=== PATIENT | female | born 1970 | race Caucasian/White ===

== ENCOUNTER 2020-05-26 21:53 | Emergency (ER) | payer OTHER, SELFPAY ==
--- NOTE | ~2020-05-26 | XR_ITS ---
EXAMINATION: XR chest 1V EXAM DATE: 05/26/2020 22:34 INDICATION: Cough, fatigue. TECHNIQUE: Portable AP frontal chest x-ray was obtained. There is no prior study for comparison. FINDINGS: There is ill-defined right midlung zone airspace disease, could be acute lung injury from C OVID-19, or other infectious process. Left lung is clear. No pneumothorax or pleural effusion. Cardio mediastinal silhouette is normal. IMPRESSION: Ill-defined right midlung zone acute airspace disease. Recommend considering/excluding C OVID-19. Reviewed, dictated and finalized at location A. IMPRESSION: Ill-defined right midlung zone acute airspace disease. Recommend c onsidering/excluding COVID-19.
[2020-05-26 21:54] VITALS: BP 144/78; PULSE 94; RESP 18; TEMP 37.4; O2SAT 94
[2020-05-26 22:08] VITALS: O2SAT 95
[2020-05-26 22:58] LABS: Basophils Percent Auto 0.1 % (0.2-1.2); Hematocrit 37.6 % (37.0-47.0); Hemoglobin 12.6 g/dL (12.0-15.0); Immature Granulocyte Absolute 0.03 K/mm3 (0.00-0.031); Immature Granulocyte Percent A 0.4 % (0-0.5); Lymphocytes Absolute Auto 1.28 K/mm3 (0.9-3.2); Lymphocytes Percent Auto 16.7 % (18.3-44.2); Mean Corpuscular HGB Conc 33.5 g/dl (32-36); Mean Corpuscular Hemoglobin 28.8 pg (26-34); Mean Corpuscular Volume 85.8 fl (80-100); Mean Platelet Volume 10.2 fl (7.4-10.4); Monocytes Absolute Auto 0.4 K/mm3 (0.1-0.6); Monocytes Percent Auto 5.4 % (2.6-8.5); Neutrophils Absolute Auto 5.9 K/mm3 (1.3-6.7); Neutrophils Percent Auto 77.4 % (45.5-73.1); Platelet Count Result 237 k/mm3 (150-375); Red Blood Count 4.38 M/mm3 (4.2-5.4); Red Cell Distribution Width 13.3 % (11.5-14.5); White Blood Count 7.7 K/mm3 (4.5-10.0)
--- NOTE | 2020-05-26 23:04 | ED.GENADULT ---
HPI - General Adult General Chief complaint: Unspecified Stated complaint: poss high bp. covid results pending Time Seen by Provider: 05/26/20 22:17 Source: patient Mode of arrival: ambulatory Limitations: no limitations History of Present Illness HPI narrative: 50 years old white female, obese presents with not feeling well for the last 7 days, 2 days ago started running fever and chills and coughing. 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 Related Data Home Medications Medication Instructions Recorded Confirmed hydrochlorothiazide 05/26/20 lisinopril 05/26/20 simvastatin mg 05/26/20 topiramate 05/26/20 05/26/20 Allergies Allergy/AdvReac Type Severity Reaction Status Date / Time acetaminophen Allergy Mild Hives Verified 05/26/20 22:11 hydrocodone Allergy Mild Heartburn Verified 05/26/20 22:11 propoxyphene Allergy Unknown Rash Verified 05/26/20 22:11 TAPE [ALL] Allergy Mild Rash Uncoded 05/26/20 22:11 Review of Systems Review of Systems: Narrative: CONSTITUTIONAL: Generalized weakness and tiredness EYES: Denies visual changes, redness, or discharge. ENT: Denies rhinorrhea, congestion, sore throat, or otalgia. CARDIOVASCULAR: Chest pain and coughing RESPIRATORY: Denies cough or dyspnea. GASTROINTESTINAL: Denies abdominal pain, nausea, vomiting, or diarrhea. GENITOURINARY: Denies dysuria or hematuria. SKIN: Denies rash or itching. MUSCULOSKELETAL: Back pain and general body aches NEUROLOGIC: Denies headache, numbness, or weakness. PSYCHIATRIC: Denies anxiety or depression. PMFSH Past Medical History Medical History (Updated 05/26/20 @ 23:32 by Leonor Booker MD) Hyperlipidemia Hypertension Family History Family History (Updated 06/02/18 @ 14:12 by DOCTOR UNKNOWN) Mother Family history of liver disease Father Family history of heart disease in male family member before age 55 Other Diabetes mellitus Family history of arthritis Family history of malignant neoplasm Hypertension Social History Social History Smoking status: Never smoker Alcohol intake: never Exam Narrative: Exam Narrative: General appearance: Well-developed, well-nourished. Patient does not look in pain or distress Skin: Normal color Head: Normocephalic, nontraumatic Eyes: Clear conjunctiva ENT: Oropharynx normal, ears normal, nose normal Neck: Supple, nontender Chest and respiratory: Airway patent, no respiratory distress, no accessory muscle use Heart: Regular rate/rhythm Abdomen: Soft, nontender, no organomegaly, quiet bowel sounds Vascular: Normal peripheral pulses, normal capillary refill. Musculoskeletal: Normal range of motion, nontender back Neurologic: Alert and oriented ?3, [employer] is normal as tested, no gross motor deficit Course Course Emergency Course: Stable Vital Signs Vital signs: Vital Signs Temperature 37.4 C 05/26/20 21:54 Pulse Rate 94 05/26/20 21:54 Respiratory Rate 18 05/26/20 21:54 Blood Pressure 144/78 H 05/26/20 21:54 Pulse Oximetry 94 05/26/20 21:54 Temperature 37.4 C 05/26/20 21:54 Pulse Rate 94 05/26/20 21:54 Respiratory Rate 18 05/26/20 21:54 Blood Pressure 144/78 H 05/26/20 21:54 Pulse Oximetry 95 05/26/20 22:08 Medical Decision Making [facility] Narrative Medical decision making narrative: Patient with not feeling well for the last few days, chest pain, coughing, My differential diagnosis pneumonia, COVID-19 infection. Patient had COVID-19 test earlier today, unknown result. Chest x-ray showed right middle lobe infiltration which could be bacterial versus COVID-19.. Patient will be discharged on Z-Deshawn f
[2020-05-26 23:12] LABS: Add Urine Microscopic? YES; Appearance Urine Clear (Clear); Bilirubin Urine Negative (Negative); Blood Urine Negative (Negative); Color Urine Yellow (Yellow); Glucose Urine UA Negative (Negative); Ketones Urine Negative (Negative); Leukocyte Esterase Ur Negative LEU/UL (Negative); Mucus Urine Rare /lpf; Nitrate Urine Negative (Negative); Protein Urine 1+ mg/dL (Negative); RBC Urine 0-2 /hpf (0-2); Specific Grav Ur 1.018 (1.001-1.035); Squamous Epithelial Cell Urine Occasional /hpf (Few); Urobilinogen Urine Negative mg/dL (<2.0); WBC Urine 0-3 /hpf
[2020-05-26 23:14] LABS: Alanine Aminotransferase 25 U/L (4-35); Albumin Level 4.1 g/dL (3.5-5.1); Alkaline Phosphatase 73 U/L (38-126); Anion Gap 10 mmol/L (8-16); Aspartate Amino Transferase 37 U/L (14-36); Bilirubin,Total 0.5 mg/dL (0.2-1.3); Blood Urea Nitrogen 12 mg/dL (7-17); Calcium 8.6 mg/dL (8.4-10.2); Carbon Dioxide 27 mmol/L (22-30); Chloride 97 mmol/L (98-107); Estimated Glomerular Filt Rate > 60; Glucose 133 mg/dL (65-105); Potassium 3.1 mmol/L (3.4-5.0); Sodium 134 mmol/L (137-145)
[2020-05-27 00:24] VITALS: BP 139/82; PULSE 84; RESP 20; O2SAT 97
== END 2020-05-27 00:27 | disposition home or self-care (01) ==
PROVIDERS: Emergency Provider Emergency Medicine; PCP Emergency Medicine
DX: E87.1 Hypo-osmolality and hyponatremia (principal); E87.6 Hypokalemia; J18.9 Pneumonia, unspecified organism; E78.5 Hyperlipidemia, unspecified; I10 Essential (primary) hypertension
CPT/HCPCS: 36415; 71045; 80053; 81001; 81025; 85025; 99283

== ENCOUNTER 2020-07-12 09:55 | Outpatient (CLI) | payer OTHER, SELFPAY ==
--- NOTE | ~2020-07-12 | MR_ITS ---
EXAMINATION: MR knee RT wo con DATE: 07/12/2020 10:57 INDICATION: Right knee pain and giving out TECHNIQUE: Magnetic resonance imaging (MRI) of the right knee was performed without intravenous contr ast. Sequences included coronal PD-weighted FSE, coronal PD-weighted FS FSE, sagittal T2-weighted FS E, sagittal PD-weighted FS FSE and axial PD weighted fat saturated FSE. COMPARISON: None. FINDINGS: There is mild motion artifact on the nonfat saturated sagittal images which only minimally limits elle luation. Medial compartment: Medial meniscus is normal. Partial-thickness cartilage loss and deep fissuring with mild underlying s ubarticular edema along the anterior weightbearing medial femoral condyle. Lateral compartment: Lateral meniscus is normal. Articular cartilage is normal. Patellofemoral compartment: Deep chondral fissuring at the medial and lateral patellar facets and intervening patellar apical rid ge, the latter with small focus of underlying subarticular edema. Cortical irregularity underlying a region of deep chondral ulceration and fissuring at the inferior aspect of the medial trochlea. Ligaments and tendons: Anterior and posterior cruciate ligaments are normal. There is thickening and mild increased signal a t the proximal medial collateral ligament without surrounding edema consistent with mild scarring rel ated to chronic sprain. The fibular collateral ligament is normal. The patellar tendon is normal. Mil d tendinopathy at the distal quadriceps tendon. The visualized medial and lateral hamstring tendons a s well as the iliotibial band are normal. Fluid: Physiologic amount of fluid in the joint space. No loose osteochondral bodies identified. Osseous/other: Bone alignment is normal. There is additional focal marrow edema underlying the intercondylar eminenc e. No fracture or pathologic marrow replacing process. IMPRESSION: 1. 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 Reviewed, dictated and finalized at location B. IMPRESSION: 1. 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
== END 2020-07-12 09:56 | disposition home or self-care (01) ==
LOC: ANHIMG 09:57
PROVIDERS: PCP Emergency Medicine; Visit Provider Nurse Practitioner Family
DX: M25.561 Pain in right knee (principal); M17.11 Unilateral primary osteoarthritis, right knee; M94.261 Chondromalacia, right knee
CPT/HCPCS: 73721

== ENCOUNTER 2021-04-02 12:16 | Outpatient (CLI) | payer OTHER, SELFPAY ==
--- NOTE | ~2021-04-02 | MR_ITS ---
EXAMINATION: MR hand RT wo con DATE: 04/02/2021 13:43 INDICATION: Right hand pain and mass. TECHNIQUE: Magnetic resonance imaging (MRI) of the right hand centered of the digits in excluding the carpus and proximal to mid metacarpals was performed without intravenous contrast. Sequences include d sagittal, coronal, and axial T1-weighted FSE and T2-weighted FS FSE. A marker was placed over the m ass of concern. COMPARISON: Right hand radiographs dated 03/26/2021. FINDINGS: Bone alignment is normal with normal marrow signal throughout. No reactive edema, fracture or patholo gic marrow replacing process. Joint spaces are normal with no effusions or erosions. The flexor and e xtensor tendons and the collateral ligament complex at the metacarpophalangeal and interphalangeal glenna ints are normal. The visualized intrinsic musculature of the hand is normal. No abnormal masses or fl uid collections identified. IMPRESSION: 1. Normal MRI of the digits of the right hand. No abnormal masses or fluid collections identified. Reviewed, dictated and finalized at location A. IMPRESSION: 1. Normal MRI of the digits of the right hand. No abnormal masses or fluid opal ections identified.
== END 2021-04-02 12:17 | disposition home or self-care (01) ==
LOC: ANHIMG 12:25
PROVIDERS: PCP Emergency Medicine; Visit Provider Nurse Practitioner Family
DX: M79.641 Pain in right hand (principal)
CPT/HCPCS: 73218

== ENCOUNTER 2021-04-03 14:31 | Outpatient (CLI) | payer OTHER, SELFPAY ==
--- NOTE | ~2021-04-03 | XR_ITS ---
XR chest 2V DATE: 04/03/2021 14:47 INDICATION: Pneumonia follow-up TECHNIQUE: PA and lateral views COMPARISON: 05/26/2020 portable AP chest FINDINGS: Normal heart size. No hilar or mediastinal enlargement. The lungs are clear of infiltrate o r consolidation. No pleural effusion or pulmonary vascular congestion or pneumothorax. IMPRESSION: No active cardiopulmonary disease Reviewed, dictated and finalized at location A.
== END 2021-04-03 14:32 | disposition home or self-care (01) ==
LOC: ANHIMG 14:34
PROVIDERS: PCP Emergency Medicine; Visit Provider Emergency Medicine
DX: J18.9 Pneumonia, unspecified organism (principal)
CPT/HCPCS: 71046

== ENCOUNTER 2021-04-06 08:08 | Outpatient (CLI) | payer OTHER, SELFPAY ==
--- NOTE | ~2021-04-06 | MM_ITS ---
EXAMINATION: MM screening kay BI w bryce HISTORY: Screening TECHNIQUE: Craniocaudal and mediolateral oblique 3-D tomosynthesis images were obtained and synthetic 2-D images were generated. CAD analysis was submitted and interpreted. COMPARISON: Comparison to multiple prior studies sequentially, with oldest reviewed study dated 10/11. BREAST PARENCHYMAL COMPOSITION: The breasts are almost entirely fatty. FINDINGS: There is no evidence of suspicious mass, calcification, or architectural distortion to sugg est malignancy in either breast. There has been no suspicious interval change. IMPRESSION: 1. No mammographic evidence of malignancy. 2. Recommend routine screening mammography in one year. BI-RADS Category 1: Negative Reviewed, dictated and finalized at location A.
== END 2021-04-06 08:09 | disposition home or self-care (01) ==
LOC: ANHIMG 08:11
PROVIDERS: PCP Emergency Medicine; Visit Provider Obstetrics & Gynecology
DX: Z12.31 Encounter for screening mammogram for malignant neoplasm of breast (principal)
CPT/HCPCS: 77063; 77067

== ENCOUNTER 2021-05-29 00:31 | Day surgery (SDC) | payer OTHER, SELFPAY ==
[2021-05-22 14:11] VITALS: BMI 42.3
[2021-05-29 07:45] VITALS: BP 140/81; PULSE 80; RESP 18; TEMP 36.7; O2SAT 98; BMI 41.4
[2021-05-29] MEDS: LACTATED RINGERS 1,000 ML 150 ML IV CONT (07:48)
--- NOTE | 2021-05-29 08:25 | WPDANESEPPF ---
Anes - Initial Pre Proc Eval Procedure: Operation Date: 05/29/21 09:00 Proposed Procedures p Screening Colonoscopy - Raji Ramirez MD Date/Time: 05/29/21 08:25 Surgeon: Raji Ramirez MD Pre Op Diagnosis: neoplasm screening Z12.11 Patient Data Age: 51 Gender: F Height: 1.68 m Weight: 116.5 kg Last Vital Signs Temp 98.1 F 05/29/21 07:45 Pulse 80 05/29/21 07:45 Resp 18 05/29/21 07:45 BP 140/81 05/29/21 07:45 Pulse Ox 98 05/29/21 07:45 Allergies Allergy/AdvReac Type Severity Reaction Status Date / Time hydrocodone Allergy Intermediate Palpitation Verified 05/29/21 07:44 s propoxyphene Allergy Intermediate Rash Verified 05/29/21 07:44 TAPE [ALL] Allergy Mild Rash Uncoded 05/29/21 07:44 Home Medications Medication Instructions Recorded Confirmed Type hydrochlorothiazide 12.5 mg PO DAILY 05/26/20 05/29/21 History lisinopril 10 mg PO DAILY 05/26/20 05/29/21 History potassium chloride 20 meq PO BID 5 Days #10 each 05/26/20 05/29/21 Rx simvastatin 40 mg PO DAILY 05/26/20 05/29/21 History topiramate 50 mg PO DAILY 05/26/20 05/29/21 History Adults Multivitamin 1 cap PO DAILY 05/22/21 05/29/21 History Calcium 600 + D(3) 1 cap PO DAILY 05/22/21 05/29/21 History aspirin [Adult Aspirin EC Low 81 mg PO DAILY 05/22/21 05/29/21 History Strength] biotin 5,000 mcg PO DAILY 05/22/21 05/29/21 History bupropion HCl 150 mg PO BID 05/22/21 05/29/21 History cetirizine [Zyrtec] 10 mg PO HS 05/22/21 05/29/21 History cholecalciferol (vitamin D3) 50 mcg PO DAILY 05/22/21 05/29/21 History [Vitamin D3] citalopram 20 mg PO HS 05/22/21 05/29/21 History omeprazole 20 mg PO DAILY 05/22/21 05/29/21 History vitamin E 100 unit PO DAILY 05/22/21 05/29/21 History Patient hx anesthesia problems: none Family hx anesthesia problems: none [facility] Past Medical History Medical History (Updated 03/27/21 @ 16:03 by Lashay Cloud) Arthritis Depression Hyperlipidemia Hypertension Injury of toe on left foot Left knee DJD Mass of finger of right hand MCL sprain of right knee Medial meniscus tear Right hand pain Right knee DJD Right knee pain Sleep apnea Vision abnormalities Wears glasses Family History Family History Mother Family history of liver disease Father Family history of heart disease in male family member before age 55 Other Diabetes mellitus Family history of arthritis Family history of malignant neoplasm Hypertension Social History Social History Smoking status: Never smoker Alcohol intake: never Substance use: never Substance use type: does not use Living arrangements: with family Spiritual care concerns: No Anes - Eval Final PreProcedure Day of Procedure 05/29/21 08:25 Patient weight: morbidly obese Heart: regular rate and rhythm Lungs: clear to auscultation Airway: Mallampati scale class III Neurological: alert and oriented Last oral intake: >/= 8 hours ASA classification: III Emergent: no Anesthetic plan: proceed Anesthesia type and monitoring: general GIVS and standard monitoring Informed Consent: The patient's anesthetic plan and its attendant risks and benefits were discussed with the patient/family/POA. Questions were solicited and answers provided to the satisfaction of the patient/family/POA.
--- NOTE | 2021-05-29 08:32 | PM.HPGS ---
History of Present Illness History of Present Illness Consent: Risks, benefits, and alternatives have been discussed and questions answered. Patient agrees to proceed with procedure. Chief complaint: neoplasm screening Z12.11 Narrative: Jennifer Quarles is a 51 year old female here for first screening colonoscopy Review of Systems Constitutional: Constitutional: Denies headache(s) and Denies weakness Eyes: Eyes: Denies blurry vision ENT: Reports Normal hearing present, Denies headache(s) and Denies neck pain Cardiovascular: Cardiovascular: Denies chest pain and Denies dyspnea Respiratory: Respiratory: Denies dyspnea Gastrointestinal: Gastrointestinal: Reports no additional gastrointestinal complaints Genitourinary: Genitourinary: Denies dysuria Musculoskeletal: Musculoskeletal: Denies neck pain Integumentary/Breasts: Skin/Breast: Denies dry skin Neurologic: Reports Normal hearing present, Denies headache(s) and Denies weakness Psychiatric: Psychiatric: Denies anxiety Endocrine: Endocrine: Denies change in body appearance Hematologic/Lymphatic: Hematologic/Lymphatic: Denies easy bleeding Allergic/Immunologic: Allergic/Immunologic: Denies urticaria PMFSH Past Medical History Medical History (Updated 05/29/21 @ 08:32 by Raji Ramirez MD) Arthritis Colon cancer screening Depression Hyperlipidemia Hypertension Injury of toe on left foot Left knee DJD Mass of finger of right hand MCL sprain of right knee Medial meniscus tear Right hand pain Right knee DJD Right knee pain Sleep apnea Vision abnormalities Wears glasses Family History Family History Mother Family history of liver disease Father Family history of heart disease in male family member before age 55 Other Diabetes mellitus Family history of arthritis Family history of malignant neoplasm Hypertension Social History Social History Smoking status: Never smoker Alcohol intake: never Substance use: never Substance use type: does not use Living arrangements: with family Spiritual care concerns: No Meds Home Medications and Allergies Home Medications Medication Instructions Recorded Confirmed Type hydrochlorothiazide 12.5 mg PO DAILY 05/26/20 05/29/21 History lisinopril 10 mg PO DAILY 05/26/20 05/29/21 History potassium chloride 20 meq PO BID 5 Days #10 each 05/26/20 05/29/21 Rx simvastatin 40 mg PO DAILY 05/26/20 05/29/21 History topiramate 50 mg PO DAILY 05/26/20 05/29/21 History Adults Multivitamin 1 cap PO DAILY 05/22/21 05/29/21 History Calcium 600 + D(3) 1 cap PO DAILY 05/22/21 05/29/21 History aspirin [Adult Aspirin EC Low 81 mg PO DAILY 05/22/21 05/29/21 History Strength] biotin 5,000 mcg PO DAILY 05/22/21 05/29/21 History bupropion HCl 150 mg PO BID 05/22/21 05/29/21 History cetirizine [Zyrtec] 10 mg PO HS 05/22/21 05/29/21 History cholecalciferol (vitamin D3) 50 mcg PO DAILY 05/22/21 05/29/21 History [Vitamin D3] citalopram 20 mg PO HS 05/22/21 05/29/21 History omeprazole 20 mg PO DAILY 05/22/21 05/29/21 History vitamin E 100 unit PO DAILY 05/22/21 05/29/21 History Allergies Allergy/AdvReac Type Severity Reaction Status Date / Time hydrocodone Allergy Intermediate Palpitation Verified 05/29/21 07:44 s propoxyphene Allergy Intermediate Rash Verified 05/29/21 07:44 TAPE [ALL] Allergy Mild Rash Uncoded 05/29/21 07:44 Vital Signs Vital Signs - 24 hr 05/29/21 07:45 Temperature 98.1 F Pulse Rate 80 Respiratory Rate 18 Blood Pressure 140/81 Pulse Oximetry 98 Exam Const: General: comfortable and no acute distress HENMT: General nose exam: Normal nares present Eyes: General: appearance normal, both eyes and all related structures Neck: Neck: no JVD Resp: Auscultation: clear to auscultation bilaterally Cardio: Rate: regular rate Rhythm: regular rhythm GI:
[2021-05-29 08:53] VITALS: BP 118/53; PULSE 75; RESP 21; O2SAT 100
[2021-05-29 09:03] VITALS: BP 106/55; PULSE 68; RESP 24; O2SAT 100
[2021-05-29 09:13] VITALS: BP 101/54; PULSE 72; RESP 18; O2SAT 100
== END 2021-05-29 09:21 | disposition home or self-care (01) ==
PROVIDERS: PCP Emergency Medicine; Visit Provider Internal Medicine Gastroenterology
PROC: 0DJD8ZZ Inspection of Lower Intestinal Tract, Via Natural or Artificial Opening Endoscopic (ICD-10-PCS; CPT 45378; principal; 2021-05-29 09:00)
DX: Z12.11 Encounter for screening for malignant neoplasm of colon (principal); K64.8 Other hemorrhoids; M19.90 Unspecified osteoarthritis, unspecified site; F32.9 Major depressive disorder, single episode, unspecified; I10 Essential (primary) hypertension; G47.30 Sleep apnea, unspecified; Z79.82 Long term (current) use of aspirin; E78.5 Hyperlipidemia, unspecified; E66.01 Morbid (severe) obesity due to excess calories; Z68.41 Body mass index [BMI] 40.0-44.9, adult
CPT/HCPCS: 45378; J2704; J7120

== ENCOUNTER 2022-07-25 09:07 | Outpatient (CLI) | payer OTHER, SELFPAY ==
--- NOTE | ~2022-07-25 | CT_ITS ---
EXAMINATION: CT abdomen wo/w con INDICATION: Right kidney mass TECHNIQUE: Computed tomographic images of the abdomen were obtained prior to then following the admin istration of 100 cc of Omnipaque 350 intravenous contrast. The dose-length product (DLP) was 1826.16 mGy-cm. Automated exposure control and iterative reconstruction technique were employed. COMPARISON: 07/21/2016 FINDINGS: Minimal dependent atelectasis is present in the lung bases. The heart size is normal. The l iver, spleen, pancreas, gallbladder, and adrenal glands are normal. There is a 7.4 x 4.6 cm cyst of t he right kidney. Hypoattenuating lesions of the kidneys, measuring 3 mm on the right and 4 mm on the left, are too small to characterize but likely represent cysts. There are no pathologically enlarged abdominal lymph nodes. There is no free intraperitoneal gas or evidence of bowel obstruction. There i s a tiny umbilical hernia containing fat. IMPRESSION: 1. Right kidney cyst. Reviewed, dictated and finalized at location B. RITY LEAD IMPRESSION: 1. Right kidney cyst.
[2022-07-25 09:24] LABS: Estimated Glomerular Filt Rate 58
== END 2022-07-25 09:08 | disposition home or self-care (01) ==
PROVIDERS: PCP Emergency Medicine; Visit Provider Emergency Medicine
DX: N28.1 Cyst of kidney, acquired (principal)
CPT/HCPCS: 74170; Q9967

== ENCOUNTER 2022-08-20 15:30 | Outpatient (RCR) | payer OTHER, SELFPAY ==
--- NOTE | 2022-07-23 15:59 | PTOPEVAL1 ---
Assessment and note entered by Judy Frazier, PT Evaluation Information Assessment Status Evaluation Diagnosis L peroneal tendonitis; pain in L lower leg; achilles tendonitis Onset December 2021 Subjective Information have history of 2 L ankle fractures- non surgical; in December had L bunionectomy; wore walking boot 2 months; still had pain-- had injection L ankle- helped with pain, but still hurt; have had issues with L ankle for a long time; fell last week, stepped on uneven ground, twisted ankle and hurt it again; wear a compression knee high sock and velcro ankle brace with lace up; have not been doing any exercises for ankle; Reported Pain Level Pain Score Self Report Additional Pain Score Comments pain range L ankle 3-10/10; sharp, stabbing, burning pain; increase pain with walking over 2 hours; decrease pain sit and rest, elevate leg in recliner; is not taking any pain med for ankle; is on lyrica; have not used ice- instruct PRN use; have issues falling asleep due to ankle pain, once asleep is OK; generally sleep on sides- instruct on use of pillow between knees/ankles Assessment PT Clinical Summary Jennifer has the diagnosis of L peroneal tendonitis, lower leg pain and achilles tendonitis. Her history includes bunionectomy in December and 2 non surgical ankle fractures. She reports pain with walking/standing over 2 hours and problems falling asleep due to ankle pain. With the evaluation: L ankle ROM is WNL, except slight tightness with DF, and pain with all motions, inversion most pain increase; decreased weight bearing tolerance with standing and single leg standing on L LE; she walks with a limp on L and is using a compression knee high sock and lace up ankle support brace. There is tenderness over area distal to lateral malleoli and distal achilles tendon. Skilled PT services are indicated for modalities to decrease pain, therapeutic exercises to increase ankle DF ROM and strength of L ankle, with education for home exercises. Plan of Care Interventions Electrical Stimulation,Gait Training,Manual Therapy,Patient/Caregiver Education,Therapeutic Activities,Therapeutic Exercise,Ultrasound,Other Other Interventions
--- NOTE | 2022-08-20 15:54 | PTOPDC ---
Assessment and note entered by Judy Frazier, PT Evaluation Information Assessment Status Discharge Diagnosis L peroneal tendonitis; pain in L lower leg; achilles tendonitis Onset December 2021 Subjective Information Jennifer reports: ankle pain is the same; have been doing the exercises, but not overdoing them to cause more pain; Discussed with pt aquatic exercises for overall fitness exercises, she does not have access to a pool, but may think about joining a fitness center. Reported Pain Level Pain Score Self Report Additional Pain Score Comments pain range of 3-10/10; aching, sometimes burning and stabbing; increase pain with walking/standing 10-15 min, have to sit and rest, then get back up again; issues with sleeping due to overall pain, can usually get ankle comfortable; decrease pain with sitting, resting, ice, wearing ankle lace up- support brace; R ankle also hurting--wearing ankle brace on it too; also back and hip pain; Assessment PT Clinical Summary Jennifer has received 6 PT sessions for her L ankle. Compared to the initial evaluation: pain rating is the same; reported standing/walking tolerance is the same; sleeping is slightly better; increase strength of L ankle in sitting and standing exercises; slight increase in ankle DF ROM; still has pain with ankle PF, inversion and eversion motions. The goals were partially achieved; Discharge PT services and she is to continue with her exercises at home. Plan of Care PT Services Indicated No
== END 2022-08-21 08:40 | disposition home or self-care (01) ==
LOC: ANHPT 15:30
PROVIDERS: PCP Emergency Medicine; Visit Provider Podiatrist Foot & Ankle Surgery
DX: M76.72 Peroneal tendinitis, left leg (principal); M76.62 Achilles tendinitis, left leg
CPT/HCPCS: 97035; 97110; 97112; 97140; 97161

== ENCOUNTER 2022-10-15 12:30 | Emergency (ER) | payer OTHER, SELFPAY ==
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
[2022-10-15 12:34] VITALS: BP 153/82; PULSE 73; RESP 16; TEMP 36.8; O2SAT 99
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
[2022-10-15] MEDS: LIDOCAINE 5% PATCH 1 PATCH TRANSDERM (14:18)
[2022-10-15] MEDS: ACETAMINOPHEN 325 MG TABLET 650 MG PO (14:21)
[2022-10-15] MEDS: IBUPROFEN 600 MG TABLET PO (14:21)
== END 2022-10-15 16:00 | disposition home or self-care (01) ==
PROVIDERS: Emergency Provider Physician Assistant; PCP Emergency Medicine
DX: S19.9XXA Unspecified injury of neck, initial encounter (principal); S39.92XA Unspecified injury of lower back, initial encounter; E78.5 Hyperlipidemia, unspecified; I10 Essential (primary) hypertension; M17.0 Bilateral primary osteoarthritis of knee; M35.07 Sjogren syndrome with central nervous system involvement; G47.30 Sleep apnea, unspecified; F41.9 Anxiety disorder, unspecified; F32.A Depression, unspecified; Z79.82 Long term (current) use of aspirin; Z90.710 Acquired absence of both cervix and uterus; Z90.721 Acquired absence of ovaries, unilateral; M47.812 Spondylosis without myelopathy or radiculopathy, cervical region; V49.40XA Driver injured in collision with unspecified motor vehicles in traffic accident, initial encounter
CPT/HCPCS: 72125; 72131; 99284; A9270

== ENCOUNTER 2022-10-22 14:25 | Emergency (ER) | payer OTHER, SELFPAY ==
--- NOTE | ~2022-10-22 | XR_ITS ---
EXAMINATION: XR elbow RT min 3V DATE: 10/22/2022 15:28 INDICATION: Right elbow injury and pain. TECHNIQUE: 4 views of right elbow were obtained. COMPARISON: None. FINDINGS: Bone alignment is normal. No fracture. Joint spaces are well maintained. There are enthesop hytes at the medial and lateral humeral epicondyles. There is no elbow joint effusion. IMPRESSION: 1. No fracture. Reviewed, dictated and finalized at location A. H DRESSER IMPRESSION: 1. No fracture.
--- NOTE | ~2022-10-22 | XR_ITS ---
EXAMINATION: XR forearm RT 2V DATE: 10/22/2022 15:29 INDICATION: Right forearm injury and pain. TECHNIQUE: 2 views of right forearm were obtained. COMPARISON: None. FINDINGS: Bone alignment is normal. No fracture. Joint spaces are well maintained. There is no elbow joint effusion. IMPRESSION: 1. No fracture. Reviewed, dictated and finalized at location A. ION PADDER IMPRESSION: 1. No fracture.
--- NOTE | ~2022-10-22 | XR_ITS ---
EXAMINATION: XR ankle RT min 3V DATE: 10/22/2022 15:28 INDICATION: Right ankle pain. TECHNIQUE: 4 views of right ankle were obtained. COMPARISON: None. FINDINGS: Bone alignment is normal. No fracture. There is mild osteoarthritis of the midfoot and ankl e joint including an osteochondral lesion of medial talar dome. There is an enthesophyte at posterior aspect of calcaneal tuberosity. IMPRESSION: 1. Polyarticular osteoarthritis. Reviewed, dictated and finalized at location A. [employer]
[2022-10-22 14:26] VITALS: BP 143/57; PULSE 86; RESP 20; TEMP 37; O2SAT 100
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
--- NOTE | 2022-10-22 15:18 | PC.NURSE ---
Radiology at bedside to obtain xrays.
--- NOTE | 2022-10-22 16:13 | PC.NURSE ---
Patient declines FATUMA wrap.
== END 2022-10-22 16:52 | disposition home or self-care (01) ==
PROVIDERS: Emergency Provider Physician Assistant; PCP Emergency Medicine
DX: S99.911A Unspecified injury of right ankle, initial encounter (principal); S50.11XA Contusion of right forearm, initial encounter; E78.5 Hyperlipidemia, unspecified; I10 Essential (primary) hypertension; M35.07 Sjogren syndrome with central nervous system involvement; G47.30 Sleep apnea, unspecified; M17.0 Bilateral primary osteoarthritis of knee; M19.071 Primary osteoarthritis, right ankle and foot; F32.A Depression, unspecified; F41.9 Anxiety disorder, unspecified; Z79.82 Long term (current) use of aspirin; Z90.710 Acquired absence of both cervix and uterus; Z90.721 Acquired absence of ovaries, unilateral; V49.40XA Driver injured in collision with unspecified motor vehicles in traffic accident, initial encounter
CPT/HCPCS: 73080; 73090; 73610; 99284

== ENCOUNTER 2023-02-19 00:16 | Day surgery (SDC) | payer OTHER, SELFPAY ==
[2023-02-12 14:42] VITALS: BMI 42.0
--- NOTE | 2023-02-19 08:47 | WPDANESEPPF ---
Anes - Initial Pre Proc Eval Procedure: Operation Date: 02/19/23 10:15 Proposed Procedures p Esophagogastroduodenoscopy - aRji Ramirez MD Date/Time: 02/19/23 08:47 Surgeon: Raji Ramirez MD Pre Op Diagnosis: GERD, nausea, bloating Patient Data Age: 52 Gender: F Height: 1.68 m Weight: 118 kg Allergies Allergy/AdvReac Type Severity Reaction Status Date / Time hydrocodone Allergy Intermediate Palpitation Verified 02/19/23 08:56 s propoxyphene Allergy Intermediate Rash Verified 02/19/23 08:56 adhesive tape Allergy Mild Rash Verified 02/19/23 08:56 Home Medications Medication Instructions Recorded Confirmed Type hydrochlorothiazide 12.5 mg capsule 12.5 mg PO DAILY 05/26/20 02/12/23 History lisinopril 10 mg tablet 10 mg PO DAILY 05/26/20 02/12/23 History topiramate 50 mg tablet 50 mg PO DAILY 05/26/20 02/12/23 History Adults Multivitamin 1 cap PO DAILY 05/22/21 02/12/23 History Calcium 600 + D(3) 1 cap PO DAILY 05/22/21 02/12/23 History aspirin 81 mg tablet,delayed 81 mg PO DAILY 05/22/21 02/12/23 History release biotin 5,000 mcg disintegrating 5,000 mcg PO DAILY 05/22/21 02/12/23 History tablet bupropion HCl 150 mg tablet,12 hr 150 mg PO BID 05/22/21 02/12/23 History sustained-release cetirizine 10 mg tablet (Zyrtec) 10 mg PO HS 05/22/21 02/12/23 History cholecalciferol (vitamin D3) 50 50 mcg PO DAILY 05/22/21 02/12/23 History mcg (2,000 unit) capsule (Vitamin D3) omeprazole 20 mg capsule,delayed 20 mg PO DAILY 05/22/21 02/12/23 History release vitamin E 100 unit capsule 100 unit PO DAILY 05/22/21 02/12/23 History rosuvastatin 20 mg tablet 20 mg PO DAILY 12/05/21 02/12/23 History azelastine 137 mcg (0.1 %) nasal 1 spray intranasal Q12H PRN 02/12/23 02/12/23 History spray aerosol Allergy Symptoms duloxetine 60 mg capsule,delayed 60 mg PO DAILY 02/12/23 02/12/23 History release (Cymbalta) fluticasone propionate 50 1 - 2 spray intranasal BID PRN 02/12/23 02/12/23 History mcg/actuation nasal Allergy Symptoms spray,suspension (Flonase Allergy Relief) meloxicam 15 mg tablet 15 mg PO DAILY 02/12/23 02/12/23 History Patient hx anesthesia problems: none Family hx anesthesia problems: none Results Review: All pre-operative results and documents have been reviewed as part of the pre-operative evaluation. [facility] Past Medical History Medical History (Updated 02/19/23 @ 08:49 by Conor Dash MD) Anxiety Arthritis Bunion of left foot Colon cancer screening Depression Hyperlipidemia Hypertension Injury of toe on left foot Left knee DJD Lupus Mass of finger of right hand MCL sprain of right knee Medial meniscus tear Morbid obesity with BMI of 40.0-44.9, adult JAMMIE (obstructive sleep apnea) PND (post-nasal drip) Right hand pain Right knee DJD Right knee pain Screening mammogram, encounter for Sjogren syndrome with central nervous system involvement Sleep apnea Uterine cancer Vision abnormalities Wears glasses Surgical History Surgical History History of hysterectomy History of left oophorectomy History of sinus surgery History of tubal ligation Family History Family History Mother Family history of liver disease Cirrhosis of liver Father Family history of heart disease in male family member before age 55 Scleredema Sibling Diabetes mellitus sister brother Hypertension sister brother Grandparent Breast cancer maternal grandmother Other Family history of arthritis Family history of malignant neoplasm Social History Social History Smoking status: Former smoker Alcohol intake: never Substance use: never Substance use type: does not use Living arrangements: with family Additional living arrangements commen
[2023-02-19 08:58] VITALS: BP 131/78; PULSE 88; RESP 19; TEMP 36.5; O2SAT 97
[2023-02-19] MEDS: LACTATED RINGERS 1,000 ML 150 ML IV CONT (09:12)
--- NOTE | 2023-02-19 09:45 | PM.HPGS ---
History of Present Illness History of Present Illness Consent: Risks, benefits, and alternatives have been discussed and questions answered. Patient agrees to proceed with procedure. Chief complaint: GERD, nausea, bloating Narrative: Jennifer Quarles is a 52 year old female with gerd, pepcid was not helping and finally omeprazole working much better, never had egd Review of Systems Constitutional: Constitutional: Denies headache(s) and Denies weakness Eyes: Eyes: Denies blurry vision ENT: Reports Normal hearing present, Denies headache(s) and Denies neck pain Cardiovascular: Cardiovascular: Denies chest pain and Denies dyspnea Respiratory: Respiratory: Denies dyspnea Gastrointestinal: Gastrointestinal: Reports no additional gastrointestinal complaints Genitourinary: Genitourinary: Denies dysuria Musculoskeletal: Musculoskeletal: Denies neck pain Integumentary/Breasts: Skin/Breast: Denies dry skin Neurologic: Reports Normal hearing present, Denies headache(s) and Denies weakness Psychiatric: Psychiatric: Denies anxiety Endocrine: Endocrine: Denies change in body appearance Hematologic/Lymphatic: Hematologic/Lymphatic: Denies easy bleeding Allergic/Immunologic: Allergic/Immunologic: Denies urticaria PMFSH Past Medical History Medical History (Updated 02/19/23 @ 09:45 by Raji Ramirez MD) Anxiety Arthritis Bunion of left foot Colon cancer screening Depression GERD (gastroesophageal reflux disease) Hyperlipidemia Hypertension Injury of toe on left foot Left knee DJD Lupus Mass of finger of right hand MCL sprain of right knee Medial meniscus tear Morbid obesity with BMI of 40.0-44.9, adult JAMMIE (obstructive sleep apnea) PND (post-nasal drip) Right hand pain Right knee DJD Right knee pain Screening mammogram, encounter for Sjogren syndrome with central nervous system involvement Sleep apnea Uterine cancer Vision abnormalities Wears glasses Surgical History Surgical History History of hysterectomy History of left oophorectomy History of sinus surgery History of tubal ligation Family History Family History Mother Family history of liver disease Cirrhosis of liver Father Family history of heart disease in male family member before age 55 Scleredema Sibling Diabetes mellitus sister brother Hypertension sister brother Grandparent Breast cancer maternal grandmother Other Family history of arthritis Family history of malignant neoplasm Social History Social History Smoking status: Former smoker Alcohol intake: never Substance use: never Substance use type: does not use Living arrangements: with family Additional living arrangements comments: 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ion (if Verbalized by the Patient): Straight or Heterosexual Spiritual care concerns: No Meds Home Medications and Allergies Home Medications Medication Instructions Recorded Confirmed Type hydrochlorothiazide 12.5 mg capsule 12.5 mg PO DAILY 05/26/20 02/12/23 History lisinopril 10 mg tablet 10 mg PO DAILY 05/26/20 02/12/23 History topiramate 50 mg tablet 50 mg PO DAILY 05/26/20 02/12/23 History Adults Multivitamin 1 cap PO DAILY 05/22/21 02/12/23 History Calcium 600 + D(3) 1 cap PO DAILY 05/22/21 02/12/23 History aspirin 81 mg tablet,delayed 81 mg PO DAILY 05/22/21 02/12/23 History release biotin 5,000 mcg disintegrating 5,000 mcg PO DAILY 05/22/21 02/12/23 History tablet bupropion HCl 150 mg tablet,12 hr 150 mg PO BID 05/22/21 02/12/23 History sustained-release cetirizine 10 mg tablet (Zyrtec) 10 mg PO HS 05/22/21 02/12/23 Histo
[2023-02-19 09:58] VITALS: BP 86/43; PULSE 75; RESP 22; O2SAT 98
[2023-02-19 10:08] VITALS: BP 92/47; PULSE 74; RESP 22; O2SAT 100
[2023-02-19 10:18] VITALS: BP 110/58; PULSE 76; RESP 20; O2SAT 100
== END 2023-02-19 10:30 | disposition home or self-care (01) ==
PROVIDERS: PCP Emergency Medicine; Visit Provider Internal Medicine Gastroenterology
PROC: 0DJ08ZZ Inspection of Upper Intestinal Tract, Via Natural or Artificial Opening Endoscopic (ICD-10-PCS; CPT 43235; principal; 2023-02-19 10:15)
DX: K21.9 Gastro-esophageal reflux disease without esophagitis (principal); K44.9 Diaphragmatic hernia without obstruction or gangrene; I10 Essential (primary) hypertension; E78.5 Hyperlipidemia, unspecified; M35.07 Sjogren syndrome with central nervous system involvement; G47.33 Obstructive sleep apnea (adult) (pediatric); F32.A Depression, unspecified; F41.9 Anxiety disorder, unspecified; M32.9 Systemic lupus erythematosus, unspecified; Z85.42 Personal history of malignant neoplasm of other parts of uterus; E66.01 Morbid (severe) obesity due to excess calories; Z68.41 Body mass index [BMI] 40.0-44.9, adult; Z87.891 Personal history of nicotine dependence; Z79.82 Long term (current) use of aspirin
CPT/HCPCS: 43239; 88305; J2704; J7120

== ENCOUNTER 2023-06-25 14:54 | Outpatient (CLI) | payer OTHER, SELFPAY ==
--- NOTE | ~2023-06-25 | MM_ITS ---
EXAMINATION: MM screening kay BI w bryce HISTORY: Screening mammogram TECHNIQUE: Craniocaudal and mediolateral oblique 3-D tomosynthesis images were obtained and synthetic 2-D images were generated. CAD analysis was submitted and interpreted. COMPARISON: 04/06/2021, 04/26/2019 bilateral screening mammogram examinations BREAST PARENCHYMAL COMPOSITION: The breasts are almost entirely fatty. FINDINGS: There is no evidence of suspicious mass, calcification, or architectural distortion to sugg est malignancy in either breast. There has been no suspicious interval change. IMPRESSION: 1. No mammographic evidence of malignancy. 2. Recommend routine screening mammography in one year. BI-RADS Category 1: Negative Reviewed, dictated and finalized at location A.
== END 2023-06-25 14:55 | disposition home or self-care (01) ==
LOC: ANHIMG 14:56
PROVIDERS: PCP Emergency Medicine; Visit Provider Obstetrics & Gynecology
DX: Z12.31 Encounter for screening mammogram for malignant neoplasm of breast (principal)
CPT/HCPCS: 77063; 77067

== ENCOUNTER 2024-04-05 06:48 | Emergency (ER) | payer OTHER, SELFPAY ==
--- NOTE | ~2024-04-05 | CT_ITS ---
EXAMINATION: CT brain wo con DATE: 04/05/2024 07:48 INDICATION: Fall with head injury and head pain TECHNIQUE: Computed tomography (CT) of the head was performed without intravenous contrast. Sagittal and coronal reconstructions were performed. The mA was adjusted according to patient size. Iterative reconstruction technique was employed. The dose-length product was 605.33 mGy-cm. COMPARISON: Brain MR dated 07/21/2016 FINDINGS: No fracture. No acute intracranial hemorrhage, acute infarction or abnormal extra axial fluid collect ion. Ventricles are normal and symmetric with normal variant cavum septum pellucidum. No mass/mass ef fect. The orbits, paranasal sinuses and mastoid air cells are normal. IMPRESSION: 1. No fracture or acute intracranial process. Reviewed, dictated and finalized at location A.
--- NOTE | ~2024-04-05 | XR_ITS ---
EXAMINATION: XR hand LT min 3V DATE: 04/05/2024 07:50 INDICATION: Left hand pain at the thumb radiating to the wrist TECHNIQUE: Posteroanterior, oblique and lateral views of the left hand were obtained. COMPARISON: None. FINDINGS: Alignment is normal. No fracture. Mild polyarticular osteoarthritis at the distal radioulnar, first m etacarpophalangeal and multiple interphalangeal joints with distal predominance. Soft tissues are unr emarkable. IMPRESSION: 1. 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 No acute osseous abnormality. Reviewed, dictated and finalized at location A. IMPRESSION: 1. 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 No acute osseo us abnormality.
[2024-04-05 06:52] VITALS: BP 150/84; PULSE 85; RESP 12; TEMP 36.9; O2SAT 100
--- NOTE | 2024-04-05 07:29 | PC.NURSE ---
Assumed care of pt. Pt c/o left wrist pain ice pack intact. Tender upon palpitation CMS intact. Pt reports hit left temporal area of head, denies dizziness, visual changes or pain
--- NOTE | 2024-04-05 07:45 | ED.GENADULT ---
HPI - General Adult General Chief complaint: Extremity Injury, Upper Stated complaint: glf with left hand injury Time Seen by Provider: 04/05/24 07:01 History of Present Illness HPI narrative: Patient is a 53-year-old female who presents ER with pain to the left wrist/hand. Patient slipped in the bathroom yesterday falling into the bathtub striking her head and injuring her wrist. No pain in wrist yesterday but today it is very stiff in worse with flexion and extension. She is not on blood thinners. No LOC yesterday. No neck pain. Related Data Home Medications Medication Instructions Recorded Confirmed hydrochlorothiazide 12.5 mg capsule 12.5 mg PO DAILY 05/26/20 03/22/24 lisinopril 10 mg tablet 10 mg PO DAILY 05/26/20 03/22/24 topiramate 50 mg tablet 50 mg PO DAILY 05/26/20 03/22/24 Adults Multivitamin 1 cap PO DAILY 05/22/21 03/22/24 Calcium 600 + D(3) 1 cap PO DAILY 05/22/21 03/22/24 aspirin 81 mg tablet,delayed 81 mg PO DAILY 05/22/21 03/22/24 release biotin 5,000 mcg disintegrating 5,000 mcg PO DAILY 05/22/21 03/22/24 tablet bupropion HCl 150 mg tablet,12 hr 150 mg PO BID 05/22/21 03/22/24 sustained-release cetirizine 10 mg tablet (Zyrtec) 10 mg PO HS 05/22/21 03/22/24 cholecalciferol (vitamin D3) 50 50 mcg PO DAILY 05/22/21 03/22/24 mcg (2,000 unit) capsule (Vitamin D3) omeprazole 20 mg capsule,delayed 20 mg PO DAILY 05/22/21 03/22/24 release vitamin E 100 unit capsule 100 unit PO DAILY 05/22/21 03/22/24 rosuvastatin 20 mg tablet 20 mg PO DAILY 12/05/21 03/22/24 azelastine 137 mcg (0.1 %) nasal 1 spray intranasal Q12H PRN 02/12/23 03/22/24 spray Allergy Symptoms duloxetine 60 mg capsule,delayed 60 mg PO DAILY 02/12/23 03/22/24 release (Cymbalta) fluticasone propionate 50 1 - 2 spray intranasal BID PRN 02/12/23 03/22/24 mcg/actuation nasal Allergy Symptoms spray,suspension (Flonase Allergy Relief) Allergies Allergy/AdvReac Type Severity Reaction Status Date / Time sulfamethoxazole Allergy Severe Vomiting Verified 04/05/24 06:56 [From Bactrim] trimethoprim [From Bactrim] Allergy Severe Vomiting Verified 04/05/24 06:56 hydrocodone Allergy Intermediate Palpitation Verified 04/05/24 06:56 s propoxyphene Allergy Intermediate Rash Verified 04/05/24 06:56 adhesive tape Allergy Mild Rash Verified 04/05/24 06:56 Review of Systems Review of Systems: All systems reviewed & are unremarkable except as noted in HPI and below Constitutional: Constitutional: Reports no additional constitutional complaints Cardiovascular: Cardiovascular: Reports no additional cardiovascular complaints Respiratory: Respiratory: Reports no additional respiratory complaints Gastrointestinal: Gastrointestinal: Reports no additional gastrointestinal complaints Musculoskeletal: Musculoskeletal: Reports arthralgias, Denies joint swelling and Denies muscle cramps Neurologic: Reports system reviewed and no additional complaints, except as documented PMFSH Past Medical History Medical History Anxiety Arthritis Bunion of left foot Colon cancer screening Depression GERD (gastroesophageal reflux disease) Hyperlipidemia Hypertension Injury of toe on left foot Left knee DJD Lupus Mass of finger of right hand MCL sprain of right knee Medial meniscus tear Morbid obesity with BMI of 40.0-44.9, adult JAMMIE (obstructive sleep apnea) PND (post-nasal drip) Right hand pain Right knee DJD Right knee pain Screening mammogram, encounter for Sjogren syndrome with central nervous system involvement Sleep apnea Uterine cancer Vision abnormalities Wears glasses Surgical History Surgical History History of hysterectomy History of left oophorectomy History of sinus surgery History of tubal ligation Family History Family History Mother Family history of liver disea
== END 2024-04-05 08:30 | disposition home or self-care (01) ==
PROVIDERS: Emergency Provider Emergency Medicine; PCP Emergency Medicine
DX: S63.502A Unspecified sprain of left wrist, initial encounter (principal); S09.90XA Unspecified injury of head, initial encounter; I10 Essential (primary) hypertension; E78.5 Hyperlipidemia, unspecified; E66.01 Morbid (severe) obesity due to excess calories; Z68.41 Body mass index [BMI] 40.0-44.9, adult; G47.33 Obstructive sleep apnea (adult) (pediatric); K21.9 Gastro-esophageal reflux disease without esophagitis; M32.9 Systemic lupus erythematosus, unspecified; M17.0 Bilateral primary osteoarthritis of knee; M35.00 Sjogren syndrome, unspecified; M19.042 Primary osteoarthritis, left hand; F41.9 Anxiety disorder, unspecified; Z85.42 Personal history of malignant neoplasm of other parts of uterus; Z87.891 Personal history of nicotine dependence; Z79.82 Long term (current) use of aspirin; Z79.899 Other long term (current) drug therapy; Z90.710 Acquired absence of both cervix and uterus; Z90.721 Acquired absence of ovaries, unilateral; W01.198A Fall on same level from slipping, tripping and stumbling with subsequent striking against other object, initial encounter
CPT/HCPCS: 70450; 73130; 99284

== ENCOUNTER 2024-05-28 13:26 | Outpatient (CLI) | payer OTHER, SELFPAY ==
--- NOTE | 2024-05-28 14:55 | ECG_ITS ---
Test Date: 2024-05-28 15:10:49 Measurements Intervals Neely Rate: 92 P: 28 AL: 151 QRS: -15 QRSD: 89 T: 32 QT: 339 QTc: 419 Interpretive Statements SINUS RHYTHM LOW QRS VOLTAGE IN PRECORDIAL LEADS POOR R WAVE PROGRESSION, CONSIDER ANTERIOR INFARCT INFERIOR INFARCT, AGE INDETERMINATE ABNORMAL ECG No previous ECG available for comparison Electronically Signed On 05-28-2024 15:30:20 CDT by Mark Roberts D.O.
[2024-05-28 15:29] LABS: Anion Gap 8 mmol/L (4-12); Blood Urea Nitrogen 21 mg/dL (7-17); Carbon Dioxide 32 mmol/L (22-30); Chloride 98 mmol/L (98-107); Estimated Glomerular Filt Rate 52; Glucose 132 mg/dL (65-110); Potassium 3.5 mmol/L (3.4-5.0); Sodium 138 mmol/L (137-145)
== END 2024-05-28 13:27 | disposition home or self-care (01) ==
PROVIDERS: Anesthesiology; PCP Emergency Medicine; Visit Provider Surgery
DX: I10 Essential (primary) hypertension (principal); Z79.899 Other long term (current) drug therapy; Z01.818 Encounter for other preprocedural examination; R94.31 Abnormal electrocardiogram [ECG] [EKG]
CPT/HCPCS: 36415; 80048; 93005

== ENCOUNTER 2024-07-29 07:49 | Outpatient (CLI) | payer OTHER, SELFPAY ==
--- NOTE | 2024-07-29 08:04 | ECHO_ITS ---
Patient Info Name: Jennifer Quarles Age: 54 years : 1970 Gender: Female Ht: 66 in Wt: 276 lbs BSA: 2.48 m2 HR: 65 bpm BP: 145 / 98 mmHg Heart Rhythm: Sinus Rhythm Technical Quality: Good Exam Date: 07/29/2024 8:13 AM Exam Location: Echo Lab Patient Status: Outpatient Admit Date: 07/29/2024 Staff Ordering Physician: Mark Roberts DO Service Dismantler: Jesica Oliveira RDCS Attending Provider: Mark Roberts DO Referring Physician: Armando THOMPSON; Exam Type: CA echo doppler color flow Study Info Indications - other forms of dyspnea Complete two-dimensional, color flow and Doppler transthoracic echocardiogram is performed. Summary 1. Complete two-dimensional, color flow and Doppler transthoracic echocardiogram is performed. 2. Left ventricular chamber dimension is normal. 3. Left ventricular systolic function is normal, estimated at 60-65%. 4. The left ventricular diastolic function is grade I diastolic dysfunction. 5. E/e' 10 is mildly elevated. 6. There is trace tricuspid valve regurgitation. 7. No pulmonary hypertension, estimated pulmonary arterial systolic pressure is 17 mmHg. Left Ventricle E/e' 10 is mildly elevated. Left ventricular chamber dimension is normal. Left ventricular systolic function is normal, estimated at 60-65%. The left ventricular diastolic function is grade I diastolic dysfunction. Right Ventricle Right ventricular systolic function is normal and with normal TAPSE 3.8 cm.. Right ventricular chamber dimension is normal. Left Atria Left atrial chamber dimension is normal. Right Atria Right atrial chamber dimension is normal. Aortic Valve The aortic valve is trileaflet. There is no aortic valve stenosis. There is no aortic valve regurgitation. Pulmonic Valve There is no pulmonic regurgitation. Mitral Valve There is no mitral valve stenosis. There is no mitral valve regurgitation. Tricuspid Valve There is trace tricuspid valve regurgitation. No pulmonary hypertension, estimated pulmonary arterial systolic pressure is 17 mmHg. Pericardium/Pleural There is no pericardial effusion. Inferior Vena Cava Normal inferior vena cava with >50% collapse upon inspiration consistent with normal right atrial pressure, 5 mmHg. Aorta The aortic root size at the sinus of Valsalva is normal. Left Ventricular Outflow Tract Name Value Normal LVOT 2D LVOT Diameter 2.0 cm LVOT Doppler LVOT Peak Gradient 3 mmHg LVOT Mean Gradient 2 mmHg LVOT VTI 16 cm LVOT VTI/AV VTI Ratio 0.7 LVOT Stroke Volume 54 ml LVOT CO 4.8 l/min LVOT CI 1.9 l/min/m2 Mitral Valve Name Value Normal MV Doppler MV Decel Glenn 461 cm/s2 MV PHT 51 ms MV Area (PHT) 4.3 cm2 4.0-5.0 MV Diastolic Function MV E Peak Velocity 81 cm/s MV A Peak Velocity 101 cm/s MV E/A 0.8 MV Decel Time 177 ms MV Annular TDI MV E/e' (Septal) 10.0 <=8.0 MV E/e' (Lateral) 9.6 <=8.0 MV E/e' (Average) 9.8 Tricuspid Valve Name Value Normal TV Regurgitation Doppler TR Peak Velocity 173 cm/s TR Peak Gradient 8 mmHg Estimated PAP/RSVP RA Pressure 5 mmHg <=5 PA Systolic Pressure 17 mmHg <36 RV Systolic Pressure 17 mmHg <36 Aortic Valve Name Value Normal AV Doppler AV Peak Velocity 129 cm/s AV Peak Gradient 7 mmHg AV Mean Gradient 4 mmHg AV VTI 24 cm AV Area (Cont Eq VTI) 2.3 cm2 >=3.0 AV Area (Cont Eq Brian) 2.3 cm2 AV Regurgitation 2D LVOT Area 3.3 cm2 Ventricles Name Value Normal LV Dimensions 2D/MM IVS Diastolic Thickness (2D) 0.9 cm 0.6-1.0 LVID Diastole (2D) 5.6 cm 3.8-5.2 LVIW Diastolic Thickness (2D) 0.9 cm 0.6-0.9 LVID Systole (2D) 3.8 cm 2.2-3.5 LVOT Diameter 2.0 cm LV Mass (2D Cubed) 188.21 g 67.00-162.00 LV Mass Index (2D Cubed) 76 g/m2 43-95 Relative Wall Thickness (2D) 0.33 LV Fractional Shortening/Ejection Fraction 2D/MM LV Fractional Shortening (2D) 31 % 27-45 LV EF (2D Teichmichelez) 59 % 54-74 LV Diastolic Volume (4C MOD) 140 ml LV EF (4C MOD) 63 % LV Diastolic Volume (2C MOD) 102 ml LV EF (2C MOD) 59 % LV Diastolic Volume (BP MOD) 119 ml 46-106 LV Diastolic Volume Index (BP MOD) 48 ml/m2 29-61 LV Systolic Volume (BP MOD) 47 ml 14-42 LV Systolic Volume Index (BP MOD) 19 ml/m2 8-24 LV EF (BP MOD) 60 % 54-74 LV Diastolic Length (4C) 8.2 cm LV Systolic Length (4C) 6.3 cm LV Stroke Volume (4C MOD) 88 ml Atria Name Value Normal LA Dimensions LA Volume (4C A-L) 37 ml LA Volume (BP A-L) 37 ml RA Dimensions RA Area (4C) 12.7 cm2 <=18.0 Report Signatures
--- NOTE | 2024-07-29 08:22 | EST_ITS ---
Patient Info Name: Jennifer Quarles Age: 54 years : 1970 Gender: Female Ht: 66 in Wt: 276 lbs BSA: 2.48 m2 HR: 83 bpm BP: 119 / 65 mmHg Exam Date: 07/29/2024 9:27 AM Exam Location: Echo Lab Patient Status: Outpatient Admit Date: 07/29/2024 Staff Ordering Physician: Mark Roberts DO Attending Provider: Mark Roberts DO Exercise Technologist: PAULA Exercise Physician: Mark Roberts DO Exam Type: CA stress test treadmill Study Info A treadmill exercise stress test was performed. Summary 1. 1. Negative Ric exercise stress test for ischemic ST changes by ECG criteria. 2. 2. Reduced functional capacity, achieving 7 METs of workload. 3. 3. Appropriate HR response to exercise. 4. 4. Appropriate HR recovery at 1 minute post exercise. 5. 5. No imaging with stress testing. 6. 6. Patient informed of the above results. Protocol: Ric Stress ECG Details Stage: REST Duration (min): 1 min : 33 sec Speed (mph): 0.0 Grade (%): 0 HR (bpm): 86 SBP (mmHg): 119 DBP (mmHg): 65 METS: --- Stage: REST Duration (min): 6 min : 29 sec Speed (mph): 0.0 Grade (%): 0 HR (bpm): 84 SBP (mmHg): 119 DBP (mmHg): 65 METS: --- Stage: STAGE 1 Duration (min): 1 min : 0 sec Speed (mph): 1.7 Grade (%): 10 HR (bpm): 123 SBP (mmHg): 119 DBP (mmHg): 65 METS: --- Stage: STAGE 1 Duration (min): 2 min : 0 sec Speed (mph): 1.7 Grade (%): 10 HR (bpm): 130 SBP (mmHg): 119 DBP (mmHg): 65 METS: --- Stage: STAGE 1 Duration (min): 3 min : 0 sec Speed (mph): 1.7 Grade (%): 10 HR (bpm): 135 SBP (mmHg): 151 DBP (mmHg): 67 METS: --- Stage: STAGE 2 Duration (min): 1 min : 0 sec Speed (mph): 2.5 Grade (%): 12 HR (bpm): 141 SBP (mmHg): 151 DBP (mmHg): 67 METS: --- Stage: STAGE 2 Duration (min): 2 min : 0 sec Speed (mph): 2.5 Grade (%): 12 HR (bpm): 149 SBP (mmHg): 172 DBP (mmHg): 67 METS: --- Stage: STAGE 2 Duration (min): 3 min : 0 sec Speed (mph): 2.5 Grade (%): 12 HR (bpm): 154 SBP (mmHg): 172 DBP (mmHg): 67 METS: --- Stage: RECOVERY Duration (min): 0 min : 52 sec Speed (mph): 0.0 Grade (%): 0 HR (bpm): 141 SBP (mmHg): 183 DBP (mmHg): 42 METS: --- Rest HR: 84 bpm Peak HR: 155 bpm Rest Sys BP: 119 mmHg Peak Sys BP: 183 mmHg Max Pred HR: 166 bpm % Max Pred HR: 93 % Target HR: 141 bpm Max RPP: 28,365 bpm*mmHg Guan Score: 3 Termination Reason: Reached target heart rate or workload Cardiac Symptoms: Shortness of breath Max ST Seg Deviation: 0.60 mm Total Time: 6 min : 0 sec Rest King BP: 65 mmHg Peak King BP: 42 mmHg Angina Score: None Total METS: 7.1 Resting ECG Sinus rhythm. Stress ECG No ST changes. Arrhythmias None. Report Signatures
== END 2024-07-29 07:50 | disposition home or self-care (01) ==
PROVIDERS: PCP Emergency Medicine; Visit Provider Internal Medicine Cardiovascular Disease
DX: R94.39 Abnormal result of other cardiovascular function study (principal); I51.89 Other ill-defined heart diseases; R07.9 Chest pain, unspecified; R06.09 Other forms of dyspnea
CPT/HCPCS: 93017; 93306

== ENCOUNTER 2024-08-20 08:25 | Outpatient (CLI) | payer OTHER, SELFPAY ==
--- NOTE | ~2024-08-20 | DEXA_ITS ---
Bone Density Report Name: TOR HILLMAN Age: 54 Sex: Female Ethnicity: White Date of : 1970 Indication: postmenopausal; screening for osteoporosis; Referring Provider: RHONDA ANDREW Study: Bone densitometry was performed. Exam Date: August 20, 2024 Accession number: [id number] Bone Density: Region BMD T-score Z-score Classification AP Spine(L1-L4) 1.081 0.3 1.3 Normal Femoral Neck (Left) 0.839 -0.1 0.9 Normal Total Hip (Left) 1.139 1.6 2.3 Normal Femoral Neck (Right) 0.950 0.9 1.9 Normal Total Hip (Right) 1.138 1.6 2.3 Normal Total Hip Mean 1.139 1.6 2.3 Normal World Health Organization criteria for BMD impression classify patients as: Normal (T-score at or above -1.0), Osteopenia (T-score between -1.0 and -2.5), or Osteoporosis (T-score at or below -2.5). 10-year Fracture Risk: FRAX not reported because: All T-scores for Spine Total, Hip Total, Femoral Neck at or above -1.0 Impression: The patient has normal bone mass. Discussion: BONE DENSITY IS ABOVE THE MINIMUM DESIRABLE LEVEL AT ALL SKELETAL SITES TESTED. This patient?s bone mineral density is above the minimum desirable level (T-score -1.0 or better) at all sites measured. The patient should follow a healthful lifestyle (good nutrition with adequate calcium and vitamin D, and appropriate weight-bearing exercise). Follow-Up: Consider repeating this study in 5 years or sooner if there is some new clinical indication. Reported by: JENNY on 08/20/2024 9:10:00 AM. Reviewed, dictated and finalized at location Mike MONTILLA
== END 2024-08-20 08:26 | disposition home or self-care (01) ==
LOC: ANHIMG 08:26
PROVIDERS: PCP Emergency Medicine; Visit Provider Emergency Medicine
DX: Z78.0 Asymptomatic menopausal state (principal)
CPT/HCPCS: 77080

== ENCOUNTER 2024-09-15 09:56 | Emergency (ER) | payer OTHER, SELFPAY ==
[2024-09-15 10:04] VITALS: BP 141/72; PULSE 78; RESP 16; TEMP 36.6; O2SAT 99
--- NOTE | 2024-09-15 10:55 | PC.NURSE ---
patient presents to desk to state she is going to leave due to wait time. patient in no distress
--- OUTSIDE RECORDS SUMMARY | 2024-09-22 05:00 | XMS_ITS | Encounter Summary ---
Author Organization [facility] Address [address] [place] [address] Care Team Providers Care Auto Adjudication Specialist Name Role Phone Augusto Jiménez MD Primary Care Provider [phone] Encounter Details Date Type Department Care Team (Latest Contact Info) Description 04/22/2022 Travel Social History Tobacco Use Types Packs/Day Years Used Date Smoking Tobacco: Former Cigarettes Smokeless Tobacco: Never Comments:many years ago for 1 year Alcohol Use Standard Drinks/Week Comments Not Currently 0 (1 standard drink = 0.6 oz pure alcohol) used to occasional but no longer PHQ-2 Answer Date Recorded PHQ2 TOTAL SCORE 4 04/22/2022 Sex and Gender Information Value Date Recorded Sex Assigned at Female 05/30/2022 11:21 AM CDT Gender Identity Female 05/30/2022 11:21 AM CDT Sexual Orientation Straight 05/30/2022 11 :21 AM CDT COVID-19 Exposure Response Date Recorded In the last 10 days, have yo u been in contact with someone who was confirmed or suspected to have Coronavirus/COVID-19? No / Unsure 04/22/2022 12:15 PM CDT documented as of this encounter Plan of Treatment Not on file documented as of this encounter Visit Diagnoses Not on filedocumented in this encounter Care Teams Auto Adjudication Specialist Relationship Specialty Start Date End Date Augusto Jiménez MD [address] [facility] [address] [place] [address] PCP - General 06/17/17 documented as of this encounter
--- OUTSIDE RECORDS SUMMARY | 2024-09-22 05:00 | XMS_ITS | Data Portability ---
[facility] Address [address] [place] [address] Assessment No assessment recorded. Plan of Treatment Reminders Order Date Submit Date Provider Last Modified By Organization Details Last Modified Time Details Appointments None recorded. Lab estradiol, serum 2015 016 [facility], [address] [place] [address], [facility] [address], [place], [address], 6 04:31:23 FSH (follicle-s timulating hormone), serum 2015 016 [facility], [address] [place] [address], [facility] [address], [place], [address], 6 04:31:23 urinalysis, dipstick 2015 In-Office Order, Internal Use Only DO Not Attach Compendium DO Not Attach Compendium, Do Not Delete/merge, [id number] 6 04:31:04 Referral None recorded. Procedures None recorded. Surgeries None recorded. Imaging None recorded. Medication Orders fluconazole 150 mg tablet 2015 016 [facility], [address] [facility], [place], [address], 6 04:31:18 triamcinolo ne acetonide 0.1 % topical cream 2015 016 [facility], [address] [place], [address], 6 04:30:50 norethindro ne (contracept francisco) 0.35 mg tablet 2015 016 [facility], [address] [place], [address], 6 04:31:06 Patient TargetsNo targets recorded. Patient Instructions Encounter Date Encounter Id Patient Instructions Last Modified By Organization Details Last Modified Time 07/24/2016 [id number] influenza (flu) vaccine: care instructions [email or web address] Not available 07/24/2016 18:23:04 hot flashes during menopause: care instructions [email or web address] Not available 07/24/2016 17:26:42 learning about breast cancer screening [email or web address] Not available 07/24/2016 17:26:42 vaginal yeast infection: care instructions [email or web address] Not available 07/24/2016 17:26:42 Reason for Referral None Reported. Results Created Date Observation Date Name Description Value Unit Range Abnormal Flag Note LastModifiedBy Organization Detail LastModifiedTime 07/24/2016 urina lysis , dipst ick Leukocytes Negati ve Not Available In-Office Order Internal Use Only DO Not Attach Compendium DO Not Attach Compendium, Do Not Delete/merge, [id number] 07/24/2016 16:25:57 07/24/2016 urina lysis , dipst ick Nitrite negati ve Not Available In-Office Order Internal Use Only DO Not Attach Compendium DO Not Attach Compendium, Do Not Delete/merge, [id number] 07/24/2016 16:25:57 07/24/2016 urina lysis , dipst ick Urobilinogen .2 Not Available In-Of fice Order Internal Use Only DO Not Attach Compendium DO Not Attach Compendium, Do Not Delete/merge, [id number] 07/24/2016 16:25:57 07/24/2016 urina lysis , dipst ick Protein Negati ve Not Available In-Office Order Internal Use Only DO Not Attach Compendium DO Not Attach Compendium, Do Not Delete/merge, [id number] 07/24/2016 16:25:57 07/24/2016 urina lysis , dipst ick pH 7.0 Not Available In-Office Order Internal Use Only DO Not Attach Compendium DO Not Attach Compendium, Do Not Delete/merge, 07/24/2016 16:25:57 07/24/2016 urina lysis , dipst ick Blood Non-He molyze d: Trace Not Available In-Office Order Internal Use Only DO Not Attach Compendium DO Not Attach Compendium, Do Not Delete/merge, 07/24/2016 16:25:57 07/24/2016 urina lysis , dipst ick Specific [place] 1.020 Not Available In-Off ice Order Internal Use Only DO Not Attach Compendium DO Not Attach Compendium, Do Not Delete/merge, 07/24/2016 16:25:57 07/24/2016 urina lysis , dipst ick Ketone Negati ve Not Available In-Office Order Internal Use Only DO Not Attach Compendium DO Not Attach Compendium, Do Not Delete/merge, 07/24/2016 16:25:57 07/24/2016 urina lysis , dipst ick Bilirubin Negati ve Not Available In-Office Order Internal Use Only DO Not Attach Compendium DO Not Attach Compendium, Do Not Delete/merge, 07/24/2016 16:25:57 07/24/2016 urina lysis , dipst ick Glucose Negati ve Not Available In-Office Order Internal Use Only DO Not Attach Compendium DO Not Attach Compendium, Do Not Delete/merge, 07/24/2016 16:25:57 08/06/20 16 08/07/2016 FSH (foll icle- stimu latin g hormo ne), serum FSH 12.3 mIU/m L FOLLI CULAR PHASE 3.5 - 12.5 OVULA TION PHASE 4.7 - 21.5 LUTEA L PHASE 1.7 - 7.7 POSTM ENOPA USAL 25.8 - 134.8 Not Available [facility] ([facility]) [address] [facility], [place], [address], 08/07/2016 07:13:38 08/06/20 16 08/07/2016 estra diol, serum estradiol 11.9 pg/mL ADULT FEMAL E: FOLLI CULAR PHASE 12.5 - 166.0 OVULA TION PHASE 85.8 - 498.0 LUTEA L PHASE 43.8 - 211.0 POSTM ENOPA USAL <6.0 - 54.7 PREGN SHRUTI 1ST TRIME STER 215.0 - >4300 .0 GIRLS (1-10 YEARS ) 6.0 - 27.0 MALISSA ECLIA METHO DOLOG Y Not Available [facility] ([facility]) [address] [facility], [place], [address], 08/07/2016 07:13:39 07/23/20 16 10/11/2013 mammo gram, follo w up* No observ ation record ed. [email or web address] Not Available 2015 18:24:58 Result Notes None recorded. Problems Name Problem SNOMED Code Status Onset Date Resolution Date Notes Provider Name and Address Organization Details Recorded Time Vulvitis 63559926 Active Sam Ciara haider [facility] 06/17/2016 17:16:23 Problem Notes None recorded. Procedures Surgical History Date Name Laterality Status Provider Name and Address Organization Details Recorded Time 07/24/20 16 Date of Last Pap Smear completed Chantal Burns MA [facility] 07/24/2016 16:19:28 Hysterectomy completed Chantal Burns MA [facility] 07/24/2016 16:18:43 Tubal Ligation completed Chantal Burns MA [facility] 07/24/2016 16:18:50 Imaging Results Imaging Date Name Status LastModified by Organiz ation Details LastModified Time 10/11/2013 mammogram, follow up* completed [email or web address] Information not available 07/23/2016 18:24:58 Procedure Notes None recorded. Medical Equipment None Reported. Allergies No known drug allergies Medications Name Sig Start Date Stop Date Status Note LastModified by Organization Details LastModified Time fluoxetine 40 mg capsule active Not Available Not Available N ot Available terbinafine HCl 1 % topical cream active Not Available Not Availabl e Not Available bupropion HCl SR 150 mg tablet,12 hr sustained-rele ase active Not Available Not Available Not Available cefuroxime axetil 250 mg tablet active Not Available Not Available Not Available ibuprofen 800 mg tablet active Not Available Not Available No t Available fluconazole 150 mg tablet Take 1 tablet by oral route. 2015 active Not Available Not Available Not Avai lable meloxicam 15 mg tablet active Not Available Not Available No t Available topiramate 25 mg tablet active Not Available Not Available No t Available tramadol 50 mg tablet active Not Available Not Available Not Available triamcinolone acetonide 0.1 % topical cream APPLY A THIN LAYER TO THE AFFECTED AREA(S) BY TOPICAL ROUTE 2 TIMES PER DAY 2015 active Not Available Not Available Not Avai lable simvastatin 40 mg tablet active Not Available Not Available No t Available meloxicam 7.5 mg tablet active Not Available Not Available No t Available citalopram 20 mg tablet active Not Available Not Available No t Available cephalexin 500 mg capsule active Not Available Not Available N ot Available venlafaxine 37.5 mg tablet active Not Available Not Availab le Not Available lisinopril 10 mg tablet active Not Available Not Available No t Available hydrochlorothi azide 12.5 mg capsule active Not Available Not Available Not Available oxycodone-acet aminophen 7.5 mg-325 mg tablet active Not Available Not Available Not Available norethindrone (contraceptive ) 0.35 mg tablet TAKE ONE TABLET BY MOUTH ONCE DAILY active Not Available Not Available No t Available fluticasone propionate 50 mcg/actuation nasal spray,suspensi on active Not Available Not Available Not Available amoxicillin 875 mg-potassium clavulanate 125 mg tablet active Not Available Not Availabl e Not Available topiramate 50 mg tablet active Not Available Not Available No t Available Vitals Date Recorded Body height Body weight Body mass index (BMI) Systolic blood pressure Diastolic blood pressure Provider Name and Address Organization Details Last Updated DateTime 07/24/2016 167.64 cm 142036.3 2 g 39.9 kg/m2 134 mm[Hg] 74 mm[Hg] Chantal Burns [place] - [facility] 6 16:29:25 Social History Question Answer Notes LastModified by Organizat ion Details LastModified Time Tobacco Smoking Status Former Smoker Chantal Burns MA null, [place] - [facility] 07/24/2016 16:16:23 Do You Have An Advance Directive? No Information not available 07/24/2016 What Is Your Level Of Alcohol Consumption? None Information not available 07/24/2016 Is Blood Transfusion Acceptable In An Emergency? Yes Information not available 07/24/2016 What Is Your Level Of Caffeine Consumption? Occasional Information not available 07/24/2016 How Much Tobacco Do You Chew? None Information not available 07/24/2016 Are You Currently Employed? No Information not available 07/24/2016 What Type Of Diet Are You Following? REGULAR Information not available 07/24/2016 Which Illicit Or Recreational Drugs Have You Used? None Information not available 07/24/2016 Education 4 Year College Informatio n not available 07/24/2016 What Is Your Occupation? Unemployed Information not available 07/24/2016 Live Alone Or With Others? With Others Information not available 07/24/2016 How Many Children Do You Have? 4 Information not available 07/24/2016 Performs Monthly Self-breast Exam? Yes Information no t available 07/24/2016 Do You Use Protection During Sex? No Information not available 07/24/2016 What Is Your Relationship Status? Information not available 07/24/2016 Seat Belts Used Routinely Yes Information not available 07/24/2016 Are You Sexually Active? No Information not available 07/24/2016 How Much Tobacco Do You Smoke? No Information not available 07/24/2016 General Stress Level High Information not available 07/24/2016 Do You Use Sunscreen Routinely? Yes Information not available 07/24/2016 Sex: Unknown Functional Status Question Answer Note LastModified by Organizat ion Details LastModified Time What is your exercise level? Occasional Information not available 07/24/2016 Mental Status None recorded. Family History Relationship Description Onset Age of this Age Resolved Age Notes LastModified by Organization Details LastModified Time Brother Diabetes mellitus [email or web address] Not available 2015 16:15:30 Brother Diabetes mellitus [email or web address] Not available 2015 16:15:30 Sister Diabetes mellitus [email or web address] Not available 2015 16:15:30 Sister Diabetes mellitus [email or web address] Not available 2015 16:15:30 Father Heart disease [email or web address] Not available 2015 16:15:45 Father Hypertensive disorder [email or web address] Not available 2015 16:15:59 Medical History Condition Response Other N High Blood Pressure Y Breast Cancer N Thyroid Problems N Kidney or Bladder Problems N Lung Disease N Depression Y Blood Clots N GI Problems N Acne N Breast Problem N Eating Disorder N Anemia N Anesthesia Complications N Headaches/Migraines Y Ovarian Cancer N Diabetes N Anxiety Disorder Y Muscle, Joint, or Bone Problems N Blood Transfusions N Seizures/Epilepsy N Polyps N Infertility N Acid Reflux (GERD) N Cancer Y Abuse/Domestic Violence N Asthma N Endometriosis Y High Cholesterol N Hepatitis N Liver Disease N Heart Disease N Pre-Eclampsia N Osteoporosis N Gynecological History Statement/Question Response Abnormal Pap N On BCP's at Conception? N STIs/STDs N HPV Vaccine N Current Control Method Hysterectom y Age at Menarche 12 Age at First Child 19 Sexually Active? N Date of Last Pap Smear 07/24/2016 Sexual Problems? N LMP Obstetrics History GPAL:G 4 P 4 0 0 4 Type Value Multiple Births 0 Full Term 4 Induced 0 Spontaneous 0 Premature 0 Living 4 Ectopics 0 Total 4 Immunizations Vaccine Type Date Status Note Provider Nam e and Address Organization Details Recorded Time COVID-19, mRNA, LNP-S, PF, 100 mcg/0.5mL dose or 50 mcg/0.25mL dose 1 completed [facility] 03/16/2021 15:56:24 Influenza, split virus, quadrivalent, preservative 6 completed Not Available [facility] 10/02/2019 02:49:47 Past Encounters Encounter ID Performer Location Encounter Start Date Encounter Closed Date Diagnosis/Indication Diagnosis SNOMED-CT Code Diagnosis ICD10 Code Diagnosis Note [id number] Sam Steel ([employer]) [address] [place] [address] 07/24/2016 15:31:59 07/25/2016 19:08:22 Menopausal flushing 874942227 N95.1 History of hysterectomy 689353476 Z90.711 Candidiasis of vagina 72 721299 B37.3 Screening for malignant neoplasm of breast 572163716 Z12.31 Vulvitis 53491698 N76.2 Administra tion of influenza vaccine 71404656 Z23 Health Concerns Section Related Observation LastModified by Organization Detai ls LastModified Time None Recorded Concern Status LastModified by Organization Details LastModified Time None Recorded Advance Directives Directive N: Payers Encounter Date Sequence Insurance Name Policy Number Policy Contreras Covered Member ID Contreras Member ID Guarantor Name 07/24/2016 1 [facility] PRIOR TO 03/15/2021 (MEDICAID REPLACEMENT - HMO) Jennifer Quarles [id number] Jennifer Quarles Notes Date Note Type Note Provider Name and Address Organization Details Recorded Time 07/24/2016 text/html Annual Director Of Compliance Post-MenopausalRep orted bypatient.Menopaus al Symptoms:normal vaginal lubrication;hot flashes Vaginal Bleeding:history of menopause having occurred; no history of post menopausal bleeding Urinary Symptoms:no hematuria; no incontinence; no nocturia; no urinary frequency Vulva:no genital lesion; no vulvar atrophy Vagina:normal vaginal discharge; no vaginal atrophy Breast:no breast lump; no nipple discharge; no breast pain Sexual Complaints:no sexual complaints Psychological Symptoms:no depression; no anxiety 46yo s/p hysterectomy with 1 retained ovary presents for annual exam. Had mammo in December 2015 = normal. Notes hot flashes; desires treatment. Not on any other hormones. On SSRI. Wants flu shot. Sam Urbina [facility] 07/24/2016 18:21:04 OBGyn Episode Ob Episode Information Episode Created Date Number of Fetuses Patient Bloodtype Patient rh Status Prepregnancy Weight lbs Domestic Partner Domestic Partner Phone Father Name Tube Carrier Status 07/24/20 16 1 CLOSED Fetus Data First Name Last Name Admitted to NICU Weight (g) Sex Living Outcome Pediatric Complications Fetus ID Race Codes Race Delivery Type 2608.15 4 F Full Term [id number] Vaginal Ze Calculation Initial Ze Date Initial Exam Date Initial Exam Provider Initial Ultrasound Date Last Menstrual Period Date Ultra Sound Weeks Gestation 0 Eighteen To Twenty Week Ze Update Ultra Sound Date Fundal Height At Umbil Quickening Date Ultra Sound Latest Weeks Gestation Final Ze Confirmed By Final Ze Confirmed Date Final Ze Date Ultra Sound Latest Days Gestation 0 0 Menstrual History Last Menstrual Date Menses Monthly On Bcp Conception Prior Menses Frequency Hcg Plus Date Menarche Onset Age Delivery Information Delivery Date Delivery Type Labor Anesthesia Weeks Gestation Incision Type Labor Labor Length Hrs Delivered By Post Complications Tubal Sterilization Discharge Date Comments 9 [facility] 40 7 Discharge Information Feeding Method Contraceptive Method Maternal HG B and HCT Levels Ob Episode Information Episode Created Date Number of Fetuses Patient Bloodtype Patient rh Status Prepregnancy Weight lbs Domestic Partner Domestic Partner Phone Father Name Tube Carrier Status 07/24/20 16 1 CLOSED Fetus Data First Name Last Name Admitted to NICU Weight (g) Sex Living Outcome Pediatric Complications Fetus ID Race Codes Race Delivery Type 3089.86 8704 F Full Term [id number] Vaginal Ze Calculation Initial Ze Date Initial Exam Date Initial Exam Provider Initial Ultrasound Date Last Menstrual Period Date Ultra Sound Weeks Gestation 0 Eighteen To Twenty Week Ze Update Ultra Sound Date Fundal Height At Umbil Quickening Date Ultra Sound Latest Weeks Gestation Final Ze Confirmed By Final Ze Confirmed Date Final Ze Date Ultra Sound Latest Days Gestation 0 0 Menstrual History Last Menstrual Date Menses Monthly On Bcp Conception Prior Menses Frequency Hcg Plus Date Menarche Onset Age Delivery Information Delivery Date Delivery Type Labor Anesthesia Weeks Gestation Incision Type Labor Labor Length Hrs Delivered By Post Complications Tubal Sterilization Discharge Date Comments 1 [place] [address] 5 Discharge Information Feeding Method Contraceptive Method Maternal HG B and HCT Levels Ob Episode Information Episode Created Date Number of Fetuses Patient Bloodtype Patient rh Status Prepregnancy Weight lbs Domestic Partner Domestic Partner Phone Father Name Tube Carrier Status 07/24/20 16 1 CLOSED Fetus Data First Name Last Name Admitted to NICU Weight (g) Sex Living Outcome Pediatric Complications Fetus ID Race Codes Race Delivery Type 2919.77 1704 M Full Term [id number] Vaginal Ze Calculation Initial Ze Date Initial Exam Date Initial Exam Provider Initial Ultrasound Date Last Menstrual Period Date Ultra Sound Weeks Gestation 0 Eighteen To Twenty Week Ze Update Ultra Sound Date Fundal Height At Umbil Quickening Date Ultra Sound Latest Weeks Gestation Final Ze Confirmed By Final Ze Confirmed Date Final Ze Date Ultra Sound Latest Days Gestation 0 0 Menstrual History Last Menstrual Date Menses Monthly On Bcp Conception Prior Menses Frequency Hcg Plus Date Menarche Onset Age Delivery Information Delivery Date Delivery Type Labor Anesthesia Weeks Gestation Incision Type Labor Labor Length Hrs Delivered By Post Complications Tubal Sterilization Discharge Date Comments 5 [place] [address] 9 Discharge Information Feeding Method Contraceptive Method Maternal HG B and HCT Levels Ob Episode Information Episode Created Date Number of Fetuses Patient Bloodtype Patient rh Status Prepregnancy Weight lbs Domestic Partner Domestic Partner Phone Father Name Tube Carrier Status 07/24/20 16 1 CLOSED Fetus Data First Name Last Name Admitted to NICU Weight (g) Sex Living Outcome Pediatric Complications Fetus ID Race Codes Race Delivery Type 4195.72 6 M Full Term [id number] Vaginal Ze Calculation Initial Ze Date Initial Exam Date Initial Exam Provider Initial Ultrasound Date Last Menstrual Period Date Ultra Sound Weeks Gestation 0 Eighteen To Twenty Week Ze Update Ultra Sound Date Fundal Height At Umbil Quickening Date Ultra Sound Latest Weeks Gestation Final Ze Confirmed By Final Ze Confirmed Date Final Ze Date Ultra Sound Latest Days Gestation 0 0 Menstrual History Last Menstrual Date Menses Monthly On Bcp Conception Prior Menses Frequency Hcg Plus Date Menarche Onset Age Delivery Information Delivery Date Delivery Type Labor Anesthesia Weeks Gestation Incision Type Labor Labor Length Hrs Delivered By Post Complications Tubal Sterilization Discharge Date Comments 2 [facility] 40 3 Discharge Information Feeding Method Contraceptive Method Maternal HG B and HCT Levels
--- OUTSIDE RECORDS SUMMARY | 2024-09-22 05:00 | XMS_ITS | Clinical Summary ---
Author Organization [facility] Address [address] [place] [address] Care Team Providers Care Cook Short Order Name Role Phone Augusto Jiménez MD Primary Care Provider [phone] Source Comments [facility] Affiliates and Associated Physician Practices is amultiple site organization consisting of ambulatory clinics and hospital sitesin [place], [place], [place] and [place]. This disclosure is being madepursuant to the Care Everywhere program and may not contain all information available regarding this patient. Last updated 18.[facility] Allergies Active Allergy Reactions Criticality Noted Date Comments Adhesive Sensitivity Rash Medium 04/22/2022 blisters Hydrocodone-Acetaminophen Other 12/02/2018 vicodin Heart races Morphine Urticaria Medium 06/20/2022 Propoxyphene N-Apap Other 12/02/2018 Heart races Sulfamethoxazole Nausea and/or Vomiting 06/06/2022 Sulfamethoxazole W-Trimethoprim Itching,Nausea and/or Vomiting 11/13/2020 Sick to stomach and itching Trimethoprim Itching 06/06/2022 Medications * Be aware that medications may not be up to date on this document. Alwaysverify current medications with the patient. Medication Sig Dispensed Refills Start Date End Date Status hydroCHLOROthiazide (MICROZIDE) 12.5 MG capsule Take 12.5 mg by mouth once daily 05/18/2017 Active citalopram (CELEXA) 20 MG tablet Take 20 mg by mouth once daily 05/18/2017 Active buPROPion SR 12hr (Wellbutrin-SR) 150 MG tablet Take 1 tablet by mouth every 12 hours 03/29/2021 Active lisinopril (Prinivil; Zestril) 10 MG tablet Take 1 tablet by mouth every 24 hours 03/29/2021 Active rosuvastatin (Crestor) 20 MG tablet Take 20 mg by mouth once daily 01/30/2022 Active topiramate (Topamax) 50 MG tablet Take 1 tablet by mouth every 12 hours 03/29/2021 Active Pen[place]-3 Fatty Acids (Fish Oil) 1200 MG Take 1,200 mg by mouth once daily Active Multiple Vitamins-Minerals (MULTIVITAMIN ADULTS PO) Take 1 tablet by mouth once daily Active vitamin C (Ascorbic Acid) 1000 MG tablet Take 1,000 mg by mouth once daily Active calcium 600 MG tablet Take 1 tablet by mouth daily with food Active BIOTIN 5000 PO Take 5,000 mcg by mouth once daily Active omeprazole (PriLOSEC) 20 MG capsule Take 20 mg by mouth daily before breakfast Active cetirizine (ZyrTEC) 10 MG tablet Take 10 mg by mouth once daily Active aspirin EC (Ecotrin) 81 MG tablet Take 81 mg by mouth once daily Active Artificial Saliva (Biotene Dry Mouth)Indications:S jogren's syndrome, with unspecified organ involvement (HCC),Sicca complex (HCC) 1 Each by Mouth/Throat route every 1 hour as needed 100 Each 04/22/2022 Active Mouthwashes (Biotene Dry Mouth)Indications:S jogren's syndrome, with unspecified organ involvement (HCC),Sicca complex (HCC) 1 Each by Mouth/Throat route every 1 hour as needed 500 mL 04/22/2022 Active Artificial Saliva (Biotene Dry Mouth) LOZGIndications:Sjo gren's syndrome, with unspecified organ involvement (HCC),Sicca complex (HCC) 1 Each by Mouth/Throat route every 1 hour as needed 100 lozenge 04/22/2022 Active polyvinyl alcohol-povidone PF (Refresh) 1.4-0.6 % ophthalmic solutionIndications :Sjogren's syndrome, with unspecified organ involvement (HCC),Sicca complex (HCC) Instill 1 (one) drop into both eyes 4 times daily 30 mL 04/22/2022 Active refresh p.m. (Refresh Pm) ophthalmic ointmentIndications :Sjogren's syndrome, with unspecified organ involvement (HCC),Sicca complex (HCC) Instill into both eyes at bedtime 7 g 04/22/2022 Active meloxicam (Mobic) 15 MG tablet Take 15 mg by mouth once daily 06/11/2022 Active Active Problems Problem Noted Date Diagnosed Date Sjogren's syndrome 04/22/2022 Sicca complex 04/22/2022 Polyarthritis of hand 04/22/2022 Polyarthralgia 04/22/2022 Sprain of lateral ligament of ankle joint 2021 Primary hypertension 01/12/2014 Overview (06/20/2022): Last Assessment & Plan: Condition: asymptomatic Patient is asymptomatic at this visit. Continue medications as prescribed and follow up with PCP/specialist as scheduled. Discussed target blood pressure. Jennifer educated on behavior modifications to include DASH diet, increasing their intake of vegetables, water and whole foods as well as increasing their level of exercise weekly to 3- 4 times after medical clearance from your PCP. Discussed with her the need to reduce their intake of foods high in salt, sugar, fat and preservatives. Jennifer encouraged to stay compliant with medication regimen and behavior modification recommendations in order to achieve a healthier lifestyle and reduce their risks. Jennifer verbalized understanding. Member advised to keep all scheduled appointments. Follow up in: six months Hyperlipidemia 01/12/2014 Overview (06/20/2022): Last Assessment & Plan: Condition: asymptomatic Patient is asymptomatic at this visit. Continue medications as prescribed and follow up with PCP/specialist as scheduled. Discussed with Jennifer behavior modifications to include choosing healthier options for foods and avoiding foods fast foods or foods that are fried, high in trans fats or preservatives. Jennifer encouraged to maintain medication compliance and to increase their current level of exercise activity to 3- 4 times weekly. Jennifer verbalized understanding and advised to keep all scheduled appointments. Follow up in: six months Immunizations Name Administration Dates Next Due DT (AGE 0-7) 12/21/1992,02/18/1980 DTAP, HISTORIC VACCINE 09/05/2006,1973,01/16/1973, 973,10/03/1972 INFLUENZA VACCINE, QUADR. (A FLURIA, FLUZONE QUADRIVALENT; 6MO+) (IIV4) 07/24/2016 INFLUENZA VACCINE, QUADR. (F LUZONE; FLULAVAL; FLUARIX; AFLURIA QUADRIVALENT; 6MO+), 0.5 ML (IIV4) 07/20/2020 MUMPS 02/18/1980 Measles & Rubella 08/29/1972 POLIO,HISTORIC VACCINE 02/18/1980,1973,11/21/1972, 973 TDAP, HISTORIC VACCINE 06/09/2019 VARICELLA 07/19/1979 iNFLUENZA VACCINE, RECOM-THOMAS, QUADR. (FLUBLOCK QUADRIVALENT; 18Y+) (RIV4) 06/06/2022 Family History Medical History Relation Name Comments Diabetes; unknown type Brother 1 Silverio Hypertension Brother 1 Silverio Sleep Disorder - Sleep apnea Brother 1 Silverio Arthritis - Rheumatoid Brother 2 Kanu Hyperlipidemia Brother 2 Kanu Hypertension Brother 2 Kanu Scleroderma Brother 2 Kanu Sleep Disorder - Sleep apnea Brother 2 Kanu Scleroderma Father Cirrhosis Mother Arthritis - Osteo Sister 1 Alissa Diabetes; unknown type Sister 1 Alissa Lupus Sister 1 Alissa Other Sister 1 Alissa Arthritis - Osteo Sister 2 Anjelica Gout Sister 2 Anjelica Hypertension Sister 2 Anjelica Anxiety Disorder Sister 3 Luzmaria Arthritis - Osteo Sister 3 Luzmaria Cirrhosis Sister 3 Luzmaria Depression Sister 3 Luzmaria Diabetes; unknown type Sister 3 Luzmaria Hyperlipidemia Sister 3 Luzmaria Hypertension Sister 3 Luzmaria Obesity Sister 3 Luzmaria Parkinson's Disease Sister 3 Luzmaria Renal Disease Sister 3 Luzmaria Thyroid Disease Sister 3 Luzmaria Depression Sister 4 Kimberley Hyperlipidemia Sister 4 Kimberley Relation Name Status Comments Brother 1 Silverio Alive Brother 2 Kanu Alive Father Mother Sister 1 Alissa Alive Sister 2 Anjelica Alive Sister 3 Luzmaria Alive Sister 4 Kimberley Alive Social History Tobacco Use Types Packs/Day Years Used Date Smoking Tobacco: Former Cigarettes Smokeless Tobacco: Never Comments:many years ago for 1 year Alcohol Use Standard Drinks/Week Comments Not Currently 0 (1 standard drink = 0.6 oz pure alcohol) used to occasional but no longer PHQ-2 Answer Date Recorded PHQ2 TOTAL SCORE 0 06/06/2022 Sex and Gender Information Value Date Recorded Sex Assigned at Female 05/30/2022 11:21 AM CDT Gender Identity Female 05/30/2022 11:21 AM CDT Sexual Orientation Straight 05/30/2022 11 :21 AM CDT Last Filed Vital Signs Vital Sign Reading Time Taken Comments Blood Pressure 118/77 06/20/2022 1:58 PM CDT Pulse 69 06/20/2022 1:58 PM CDT Temperature 36.9 ??C (98.5 ??F) 06/20/2022 1:58 PM CD T Respiratory Rate 18 06/20/2022 1:58 PM CDT Oxygen Saturation 97% 06/20/2022 1:58 PM CDT Inhaled Oxygen Concentration - - Weight 117.9 kg (260 lb) 06/20/2022 1:58 PM CDT Height 167.6 cm (5' 6 ) 06/20/2022 1:58 PM CDT Body Mass Index 41.97 06/20/2022 1:58 PM CDT Plan of Treatment Health Maintenance Due Date Last Done Comments COLOGUARD (AGES 45-75) - COLON CA SCREENING 1970 COLON MONITORING 1970 COLONOSCOPY - COLON CA SCREENING 1970 CT COLONOGRAPHY - COLON CA SCREENING 1970 Colorectal Cancer Screening 1970 FIT - COLON CA SCREENING 1970 FLEX SIG - COLON CA SCREENING 1970 MAMMOGRAM 1970 PAP SMEAR 1970 HIV SCREENING 1985 HEPATITIS C SCREENING 05/14/1988 HEPATITIS B VACCINE (1 of 3 - 19+ 3-dose series) 1989 ZOSTER VACCINE (1 of 2) 2020 DEPRESSION SCREENING 09/15/2023 04/22/2022 COVID-19 VACCINE ( season) 2024 10/08/2021, 01/23/2021, 12/26/2020 INFLUENZA VACCINE (#1) 2024 , 07/20/2020, 07/24/2016 SCREENING FOR DIABETES 04/22/2025 04/22/2022 DTAP/TDAP/TD VACCINES (9 - Td or Tdap) 06/09/2029 06/09/2019, 09/05/2006, 12/21/1992, Additional history exists HIB VACCINE Aged Out No longer eligi ble based on patient's age to complete this topic HPV VACCINE Aged Out No longer eligi ble based on patient's age to complete this topic MENINGOCOCCAL VACCINE Aged Out No susanne clyde eligible based on patient's age to complete this topic PNEUMOCOCCAL VACCINE Aged Out No long er eligible based on patient's age to complete this topic Procedures Procedure Name Priority Date/Time Associated Diagnosis Comments COMPREHENSIVE METABOLIC PANEL Routine 04/22/2022 12:55 PM CDT Sjogren's syndrome, with unspecified organ involvement (HCC) Sicca complex (HCC) Polyarthritis of hand Polyarthralgia from Last 3 Months or Most Recently Relevant to Health Maintenance Results * (ABNORMAL) COMPREHENSIVE METABOLIC PANEL (04/22/2022 12:55 PM CDT) BUN 12 7 - 26 mg/dL 04/22/2022 1:36 PM [facility] Creatinine 0.89 0.56 - 0.96 mg/dL 04/22/2022 1:36 PM [facility] Sodium 143 136 - 145 mmol/L 04/22/2022 1:36 PM [facility] Potassium 3.7 3.5 - 4.5 mmol/L 04/22/2022 1:36 PM [facility] Chloride 103 98 - 107 mmol/L 04/22/2022 1:36 PM [facility] CO2 28 22 - 29 mmol/L 04/22/2022 1:36 PM [facility] Glucose 96 70 - 115 mg/dL 04/22/2022 1:36 PM [facility] Calcium 9.9 8.4 - 10.2 mg/dL 04/22/2022 1:36 PM [facility] Protein Total 7.8 6.0 - 8.3 g/dL 04/22/2022 1:36 PM [facility] Albumin 4.2 3.4 - 5.0 g/dL 04/22/2022 1:36 PM [facility] Bilirubin Total 0.3 0.2 - 1.2 mg/dL 04/22/2022 1:36 PM [facility] Alkaline Phosphatase 91 40 - 150 U/L 04/22/2022 1:36 PM [facility] ALT 30 5 - 55 U/L 04/22/2022 1:36 PM T [facility] AST 16 5 - 34 U/L 04/22/2022 1:36 PM T [facility] Anion Gap 16 8 - 18 04/22/2022 1:36 PM [facility] BUN/Creatinine Ratio 13 7 - 23 04/22/2022 1:36 PM T [facility] Osmolality Calculated 296 270 - 300 mOsm/kg 04/22/2022 1:36 PM [facility] Albumin/Globulin Ratio 1.2 1.1 - 2.3 04/22/2022 1:36 PM [facility] eGFR by CKD-EPI 78(L) >=90 mL/min/1.7 3 m2 04/22/2022 1:36 PM [facility] Blood BLOOD SPECIMEN / Unknown Lab Venipuncture / Unknown 04/22/2022 12:55 PM CDT 04/22/2022 1:05 PM T Umang Alonzo MD LAB - CHEMISTRY JENIFFER KUMARI [facility] Organization Address City/State/ZIP Co de Phone Number [facility] [address] [place] [address], [facility] [phone] from Last 3 Months or Most Recently Relevant to Health Maintenance Care Teams Cook Short Order Relationship Specialty Start Date End Date Augusto Jiménez MD [address] [place] [address] PCP - General 06/17/17
--- OUTSIDE RECORDS SUMMARY | 2024-09-22 05:00 | XMS_ITS | Referral Summary ---
Author Organization [facility] Address [address] [place] [address] Care Team Providers Care Building Maintenance Superintendent Name Role Phone Augusto Jiménez MD Primary Care Provider [phone] Source Comments [facility] Affiliates and Associated Physician Practices is amultiple site organization consisting of ambulatory clinics and hospital sitesin [place], [place], [place] and [place]. This disclosure is being madepursuant to the Care Everywhere program and may not contain all information available regarding this patient. Last updated 18.[facility] [place] Allergies Active Allergy Reactions Criticality Noted Date [...] by mouth every 12 hours 03/29/2021 Active Bowie-3 Fatty Acids (Fish Oil) 1200 MG Take [...] RECOM-THOMAS, QUADR. (FLUBLOCK QUADRIVALENT; 18Y+) (RIV4) 06/06/2022 Social History Tobacco Use Types Packs/Day Years [...] 06/20/2022 1:58 PM CDT Plan of Treatment Not on file Procedures Procedure Name Priority Date/Time Associated Diagnosis Comments COMPREHENSIVE METABOLIC PANEL Routine 04/22/2022 12:55 PM CDT Sjogren's syndrome, with unspecified organ involvement (HCC) Sicca complex (HCC) Polyarthritis of hand Polyarthralgia from Last 3 Months or Most Recently Relevant to Health Maintenance Results * (ABNORMAL) COMPREHENSIVE METABOLIC PANEL (04/22/2022 12:55 PM [facility]) BUN 12 7 - 26 mg/dL 04/22/2022 1:36 PM [facility] Creatinine 0.89 0.56 - 0.96 mg/dL 04/22/2022 1:36 PM [facility] Sodium 143 136 - 145 mmol/L 04/22/2022 1:36 PM [facility] Potassium 3.7 3.5 - 4.5 mmol/L 04/22/2022 1:36 PM [facility] Chloride 103 98 - 107 mmol/L 04/22/2022 1:36 PM [facility] CO2 28 22 - 29 mmol/L 04/22/2022 1:36 PM [facility] Glucose 96 70 - 115 mg/dL 04/22/2022 1:36 PM [facility] Calcium 9.9 8.4 - 10.2 mg/dL 04/22/2022 1:36 PM [facility] Protein Total 7.8 6.0 - 8.3 g/dL 04/22/2022 1:36 PM [facility] Albumin 4.2 3.4 - 5.0 g/dL 04/22/2022 1:36 PM [facility] Bilirubin Total 0.3 0.2 - 1.2 mg/dL 04/22/2022 1:36 PM [facility] Alkaline Phosphatase 91 40 - 150 U/L 04/22/2022 1:36 PM [facility] ALT 30 5 - 55 U/L 04/22/2022 1:36 PM [facility] AST 16 5 - 34 U/L 04/22/2022 1:36 PM [facility] Anion Gap 16 8 - 18 04/22/2022 1:36 PM [facility] BUN/Creatinine Ratio 13 7 - 23 04/22/2022 1:36 PM [facility] Osmolality Calculated 296 270 - 300 mOsm/kg 04/22/2022 1:36 PM CDT [facility] Albumin/Globulin Ratio 1.2 1.1 - 2.3 04/22/2022 1:36 PM CDT [facility] eGFR by CKD-EPI 78(L) >=90 mL/min/1.7 3 m2 04/22/2022 1:36 PM CDT [facility] Blood BLOOD SPECIMEN / Unknown Lab Venipuncture / Unknown 04/22/2022 12:55 PM CDT 04/22/2022 1:05 PM CDT Umang Alonzo MD LAB - CHEMISTRY JENIFFER KUMARI [facility] Organization Address City/State/ZIP Co de Phone Number [facility] [address] [place] [address], [facility] [phone] from Last 3 Months or Most Recently Relevant to Health Maintenance Care Teams Building Maintenance Superintendent Relationship Specialty Start Date End Date Augusto Jiménez MD [address] [facility] [address] [place] [address] (work) PCP - General 06/17/17
--- OUTSIDE RECORDS SUMMARY | 2024-09-22 05:00 | XMS_ITS | Encounter Summary ---
Author Organization [facility] Address [address] [place] [address] Care Team Providers Care Anthropologist Name Role Phone Augusto Jiménez MD Primary Care Provider [phone] Reason for Visit * Reason Comments Follow-up Encounter Details Date Type Department Care Team (Late st Contact Info) Description 06/06/2022 3:00 PM CDT Office Visit [facility] [address] [facility], [facility] [place] [address] Umang Alonzo MD [facility] [place] [address] Sjogren's syndrome, with unspecified organ involvement (HCC) (Primary Dx); Need for influenza vaccination; Sicca complex (HCC); Polyarthritis of hand; Polyarthralgia; Bilateral hand pain; Chronic pain of both knees Social History Tobacco Use Types Packs/Day Years [...] Orientation Straight 05/30/2022 11 :21 AM CDT documented as of this encounter Last Filed Vital Signs Vital Sign Reading Time Taken Comments Blood Pressure 116/78 06/06/2022 2:44 PM CDT Pulse - - Temperature 36.6 ??C (97.9 ??F) 06/06/2022 2:44 PM CD T Respiratory Rate - - Oxygen Saturation - - Inhaled Oxygen Concentration - - Weight 119.3 kg (263 lb) 06/06/2022 2:44 PM CDT Height 167.6 cm (5' 6 ) 06/06/2022 2:44 PM CDT Body Mass Index 42.45 06/06/2022 2:44 PM CDT documented in this encounter Progress Notes * Umang Alonzo MD - 06/06/2022 2:59 PM CDT Images from the original note were not included. 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 #. Primary Sjogren's Syndrome Onset ~51 yo. Clinical phenotype: severe sicca, possible mild bilateral hand polyarthritis. Serologic profile: ARE 1:160 with mcfc-UZM-00sCc of 7.6 and anti- SSB 3.5. - Refresh daytime and Refresh PM - Biotene products - Annual lymphoma screen (last was Apr 2022) #. Polyarthralgia Component from non-inflammatory polyarthrlagia including OA, DDD, obesity (BMI >42). 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 - Hand OT referral for bilateral hand pain - PT referral for bilateral knee pain, counseled to limited IACS injections #. Follow-up: ~6 months or sooner if needed. Thank you for placing trust in us. I educated the patient regarding risks and benefits of the management plan, their medical problems, and contingency plans for worsening symptoms. For additional discussion, I can be reached by leaving a message through the [facility] rheumatology line at [phone](option 3). Additional contributions to medical decision making for today's encounter: The patient has a chronic illness with exacerbation, progression, or side effects of treatment not at goal. I reviewed the patient's chart including review of clinical notes, laboratory results, and imaging results. Total time spent reviewing records, conducting interview and physical, counseling, care coordinat ion, placing any orders for investigative studies and/or medications, and documentation: 40+ minutes. Umang Alonzo MD Division of Rheumatology Department of Internal Medicine [facility] Medicine Encounter Diagnoses, Orders, and Future Appointments: 1. Need for influenza vaccination Orders Placed This Encounter ??? FLU VACCINE (Flublok) QUAD RIV4 PF IM Future Appointments Date Time Provider Department Center 06/06/2022 3:00 PM Umang Alonzo MD [id number] [place] [facility] Subjective History of Present Illness: 04/22/22: Rheumatology Clinic New Patient Visit Relevant background with impressive family history of autoimmunity with father with scleroderma, sister with lupus and meniere's, and brother with scleroderma and RA. The patient developed severe Sicca a few years ago, progressively worsening. She says I feel I have sand in my eyes and reports occasionally choking on food due to dryness. She says this has been ongoing for years and is worsening. A few months ago she developed bilateral hand tightness worse in the AM and lasting for several hours. RAE 1:160 with anti-SSA of 7.6 and anti- SSB 3.5 on prior labs. RF and CCP negative. PMH notable for hysterectomy in 2002, she says they left one ovary . She endorses some recent hot flushes. 06/04/2022: Rheumatology clinic reviewed Since last visit any obtained labs and x-rays. She continues to have bilateral hand pain and bilateral knee pain. No recent history of occupational hand therapy or physical therapy for the knees. Today's visit was dedicated to counseling of management of osteoarthritis. Review of Systems: All other systems reviewed and negative or noncontributory except as stated in the HPI. Home Medications: Current Outpatient Medications: ??? Artificial Saliva (Biotene Dry Mouth) LOZG, 1 Each by Mouth/Throat route every 1 hour as needed, Disp: 100 lozenge, Rfl: PRN ??? Artificial Saliva (Biotene Dry Mouth), 1 Each by Mouth/Throat route every 1 hour as needed, Disp: 100 Each, Rfl: PRN ??? aspirin EC (Ecotrin) 81 MG tablet, Take 81 mg by mouth once daily, Disp: , Rfl: ??? BIOTIN 5000 PO, Take 5,000 mcg by mouth once daily, Disp: , Rfl: ??? buPROPion SR 12hr (Wellbutrin-SR) 150 MG tablet, Take 1 tablet by mouth every 12 hours, Disp: ,Rfl: ??? calcium 600 MG tablet, Take 1 tablet by mouth daily with food, Disp: , Rfl: ??? cetirizine (ZyrTEC ALLERGY) 10 MG tablet, Take 10 mg by mouth once daily, Disp: , Rfl: ??? Cholecalciferol (DIALYVITE VITAMIN D 5000 PO), Take 1 tablet by mouth once daily, Disp: , Rfl: ??? citalopram (CELEXA) 20 MG tablet, Take 20 mg by mouth once daily, Disp: , Rfl: ??? hydroCHLOROthiazide (MICROZIDE) 12.5 MG capsule, Take 12.5 mg by mouth once daily, Disp: , Rfl: ??? lisinopril (Prinivil; Zestril) 10 MG tablet, Take 1 tablet by mouth every 24 hours, Disp: , Rfl: ??? Mouthwashes (Biotene Dry Mouth), 1 Each by Mouth/Throat route every 1 hour as needed, Disp: 500mL, Rfl: PRN ??? Multiple Vitamins-Minerals (MULTIVITAMIN ADULTS PO), Take 1 tablet by mouth once daily, Disp: ,Rfl: ??? [place]-3 Fatty Acids (Fish Oil) 1200 MG, Take 1,200 mg by mouth once daily, Disp: , Rfl: ??? omeprazole (PriLOSEC) 20 MG capsule, Take 20 mg by mouth daily before breakfast, Disp: , Rfl: ??? polyvinyl alcohol-povidone PF (Refresh) 1.4-0.6 % ophthalmic solution, Instill 1 (one) drop into both eyes 4 times daily, Disp: 30 mL, Rfl: PRN ??? refresh p.m. (Refresh Pm) ophthalmic ointment, Instill into both eyes at bedtime, Disp: 7 g, Rfl: PRN ??? rosuvastatin (Crestor) 20 MG tablet, Take 20 mg by mouth once daily, Disp: , Rfl: ??? topiramate (Topamax) 50 MG tablet, Take 1 tablet by mouth every 12 hours, Disp: , Rfl: ??? vitamin C (Ascorbic Acid) 1000 MG tablet, Take 1,000 mg by mouth once daily, Disp: , Rfl: Adverse Drug Reactions: Allergies Allergen Reactions ??? Propoxyphene N-Apap Other Heart races ??? Adhesive Sensitivity Rash blisters ??? Hydrocodone-Acetaminophen Other vicodin Heart races ??? Sulfamethoxazole Nausea and/or Vomiting ??? Sulfamethoxazole W-Trimethoprim Itching and Nausea and/or Vomiting Sick to stomach and itching ??? Trimethoprim Itching Past Medical History: Patient Active Problem List: Sjogren's syndrome Sicca complex Polyarthritis of hand Polyarthralgia Past Medical History: Diagnosis Date ??? Acute bronchitis 1979 ??? Depression 1986 ??? Dry eyes 2018 ??? Dry mouth 2018 ??? High blood pressure ??? Lupus 2021 ??? Sjogren's syndrome 2021 Past Surgical History: Past Surgical History: Procedure Laterality Date ??? Bunionectomy 2021 ??? Hysterectomy 2002 ??? SINUS SURGERY 2014 ??? TUBAL LIGATION, LAPAROSCOPIC Immunization History: Immunization History Administered Date(s) Administered ??? DT (AGE 0-7) 02/18/1980, 12/21/1992 ??? DTAP, HISTORIC VACCINE 10/03/1972, 11/21/1972, 01/16/1973, 01/22/1974, 09/05/2006 ??? FLU VACCINE QUAD IIV4 SPLIT IM 07/24/2016 ??? FLU VACCINE QUAD IIV4 SPLIT PF IM 07/20/2020 ??? MODERNA SARS-COV-2 COVID-19 VACCINE 0.25ML 10/08/2021 ??? MODERNA SARS-COV-2 COVID-19 VACCINE 0.5ML 12/26/2020, 01/23/2021 ??? MUMPS 02/18/1980 ? ? Measles & Rubella 08/29/1972 ??? POLIO, HISTORIC VACCINE 10/03/1972, 11/21/1972, 01/22/1974, 02/18/1980 ??? TDAP, HISTORIC VACCINE 06/09/2019 ??? VARICELLA 07/19/1979 Social History: Social History Socioeconomic History ??? Marital status: Tobacco Use ??? Smoking status: Former Smoker Types: Cigarettes ??? Smokeless tobacco: Never Used ??? Tobacco comment: many years ago for 1 year Vaping Use ??? Vaping Use: Never used Substance and Sexual Activity ??? Alcohol use: Not Currently Comment: used to occasional but no longer ??? Drug use: Never Family History: Family History Problem Relation Name Age of Onset ??? Cirrhosis Mother ??? Scleroderma Father ??? Arthritis - Osteo Sister Alissa ??? Diabetes; unknown type Sister Alissa ??? Lupus Sister Alissa ??? Other Sister Alissa ??? Arthritis - Osteo Sister Anjelica ??? Hypertension Sister Anjelica ??? Gout Sister Anjelica ??? Hypertension Sister Luzmaria ??? Hyperlipidemia Sister Luzmaria ??? Depression Sister Luzmaria ??? Diabetes; unknown type Sister Luzmaria ??? Arthritis - Osteo Sister Luzmaria ??? Cirrhosis Sister Luzmaria ??? Thyroid Disease Sister Luzmaria ??? Parkinson's Disease Sister Luzmaria ??? Renal Disease Sister Luzmaria ??? Anxiety Disorder Sister Luzmaria ??? Obesity Sister Luzmaria ??? Depression Sister Kimberley ??? Hyperlipidemia Sister Kimberley ??? Sleep Disorder - Sleep apnea Brother Silverio ??? Hypertension Brother Silverio ??? Diabetes; unknown type Brother Silverio ??? Arthritis - Rheumatoid Brother Kanu ??? Hypertension Brother Kanu ??? Sleep Disorder - Sleep apnea Brother Kanu ??? Scleroderma Brother Kanu ??? Hyperlipidemia Brother Kanu Patient Care Team: Patient Care Team: Augusto Jiménez MD as PCP - General Objective Physical Exam BP 116/78 (BP SITE: RIGHT ARM, BP POSITION: SITTING, BP CUFF SIZE: 11L) Temp 97.9 ??F (36.6 ??C) (Oral) Ht 5' 6 (1.676 m) Wt 263 lb (119.3 kg) No BMI 42.45 kg/m?? GENERAL: woman in NAD HEENT/NECK: Eyes with white sclerae, pink conjunctivae. External ears normal. Nares and nasal mucosa normal. Normal oral aperture. No oropharyngeal lesions. No thyromegaly, palpable masses, or cervical LAD. CHEST/LUNGS: Normal work of breathing, CTAB. CARDIOVASCULAR: Regular rhythm, crisp S1/S2, no M/R/G. JVP not elevated. Extremities warm, peripheral pulses 2+, brisk capillary refill, no edema. ABDOMEN: Soft, non-distended, non-tender. SKIN/NAILS: No rashes or suspicious lesions on exposed skin. No sclerodactyly, calcinosis, periungual erythema, digital pitting. PSYCH: Alert, oriented, appropriately interactive. NEURO: CN II-XII intact. Sensation intact to soft touch. Normal muscle bulk and strength in trunk and limbs. No dysmetria. Gait normal. MSK: Several MCPs, PIPs, DIPs TTP, asymmetric, no overt synovitis. Squaring of 1st CMCs. Knee crepitus b/l. Common Labs CBC Recent Labs Component Name 04/22/22 1255 WBC 7.9 HGB 13.0 MCV 88.4 PLTCOUNT 317 Lab Results Component Value Date/Time NEUTABS 4.30 04/22/2022 12:55 PM LYMPHS 2.78 04/22/2022 12:55 PM MONO 0.60 04/22/2022 12:55 PM EOS 0.12 04/22/2022 12:55 PM BASO 0.03 04/22/2022 12:55 PM GRANIMMABS 0.02 04/22/2022 12:55 PM Metabolic Profile Recent Labs Component Name 04/22/22 1255 NA 143 POTASSIUM 3.7 CL 103 CO2 28 BUN 12 CREATININE 0.89 GLUCOSE 96 CALCIUM 9.9 ANIONGAP 16 EGFR 78* AST 16 ALT 30 ALKPHOS 91 PROT 7.6 7.8 ALB 4.2 TBILI 0.3 No results found for: MG, PHOS, DBIL UA & UPC Lab Results Component Value Date/Time PHUA 5.0 04/22/2022 12:55 PM UROBILINUA Negative 04/22/2022 12:55 PM SQUAMOUS 3-5 04/22/2022 12:55 PM RBCUA 0-2 04/22/2022 12:55 PM Lab Results Component Value Date/Time PROTEINTO <7 04/22/2022 12:55 PM PROTEINTO <7 04/22/2022 12:55 PM CREATININEUR 160 04/22/2022 12:55 PM [id number] 04/22/2022 12:55 PM Comment: Unable to calculate ratio because the analyte concentration is outside the instrument measuring range. No results for input(s): HCGURINE, HCGQUANT in the last 36303 hours. Latent Infections No results found for: HEPBSAG, HBVSAB, HEPBSAB, HEPBCAB, HEPCAB No results found for: QUANTIFER, QNTTBGOLD, QNTPLUSTB1, QNTPLUSTB2, QNTMITOGEN, QUANTIFERO, QUANTIFECI, QUANTIF, QUANNIL, QUAMIT, QFTTBAGN, SONZIBOSG42, AFBSMR Immunology Labs Inflammatory Markers No results for input(s): ESR, SEDRATE, CRP in the last 16013 hours. RA-related Auto-Ab's Lab Results Component Value Date/Time CCPIGG 0.6 04/22/2022 12:55 PM RAE-related Lab Results Component Value Date/Time ANATITER 1:80 (Abnormal) 04/22/2022 12:55 PM ANAPATTERN Speckled (Abnormal) 04/22/2022 12:55 PM ANAIGG Detected (Abnormal) 04/22/2022 12:55 PM DSDNAABIU 4 04/22/2022 12:55 PM CHROMATINAB 5 04/22/2022 12:55 PM SMITHRNPAB 9 04/22/2022 12:55 PM [id number] 0 04/22/2022 12:55 PM No results for input(s): C3, C4 in the last 08665 hours. APLS-related Auto-Ab's No results found for: N7VOPYHZMB, F3YWEGTLBZ, U9DFGUQWIV, SOXX1AFX, UNZP8JPE, CRDLPNIGM, CRDLPNIGG,CRDLPNIGA, DILUTEPT, DPTCFMRATIO, TT, PTTLA, DRVVTBASE, LABINTE Myopathy Lab Results Component Value Date/Time [id number] 0 04/22/2022 12:55 PM SMITHRNPAB 9 04/22/2022 12:55 PM PLK17FN 2 04/22/2022 12:55 PM HFN24XM 101 (H) 04/22/2022 12:55 PM Vasculitis and ANCAs No results found for: NEUTCYTOAB, ANTIPROT3, ANTIMPO, K8VBGZR Genetics No results found for: HLAB27 Gammopathy/Paraproteinemia Lab Results Component Value Date/Time KAPPAFREE 17.51 04/22/2022 12:55 PM LAMBDAFREE 13.81 04/22/2022 12:55 PM KLFREERATIO 1.27 04/22/2022 12:55 PM Lab Results Component Value Date/Time SPEINTERP Normal Pattern 04/22/2022 12:55 PM SERUMPEALB 4.4 04/22/2022 12:55 PM SERUMPEA1 0.4 04/22/2022 12:55 PM SERUMPEA2 0.8 04/22/2022 12:55 PM SERUMPEBE 1.0 04/22/2022 12:55 PM SERUMPEGA 1.1 04/22/2022 12:55 PM PROT 7.8 04/22/2022 12:55 PM PROT 7.6 04/22/2022 12:55 PM Other Labs Endocrine & Metabolic Recent Labs Component Name 04/22/22 1255 TSH 3.027 No results found for: EOZI20PZ Heme No results found for: RETICCTPCT, RETICULOCYTE, IRON, FERRITIN, TRANSFERRIN, TRANSFERRSAT, TIBC, FIBRINOGEN, DDIMER, VITB12, FOLATE, HAPTOGLOBIN, LDHTOTAL No results for input(s): PT, INR, PTT in the last 44259 hours. Renal No results found for: CALCIUMION, PHBLD, IONCAART, MAGNESIUM, PHOS, SODIUMRAN, POTASSIUMUR, CHLORIDER Cardiac & Lipids No results for input(s): TROPONINI, CKMB, BNP in the last 23134 hours. No results for input(s): CHOL, TRIG, HDL, LDLCALC, LDLDIRECT in the last 46603 hours. Respiratory No results found for: SARSCOV2, RINFLUANAA, RINFLUBNAA, INFLUARAPID, INFLUBRAPID, INFLUCNTRL, STREPARAPID, STREPAQC Hepatobiliary & GI No results found for: GGT, LIPASE, X2WRBJWONVJA, CMVPCR, CMVSOURCE, GDHANTIGEN, CDIFFTOXINAB, CDIFFINTRP, GLIADINIGG, GLIADINIGA, ENDOMYSIA, TTRANIGA, TTRANIGG Drug Screen No results found for: THCUR, PCPUR, COCAINEUR, METHAMPHETUR, OPIATESUR, AMPHETUR, BENZODIAZUR, TCAUR, METHADONEUR, BARBITURATUR, OXYCODONEUR, PROPOXYUR Synovial Fluid No results found for: COLORFL, CLARITYFLUID, BFVOLUME, VISCOSITY, WBCFLUID, RBCFL, CRYSTALEXAM, DIFF, BFBAND, BFSEGS, BFLYMPH, BFMONO, BFEOS, BFMACRO, PATHDIFFRVW Neuro/CSF No results found for: GLUCSF, PROTEINCSF, IXW9FPRNUH, [place]0HWCRNL, NFOB2ATQ, COCCIDIGG, IRX4AVS, CRYPTOAGCSF, ENTEROVIRPCR, OLIGOBAND, OLIGOBANDNUM, IGG, IKT2PVZ, ALBUMINMS, IWUZITL5DRL, ALBUMININDEX,IGGINDEX, IGGALBRATIO, SYNTHESRTE, OLIGOCINTRP, TOXOPLASIGG, CYSTICERO Body Fluid No results found for: LABLD, GROSSDESCRIP, MICROPDESCR STIs (HIV, GC, Trich, Syphilis) No results found for: HIV12, DYN6OERTVG, BTX3RAY36APZ, CHLAMDIA, CHLTRNAA, GC, NGONORRNAA, TRICVAGAP, TRICHVAGBY, TPALLIDUM Cultures & Other Micro No results found for: URINECULT, BLOODCULT, BDERMAGUR, BDERMINTERP Imaging / EGMs / PFTs / Path / Other Studies XR hands, wrists, feet (04/22/22) 1. Right and left hands and wrists: Normal. 2. Right and left knees: Small osteophytes indicating early degenerative change without joint spacenarrowing. 3. Right foot: Normal. 4. Left foot: No arthritis. Postsurgical change at the fifth metatarsal head. For assessment and recommendations, please see above. This note was generated using the [employer] speech recognition system. Grammatical errors, random wordinsertions, substitutions, deletions, pronoun errors, and incomplete sentences are an occasional consequence of this technology due to software limitations. Prior to signing the note, I reviewed it for misspellings or errors related to dictation to a reasonable extent, although it is possible that not all errors were caught or corrected. If there are questions or concerns about the content of this note or information contained within the body of this dictation, they should be addressed directlywith the author for clarification. Thank you. documented in this encounter Plan of Treatment Not on file documented as of this encounter Visit Diagnoses Diagnosis Sjogren's syndrome, with unspecified organ involvement (HCC)- Primary Need for influenza vaccination Need for prophylactic vaccination and inoculation against influenza Sicca complex (HCC) Polyarthritis of hand Unspecified polyarthropathy or polyarthritis, hand Polyarthralgia Pain in joint, multiple sites Bilateral hand pain Pain in limb Chronic pain of both knees documented in this encounter Care Teams Anthropologist Relationship Specialty Start Date End Date Augusto Jiménez MD [address] [place] [id number] PCP - General 06/17/17 documented as of this encounter
--- OUTSIDE RECORDS SUMMARY | 2024-09-22 05:00 | XMS_ITS | Encounter Summary ---
Author Organization [facility] Address [address] [place] [address] Care Team Providers Care Landscape Supervisor Name Role Phone Augusto Jiménez MD Primary Care Provider [phone] Encounter Details Date Type Department Care Team (Latest Contact Info) Description 04/22/2022 12:30 PM CDT - 04/22/2022 11:59 PM CDT Hospital Encounter [facility] OP DRAW STATION [address] [place] [phone] Umang Nelson, DO [address] [place] [address] Discharge Disposition: Home or Self Care Social History Tobacco Use Types Packs/Day Years [...] PM CDT documented as of this encounter Medications at Time of Discharge Medication Sig Dispensed Refills Start Date End Date Artificial Saliva (Biotene Dry Mouth) LOZGIndications:Sjogre n's syndrome, with unspecified organ involvement (HCC),Sicca complex (HCC) 1 Each by Mouth/Throat route every 1 hour as needed 100 lozenge 04/22/2022 Artificial Saliva (Biotene Dry Mouth)Indications:Sjog jennifer's syndrome, with unspecified organ involvement (HCC),Sicca complex (HCC) 1 Each by Mouth/Throat route every 1 hour as needed 100 Each 04/22/2022 aspirin EC (Ecotrin) 81 MG tablet Take 81 mg by mouth once daily BIOTIN 5000 PO Take 5,000 mcg by mouth once daily buPROPion SR 12hr (Wellbutrin-SR) 150 MG tablet Take 1 tablet by mouth every 12 hours 03/29/2021 calcium 600 MG tablet Take 1 tablet by mouth daily with food cetirizine (ZyrTEC) 10 MG tablet Take 10 mg by mouth once daily citalopram (CELEXA) 20 MG tablet Take 20 mg by mouth once daily 05/18/2017 hydroCHLOROthiazide (MICROZIDE) 12.5 MG capsule Take 12.5 mg by mouth once daily 05/18/2017 lisinopril (Prinivil; Zestril) 10 MG tablet Take 1 tablet by mouth every 24 hours 03/29/2021 Mouthwashes (Biotene Dry Mouth)Indications:Sjog jennifer's syndrome, with unspecified organ involvement (HCC),Sicca complex (HCC) 1 Each by Mouth/Throat route every 1 hour as needed 500 mL 04/22/2022 Multiple Vitamins-Minerals (MULTIVITAMIN ADULTS PO) Take 1 tablet by mouth once daily [place]-3 Fatty Acids (Fish Oil) 1200 MG Take 1,200 mg by mouth once daily omeprazole (PriLOSEC) 20 MG capsule Take 20 mg by mouth daily before breakfast polyvinyl alcohol-povidone PF (Refresh) 1.4-0.6 % ophthalmic solutionIndications:Sj ogren's syndrome, with unspecified organ involvement (HCC),Sicca complex (HCC) Instill 1 (one) drop into both eyes 4 times daily 30 mL 04/22/2022 refresh p.m. (Refresh Pm) ophthalmic ointmentIndications:Sj ogren's syndrome, with unspecified organ involvement (HCC),Sicca complex (HCC) Instill into both eyes at bedtime 7 g 04/22/2022 rosuvastatin (Crestor) 20 MG tablet Take 20 mg by mouth once daily 01/30/2022 topiramate (Topamax) 50 MG tablet Take 1 tablet by mouth every 12 hours 03/29/2021 vitamin C (Ascorbic Acid) 1000 MG tablet Take 1,000 mg by mouth once daily Cholecalciferol (DIALYVITE VITAMIN D 5000 PO) Take 1 tablet by mouth once daily 06/20/2022 documented as of this encounter Plan of Treatment Not on file documented as of this encounter Procedures Procedure Name Priority Date/Time Associated Diagnosis Comments RAE BLOOD SINGLE PATTERN Routine 04/22/2022 12:55 PM CDT Sjogren's syndrome, with unspecified organ involvement (HCC) Sicca complex (HCC) Polyarthritis of hand Polyarthralgia RHEUMATOID FACTOR IGG/IGM/IGA AB Routine 04/22/2022 12:55 PM CDT Sjogren's syndrome, with unspecified organ involvement (HCC) Sicca complex (HCC) Polyarthritis of hand Polyarthralgia RAE HEP-2 IGG BY IFA Routine 04/22/2022 12:55 PM CDT Sjogren's syndrome, with unspecified organ involvement (HCC) Sicca complex (HCC) Polyarthritis of hand Polyarthralgia SS-A (SJOGREN'S) 52+60 ANTIBODIES Routine 04/22/2022 12:55 PM CDT Sjogren's syndrome, with unspecified organ involvement (HCC) Sicca complex (HCC) Polyarthritis of hand Polyarthralgia HEROZG/BLOOD BANK LABORATORY PROFESSIONAL (TERRI) ANTIBODY IGG Routine 04/22/2022 12:55 PM CDT Sjogren's syndrome, with unspecified organ involvement (HCC) Sicca complex (HCC) Polyarthritis of hand Polyarthralgia CHROMATIN ANTIBODY Routine 04/22/2022 12 :55 PM CDT Sjogren's syndrome, with unspecified organ involvement (HCC) Sicca complex (HCC) Polyarthritis of hand Polyarthralgia TSH REFLEX FREE T4 Routine 04/22/2022 12 :55 PM CDT Sjogren's syndrome, with unspecified organ involvement (HCC) Sicca complex (HCC) Polyarthritis of hand Polyarthralgia URINALYSIS W/MICROSCOPIC REFLEX TO CULTURE Routine 04/22/2022 12:55 PM CDT Sjogren's syndrome, with unspecified organ involvement (HCC) Sicca complex (HCC) Polyarthritis of hand Polyarthralgia PROTEIN ELECTROPHORESIS URINE RANDOM Routine 04/22/2022 12:55 PM CDT Sjogren's syndrome, with unspecified organ involvement (HCC) Sicca complex (HCC) Polyarthritis of hand Polyarthralgia HERZOG (SM) ANTIBODY TERRI Routine 04/22/20 22 12:55 PM CDT Sjogren's syndrome, with unspecified organ involvement (HCC) Sicca complex (HCC) Polyarthritis of hand Polyarthralgia RAE BLOOD SCREEN W/REFLEX TITER Routine 04/22/2022 12:55 PM CDT Sjogren's syndrome, with unspecified organ involvement (HCC) Sicca complex (HCC) Polyarthritis of hand Polyarthralgia CRYOGLOBULIN QUALITATIVE Routine 04/22/2022 12:55 PM CDT Sjogren's syndrome, with unspecified organ involvement (HCC) Sicca complex (HCC) Polyarthritis of hand Polyarthralgia CENTROMERE ANTIBODY Routine 04/22/2022 1 2:55 PM CDT Sjogren's syndrome, with unspecified organ involvement (HCC) Sicca complex (HCC) Polyarthritis of hand Polyarthralgia SS-B (SJOGREN'S) ANTIBODY Routine 04/22/2022 12:55 PM CDT Sjogren's syndrome, with unspecified organ involvement (HCC) Sicca complex (HCC) Polyarthritis of hand Polyarthralgia SCLERODERMA 70 (SCL) ANTIBODY Routine 04/22/2022 12:55 PM CDT Sjogren's syndrome, with unspecified organ involvement (HCC) Sicca complex (HCC) Polyarthritis of hand Polyarthralgia DNA ANTIBODY DOUBLE STRANDED Routine 04/22/2022 12:55 PM CDT Sjogren's syndrome, with unspecified organ involvement (HCC) Sicca complex (HCC) Polyarthritis of hand Polyarthralgia CHRISSY-1 ANTIBODY Routine 04/22/2022 12:55 PM CDT Sjogren's syndrome, with unspecified organ involvement (HCC) Sicca complex (HCC) Polyarthritis of hand Polyarthralgia CYCLIC CITRULLINATED PEPTIDE(CCP) AB IGG Routine 04/22/2022 12:55 PM CDT Sjogren's syndrome, with unspecified organ involvement (HCC) Sicca complex (HCC) Polyarthritis of hand Polyarthralgia KAPPA/LAMBDA LITE CHAIN FREE PANEL Routine 04/22/2022 12:55 PM CDT Sjogren's syndrome, with unspecified organ involvement (HCC) Sicca complex (HCC) Polyarthritis of hand Polyarthralgia CBC W AUTO DIFFERENTIAL Routine 04/22/20 12:55 PM CDT Sjogren's syndrome, with unspecified organ involvement (HCC) Sicca complex (HCC) Polyarthritis of hand Polyarthralgia COMPLEMENT C4 Routine 04/22/2022 12:55 PM CDT Sjogren's syndrome, with unspecified organ involvement (HCC) Sicca complex (HCC) Polyarthritis of hand Polyarthralgia COMPREHENSIVE METABOLIC PANEL Routine 04/22/2022 12:55 PM CDT Sjogren's syndrome, with unspecified organ involvement (HCC) Sicca complex (HCC) Polyarthritis of hand Polyarthralgia PROTEIN CREATININE RATIO URINE RANDOM PNL Routine 04/22/2022 12:55 PM CDT Sjogren's syndrome, with unspecified organ involvement (HCC) Sicca complex (HCC) Polyarthritis of hand Polyarthralgia PROTEIN ELECTROPHORESIS BLOOD Routine 04/22/2022 12:55 PM CDT Sjogren's syndrome, with unspecified organ involvement (HCC) Sicca complex (HCC) Polyarthritis of hand Polyarthralgia COMPLEMENT C3 Routine 04/22/2022 12:55 PM CDT Sjogren's syndrome, with unspecified organ involvement (HCC) Sicca complex (HCC) Polyarthritis of hand Polyarthralgia documented in this encounter Results * (ABNORMAL) RAE BLOOD SINGLE PATTERN (04/22/2022 12:55 PM CDT) RAE Pattern Speckled( A) 04/24/2022 12:58 PM CDT [facility] [employer] ([facility]) RAE Titer 1:80(A) 04/24/2022 12:58 PM CDT [facility] [employer] ([facility]) Comment: Performed By: [facility] [address] [place] [address] Apns: Da Terrell MD, PhD Blood BLOOD SPECIMEN / Unknown Lab Venipuncture / Unknown 04/22/2022 12:55 PM CDT 04/22/2022 1:03 PM CDT Umang Alonzo MD LAB - CHEMISTRY JENIFFER KUMARI [facility] Organization Address City/State/ZIP Co de Phone Number [facility] [employer] [facility]) [address] * (ABNORMAL) RAE HEP-2 IGG BY IFA (04/22/2022 12:55 PM CDT) RAE HEp-2 IgG Detected (H) <1:80 04/24/2022 12:58 PM CDT [facility] ([facility]) RAE Interpretive Comment See Note 04/24/2022 12:58 PM CDT [facility] [employer] [employer] ([facility]) Comment: Speckled Pattern Clinical associations: SLE, SSc, SjS, DM, PM, MCTD, UCTD. May also be found in healthy individuals Main autoantibodies: Anti-SSA-52 (Ro52), anti-SSA-60 (Ro60), anti-SS-B/LA, anti-Alexei-1 (anti-Scl-70), Herzog, anti-U1-BLOOD BANK LABORATORY PROFESSIONAL, anti-U2-BLOOD BANK LABORATORY PROFESSIONAL, anti-Mi-2, anti-p155/140 (TIF1g), anti-Ku, anti-RNA polymerase, anti-DFS70/LEDGF-P75 List of Abbreviations Antisynthetase syndrome (ARS), chronic active hepatitis (CAH), ?? inflammatory ??myopathies (IM) [dermatomyositis (DM), polymyositis (PM), necrotizing autoimmune myopathy (NAM)], interstitial lung disease (ILD), juvenile idiopathic arthritis (MARTIN), mixed connective tissue disease (MCTD), primary biliary cholangitis (PBC), rheumatoid arthritis (RA), systemic autoimmune rheumatic diseases (SARD), Sjogren syndrome (SjS), systemic lupus erythematosus (SLE), systemic sclerosis (SSc), undifferentiated connective tissue disease (UCTD). INTERPRETIVE INFORMATION: RAE Interpretive Comment Presence of antinuclear antibodies (RAE) is a hallmark feature of systemic autoimmune rheumatic diseases (SARD). However, RAE lacks diagnostic specificity and is associated with a variety of diseases (cancers, autoimmune, infectious, and inflammatory conditions) ??and may also occur in healthy individuals in varying prevalence. The lack of diagnostic specificity requires confirmation of positive RAE by more specific serologic tests. RAE (nuclear reactivity) positive patterns reported include centromere, homogeneous, nuclear dots, nucleolar, or speckled. RAE (cytoplasmic reactivity) positive patterns reported include reticular/AMA, discrete/GW body-like, polar/golgi-like, cytoplasmic speckled or rods and rings. All positive patterns are reported to endpoint titers (1:2560). Reported patterns may help guide differential diagnosis, although they may not be specific for individual antibodies or diseases. Mitotic staining patterns not reported. ??Negative results do not necessarily rule out SARD. Performed By: [facility] [address] [place] [id number] Apns: Da Terrell MD, PhD Blood BLOOD SPECIMEN / Unknown Lab Venipuncture / Unknown 04/22/2022 12:55 PM CDT 04/22/2022 1:03 PM CDT Umang Alonzo MD LAB - SEROLOGY ORDER MAX Performing Organization Address [facility] Co de Phone Number [facility] [employer] [employer] ([facility]) [address] * KAPPA/LAMBDA LITE CHAIN FREE PANEL (04/22/2022 12:55 PM CDT) [place] Quant Free Light Chain 17.51 3.30 - 19.40 mg/L 04/23/2022 12:00 PM CDT [facility] ([facility]) Comment: INTERPRETIVE INFORMATION: [place] Qnt Free Light Chains Undetected antigen excess is a rare event but cannot be excluded. Free light chain results should always be interpreted in conjunction with other clinical and laboratory findings. Lambda Free Light Chain Quantitative 13.81 5.71 - 26.30 mg/L 04/23/2022 12:00 PM CDT [facility] ([facility]) Comment: INTERPRETIVE INFORMATION: Lambda Qnt Free Light Chains Undetected antigen excess is a rare event but cannot be excluded. Free light chain results should always be interpreted in conjunction with other clinical and laboratory findings. [place]/Lambda Free Light Chain ratio 1.27 0.26 - 1.65 04/23/2022 12:00 PM CDT [facility] ([facility]) Comment: Performed By: [facility] [address] [place] [address] Apns: Da Terrell MD, PhD Blood BLOOD SPECIMEN / Unknown Lab Venipuncture / Unknown 04/22/2022 12:55 PM CDT 04/22/2022 1:03 PM CDT Umang Alonzo MD LAB - CHEMISTRY ORDE RABLES [facility] [employer] ([facility]) [address] * PROTEIN ELECTROPHORESIS BLOOD (04/22/2022 12:55 PM CDT) Pathologist [facility] Interpretation Serum PE Normal Pattern Normal Pattern 04/28/2022 6:06 PM CDT [facility] Comment: Serum capillary electrophoresis shows characteristic bands corresponding to albumin, alpha and beta globulins and polyclonal immunoglobulins. No monoclonal immunoglobulin detected. Non-secretory myeloma (NSM) and light chain only myeloma cannot be excluded based on this result. ??Recommend serum free light chain measurements for complete evaluation of plasma cell disorders. ?? Una Vora MD Pathology resident PGY1 *The electrophoresis pattern and the interpretation have been reviewed and verified by the teaching physician. Protein Total 7.6 6.0 - 8.3 g/dL 04/28/2022 6:06 PM CDT [facility] Albumin 4.4 3.3 - 5.6 g/dL 04/28/2022 6:06 PM CDT [facility] Alpha-1 Globulins 0.4 0.2 - 0.4 g/dL 04/28/2022 6:06 PM CDT [facility] Alpha-2 Globulins 0.8 0.5 - 1.0 g/dL 04/28/2022 6:06 PM CDT [facility] Beta Globulins 1.0 0.6 - 1.1 g/dL 04/28/2022 6:06 PM CDT [facility] Gamma Globulins 1.1 0.6 - 1.6 g/dL 04/28/2022 6:06 PM CDT [facility] Blood BLOOD SPECIMEN / Unknown Lab Venipuncture / Unknown 04/22/2022 12:55 PM CDT 04/22/2022 1:03 PM CDT Umang Alonzo MD LAB - CHEMISTRY JENIFFER KUMARI [address] [address], [place] [phone] * CRYOGLOBULIN QUALITATIVE (04/22/2022 12:55 PM CDT) Cryoglobulin Qualitative Negative Negative 04/25/2022 8:07 AM CDT [facility] Blood BLOOD SPECIMEN / Unknown Lab Venipuncture / Unknown 04/22/2022 12:55 PM CDT 04/22/2022 12:59 PM CDT Umang Alonzo MD LAB - CHEMISTRY JENIFFER KUMARI [address] [address], [place] [phone] * COMPLEMENT C4 (04/22/2022 12:55 PM CDT) Complement C4 33 15 - 57 mg/dL 04/22/2022 1:36 PM CDT [facility] Blood BLOOD SPECIMEN / Unknown Lab Venipuncture / Unknown 04/22/2022 12:55 PM CDT 04/22/2022 1:05 PM CDT Umang Alonzo MD LAB - SEROLOGY ORDER MAX [facility] [address] [place] [id number], [facility] [phone] * COMPLEMENT C3 (04/22/2022 12:55 PM CDT) Complement C3 156 82 - 193 mg/dL 04/22/2022 1:36 PM CDT [facility] Blood BLOOD SPECIMEN / Unknown Lab Venipuncture / Unknown 04/22/2022 12:55 PM CDT 04/22/2022 1:05 PM CDT Umang Alonzo MD LAB - CHEMISTRY ORDE RABLES [address] [address], [facility] [phone] * (ABNORMAL) SS-B (SJOGREN'S) ANTIBODY (04/22/2022 12:55 PM CDT) SS-B Antibody 50(H) 0 - 40 AU/mL 04/23/2022 5:07 PM CDT [facility] ([facility]) Comment: INTERPRETIVE INFORMATION: SSB (La) (TERRI) Ab, IgG ??29 AU/mL or Less ............. Negative ??30 - 40 AU/mL ................ Equivocal ??41 AU/mL or Greater .......... Positive SSB (La) antibody is seen in 50-60% of Sjogren syndrome cases and is specific if it is the only TERRI antibody present. 15-25% of patients with systemic lupus erythematosus (SLE) and 5-10% of patients with progressive systemic sclerosis (PSS) also have this antibody. Performed By: [facility] [address] [place] [address] Apns: Da Terrell MD, PhD Blood BLOOD SPECIMEN / Unknown Lab Venipuncture / Unknown 04/22/2022 12:55 PM CDT 04/22/2022 1:03 PM CDT Umang Alonzo MD LAB - CHEMISTRY JENIFFER KUMARI [facility]) [address] [place] [address] * HERZOG (SM) ANTIBODY TERRI (04/22/2022 12:55 PM CDT) Herzog (TERRI) Antibody 1 0 - 40 AU/mL 04/23/2022 5:07 PM CDT [facility] [employer] [employer] ([facility]) Comment: INTERPRETIVE INFORMATION: Herzog (TERRI) Antibody, IgG ??29 AU/mL or Less ............. Negative ??30 - 40 AU/mL ................ Equivocal ??41 AU/mL or Greater .......... Positive Herzog antibody is highly specific (greater than 90 percent) for systemic lupus erythematosus (SLE) but only occurs in 30-35 percent of SLE cases. The presence of antibodies to Herzog has variable associations with SLE clinical manifestations. Performed By: [facility] [address] [place] [address] Apns: Da Terrell MD, PhD Blood BLOOD SPECIMEN / Unknown Lab Venipuncture / Unknown 04/22/2022 12:55 PM CDT 04/22/2022 1:03 PM CDT Umang Alonzo MD LAB - CHEMISTRY JENIFFER KUMARI [facility] [employer] [facility]) [address] [place] [address] * SCLERODERMA 70 (SCL) ANTIBODY (04/22/2022 12:55 PM CDT) SCL-70 Antibody 0 0 - 40 AU/mL 04/23/2022 5:07 PM CDT [facility] ([facility]) Comment: INTERPRETIVE INFORMATION: Scleroderma (Scl-70) (TERRI) Ab, IgG ??29 AU/mL or Less ............. Negative ??30 - 40 AU/mL ................ Equivocal ??41 AU/mL or Greater .......... Positive The presence of Scl-70 antibodies (also referred to as topoisomerase I, alexei-I or RADHA) is considered diagnostic for systemic sclerosis (SSc). Scl-70 antibodies alone are detected in about 20 percent of SSc patients and are associated with the diffuse form of the disease, which may include specific organ involvement and poor prognosis. Scl-70 antibodies have also been reported in a varying percentage of patients with systemic lupus erythematosus (SLE). Scl-70 (alexei-1) is a DNA binding protein and anti-DNA/DNA complexes in the sera of SLE patients may bind to alexei-I, leading to a false-positive result. The presence of Scl-70 antibody in sera may also be due to contamination of recombinant Scl-70 with DNA derived from cellular material used in immunoassays. Strong clinical correlation is recommended if both Scl-70 and dsDNA antibodies are detected. Negative results do not necessarily rule out the presence of SSc. If clinical suspicion remains, consider further testing for centromere, RNA polymerase III and U3-BLOOD BANK LABORATORY PROFESSIONAL, PM/Scl, or Th/To antibodies. Performed By: [facility] [address] [place] [address] Apns: Da Terrell MD, PhD Blood BLOOD SPECIMEN / Unknown Lab Venipuncture / Unknown 04/22/2022 12:55 PM CDT 04/22/2022 1:04 PM CDT Umang Alonzo MD LAB - CHEMISTRY JENIFFER KUMARI [facility] Organization Address City/State/ZIP Co de Phone Number [employer] [facility]) [address] [place] [address], [facility] * CHRISSY-1 ANTIBODY (04/22/2022 12:55 PM CDT) [facility] Chrissy-1 Antibody IgG 0 0 - 40 AU/mL 04/24/2022 1:05 AM CDT [facility] [employer] ([facility]) Comment: INTERPRETIVE INFORMATION: ??Chrissy-1 Antibody, IgG ??29 AU/mL or less.........Negative ??30-40 AU/mL..............Equivocal ??41 AU/mL or greater......Positive Presence of Chrissy-1 (antihistidyl transfer RNA [t-RNA] synthetase) antibody is associated with polymyositis and may also be seen in patients with dermatomyositis. Chrissy-1 antibody is associated with pulmonary involvement (interstitial lung disease), Raynaud phenomenon, arthritis, and bakery machine mechanic supervisor's hands (implicated in antisynthetase syndrome). Performed By: [facility] [address] [place] [address] Apns: aD Terrell MD, PhD Blood BLOOD SPECIMEN / Unknown Lab Venipuncture / Unknown 04/22/2022 12:55 PM CDT 04/22/2022 1:03 PM CDT Umang Alonzo MD LAB - CHEMISTRY JENIFFER KUMARI [facility] [employer] [facility]) [address] [place] [address], [facility] * DNA ANTIBODY DOUBLE STRANDED (04/22/2022 12:55 PM CDT) [facility] dsDNA Antibody 4 0 - 24 IU 04/23/2022 3:06 PM CDT [facility] [employer] ([facility]) Comment: INTERPRETIVE INFORMATION: Double-Stranded DNA (dsDNA) Ab IgG JESUS ??24 IU or less........Negative ??25-30 IU.............Borderline Positive ??30-60 IU.............Low Positive ??60-200 IU............Positive ??201 IU or greater....Strong Positive Positivity for anti-double stranded DNA (anti-dsDNA) IgG antibody is a diagnostic criterion of systemic lupus erythematosus (SLE). Specimens are initially screened by enzyme-linked immunosorbent assay (JESUS). If ordered as reflex ([id number]), positive JESUS results (>24 IU) will be reflexed to a highly specific IFA titer (Crithidia luciliae indirect fluorescent test [RIKKI]) for confirmation. Some patients with early or inactive SLE may be positive for anti-dsDNA IgG by JESUS but negative by RIKKI. If the patient is negative by RIKKI but positive by JESUS and clinical suspicion remains, consider antinuclear antibody (RAE) testing by IFA. Additional information and recommendations for testing may be found at [email or web address]. Performed By: [facility] [address] [place] [address] Apns: Da Terrell MD, PhD Blood BLOOD SPECIMEN / Unknown Lab Venipuncture / Unknown 04/22/2022 12:55 PM CDT 04/22/2022 1:03 PM CDT Umang Alonzo MD LAB - HEMATOLOGY ORD ERABLES [facility] [employer] [facility]) [address] [place] [address], [facility] * CHROMATIN ANTIBODY (04/22/2022 12:55 PM CDT) [facility] Chromatin Antibody 5 0 - 19 Units 04/24/2022 2:01 PM CDT [facility]) Comment: INTERPRETIVE INFORMATION: Chromatin Antibody, IgG ??19 Units or less: Negative ??20 - 60 Units: Moderate Positive ??61 Units or greater: Strong Positive The presence of anti-chromatin antibodies may be useful in the diagnosis of systemic lupus erythematosus (SLE) or drug-induced lupus (DIL) and have been reported to be predictive of lupus nephritis, especially when antibody levels are high. Performed By: [facility] [address] [place] [address] Apns: Da Terrell MD, PhD Blood BLOOD SPECIMEN / Unknown Lab Venipuncture / Unknown 04/22/2022 12:55 PM CDT 04/22/2022 1:03 PM CDT Umang Alonzo MD LAB - SEROLOGY ORDER MAX Performing Organization Address City/[facility]/ZIP Co de Phone Number [facility] [employer] [facility]) [address] * CENTROMERE ANTIBODY (04/22/2022 12:55 PM CDT) [facility] Centromere Antibody 1 0 - 40 AU/mL 04/23/2022 5:07 PM CDT [employer] ([facility]) Comment: INTERPRETIVE INFORMATION: Centromere Ab, IgG ??29 AU/mL or Less ............. Negative ??30 - 40 AU/mL ................ Equivocal ??41 AU/mL or Greater .......... Positive When detected by this multiplex bead assay, the presence of centromere antibodies is mainly associated with CREST syndrome, a variant of systemic sclerosis (SSc). These antibodies target the centromere B, a dominant antigen of the centromeric complex associated with the centromere pattern observed in antinuclear antibody (RAE) testing by IFA. Centromere antibodies may also be seen in a varying percentage of patients with other autoimmune diseases, including diffuse cutaneous SSc, Raynaud syndrome, interstitial pulmonary fibrosis, autoimmune liver disease, systemic lupus erythematosus (SLE) and rheumatoid arthritis (RA). A negative result indicates no detectable IgG antibodies to centromere B. If the result is negative but clinical suspicion for SSc is strong, consider testing for RAE by IFA along with other antibodies associated with SSc, including Scl-70, U3-BLO[employer]ORAT[employer] PROFESSIONAL, PM/Scl, or Th/To. Performed By: [facility] [address] [place] [address] Apns: Da Terrell MD, PhD Blood BLOOD SPECIMEN / Unknown Lab Venipuncture / Unknown 04/22/2022 12:55 PM CDT 04/22/2022 1:03 PM CDT Umang Alonzo MD LAB - CHEMISTRY ORDE KENYETTA Performing Organization Address City/[facility]/ZIP Co de Phone Number [facility]) [address] * (ABNORMAL) RAE BLOOD SCREEN W/REFLEX TITER (04/22/2022 12:55 PM CDT) RAE IgG Detected (A) None Detected 04/23/2022 3:15 PM CDT [facility] ([facility]) Comment: Antibodies to Anti-Nuclear Antibodies (RAE) detected. Additional testing to follow. INTERPRETIVE INFORMATION: Anti-Nuclear Antibodies (RAE), IgG by JESUS Antinuclear Antibodies (RAE), IgG by JESUS: RAE specimens are screened using enzyme-linked immunosorbent assay (JESUS) methodology. All JESUS results reported as Detected are further tested by indirect fluorescent assay (IFA) using HEp-2 substrate with an IgG-specific conjugate. The RAE JESUS screen is designed to detect antibodies against dsDNA, histones, SS-A (Ro), SS-B (La), Herzog, Herzog/[employer]ORAT[employer] PROFESSIONAL, Scl-70, Chrissy-1, centromeric proteins, other antigens extracted from the HEp-2 cell nucleus. RAE JESUS assays have been reported to have lower sensitivities than RAE IFA for systemic autoimmune rheumatic diseases (SARD). Negative results do not necessarily rule out SARD. Performed By: [facility] [address] [place] [address] Apns: Da Terrell MD, PhD Blood BLOOD SPECIMEN / Unknown Lab Venipuncture / Unknown 04/22/2022 12:55 PM CDT 04/22/2022 1:03 PM CDT Umang Alonzo MD LAB - CHEMISTRY JENIFFER KUMARI Performing Organization Address [facility]/ZIP Co de Phone Number [facility]) [address] [place] [address], [facility] * CYCLIC CITRULLINATED PEPTIDE(CCP) AB IGG (04/22/2022 12:55 PM CDT) CCP Antibody IgG 0.6 <5.0 U/mL 04/22/2022 2:04 PM CDT [facility] Blood BLOOD SPECIMEN / Unknown Lab Venipuncture / Unknown 04/22/2022 12:55 PM CDT 04/22/2022 1:03 PM CDT Umang Alonzo MD LAB - CHEMISTRY JENIFFER KUMARI [facility] [address] [place] [address], [facility] [phone] * RHEUMATOID FACTOR IGG/IGM/IGA AB (04/22/2022 12:55 PM CDT) Rheumatoid Factor IgA by Jesus <5 <=6 Units 04/24/2022 9:13 PM CDT [facility] ([facility]) Comment: INTERPRETIVE INFORMATION: Rheumatoid Factor, IgA by JESUS The presence of all three rheumatoid factor (RF) isotypes at abnormal levels has high specificity for a diagnosis of rheumatoid arthritis (RA). However, the presence of RF isotypes in any combination may be found in a variety of conditions, including Sjogren syndrome and hepatitis infections. Rheumatoid Factor IgM by Jesus <5 <=6 Units 04/24/2022 9:13 PM CDT [facility] ([facility]) Comment: INTERPRETIVE INFORMATION: Rheumatoid Factor, IgM by JESUS The presence of all three rheumatoid factor (RF) isotypes at abnormal levels has high specificity for a diagnosis of rheumatoid arthritis (RA). However, the presence of RF isotypes in any combination may be found in a variety of conditions, including Sjogren syndrome and hepatitis infections. Rheumatoid Factor IgG by Jesus <5 <=6 Units 04/24/2022 9:13 PM CDT [facility] ([facility]) Comment: INTERPRETIVE INFORMATION: Rheumatoid Factor, IgG by JESUS The presence of all three rheumatoid factor (RF) isotypes at abnormal levels has high specificity for a diagnosis of rheumatoid arthritis (RA). However, the presence of RF isotypes in any combination may be found in a variety of conditions, including Sjogren syndrome and hepatitis infections. Performed By: [facility] [address] [place] [address] Apns: Da Terrell MD, PhD Blood BLOOD SPECIMEN / Unknown Lab Venipuncture / Unknown 04/22/2022 12:55 PM CDT 04/22/2022 1:03 PM CDT Umang Alonzo MD LAB - SEROLOGY ORDER MAX [employer] ([facility]) [address] [place] [address], [facility] * PROTEIN CREATININE RATIO URINE RANDOM PNL (04/22/2022 12:55 PM CDT) Protein Urine <7 Not Established mg/dL 04/22/2022 1:42 PM CDT [facility] Creatinine Urine 160 Not Established mg/dL 04/22/2022 1:42 PM CDT [facility] Protein/Creatinin e Ratio Urine 04/22/2022 1:42 PM CDT [facility] Comment:Unable to calculate ratio because the analyte concentration is outside the instrument measuring range. Urine URINE SPECIMEN OBTAINED BY CLEAN CATCH PROCEDURE / Unknown Collection / Unknown 04/22/2022 12:55 PM CDT 04/22/2022 1:03 PM CDT Umang Alonzo MD LAB - URINE CHEMISTR Y ORDERABLES [address] [address], [facility] [phone] * (ABNORMAL) URINALYSIS W/MICROSCOPIC REFLEX TO CULTURE (04/22/2022 12:55 PM CDT) Color UA Yellow Straw, Yellow 04/22/2022 1:13 PM CDT [facility] Clarity UA t Cloudy(A) Clear 04/22/2022 1:13 PM T [facility] Specific [place] UA 1.019 1.005 - 1.030 04/22/2022 1:13 PM [facility] pH UA 5.0 5.0 - 8.0 pH 04/22/2022 1:13 PM CDT [facility] Protein UA Negative Negative 04/22/2022 1:13 PM T [facility] Glucose UA Negative Negative 04/22/2022 1:13 PM [facility] Ketone UA Negative Negative 04/22/2022 1:13 PM [facility] Bilirubin UA Negative Negative 04/22/2022 1:13 PM [facility] Blood UA Negative Negative 04/22/2022 1:13 PM T [facility] Nitrite UA Negative Negative 04/22/2022 1:13 PM T [facility] Leukocyte Esterase Negative Negative 04/22/2022 1:13 PM CDT [facility] Urobilinogen UA Negative Negative mg/dL 04/22/2022 1:13 PM CDT [facility] RBC UA 0-2 None Seen, 0-2, 3-5 /HPF 04/22/2022 1:13 PM CDT [facility] WBC UA 0-5 None Seen, 0-5 /HPF 04/22/2022 1:13 PM CDT [facility] Bacteria UA Trace(A) None /HPF 04/22/2022 1:13 PM CDT [facility] Squamous Epithelial Cells UA 3-5 None Seen, 0-2, 3-5 /HPF 04/22/2022 1:13 PM CDT [facility] Mucus UA 1+ /LPF 04/22/2022 1:13 PM CDT [facility] Urine URINE SPECIMEN OBTAINED BY CLEAN CATCH PROCEDURE / Unknown Collection / Unknown 04/22/2022 12:55 PM CDT 04/22/2022 1:03 PM CDT Narrative [facility] - 04/22/2022 1:13 PM CDT Culture Not Indicated Umang Alonzo MD LAB - URINALYSIS ORD ERABLES [address] [address], [place] [phone] * TSH REFLEX FREE T4 (04/22/2022 12:55 PM CDT) Pathologist [facility] TSH 3.027 0.350 - 4.940 uIU/mL 04/22/2022 1:53 PM CDT [facility] Blood BLOOD SPECIMEN / Unknown Lab Venipuncture / Unknown 04/22/2022 12:55 PM CDT 04/22/2022 1:05 PM CDT Umang Alonzo MD LAB - CHEMISTRY ORDE RABPASCALE [address] [address], [place] [phone] * CBC WITH DIFFERENTIAL (04/22/2022 12:55 PM CDT) WBC 7.9 3.5 - 10.5 10? 3 /uL 04/22/2022 1:12 PM [facility] RBC 4.66 3.80 - 5.20 10? 6 /uL 04/22/2022 1:12 PM [facility] Hemoglobin 13.0 12.0 - 15.6 g/dL 04/22/2022 1:12 PM [facility] Hematocrit 41.2 35.0 - 45.0 % 04/22/2022 1:12 PM [facility] MCV 88.4 80.7 - 98.3 fL 04/22/2022 1:12 PM [facility] MCH 27.9 26.7 - 34.0 pg 04/22/2022 1:12 PM [facility] MCHC 31.6 30.8 - 35.9 g/dL 04/22/2022 1:12 PM [facility] Platelet Count 317 150 - 400 10? 3 /uL 04/22/2022 1:12 PM [facility] RDW-SD 43.9 36.0 - 50.0 fL 04/22/2022 1:12 PM [facility] RDW-CV 13.5 11.2 - 14.8 % 04/22/2022 1:12 PM [facility] MPV 10.1 9.4 - 12.9 fL 04/22/2022 1:12 PM [facility] nRBC Absolute 0.00 0 10? 3 /uL 04/22/2022 1:12 PM [facility] nRBC Auto 0.0 0 /100 WBC 04/22/2022 1:12 PM [facility] Neutrophils % 54.8 35.0 - 70.0 % 04/22/2022 1:12 PM [facility] Lymphocytes % 35.4 20.0 - 43.0 % 04/22/2022 1:12 PM [facility] Monocytes % 7.6 5.0 - 13.0 % 04/22/2022 1:12 PM [facility] Eosinophils % 1.5 0.0 - 6.0 % 04/22/2022 1:12 PM [facility] Basophil % 0.4 0.0 - 2.0 % 04/22/2022 1:12 PM [facility] Neutrophils Absolute 4.30 1.60 - 7.00 10? 3 /uL 04/22/2022 1:12 PM [facility] Lymphocyte Absolute 2.78 1.10 - 3.90 10? 3 /uL 04/22/2022 1:12 PM [facility] Monocytes Absolute 0.60 0.26 - 1.07 10? 3 /uL 04/22/2022 1:12 PM [facility] Eosinophils Absolute 0.12 0.00 - 0.47 10? 3 /uL 04/22/2022 1:12 PM [facility] Basophils Absolute 0.03 0.00 - 0.08 10? 3 /uL 04/22/2022 1:12 PM [facility] Immature Granulocytes % 0.3 0.0 - 1.0 % 04/22/2022 1:12 PM [facility] Immature Granulocytes Absolute 0.02 04/22/2022 1:12 PM [facility] Blood BLOOD SPECIMEN / Unknown Lab Venipuncture / Unknown 04/22/2022 12:55 PM CDT 04/22/2022 1:06 PM T Umang Alonzo MD LAB - HEMATOLOGY ORD ERABLES [facility] [address] [place] [address], [facility] [phone] * (ABNORMAL) COMPREHENSIVE METABOLIC PANEL (04/22/2022 12:55 PM CDT) BUN 12 7 - 26 mg/dL 04/22/2022 1:36 PM [facility] Creatinine 0.89 0.56 - 0.96 mg/dL 04/22/2022 1:36 PM [facility] Sodium 143 136 - 145 mmol/L 04/22/2022 1:36 PM [facility] Potassium 3.7 3.5 - 4.5 mmol/L 04/22/2022 1:36 PM [facility] Chloride 103 98 - 107 mmol/L 04/22/2022 1:36 PM [facility] CO2 28 22 - 29 mmol/L 04/22/2022 1:36 PM [facility] Glucose 96 70 - 115 mg/dL 04/22/2022 1:36 PM [facility] Calcium 9.9 8.4 - 10.2 mg/dL 04/22/2022 1:36 PM [facility] Protein Total 7.8 6.0 - 8.3 g/dL 04/22/2022 1:36 PM [facility] Albumin 4.2 3.4 - 5.0 g/dL 04/22/2022 1:36 PM [facility] Bilirubin Total 0.3 0.2 - 1.2 mg/dL 04/22/2022 1:36 PM [facility] Alkaline Phosphatase 91 40 - 150 U/L 04/22/2022 1:36 PM [facility] ALT 30 5 - 55 U/L 04/22/2022 1:36 PM [facility] AST 16 5 - 34 U/L 04/22/2022 1:36 PM [facility] Anion Gap 16 8 - 18 04/22/2022 1:36 PM [facility] BUN/Creatinine Ratio 13 7 - 23 04/22/2022 1:36 PM [facility] Osmolality Calculated 296 270 - 300 mOsm/kg 04/22/2022 1:36 PM [facility] Albumin/Globulin Ratio 1.2 1.1 - 2.3 04/22/2022 1:36 PM [facility] eGFR by CKD-EPI 78(L) >=90 mL/min/1.7 3 m2 04/22/2022 1:36 PM [facility] Blood BLOOD SPECIMEN / Unknown Lab Venipuncture / Unknown 04/22/2022 12:55 PM CDT 04/22/2022 1:05 PM [facility] Umang Alonzo MD LAB - CHEMISTRY JENIFFER KUMARI [facility] Organization Address City/State/ZIP Co de Phone Number [facility] [address] [place] [address], [facility] [phone] * PROTEIN ELECTROPHORESIS URINE RANDOM (04/22/2022 12:55 PM CDT) Interpretation Urine PE See Comment Normal Pattern 04/28/2022 6:06 PM CDT [facility] Comment: Urine protein electrophoresis shows a band corresponding to albumin. No monoclonal immunoglobulins detected. Jacquie Cade MD Protein Urine <7 Not Established mg/dL 04/28/2022 6:06 PM CDT [facility] Urine URINE SPECIMEN OBTAINED BY CLEAN CATCH PROCEDURE / Unknown Collection / Unknown 04/22/2022 12:55 PM CDT 04/22/2022 1:03 PM CDT Umang Alonzo MD LAB - URINE CHEMISTR Y ORDERABLES [facility] [address] [place] [address], [facility] [phone] * (ABNORMAL) SS-A (SJOGREN'S) 52+60 ANTIBODIES (04/22/2022 12:55 PM CDT) SS-A 52 Antibody 2 0 - 40 AU/mL 04/24/2022 1:05 AM CDT [facility] ([facility]) Comment: INTERPRETIVE INFORMATION: SSA-52 (Ro52) (TERRI) Antibody, IgG ??29 AU/mL or Less ............. Negative ??30 - 40 AU/mL ................ Equivocal ??41 AU/mL or Greater .......... Positive SSA-52 (Ro52) and/or SSA-60 (Ro60) antibodies are associated with a diagnosis of Sjogren syndrome, systemic lupus erythematosus (SLE), and systemic sclerosis. SSA-52 antibody overlaps significantly with the major SSc-related antibodies. SSA-52 (Ro52) antibody occurs frequently in patients with inflammatory myopathies, often in the presence of interstitial lung disease. SS-A 60 Antibody 101(H) 0 - 40 AU/mL 04/24/2022 1:05 AM CDT [facility] ([facility]) Comment: REFERENCE INTERVAL: SSA-60 (Ro60) (TERRI) Antibody, IgG ??29 AU/mL or Less ............. Negative ??30 - 40 AU/mL ................ Equivocal ??41 AU/mL or Greater .......... Positive Performed By: [facility] [address] [place] [address] Apns: Da Terrell MD, PhD Blood BLOOD SPECIMEN / Unknown Lab Venipuncture / Unknown 04/22/2022 12:55 PM CDT 04/22/2022 1:03 PM CDT Umang Alonzo MD LAB - CHEMISTRY JENIFFER KUMARI [employer]) [address] [place] [address], [facility] * HERZOG/BLOOD [employer] LABORAT[employer] PROFESSIONAL (TERRI) ANTIBODY IGG (04/22/2022 12:55 PM CDT) Pathologist [facility] Herzog/[employer]ORAT[employer] PROFESSIONAL (TERRI) Antibody IgG 9 0 - 19 Units 04/23/2022 2:23 PM CDT [facility] [employer] ([facility]) Comment: INTERPRETIVE INFORMATION: Herzog/BLO[employer] LABORATORY PROFESSIONAL (TERRI) Antibody, IgG ??19 Units or Less ............. Negative ??20 to 39 Units ............... Weak Positive ??40 to 80 Units ............... Moderate Positive ??81 Units or greater .......... Strong Positive Herzog/BL[employer]ORAT[employer] PROFESSIONAL antibodies are frequently seen in patients with mixed connective tissue disease (MCTD) and are also associated with other systemic autoimmune rheumatic diseases (SARDs) such as systemic lupus erythematosus (SLE), systemic sclerosis, and myositis. Antibodies targeting the Herzog/BL[employer]ORAT[employer] PROFESSIONAL antigenic complex also recognize Herzog antigens, therefore, the Herzog antibody response must be considered when interpreting these results. Performed By: [facility] [address] [place] [address] Apns: Da Terrell MD, PhD Blood BLOOD SPECIMEN / Unknown Lab Venipuncture / Unknown 04/22/2022 12:55 PM CDT 04/22/2022 1:03 PM CDT Umang Alonzo MD LAB - CHEMISTRY JENIFFER KUMARI [facility] [employer] [employer] ([facility]) [address] [place] [address], [facility] documented in this encounter Visit Diagnoses Diagnosis Sjogren's syndrome, with unspecified organ involvement (HCC)- Primary Sicca complex (HCC) Polyarthritis of hand Unspecified polyarthropathy or polyarthritis, hand Polyarthralgia Pain in joint, multiple sites documented in this encounter Care Teams Landscape Supervisor Relationship Specialty Start Date End Date Augusto Jiménez MD [address] [facility] [address] [place] [address] PCP - General 06/17/17 documented as of this encounter
--- OUTSIDE RECORDS SUMMARY | 2024-09-22 05:00 | XMS_ITS | Encounter Summary ---
Author Organization [facility] Address [address] [facility] [place] [address] Care Team Providers Care Lithostripper Name Role Phone Augusto Jiménez MD Primary Care Provider [phone] Encounter Details Date Type Department Care Team (Late st Contact Info) Description 08/06/2022 Telephone [facility] [place] [address] Linda Gardner Social History Tobacco Use Types Packs/Day Years [...] AM CDT documented as of this encounter Plan of Treatment Not on file documented as of this encounter Visit Diagnoses Not on filedocumented in this encounter Care Teams Lithostripper Relationship Specialty Start Date End Date Augusto Jiménez MD [address] [facility] [address] [place] [address] PCP - General 06/17/17 documented as of this encounter
--- OUTSIDE RECORDS SUMMARY | 2024-09-22 05:00 | XMS_ITS | Patient Health Summary ---
Author Organization [facility] Address [address] [place] [address] Care Team Providers Care Longwall Foreman Name Role Phone Augusto Jiménez MD Primary Care Provider [phone] Note from [facility],non-owned Affiliates and Associated Physician Practices is amultiple site organization consisting of ambulatory clinics and hospital sitesin [place], [place], [place] and [place]. This disclosure is being madepursuant to the Care Everywhere program and may not contain all information available regarding this patient. Last updated 18.[facility] Allergies * Adhesive Sensitivity(Rash) -Medium Criticality * Hydrocodone-Acetaminophen(Other) * Morphine(Urticaria) -Medium Criticality * Propoxyphene N-Apap(Other) * Sulfamethoxazole(Nausea and/or Vomiting) * Sulfamethoxazole W-Trimethoprim(Itching,Nausea and/or Vomiting) * Trimethoprim(Itching) Medications * Be aware that medications may not be up to date on this document. Alwaysverify current medications with the patient. * hydroCHLOROthiazide (MICROZIDE) 12.5 MG capsule(Started 05/18/2017) Take 12.5 mg by mouth once daily * citalopram (CELEXA) 20 MG tablet(Started 05/18/2017) Take 20 mg by mouth once daily * buPROPion SR 12hr (Wellbutrin-SR) 150 MG tablet(Started 03/29/2021) Take 1 tablet by mouth every 12 hours * lisinopril (Prinivil; Zestril) 10 MG tablet(Started 03/29/2021) Take 1 tablet by mouth every 24 hours * rosuvastatin (Crestor) 20 MG tablet(Started 01/30/2022) Take 20 mg by mouth once daily * topiramate (Topamax) 50 MG tablet(Started 03/29/2021) Take 1 tablet by mouth every 12 hours * [place]-3 Fatty Acids (Fish Oil) 1200 MG Take 1,200 mg by mouth once daily * Multiple Vitamins-Minerals (MULTIVITAMIN ADULTS PO) Take 1 tablet by mouth once daily * vitamin C (Ascorbic Acid) 1000 MG tablet Take 1,000 mg by mouth once daily * calcium 600 MG tablet Take 1 tablet by mouth daily with food * BIOTIN 5000 PO Take 5,000 mcg by mouth once daily * omeprazole (PriLOSEC) 20 MG capsule Take 20 mg by mouth daily before breakfast * cetirizine (ZyrTEC) 10 MG tablet Take 10 mg by mouth once daily * aspirin EC (Ecotrin) 81 MG tablet Take 81 mg by mouth once daily * Artificial Saliva (Biotene Dry Mouth)(Started 04/22/2022) 1 Each by Mouth/Throat route every 1 hour as needed * Mouthwashes (Biotene Dry Mouth)(Started 04/22/2022) 1 Each by Mouth/Throat route every 1 hour as needed * Artificial Saliva (Biotene Dry Mouth) LOZG(Started 04/22/2022) 1 Each by Mouth/Throat route every 1 hour as needed * polyvinyl alcohol-povidone PF (Refresh) 1.4-0.6 % ophthalmic solution(Started 04/22/2022) Instill 1 (one) drop into both eyes 4 times daily * refresh p.m. (Refresh Pm) ophthalmic ointment(Started 04/22/2022) Instill into both eyes at bedtime * meloxicam (Mobic) 15 MG tablet(Started 06/11/2022) Take 15 mg by mouth once daily Active Problems Problem Noted Date Diagnosed Date Sjogren's syndrome 04/22/2022 Sicca complex 04/22/2022 Polyarthritis of hand 04/22/2022 Polyarthralgia 04/22/2022 Sprain of lateral ligament of ankle joint 2021 Primary hypertension 01/12/2014 Hyperlipidemia 01/12/2014 Immunizations * DT (AGE 0-7)(Given 12/21/1992, 02/18/1980) * DTAP, HISTORIC VACCINE(Given 09/05/2006, 01/22/1974, 01/16/1973, 11/21/1972, 10/03/1972) * INFLUENZA VACCINE, QUADR. (AFLURIA, FLUZONE QUADRIVALENT; 6MO+) (IIV4)(Given 07/24/2016) * INFLUENZA VACCINE, QUADR. (FLUZONE; FLULAVAL; FLUARIX; AFLURIA QUADRIVALENT; 6MO+), 0.5 ML (IIV4)(Given 07/20/2020) * MUMPS(Given 02/18/1980) * Measles & Rubella(Given 08/29/1972) * POLIO,HISTORIC VACCINE(Given 02/18/1980, 01/22/1974, 11/21/1972, 10/03/1972) * TDAP, HISTORIC VACCINE(Given 06/09/2019) * VARICELLA(Given 07/19/1979) * iNFLUENZA VACCINE, RECOM-THOMAS, QUADR. (FLUBLOCK QUADRIVALENT; 18Y+) (RIV4)(Given 06/06/2022) Social History Tobacco Use Types Packs/Day Years [...] 36.9 ??C (98.5 ??F) 06/20/2022 1:58 PM C DT Respiratory Rate 18 06/20/2022 1:58 PM CDT Oxygen Saturation 97% 06/20/2022 1:58 PM CDT Inhaled Oxygen Concentration - - Weight 117.9 kg (260 lb) 06/20/2022 1:58 PM CDT Height 167.6 cm (5' 6 ) 06/20/2022 1:58 PM CDT Body Mass Index 41.97 06/20/2022 1:58 PM CDT Procedures * RAE BLOOD SINGLE PATTERN(Performed 04/22/2022) Performed for Sjogren's syndrome, with unspecified organ involvement (HCC), Sicca complex (HCC), Polyarthritis of hand, Polyarthralgia * RAE HEP-2 IGG BY IFA(Performed 04/22/2022) Performed for Sjogren's syndrome, with unspecified organ involvement (HCC), Sicca complex (HCC), Polyarthritis of hand, Polyarthralgia * PROTEIN ELECTROPHORESIS URINE RANDOM(Performed 04/22/2022) Performed for Sjogren's syndrome, with unspecified organ involvement (HCC), Sicca complex (HCC), Polyarthritis of hand, Polyarthralgia * SS-A (SJOGREN'S) 52+60 ANTIBODIES(Performed 04/22/2022) Performed for Sjogren's syndrome, with unspecified organ involvement (HCC), Sicca complex (HCC), Polyarthritis of hand, Polyarthralgia * HERZOG/SILK SCREEN CUTTER (TERRI) ANTIBODY IGG(Performed 04/22/2022) Performed for Sjogren's syndrome, with unspecified organ involvement (HCC), Sicca complex (HCC), Polyarthritis of hand, Polyarthralgia * KAPPA/LAMBDA LITE CHAIN FREE PANEL(Performed 04/22/2022) Performed for Sjogren's syndrome, with unspecified organ involvement (HCC), Sicca complex (HCC), Polyarthritis of hand, Polyarthralgia * PROTEIN ELECTROPHORESIS BLOOD(Performed 04/22/2022) Performed for Sjogren's syndrome, with unspecified organ involvement (HCC), Sicca complex (HCC), Polyarthritis of hand, Polyarthralgia * CRYOGLOBULIN QUALITATIVE(Performed 04/22/2022) Performed for Sjogren's syndrome, with unspecified organ involvement (HCC), Sicca complex (HCC), Polyarthritis of hand, Polyarthralgia * COMPLEMENT C4(Performed 04/22/2022) Performed for Sjogren's syndrome, with unspecified organ involvement (HCC), Sicca complex (HCC), Polyarthritis of hand, Polyarthralgia * COMPLEMENT C3(Performed 04/22/2022) Performed for Sjogren's syndrome, with unspecified organ involvement (HCC), Sicca complex (HCC), Polyarthritis of hand, Polyarthralgia * SS-B (SJOGREN'S) ANTIBODY(Performed 04/22/2022) Performed for Sjogren's syndrome, with unspecified organ involvement (HCC), Sicca complex (HCC), Polyarthritis of hand, Polyarthralgia * HERZOG (SM) ANTIBODY TERRI(Performed 04/22/2022) Performed for Sjogren's syndrome, with unspecified organ involvement (HCC), Sicca complex (HCC), Polyarthritis of hand, Polyarthralgia * SCLERODERMA 70 (SCL) ANTIBODY(Performed 04/22/2022) Performed for Sjogren's syndrome, with unspecified organ involvement (HCC), Sicca complex (HCC), Polyarthritis of hand, Polyarthralgia * CHRISSY-1 ANTIBODY(Performed 04/22/2022) Performed for Sjogren's syndrome, with unspecified organ involvement (HCC), Sicca complex (HCC), Polyarthritis of hand, Polyarthralgia * DNA ANTIBODY DOUBLE STRANDED(Performed 04/22/2022) Performed for Sjogren's syndrome, with unspecified organ involvement (HCC), Sicca complex (HCC), Polyarthritis of hand, Polyarthralgia * CHROMATIN ANTIBODY(Performed 04/22/2022) Performed for Sjogren's syndrome, with unspecified organ involvement (HCC), Sicca complex (HCC), Polyarthritis of hand, Polyarthralgia * CENTROMERE ANTIBODY(Performed 04/22/2022) Performed for Sjogren's syndrome, with unspecified organ involvement (HCC), Sicca complex (HCC), Polyarthritis of hand, Polyarthralgia * RAE BLOOD SCREEN W/REFLEX TITER(Performed 04/22/2022) Performed for Sjogren's syndrome, with unspecified organ involvement (HCC), Sicca complex (HCC), Polyarthritis of hand, Polyarthralgia * CYCLIC CITRULLINATED PEPTIDE(CCP) AB IGG(Performed 04/22/2022) Performed for Sjogren's syndrome, with unspecified organ involvement (HCC), Sicca complex (HCC), Polyarthritis of hand, Polyarthralgia * RHEUMATOID FACTOR IGG/IGM/IGA AB(Performed 04/22/2022) Performed for Sjogren's syndrome, with unspecified organ involvement (HCC), Sicca complex (HCC), Polyarthritis of hand, Polyarthralgia * PROTEIN CREATININE RATIO URINE RANDOM PNL(Performed 04/22/2022) Performed for Sjogren's syndrome, with unspecified organ involvement (HCC), Sicca complex (HCC), Polyarthritis of hand, Polyarthralgia * URINALYSIS W/MICROSCOPIC REFLEX TO CULTURE(Performed 04/22/2022) Performed for Sjogren's syndrome, with unspecified organ involvement (HCC), Sicca complex (HCC), Polyarthritis of hand, Polyarthralgia * TSH REFLEX FREE T4(Performed 04/22/2022) Performed for Sjogren's syndrome, with unspecified organ involvement (HCC), Sicca complex (HCC), Polyarthritis of hand, Polyarthralgia * CBC W AUTO DIFFERENTIAL(Performed 04/22/2022) Performed for Sjogren's syndrome, with unspecified organ involvement (HCC), Sicca complex (HCC), Polyarthritis of hand, Polyarthralgia * COMPREHENSIVE METABOLIC PANEL(Performed 04/22/2022) Performed for Sjogren's syndrome, with unspecified organ involvement (HCC), Sicca complex (HCC), Polyarthritis of hand, Polyarthralgia * XR WRIST RIGHT 2VW(Performed 04/22/2022) Performed for Sjogren's syndrome, with unspecified organ involvement (HCC), Sicca complex (HCC), Polyarthritis of hand, Polyarthralgia * XR HAND RIGHT 3VW OR MORE(Performed 04/22/2022) Performed for Sjogren's syndrome, with unspecified organ involvement (HCC), Sicca complex (HCC), Polyarthritis of hand, Polyarthralgia * XR HAND LEFT 3VW OR MORE(Performed 04/22/2022) Performed for Sjogren's syndrome, with unspecified organ involvement (HCC), Sicca complex (HCC), Polyarthritis of hand, Polyarthralgia * XR FOOT RIGHT 3VW OR MORE(Performed 04/22/2022) Performed for Sjogren's syndrome, with unspecified organ involvement (HCC), Sicca complex (HCC), Polyarthritis of hand, Polyarthralgia * XR FOOT LEFT 3VW OR MORE(Performed 04/22/2022) Performed for Sjogren's syndrome, with unspecified organ involvement (HCC), Sicca complex (HCC), Polyarthritis of hand, Polyarthralgia * XR WRIST LEFT 2VW(Performed 04/22/2022) Performed for Sjogren's syndrome, with unspecified organ involvement (HCC), Sicca complex (HCC), Polyarthritis of hand, Polyarthralgia * XR KNEE RIGHT 4VW OR MORE(Performed 06/17/2017) * XR KNEE LEFT 4VW OR MORE(Performed 06/17/2017) * XR LUMBAR SPINE 2 OR 3VW(Performed 06/17/2017) Results * (ABNORMAL) RAE BLOOD SINGLE PATTERN (04/22/2022 12:55 PM CDT) Pathologist [facility] RAE Pattern Speckled( A) 04/24/2022 12:58 PM CDT [facility] [employer] ([facility]) RAE Titer 1:80(A) 04/24/2022 12:58 PM CDT [facility] ([facility]) Comment: Performed By: [facility] [email or web address] [address] [place] [address] [employer] Machine Operator: Da Terrell MD, PhD Blood BLOOD SPECIMEN / Unknown Lab Venipuncture / Unknown 04/22/2022 12:55 PM CDT 04/22/2022 1:03 PM CDT Umang Alonzo MD LAB - CHEMISTRY JENIFFER KUMARI [facility]) [address] * RHEUMATOID FACTOR IGG/IGM/IGA AB (04/22/2022 12:55 PM CDT) Pathologist [facility] Rheumatoid Factor IgA by Jesus <5 <=6 Units 04/24/2022 9:13 PM CDT [facility]) Comment: INTERPRETIVE INFORMATION: Rheumatoid Factor, IgA by [...] <5 <=6 Units 04/24/2022 9:13 PM CDT [facility] ([facility]) Comment: INTERPRETIVE INFORMATION: Rheumatoid Factor, IgM by [...] <5 <=6 Units 04/24/2022 9:13 PM CDT [facility] ([facility]) Comment: INTERPRETIVE INFORMATION: Rheumatoid Factor, IgG by JESUS The presence of all three rheumatoid factor (RF) isotypes at abnormal levels has high specificity for a diagnosis of rheumatoid arthritis (RA). However, the presence of RF isotypes in any combination may be found in a variety of conditions, including Sjogren syndrome and hepatitis infections. Performed By: [facility] [address] [place] [address] [employer] Machine Operator: Da Terrell MD, PhD Blood BLOOD SPECIMEN / Unknown Lab Venipuncture / Unknown 04/22/2022 12:55 PM CDT 04/22/2022 1:03 PM CDT Umang Alonzo MD LAB - SEROLOGY ORDER MAX [facility]) [address] [place] [address], [facility] * (ABNORMAL) RAE HEP-2 IGG BY IFA (04/22/2022 12:55 PM CDT) RAE HEp-2 IgG Detected (H) <1:80 04/24/2022 12:58 PM CDT [facility] ([facility]) RAE Interpretive Comment See Note 04/24/2022 12:58 PM CDT [facility] ([facility]) Comment: Speckled Pattern Clinical associations: SLE, SSc, SjS, DM, PM, MCTD, UCTD. May also be found in healthy individuals Main autoantibodies: Anti-SSA-52 (Ro52), anti-SSA-60 (Ro60), anti-SS-B/LA, anti-Alexei-1 (anti-Scl-70), Herzog, anti-U1-SILK SCREEN CUTTER, anti-U2-SILK SCREEN CUTTER, anti-Mi-2, anti-p155/140 (TIF1g), anti-Ku, anti-RNA polymerase, anti-DFS70/LEDGF-P75 [...] not necessarily rule out SARD. Performed By: [facility] [address] [place] [id number] [employer] Operator: Da Terrell MD, PhD Blood BLOOD SPECIMEN / Unknown Lab Venipuncture / Unknown 04/22/2022 12:55 PM CDT 04/22/2022 1:03 PM CDT mUang Alonzo MD LAB - SEROLOGY ORDER MAX [employer] ([facility]) [address] [place] [address], [facility] * (ABNORMAL) SS-A (SJOGREN'S) 52+60 ANTIBODIES (04/22/2022 12:55 PM CDT) SS-A 52 Antibody 2 0 - 40 AU/mL 04/24/2022 1:05 AM CDT [employer] ([facility]) Comment: INTERPRETIVE INFORMATION: SSA-52 (Ro52) (TERRI) Antibody, [...] - 40 AU/mL 04/24/2022 1:05 AM CDT [employer] ([facility]) Comment: REFERENCE INTERVAL: SSA-60 (Ro60) (TERRI) Antibody, IgG ??29 AU/mL or Less ............. Negative ??30 - 40 AU/mL ................ Equivocal ??41 AU/mL or Greater .......... Positive Performed By: [facility] [address] [place] [address] [employer] Operator: Da Terrell MD, PhD Blood BLOOD SPECIMEN / Unknown Lab Venipuncture / Unknown 04/22/2022 12:55 PM CDT 04/22/2022 1:03 PM CDT Umnag Alonzo MD LAB - CHEMISTRY JENIFFER KUMARI [employer] ([facility]) [address] * HERZOG/SILK SCREEN CUTTER (TERRI) ANTIBODY IGG (04/22/2022 12:55 PM CDT) Herzog/SILK SCREEN CUTTER (TERRI) Antibody IgG 9 0 - 19 Units 04/23/2022 2:23 PM CDT [facility] ([facility]) Comment: INTERPRETIVE INFORMATION: Herzog/SILK SCREEN CUTTER (TERRI) Antibody, IgG ??19 Units or Less ............. Negative ??20 to 39 Units ............... Weak Positive ??40 to 80 Units ............... Moderate Positive ??81 Units or greater .......... Strong Positive Herzog/SILK SCREEN CUTTER antibodies are frequently seen in patients with mixed connective tissue disease (MCTD) and are also associated with other systemic autoimmune rheumatic diseases (SARDs) such as systemic lupus erythematosus (SLE), systemic sclerosis, and myositis. Antibodies targeting the Herzog/SILK SCREEN CUTTER antigenic complex also recognize Herzog antigens, therefore, the Herzog antibody response must be considered when interpreting these results. Performed By: [facility] [email or web address] [address] [place] [address] [employer] Machine Operator: Da Terrell MD, PhD Blood BLOOD SPECIMEN / Unknown Lab Venipuncture / Unknown 04/22/2022 12:55 PM CDT 04/22/2022 1:03 PM CDT Umang Alonoz MD LAB - CHEMISTRY JENIFFER KUMARI [facility]) [address] * CHROMATIN ANTIBODY (04/22/2022 12:55 PM CDT) Chromatin Antibody 5 0 - 19 Units 04/24/2022 2:01 PM CDT [facility] ([facility]) Comment: INTERPRETIVE INFORMATION: Chromatin Antibody, IgG ??19 Units or less: Negative ??20 - 60 Units: Moderate Positive ??61 Units or greater: Strong Positive The presence of anti-chromatin antibodies may be useful in the diagnosis of systemic lupus erythematosus (SLE) or drug-induced lupus (DIL) and have been reported to be predictive of lupus nephritis, especially when antibody levels are high. Performed By: [facility] [email or web address] [address] [place] [address] [employer] Operator: Da Terrell MD, PhD Blood BLOOD SPECIMEN / Unknown Lab Venipuncture / Unknown 04/22/2022 12:55 PM CDT 04/22/2022 1:03 PM CDT Umang Alonzo MD LAB - SEROLOGY ORDER MAX [facility] ([facility]) [address] [place], [place] [address] * TSH REFLEX FREE T4 (04/22/2022 12:55 PM CDT) Pathologist [facility] TSH 3.027 0.350 - 4.940 uIU/mL 04/22/2022 1:53 PM CDT [facility] Blood BLOOD SPECIMEN / Unknown Lab Venipuncture / Unknown 04/22/2022 12:55 PM CDT 04/22/2022 1:05 PM CDT Umang Alonzo MD LAB - CHEMISTRY ORDE KENEYTTA [address] [address], [facility] [phone] * (ABNORMAL) URINALYSIS W/MICROSCOPIC REFLEX TO CULTURE (04/22/2022 12:55 PM CDT) Color UA Yellow Straw, Yellow 04/22/2022 1:13 PM CDT [facility] Clarity UA Slt Cloudy(A) Clear 04/22/2022 1:13 PM CDT [facility]ORATORY [facility] Specific [place] UA 1.019 1.005 - 1.030 04/22/2022 1:13 PM CDT [facility] pH UA 5.0 5.0 - 8.0 pH 04/22/2022 1:13 PM CDT [facility] Protein UA Negative Negative 04/22/2022 1:13 PM CDT [facility] Glucose UA Negative Negative 04/22/2022 1:13 PM CDT [facility] Ketone UA Negative Negative 04/22/2022 1:13 PM [facility] Bilirubin UA Negative Negative 04/22/2022 1:13 PM [facility] Blood UA Negative Negative 04/22/2022 1:13 PM [facility] Nitrite UA Negative Negative 04/22/2022 1:13 PM [facility] Leukocyte Esterase Negative Negative 04/22/2022 1:13 PM [facility] Urobilinogen UA Negative Negative mg/dL 04/22/2022 1:13 PM [facility] RBC UA 0-2 None Seen, 0-2, 3-5 /HPF 04/22/2022 1:13 PM [facility] WBC UA 0-5 None Seen, 0-5 /HPF 04/22/2022 1:13 PM [facility] Bacteria UA Trace(A) None /HPF 04/22/2022 1:13 PM [facility] Squamous Epithelial Cells UA 3-5 None Seen, 0-2, 3-5 /HPF 04/22/2022 1:13 PM [facility] Mucus UA 1+ /LPF 04/22/2022 1:13 PM [facility] Urine URINE SPECIMEN OBTAINED BY CLEAN CATCH PROCEDURE / Unknown Collection / Unknown 04/22/2022 12:55 PM CDT 04/22/2022 1:03 PM CDT Narrative [facility] - 04/22/2022 1:13 PM CDT Culture Not Indicated Umang Alonzo MD LAB - URINALYSIS ORD ERABLES [address] [address], [facility] [phone] * PROTEIN ELECTROPHORESIS URINE RANDOM (04/22/2022 12:55 PM CDT) Interpretation Urine PE See Comment Normal Pattern 04/28/2022 6:06 PM [facility] Comment: Urine protein electrophoresis shows a band corresponding to albumin. No monoclonal immunoglobulins detected. Jacquie Cade MD Protein Urine <7 Not Established mg/dL 04/28/2022 6:06 PM CDT [facility] Urine URINE SPECIMEN OBTAINED BY CLEAN CATCH PROCEDURE / Unknown Collection / Unknown 04/22/2022 12:55 PM CDT 04/22/2022 1:03 PM CDT Umang Alonzo MD LAB - URINE CHEMISTR Y ORDERABLES Performing Organization Address City/[facility]/ZIP Co de Phone Number [place] [address] [place] [address], [facility] [phone] * HERZOG (SM) ANTIBODY TERRI (04/22/2022 12:55 PM CDT) Herzog (TERRI) Antibody 1 0 - 40 AU/mL 04/23/2022 5:07 PM CDT [employer] ([facility]) Comment: INTERPRETIVE INFORMATION: Herzog (TERRI) Antibody, IgG ??29 AU/mL or Less ............. Negative ??30 - 40 AU/mL ................ Equivocal ??41 AU/mL or Greater .......... Positive Herzog antibody is highly specific (greater than 90 percent) for systemic lupus erythematosus (SLE) but only occurs in 30-35 percent of SLE cases. The presence of antibodies to Herzog has variable associations with SLE clinical manifestations. Performed By: [facility] [address] [place] [address] [employer] Operator: Da Terrell MD, PhD Blood BLOOD SPECIMEN / Unknown Lab Venipuncture / Unknown 04/22/2022 12:55 PM CDT 04/22/2022 1:03 PM CDT Umang Alonzo MD LAB - CHEMISTRY ORDE RABLES Performing Organization Address City/[facility]/ZIP Co de Phone Number [facility]) [address] * (ABNORMAL) RAE BLOOD SCREEN W/REFLEX TITER (04/22/2022 12:55 PM CDT) RAE IgG Detected (A) None Detected 04/23/2022 3:15 PM CDT [facility] ([facility]) Comment: Antibodies to Anti-Nuclear Antibodies (RAE) detected. [...] dsDNA, histones, SS-A (Ro), SS-B (La), Herzog, Herzog/SILK SCREEN CUTTER, Scl-70, Chrissy-1, centromeric proteins, other antigens extracted from the HEp-2 cell nucleus. RAE JESUS assays have been reported to have lower sensitivities than RAE IFA for systemic autoimmune rheumatic diseases (SARD). Negative results do not necessarily rule out SARD. Performed By: [place] [address] [employer] Operator: Da Terrell MD, PhD Blood BLOOD SPECIMEN / Unknown Lab Venipuncture / Unknown 04/22/2022 12:55 PM CDT 04/22/2022 1:03 PM CDT Umang Alonzo MD LAB - CHEMISTRY JENIFFER KUMARI Performing Organization Address City/[facility]/ZIP Co de Phone Number [address] * CRYOGLOBULIN QUALITATIVE (04/22/2022 12:55 PM CDT) Pathologist [facility] Cryoglobulin Qualitative Negative Negative 04/25/2022 8:07 AM CDT [facility] Blood BLOOD SPECIMEN / Unknown Lab Venipuncture / Unknown 04/22/2022 12:55 PM CDT 04/22/2022 12:59 PM CDT Umang Alonzo MD LAB - CHEMISTRY JENIFFER KUMARI Performing Organization Address City/[facility]/ZIP Co de Phone Number [address] [address], [place] [phone] * CENTROMERE ANTIBODY (04/22/2022 12:55 PM CDT) Pathologist [facility] Centromere Antibody 1 0 - 40 AU/mL 04/23/2022 5:07 PM CDT [facility] [employer] ([facility]) Comment: INTERPRETIVE INFORMATION: Centromere Ab, IgG ??29 [...] other antibodies associated with SSc, including Scl-70, U3-SILK SCREEN CUTTER, PM/Scl, or Th/To. Performed By: [facility] [address] [place] [address] [employer] Operator: Da Terrell MD, PhD Blood BLOOD SPECIMEN / Unknown Lab Venipuncture / Unknown 04/22/2022 12:55 PM CDT 04/22/2022 1:03 PM CDT Umang Alonzo MD LAB - CHEMISTRY JENIFFER KUMARI [facility] [employer] [facility]) [address] * (ABNORMAL) SS-B (SJOGREN'S) ANTIBODY (04/22/2022 12:55 PM CDT) SS-B Antibody 50(H) 0 - 40 AU/mL 04/23/2022 5:07 PM CDT [facility] [employer] ([facility]) Comment: INTERPRETIVE INFORMATION: SSB (La) (TERRI) Ab, [...] (PSS) also have this antibody. Performed By: [facility] [address] [place] [address] [employer] Operator: Da Terrell MD, PhD Blood BLOOD SPECIMEN / Unknown Lab Venipuncture / Unknown 04/22/2022 12:55 PM CDT 04/22/2022 1:03 PM CDT Umang Alonzo MD LAB - CHEMISTRY JENIFFER KUMARI [facility] [employer] ([facility]) [address] [place] [address] * SCLERODERMA 70 (SCL) ANTIBODY (04/22/2022 12:55 PM CDT) Pathologist [facility] SCL-70 Antibody 0 0 - 40 AU/mL 04/23/2022 5:07 PM CDT [facility] [employer] ([facility]) Comment: INTERPRETIVE INFORMATION: Scleroderma (Scl-70) (TERRI) Ab, [...] testing for centromere, RNA polymerase III and U3-SILK SCREEN CUTTER, PM/Scl, or Th/To antibodies. Performed By: [facility] [address] [place] [address] [employer] Operator: Da Terrell MD, PhD Blood BLOOD SPECIMEN / Unknown Lab Venipuncture / Unknown 04/22/2022 12:55 PM CDT 04/22/2022 1:04 PM CDT Umang Alonzo MD LAB - CHEMISTRY JENIFFER KUMARI [facility] Hospital Organization Address City/State/ZIP Co de Phone Number [employer] ([facility]) [address] [place] [address] * DNA ANTIBODY DOUBLE STRANDED (04/22/2022 12:55 PM CDT) dsDNA Antibody 4 0 - 24 IU 04/23/2022 3:06 PM CDT [facility] ([facility]) Comment: INTERPRETIVE INFORMATION: Double-Stranded DNA (dsDNA) Ab IgG JESUS ??24 IU or less........Negative ??25-30 IU.............Borderline Positive ??30-60 IU.............Low Positive ??60-200 IU............Positive ??201 IU or greater....Strong Positive Positivity for anti-double stranded DNA (anti-dsDNA) IgG antibody is a diagnostic criterion of systemic lupus erythematosus (SLE). Specimens are initially screened by enzyme-linked immunosorbent assay (JESUS). If ordered as reflex ([id number]), positive JESUS results (>24 IU) will be [...] recommendations for testing may be found at [email or web address]/[email or web address]. Performed By: [employer] [address] [place] [address] Tire Recapping Machine Operator: Da Terrell MD, PhD Blood BLOOD SPECIMEN / Unknown Lab Venipuncture / Unknown 04/22/2022 12:55 PM CDT 04/22/2022 1:03 PM CDT Umang Alonzo MD LAB - HEMATOLOGY ORD ERABLES [employer] [facility]) [address] [place] [address] * CHRISSY-1 ANTIBODY (04/22/2022 12:55 PM CDT) Pathologist [facility] Chrissy-1 Antibody IgG 0 0 - 40 AU/mL 04/24/2022 1:05 AM CDT [facility] [employer] ([facility]) Comment: INTERPRETIVE INFORMATION: ??Chrissy-1 Antibody, IgG ??29 AU/mL or less.........Negative ??30-40 AU/mL..............Equivocal ??41 AU/mL or greater......Positive Presence of Chrissy-1 (antihistidyl transfer RNA [t-RNA] synthetase) antibody is associated with polymyositis and may also be seen in patients with dermatomyositis. Chrissy-1 antibody is associated with pulmonary involvement (interstitial lung disease), Raynaud phenomenon, arthritis, and auto technician mechanic's hands (implicated in antisynthetase syndrome). Performed By: [employer] [address] [place] [address] [employer] Recapping Machine Operator: Da Terrell MD, PhD Blood BLOOD SPECIMEN / Unknown Lab Venipuncture / Unknown 04/22/2022 12:55 PM CDT 04/22/2022 1:03 PM CDT Umang Alonzo MD LAB - CHEMISTRY JENIFFER KUMARI [facility] [employer] [facility]) [address] * CYCLIC CITRULLINATED PEPTIDE(CCP) AB IGG (04/22/2022 12:55 PM CDT) [facility] Antibody IgG 0.6 <5.0 U/mL 04/22/2022 2:04 PM CDT [facility] Blood BLOOD SPECIMEN / Unknown Lab Venipuncture / Unknown 04/22/2022 12:55 PM CDT 04/22/2022 1:03 PM CDT Umang Alonzo MD LAB - CHEMISTRY JENIFFER KUMARI [facility] [address] [id number], [facility] [phone] * KAPPA/LAMBDA LITE CHAIN FREE PANEL (04/22/2022 12:55 PM CDT) [facility] Quant Free Light Chain 17.51 3.30 - 19.40 mg/L 04/23/2022 12:00 PM CDT [employer] ([facility]) Comment: INTERPRETIVE INFORMATION: Concho Qnt Free Light Chains Undetected antigen excess is a rare event but cannot be excluded. Free light chain results should always be interpreted in conjunction with other clinical and laboratory findings. Lambda Free Light Chain Quantitative 13.81 5.71 - 26.30 mg/L 04/23/2022 12:00 PM CDT [employer] ([facility]) Comment: INTERPRETIVE INFORMATION: Lambda Qnt Free Light Chains Undetected antigen excess is a rare event but cannot be excluded. Free light chain results should always be interpreted in conjunction with other clinical and laboratory findings. Concho/Lambda Free Light Chain ratio 1.27 0.26 - 1.65 04/23/2022 12:00 PM CDT [employer] ([facility]) Comment: Performed By: [employer] [address] [place] [address] [employer] Recapping Machine Operator: Da Terrell MD, PhD Blood BLOOD SPECIMEN / Unknown Lab Venipuncture / Unknown 04/22/2022 12:55 PM CDT 04/22/2022 1:03 PM CDT Umang Alonzo MD LAB - CHEMISTRY JENIFFER KUMARI [facility] ([facility]) [address] [place] [id number], [facility] * CBC WITH DIFFERENTIAL (04/22/2022 12:55 PM CDT) WBC 7.9 3.5 - 10.5 10? 3 /uL 04/22/2022 1:12 PM CDT [facility] RBC 4.66 3.80 - 5.20 10? 6 /uL 04/22/2022 1:12 PM [facility] Hemoglobin 13.0 12.0 - 15.6 g/dL 04/22/2022 1:12 PM [facility] Hematocrit 41.2 35.0 - 45.0 % 04/22/2022 1:12 PM [facility] MCV 88.4 80.7 - 98.3 fL 04/22/2022 1:12 PM [facility] MCH 27.9 26.7 - 34.0 pg 04/22/2022 1:12 PM [facility] MCHC 31.6 30.8 - 35.9 g/dL 04/22/2022 1:12 PM [facility] Platelet Count 317 150 - 400 10? 3 /uL 04/22/2022 1:12 PM [facility] RDW-SD 43.9 36.0 - 50.0 fL 04/22/2022 1:12 PM [facility] RDW-CV 13.5 11.2 - 14.8 % 04/22/2022 1:12 PM [facility] MPV 10.1 9.4 - 12.9 fL 04/22/2022 1:12 PM [facility] nRBC Absolute 0.00 0 10? 3 /uL 04/22/2022 1:12 PM [facility] nRBC Auto 0.0 0 /100 WBC 04/22/2022 1:12 PM [facility] Neutrophils % 54.8 35.0 - 70.0 % 04/22/2022 1:12 PM [facility] Lymphocytes % 35.4 20.0 - 43.0 % 04/22/2022 1:12 PM [facility] Monocytes % 7.6 5.0 - 13.0 % 04/22/2022 1:12 PM [facility] Eosinophils % 1.5 0.0 - 6.0 % 04/22/2022 1:12 PM [facility] Basophil % 0.4 0.0 - 2.0 % 04/22/2022 1:12 PM [facility] Neutrophils Absolute 4.30 1.60 - 7.00 10? 3 /uL 04/22/2022 1:12 PM [facility] Lymphocyte Absolute 2.78 1.10 - 3.90 10? 3 /uL 04/22/2022 1:12 PM [facility] Monocytes Absolute 0.60 0.26 - 1.07 10? 3 /uL 04/22/2022 1:12 PM [facility] Eosinophils Absolute 0.12 0.00 - 0.47 10? 3 /uL 04/22/2022 1:12 PM [facility] Basophils Absolute 0.03 0.00 - 0.08 10? 3 /uL 04/22/2022 1:12 PM [facility] Immature Granulocytes % 0.3 0.0 - 1.0 % 04/22/2022 1:12 PM [facility] Immature Granulocytes Absolute 0.02 04/22/2022 1:12 PM [facility] Blood BLOOD SPECIMEN / Unknown Lab Venipuncture / Unknown 04/22/2022 12:55 PM CDT 04/22/2022 1:06 PM CDT Umang Alonzo MD LAB - HEMATOLOGY ORD ERABLES [address] [address], [facility] [phone] * COMPLEMENT C4 (04/22/2022 12:55 PM CDT) Complement C4 33 15 - 57 mg/dL 04/22/2022 1:36 PM [facility] Blood BLOOD SPECIMEN / Unknown Lab Venipuncture / Unknown 04/22/2022 12:55 PM CDT 04/22/2022 1:05 PM CDT Umang Alonzo MD LAB - SEROLOGY ORDER MAX [facility] [address] [place] [address], [facility] [phone] * (ABNORMAL) COMPREHENSIVE METABOLIC PANEL (04/22/2022 12:55 PM CDT) BUN 12 7 - 26 mg/dL 04/22/2022 1:36 PM [facility] Creatinine 0.89 0.56 - 0.96 mg/dL 04/22/2022 1:36 PM [facility] Sodium 143 136 - 145 mmol/L 04/22/2022 1:36 PM [facility] Potassium 3.7 3.5 - 4.5 mmol/L 04/22/2022 1:36 PM [facility] Chloride 103 98 - 107 mmol/L 04/22/2022 1:36 PM [facility] CO2 28 22 - 29 mmol/L 04/22/2022 1:36 PM [facility] Glucose 96 70 - 115 mg/dL 04/22/2022 1:36 PM [facility] Calcium 9.9 8.4 - 10.2 mg/dL 04/22/2022 1:36 PM [facility] Protein Total 7.8 6.0 - 8.3 g/dL 04/22/2022 1:36 PM [facility] Albumin 4.2 3.4 - 5.0 g/dL 04/22/2022 1:36 PM [facility] Bilirubin Total 0.3 0.2 - 1.2 mg/dL 04/22/2022 1:36 PM [facility] Alkaline Phosphatase 91 40 - 150 U/L 04/22/2022 1:36 PM [facility] ALT 30 5 - 55 U/L 04/22/2022 1:36 PM [facility] AST 16 5 - 34 U/L 04/22/2022 1:36 PM [facility] Anion Gap 16 8 - 18 04/22/2022 1:36 PM [facility] BUN/Creatinine Ratio 13 7 - 23 04/22/2022 1:36 PM [facility] Osmolality Calculated 296 270 - 300 mOsm/kg 04/22/2022 1:36 PM [facility] Albumin/Globulin Ratio 1.2 1.1 - 2.3 04/22/2022 1:36 PM [facility] eGFR by CKD-EPI 78(L) >=90 mL/min/1.7 3 m2 04/22/2022 1:36 PM [facility] Blood BLOOD SPECIMEN / Unknown Lab Venipuncture / Unknown 04/22/2022 12:55 PM CDT 04/22/2022 1:05 PM CDT Umang Alonzo MD LAB - CHEMISTRY ORDE RABLES Performing Organization Address City/[facility]/ZIP Co de Phone Number [address] [address], [place] [phone] * PROTEIN CREATININE RATIO URINE RANDOM PNL (04/22/2022 12:55 PM CDT) Protein Urine <7 Not Established mg/dL 04/22/2022 1:42 PM [facility] Creatinine Urine 160 Not Established mg/dL 04/22/2022 1:42 PM [facility] Protein/Creatinin e Ratio Urine 04/22/2022 1:42 PM [facility] Comment:Unable to calculate ratio because the analyte concentration is outside the instrument measuring range. Urine URINE SPECIMEN OBTAINED BY CLEAN CATCH PROCEDURE / Unknown Collection / Unknown 04/22/2022 12:55 PM CDT 04/22/2022 1:03 PM CDT Umang Alonzo MD LAB - URINE CHEMISTR Y ORDERABLES Performing Organization Address City/[facility]/ZIP Co de Phone Number [address] [address], [place] [phone] * PROTEIN ELECTROPHORESIS BLOOD (04/22/2022 12:55 PM CDT) Interpretation Serum PE Normal Pattern Normal Pattern 04/28/2022 6:06 PM CDT [facility] Comment: Serum capillary electrophoresis shows characteristic [...] - 8.3 g/dL 04/28/2022 6:06 PM CDT [facility] Albumin 4.4 3.3 - 5.6 g/dL 04/28/2022 6:06 PM CDT [facility] Alpha-1 Globulins 0.4 0.2 - 0.4 g/dL 04/28/2022 6:06 PM CDT [facility] Alpha-2 Globulins 0.8 0.5 - 1.0 g/dL 04/28/2022 6:06 PM CDT [facility] Beta Globulins 1.0 0.6 - 1.1 g/dL 04/28/2022 6:06 PM CDT [facility] Gamma Globulins 1.1 0.6 - 1.6 g/dL 04/28/2022 6:06 PM CDT [facility] Blood BLOOD SPECIMEN / Unknown Lab Venipuncture / Unknown 04/22/2022 12:55 PM CDT 04/22/2022 1:03 PM CDT Umang Alonzo MD LAB - CHEMISTRY JENIFFER KUMARI [facility] Organization Address City/State/ZIP Co de Phone Number [address] [address], [facility] [phone] * COMPLEMENT C3 (04/22/2022 12:55 PM CDT) Complement C3 156 82 - 193 mg/dL 04/22/2022 1:36 PM CDT [facility] Blood BLOOD SPECIMEN / Unknown Lab Venipuncture / Unknown 04/22/2022 12:55 PM CDT 04/22/2022 1:05 PM CDT Uamng Alonzo MD LAB - CHEMISTRY JENIFFER Vo Organization Address City/State/ZIP Co de Phone Number [facility] [address] [place] [address], [facility] [phone] * XR FOOT RIGHT 3VW OR MORE (04/22/2022 12:30 PM CDT) Anatomical Region Laterality Modality Ankle / Foot Radiographic June ging 04/22/2022 12:5 9 PM CDT Impressions 04/22/2022 1:03 PM CDT IMPRESSION: 1. Right and left hands and wrists: Normal. 2. Right and left knees: Small osteophytes indicating early degenerative change without joint space narrowing. 3. Right foot: Normal. 4. Left foot: No arthritis. Postsurgical change at the fifth metatarsal head. > Interpreting Provider: Magno Santamaria MD on 04/22/2022 1:03 PM Narrative 04/22/2022 1:03 PM CDT PROCEDURE: ??XR WRIST RIGHT 2VW, XR HAND LEFT 3VW OR MORE, XR FOOT RIGHT 3VW OR MORE, XR FOOT LEFT 3VW OR MORE, XR WRIST LEFT 2VW, DATE/TIME OF EXAM: 04/22/2022 12:31 PM, LOCATION ??[facility] INDICATION: M35.00: Sjogren's syndrome, with unspecified organ involvement M35.00: Sicca complex M13.0: Polyarthritis of hand M25.50: Polyarthralgia ADDITIONAL CLINICAL INFORMATION: Ordering Provider Reason For Exam: ??Please evaluate for signs of inflammatory arthropathy. Technologist Note: Additional: COMPARISON: None. FINDINGS: Right hand: No fracture or dislocation is present. The joint spaces are normal. No erosions are seen. ??Bone density is normal. ??The soft tissues are normal. Left hand: No fracture or dislocation is present. The joint spaces are normal. No erosions are seen. ??Bone density is normal. ??The soft tissues are normal. Right wrist: No fracture or dislocation is present. The joint spaces are normal. No erosions are seen. ??Bone density is normal. ??The soft tissues are normal. ?? Left wrist: No fracture or dislocation is present. The joint spaces are normal. No erosions are seen. ??Bone density is normal. ??The soft tissues are normal. Right knee: No acute fracture or dislocation is present. No erosions are seen. The joint spaces are normal. A few very small osteophytes are visible. There is no effusion. Left knee: No acute fracture or dislocation is present. No erosions are seen. The joint spaces are normal. A few very small osteophytes are visible. There is no effusion. Right foot: No fracture or dislocation is present. The joint spaces are normal. No erosions are seen. ??Bone density is normal. ??The soft tissues are normal. Left foot: No fracture or dislocation is present. The joint spaces are normal. No erosions are seen. Contour flattening of the lateral aspect of the fifth metatarsal head is likely postsurgical. Bone density is normal. ??The soft tissues are normal. Procedure Note Magno Santamaria MD - 04/22/2022 PROCEDURE: XR WRIST RIGHT 2VW, XR HAND LEFT 3VW OR MORE, XR FOOT [id number] OR MORE, XR FOOT LEFT 3VW OR MORE, XR WRIST LEFT 2VW, DATE/TIME OF EXAM: 04/22/2022 12:31 PM, LOCATION [facility] INDICATION: M35.00: Sjogren's syndrome, with unspecified organ involvement M35.00: Sicca complex M13.0: Polyarthritis of hand M25.50: Polyarthralgia ADDITIONAL CLINICAL INFORMATION: Ordering Provider Reason For Exam: Please evaluate for signs of inflammatory arthropathy. Technologist Note: Additional: COMPARISON: None. FINDINGS: Right hand: No fracture or dislocation is present. The joint spaces are normal. No erosions are seen. Bone density is normal. The soft tissues arenormal. Left hand: No fracture or dislocation is present. The joint spaces are normal. No erosions are seen. Bone density is normal. The soft tissues arenormal. Right wrist: No fracture or dislocation is present. The joint spaces are normal. No erosions are seen. Bone density is normal. The soft tissues are normal. Left wrist: No fracture or dislocation is present. The joint spaces are normal. No erosions are seen. Bone density is normal. The soft tissues arenormal. Right knee: No acute fracture or dislocation is present. No erosions are seen. The joint spaces are normal. A few very small osteophytes are visible. Thereis no effusion. Left knee: No acute fracture or dislocation is present. No erosions are seen. The joint spaces are normal. A few very small osteophytes are visible. Thereis no effusion. Right foot: No fracture or dislocation is present. The joint spaces are normal. No erosions are seen. Bone density is normal. The soft tissues are normal. Left foot: No fracture or dislocation is present. The joint spaces are normal. No erosions are seen. Contour flattening of the lateral aspect of the fifth metatarsal head is likely postsurgical. Bone density is normal. Thesoft tissues are normal. IMPRESSION: 1. Right and left hands and wrists: Normal. 2. Right and left knees: Small osteophytes indicating early degenerative change without joint space narrowing. 3. Right foot: Normal. 4. Left foot: No arthritis. Postsurgical change at the fifth metatarsal head. > Interpreting Provider: Magno Santamaria MD on 04/22/2022 1:03 PM Umang Alonzo MD DIAGNOSTIC IMAGING O RDERABLES * XR FOOT LEFT 3VW OR MORE (04/22/2022 12:30 PM CDT) Anatomical Region Laterality Modality Ankle / Foot Radiographic June ging 04/22/2022 12:5 9 PM CDT Impressions 04/22/2022 1:03 PM CDT IMPRESSION: 1. Right and left hands and wrists: Normal. 2. Right and left knees: Small osteophytes indicating early degenerative change without joint space narrowing. 3. Right foot: Normal. 4. Left foot: No arthritis. Postsurgical change at the fifth metatarsal head. > Interpreting Provider: Magno Santamaria MD on 04/22/2022 1:03 PM Narrative 04/22/2022 1:03 PM CDT PROCEDURE: ??XR WRIST RIGHT 2VW, XR HAND LEFT 3VW OR MORE, XR FOOT RIGHT 3VW OR MORE, XR FOOT LEFT 3VW OR MORE, XR WRIST LEFT 2VW, DATE/TIME OF EXAM: 04/22/2022 12:31 PM, LOCATION ??[facility] INDICATION: M35.00: Sjogren's syndrome, with unspecified organ involvement M35.00: Sicca complex M13.0: Polyarthritis of hand M25.50: Polyarthralgia ADDITIONAL CLINICAL INFORMATION: Ordering Provider Reason For Exam: ??Please evaluate for signs of inflammatory arthropathy. Technologist Note: Additional: COMPARISON: None. FINDINGS: Right hand: No fracture or dislocation is present. The joint spaces are normal. No erosions are seen. ??Bone density is normal. ??The soft tissues are normal. Left hand: No fracture or dislocation is present. The joint spaces are normal. No erosions are seen. ??Bone density is normal. ??The soft tissues are normal. Right wrist: No fracture or dislocation is present. The joint spaces are normal. No erosions are seen. ??Bone density is normal. ??The soft tissues are normal. ?? Left wrist: No fracture or dislocation is present. The joint spaces are normal. No erosions are seen. ??Bone density is normal. ??The soft tissues are normal. Right knee: No acute fracture or dislocation is present. No erosions are seen. The joint spaces are normal. A few very small osteophytes are visible. There is no effusion. Left knee: No acute fracture or dislocation is present. No erosions are seen. The joint spaces are normal. A few very small osteophytes are visible. There is no effusion. Right foot: No fracture or dislocation is present. The joint spaces are normal. No erosions are seen. ??Bone density is normal. ??The soft tissues are normal. Left foot: No fracture or dislocation is present. The joint spaces are normal. No erosions are seen. Contour flattening of the lateral aspect of the fifth metatarsal head is likely postsurgical. Bone density is normal. ??The soft tissues are normal. Procedure Note Mgano Santamaria MD - 04/22/2022 PROCEDURE: XR WRIST RIGHT 2VW, XR HAND LEFT 3VW OR MORE, XR FOOT [id number] OR MORE, XR FOOT LEFT 3VW OR MORE, XR WRIST LEFT 2VW, DATE/TIME OF EXAM: 04/22/2022 12:31 PM, LOCATION [facility] INDICATION: M35.00: Sjogren's syndrome, with unspecified organ involvement M35.00: Sicca complex M13.0: Polyarthritis of hand M25.50: Polyarthralgia ADDITIONAL CLINICAL INFORMATION: Ordering Provider Reason For Exam: Please evaluate for signs of inflammatory arthropathy. Technologist Note: Additional: COMPARISON: None. FINDINGS: Right hand: No fracture or dislocation is present. The joint spaces are normal. No erosions are seen. Bone density is normal. The soft tissues arenormal. Left hand: No fracture or dislocation is present. The joint spaces are normal. No erosions are seen. Bone density is normal. The soft tissues arenormal. Right wrist: No fracture or dislocation is present. The joint spaces are normal. No erosions are seen. Bone density is normal. The soft tissues are normal. Left wrist: No fracture or dislocation is present. The joint spaces are normal. No erosions are seen. Bone density is normal. The soft tissues arenormal. Right knee: No acute fracture or dislocation is present. No erosions are seen. The joint spaces are normal. A few very small osteophytes are visible. Thereis no effusion. Left knee: No acute fracture or dislocation is present. No erosions are seen. The joint spaces are normal. A few very small osteophytes are visible. Thereis no effusion. Right foot: No fracture or dislocation is present. The joint spaces are normal. No erosions are seen. Bone density is normal. The soft tissues are normal. Left foot: No fracture or dislocation is present. The joint spaces are normal. No erosions are seen. Contour flattening of the lateral aspect of the fifth metatarsal head is likely postsurgical. Bone density is normal. Thesoft tissues are normal. IMPRESSION: 1. Right and left hands and wrists: Normal. 2. Right and left knees: Small osteophytes indicating early degenerative change without joint space narrowing. 3. Right foot: Normal. 4. Left foot: No arthritis. Postsurgical change at the fifth metatarsal head. > Interpreting Provider: Magno Santamaria MD on 04/22/2022 1:03 PM Umang Alonzo MD DIAGNOSTIC IMAGING O RDERABLES * XR HAND RIGHT 3VW OR MORE (04/22/2022 12:30 PM CDT) Anatomical Region Laterality Modality Wrist / Hand Radiographic June ging 04/22/2022 12:4 3 PM CDT Impressions 04/22/2022 12:48 PM CDT IMPRESSION: 1. Right and left hands and wrists: Normal. 2. Right and left knees: Small osteophytes indicating early degenerative change without joint space narrowing. 3. Right foot: Normal. 4. Left foot: No arthritis. Postsurgical change at the fifth metatarsal head. . > Interpreting Provider: Magno Santamaria MD on 04/22/2022 12:48 PM Narrative 04/22/2022 12:48 PM CDT PROCEDURE: ??XR HAND RIGHT 3VW OR MORE, DATE/TIME OF EXAM: ??04/22/2022 12:31 PM, LOCATION ??[facility] INDICATION: M35.00: Sjogren's syndrome, with unspecified organ involvement M35.00: Sicca complex M13.0: Polyarthritis of hand M25.50: Polyarthralgia ADDITIONAL CLINICAL INFORMATION: Ordering Provider Reason For Exam: ??Please evaluate for signs of inflammatory arthropathy. Technologist Note: Additional: COMPARISON: None. FINDINGS: Right hand: No fracture or dislocation is present. The joint spaces are normal. No erosions are seen. ??Bone density is normal. ??The soft tissues are normal. Left hand: No fracture or dislocation is present. The joint spaces are normal. No erosions are seen. ??Bone density is normal. ??The soft tissues are normal. Right wrist: No fracture or dislocation is present. The joint spaces are normal. No erosions are seen. ??Bone density is normal. ??The soft tissues are normal. ?? Left wrist: No fracture or dislocation is present. The joint spaces are normal. No erosions are seen. ??Bone density is normal. ??The soft tissues are normal. Right knee: No acute fracture or dislocation is present. No erosions are seen. The joint spaces are normal. A few very small osteophytes are visible. There is no effusion. Left knee: No acute fracture or dislocation is present. No erosions are seen. The joint spaces are normal. A few very small osteophytes are visible. There is no effusion. Right foot: No fracture or dislocation is present. The joint spaces are normal. No erosions are seen. ??Bone density is normal. ??The soft tissues are normal. Left foot: No fracture or dislocation is present. The joint spaces are normal. No erosions are seen. Contour flattening of the lateral aspect of the fifth metatarsal head is likely postsurgical. Bone density is normal. ??The soft tissues are normal. Procedure Note Magno Santamaria MD - 04/22/2022 PROCEDURE: XR HAND RIGHT 3VW OR MORE, DATE/TIME OF EXAM: 2:31 PM, LOCATION [facility] INDICATION: M35.00: Sjogren's syndrome, with unspecified organ involvement M35.00: Sicca complex M13.0: Polyarthritis of hand M25.50: Polyarthralgia ADDITIONAL CLINICAL INFORMATION: Ordering Provider Reason For Exam: Please evaluate for signs of inflammatory arthropathy. Technologist Note: Additional: COMPARISON: None. FINDINGS: Right hand: No fracture or dislocation is present. The joint spaces are normal. No erosions are seen. Bone density is normal. The soft tissues arenormal. Left hand: No fracture or dislocation is present. The joint spaces are normal. No erosions are seen. Bone density is normal. The soft tissues arenormal. Right wrist: No fracture or dislocation is present. The joint spaces are normal. No erosions are seen. Bone density is normal. The soft tissues are normal. Left wrist: No fracture or dislocation is present. The joint spaces are normal. No erosions are seen. Bone density is normal. The soft tissues arenormal. Right knee: No acute fracture or dislocation is present. No erosions are seen. The joint spaces are normal. A few very small osteophytes are visible. Thereis no effusion. Left knee: No acute fracture or dislocation is present. No erosions are seen. The joint spaces are normal. A few very small osteophytes are visible. Thereis no effusion. Right foot: No fracture or dislocation is present. The joint spaces are normal. No erosions are seen. Bone density is normal. The soft tissues are normal. Left foot: No fracture or dislocation is present. The joint spaces are normal. No erosions are seen. Contour flattening of the lateral aspect of the fifth metatarsal head is likely postsurgical. Bone density is normal. Thesoft tissues are normal. IMPRESSION: 1. Right and left hands and wrists: Normal. 2. Right and left knees: Small osteophytes indicating early degenerative change without joint space narrowing. 3. Right foot: Normal. 4. Left foot: No arthritis. Postsurgical change at the fifth metatarsal head. . > Interpreting Provider: Magno Santamaria MD on 04/22/2022 12:48 PM Umang Alonzo MD DIAGNOSTIC IMAGING O RDERABLES * XR HAND LEFT 3VW OR MORE (04/22/2022 12:30 PM CDT) Anatomical Region Laterality Modality Wrist / Hand Radiographic June ging 04/22/2022 12:5 9 PM CDT Impressions 04/22/2022 1:03 PM CDT IMPRESSION: 1. Right and left hands and wrists: Normal. 2. Right and left knees: Small osteophytes indicating early degenerative change without joint space narrowing. 3. Right foot: Normal. 4. Left foot: No arthritis. Postsurgical change at the fifth metatarsal head. > Interpreting Provider: Magno Santamaria MD on 04/22/2022 1:03 PM Narrative 04/22/2022 1:03 PM CDT PROCEDURE: ??XR WRIST RIGHT 2VW, XR HAND LEFT 3VW OR MORE, XR FOOT RIGHT 3VW OR MORE, XR FOOT LEFT 3VW OR MORE, XR WRIST LEFT 2VW, DATE/TIME OF EXAM: 04/22/2022 12:31 PM, LOCATION ??[facility] INDICATION: M35.00: Sjogren's syndrome, with unspecified organ involvement M35.00: Sicca complex M13.0: Polyarthritis of hand M25.50: Polyarthralgia ADDITIONAL CLINICAL INFORMATION: Ordering Provider Reason For Exam: ??Please evaluate for signs of inflammatory arthropathy. Technologist Note: Additional: COMPARISON: None. FINDINGS: Right hand: No fracture or dislocation is present. The joint spaces are normal. No erosions are seen. ??Bone density is normal. ??The soft tissues are normal. Left hand: No fracture or dislocation is present. The joint spaces are normal. No erosions are seen. ??Bone density is normal. ??The soft tissues are normal. Right wrist: No fracture or dislocation is present. The joint spaces are normal. No erosions are seen. ??Bone density is normal. ??The soft tissues are normal. ?? Left wrist: No fracture or dislocation is present. The joint spaces are normal. No erosions are seen. ??Bone density is normal. ??The soft tissues are normal. Right knee: No acute fracture or dislocation is present. No erosions are seen. The joint spaces are normal. A few very small osteophytes are visible. There is no effusion. Left knee: No acute fracture or dislocation is present. No erosions are seen. The joint spaces are normal. A few very small osteophytes are visible. There is no effusion. Right foot: No fracture or dislocation is present. The joint spaces are normal. No erosions are seen. ??Bone density is normal. ??The soft tissues are normal. Left foot: No fracture or dislocation is present. The joint spaces are normal. No erosions are seen. Contour flattening of the lateral aspect of the fifth metatarsal head is likely postsurgical. Bone density is normal. ??The soft tissues are normal. Procedure Note Magno Santamaria MD - 04/22/2022 PROCEDURE: XR WRIST RIGHT 2VW, XR HAND LEFT 3VW OR MORE, XR FOOT [id number] OR MORE, XR FOOT LEFT 3VW OR MORE, XR WRIST LEFT 2VW, DATE/TIME OF EXAM: 04/22/2022 12:31 PM, LOCATION [facility] INDICATION: M35.00: Sjogren's syndrome, with unspecified organ involvement M35.00: Sicca complex M13.0: Polyarthritis of hand M25.50: Polyarthralgia ADDITIONAL CLINICAL INFORMATION: Ordering Provider Reason For Exam: Please evaluate for signs of inflammatory arthropathy. Technologist Note: Additional: COMPARISON: None. FINDINGS: Right hand: No fracture or dislocation is present. The joint spaces are normal. No erosions are seen. Bone density is normal. The soft tissues arenormal. Left hand: No fracture or dislocation is present. The joint spaces are normal. No erosions are seen. Bone density is normal. The soft tissues arenormal. Right wrist: No fracture or dislocation is present. The joint spaces are normal. No erosions are seen. Bone density is normal. The soft tissues are normal. Left wrist: No fracture or dislocation is present. The joint spaces are normal. No erosions are seen. Bone density is normal. The soft tissues arenormal. Right knee: No acute fracture or dislocation is present. No erosions are seen. The joint spaces are normal. A few very small osteophytes are visible. Thereis no effusion. Left knee: No acute fracture or dislocation is present. No erosions are seen. The joint spaces are normal. A few very small osteophytes are visible. Thereis no effusion. Right foot: No fracture or dislocation is present. The joint spaces are normal. No erosions are seen. Bone density is normal. The soft tissues are normal. Left foot: No fracture or dislocation is present. The joint spaces are normal. No erosions are seen. Contour flattening of the lateral aspect of the fifth metatarsal head is likely postsurgical. Bone density is normal. Thesoft tissues are normal. IMPRESSION: 1. Right and left hands and wrists: Normal. 2. Right and left knees: Small osteophytes indicating early degenerative change without joint space narrowing. 3. Right foot: Normal. 4. Left foot: No arthritis. Postsurgical change at the fifth metatarsal head. > Interpreting Provider: Magno Santamaria MD on 04/22/2022 1:03 PM Umang Alonzo MD DIAGNOSTIC IMAGING O RDERABLES * XR WRIST RIGHT 2VW (04/22/2022 12:30 PM CDT) Anatomical Region Laterality Modality Wrist / Hand Radiographic June ging 04/22/2022 12:5 9 PM CDT Impressions 04/22/2022 1:03 PM CDT IMPRESSION: 1. Right and left hands and wrists: Normal. 2. Right and left knees: Small osteophytes indicating early degenerative change without joint space narrowing. 3. Right foot: Normal. 4. Left foot: No arthritis. Postsurgical change at the fifth metatarsal head. > Interpreting Provider: Magno Santamaria MD on 04/22/2022 1:03 PM Narrative 04/22/2022 1:03 PM CDT PROCEDURE: ??XR WRIST RIGHT 2VW, XR HAND LEFT 3VW OR MORE, XR FOOT RIGHT 3VW OR MORE, XR FOOT LEFT 3VW OR MORE, XR WRIST LEFT 2VW, DATE/TIME OF EXAM: 04/22/2022 12:31 PM, LOCATION ??[facility] INDICATION: M35.00: Sjogren's syndrome, with unspecified organ involvement M35.00: Sicca complex M13.0: Polyarthritis of hand M25.50: Polyarthralgia ADDITIONAL CLINICAL INFORMATION: Ordering Provider Reason For Exam: ??Please evaluate for signs of inflammatory arthropathy. Technologist Note: Additional: COMPARISON: None. FINDINGS: Right hand: No fracture or dislocation is present. The joint spaces are normal. No erosions are seen. ??Bone density is normal. ??The soft tissues are normal. Left hand: No fracture or dislocation is present. The joint spaces are normal. No erosions are seen. ??Bone density is normal. ??The soft tissues are normal. Right wrist: No fracture or dislocation is present. The joint spaces are normal. No erosions are seen. ??Bone density is normal. ??The soft tissues are normal. ?? Left wrist: No fracture or dislocation is present. The joint spaces are normal. No erosions are seen. ??Bone density is normal. ??The soft tissues are normal. Right knee: No acute fracture or dislocation is present. No erosions are seen. The joint spaces are normal. A few very small osteophytes are visible. There is no effusion. Left knee: No acute fracture or dislocation is present. No erosions are seen. The joint spaces are normal. A few very small osteophytes are visible. There is no effusion. Right foot: No fracture or dislocation is present. The joint spaces are normal. No erosions are seen. ??Bone density is normal. ??The soft tissues are normal. Left foot: No fracture or dislocation is present. The joint spaces are normal. No erosions are seen. Contour flattening of the lateral aspect of the fifth metatarsal head is likely postsurgical. Bone density is normal. ??The soft tissues are normal. Procedure Note Magno Santamaria MD - 04/22/2022 PROCEDURE: XR WRIST RIGHT 2VW, XR HAND LEFT 3VW OR MORE, XR FOOT [id number] OR MORE, XR FOOT LEFT 3VW OR MORE, XR WRIST LEFT 2VW, DATE/TIME OF EXAM: 04/22/2022 12:31 PM, LOCATION [facility] INDICATION: M35.00: Sjogren's syndrome, with unspecified organ involvement M35.00: Sicca complex M13.0: Polyarthritis of hand M25.50: Polyarthralgia ADDITIONAL CLINICAL INFORMATION: Ordering Provider Reason For Exam: Please evaluate for signs of inflammatory arthropathy. Technologist Note: Additional: COMPARISON: None. FINDINGS: Right hand: No fracture or dislocation is present. The joint spaces are normal. No erosions are seen. Bone density is normal. The soft tissues arenormal. Left hand: No fracture or dislocation is present. The joint spaces are normal. No erosions are seen. Bone density is normal. The soft tissues arenormal. Right wrist: No fracture or dislocation is present. The joint spaces are normal. No erosions are seen. Bone density is normal. The soft tissues are normal. Left wrist: No fracture or dislocation is present. The joint spaces are normal. No erosions are seen. Bone density is normal. The soft tissues arenormal. Right knee: No acute fracture or dislocation is present. No erosions are seen. The joint spaces are normal. A few very small osteophytes are visible. Thereis no effusion. Left knee: No acute fracture or dislocation is present. No erosions are seen. The joint spaces are normal. A few very small osteophytes are visible. Thereis no effusion. Right foot: No fracture or dislocation is present. The joint spaces are normal. No erosions are seen. Bone density is normal. The soft tissues are normal. Left foot: No fracture or dislocation is present. The joint spaces are normal. No erosions are seen. Contour flattening of the lateral aspect of the fifth metatarsal head is likely postsurgical. Bone density is normal. Thesoft tissues are normal. IMPRESSION: 1. Right and left hands and wrists: Normal. 2. Right and left knees: Small osteophytes indicating early degenerative change without joint space narrowing. 3. Right foot: Normal. 4. Left foot: No arthritis. Postsurgical change at the fifth metatarsal head. > Interpreting Provider: Magno Santamaria MD on 04/22/2022 1:03 PM Umang Alonzo MD DIAGNOSTIC IMAGING O RDERABLES * XR WRIST LEFT 2VW (04/22/2022 12:30 PM CDT) Anatomical Region Laterality Modality Wrist / Hand Radiographic June ging 04/22/2022 12:5 9 PM CDT Impressions 04/22/2022 1:03 PM CDT IMPRESSION: 1. Right and left hands and wrists: Normal. 2. Right and left knees: Small osteophytes indicating early degenerative change without joint space narrowing. 3. Right foot: Normal. 4. Left foot: No arthritis. Postsurgical change at the fifth metatarsal head. > Interpreting Provider: Magno Santamaria MD on 04/22/2022 1:03 PM Narrative 04/22/2022 1:03 PM CDT PROCEDURE: ??XR WRIST RIGHT 2VW, XR HAND LEFT 3VW OR MORE, XR FOOT RIGHT 3VW OR MORE, XR FOOT LEFT 3VW OR MORE, XR WRIST LEFT 2VW, DATE/TIME OF EXAM: 04/22/2022 12:31 PM, LOCATION ??[facility] INDICATION: M35.00: Sjogren's syndrome, with unspecified organ involvement M35.00: Sicca complex M13.0: Polyarthritis of hand M25.50: Polyarthralgia ADDITIONAL CLINICAL INFORMATION: Ordering Provider Reason For Exam: ??Please evaluate for signs of inflammatory arthropathy. Technologist Note: Additional: COMPARISON: None. FINDINGS: Right hand: No fracture or dislocation is present. The joint spaces are normal. No erosions are seen. ??Bone density is normal. ??The soft tissues are normal. Left hand: No fracture or dislocation is present. The joint spaces are normal. No erosions are seen. ??Bone density is normal. ??The soft tissues are normal. Right wrist: No fracture or dislocation is present. The joint spaces are normal. No erosions are seen. ??Bone density is normal. ??The soft tissues are normal. ?? Left wrist: No fracture or dislocation is present. The joint spaces are normal. No erosions are seen. ??Bone density is normal. ??The soft tissues are normal. Right knee: No acute fracture or dislocation is present. No erosions are seen. The joint spaces are normal. A few very small osteophytes are visible. There is no effusion. Left knee: No acute fracture or dislocation is present. No erosions are seen. The joint spaces are normal. A few very small osteophytes are visible. There is no effusion. Right foot: No fracture or dislocation is present. The joint spaces are normal. No erosions are seen. ??Bone density is normal. ??The soft tissues are normal. Left foot: No fracture or dislocation is present. The joint spaces are normal. No erosions are seen. Contour flattening of the lateral aspect of the fifth metatarsal head is likely postsurgical. Bone density is normal. ??The soft tissues are normal. Procedure Note Magno Santamaria MD - 04/22/2022 PROCEDURE: XR WRIST RIGHT 2VW, XR HAND LEFT 3VW OR MORE, XR FOOT [id number] OR MORE, XR FOOT LEFT 3VW OR MORE, XR WRIST LEFT 2VW, DATE/TIME OF EXAM: 04/22/2022 12:31 PM, LOCATION [facility] INDICATION: M35.00: Sjogren's syndrome, with unspecified organ involvement M35.00: Sicca complex M13.0: Polyarthritis of hand M25.50: Polyarthralgia ADDITIONAL CLINICAL INFORMATION: Ordering Provider Reason For Exam: Please evaluate for signs of inflammatory arthropathy. Technologist Note: Additional: COMPARISON: None. FINDINGS: Right hand: No fracture or dislocation is present. The joint spaces are normal. No erosions are seen. Bone density is normal. The soft tissues arenormal. Left hand: No fracture or dislocation is present. The joint spaces are normal. No erosions are seen. Bone density is normal. The soft tissues arenormal. Right wrist: No fracture or dislocation is present. The joint spaces are normal. No erosions are seen. Bone density is normal. The soft tissues are normal. Left wrist: No fracture or dislocation is present. The joint spaces are normal. No erosions are seen. Bone density is normal. The soft tissues arenormal. Right knee: No acute fracture or dislocation is present. No erosions are seen. The joint spaces are normal. A few very small osteophytes are visible. Thereis no effusion. Left knee: No acute fracture or dislocation is present. No erosions are seen. The joint spaces are normal. A few very small osteophytes are visible. Thereis no effusion. Right foot: No fracture or dislocation is present. The joint spaces are normal. No erosions are seen. Bone density is normal. The soft tissues are normal. Left foot: No fracture or dislocation is present. The joint spaces are normal. No erosions are seen. Contour flattening of the lateral aspect of the fifth metatarsal head is likely postsurgical. Bone density is normal. Thesoft tissues are normal. IMPRESSION: 1. Right and left hands and wrists: Normal. 2. Right and left knees: Small osteophytes indicating early degenerative change without joint space narrowing. 3. Right foot: Normal. 4. Left foot: No arthritis. Postsurgical change at the fifth metatarsal head. > Interpreting Provider: Magno Santamaria MD on 04/22/2022 1:03 PM Umang Alonzo MD DIAGNOSTIC IMAGING O RDERABLES * XR KNEE RIGHT 4VW OR MORE (06/17/2017 1:43 PM CDT) Anatomical Region Laterality Modality Lower Extremity Other Impressions 06/17/2017 1:59 PM CDT IMPRESSION: No acute fracture or dislocation identified. 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 Dictated by Kendell Rasmussen MD (residential pest control technician). I, Dr. CONSUELO GAMBOA M.D. have personally reviewed and interpreted this examination/study. This report was electronically signed by CONSUELO GAMBOA M.D. ??on 06/17/2017 1:59 PM . Narrative 06/17/2017 1:59 PM CDT EXAMINATION: 1. XR KNEE RIGHT 4+ VW 2. XR KNEE LEFT 4+ VW HISTORY: knee pain history of fall COMPARISON: No prior study is available for comparison. FINDINGS: Right knee: The osseous structures are intact and well aligned without acute fracture or dislocation. Minimal degenerative changes are noted in the medial and patellofemoral compartments with small osteophyte formation without joint space narrowing. No joint effusion is seen. Bone density and texture are normal. Left knee: The osseous structures are intact and well aligned without acute fracture or dislocation. Minimal degenerative changes are noted in the medial and patellofemoral compartments with small osteophyte formation without joint space narrowing. No joint effusion is seen. Bone density and texture are normal. Procedure Note Consuelo Gamboa MD - 12/12/2017 EXAMINATION: 1. XR KNEE RIGHT 4+ VW 2. XR KNEE LEFT 4+ VW HISTORY: knee pain history of fall COMPARISON: No prior study is available for comparison. FINDINGS: Right knee: The osseous structures are intact and well aligned without acute fractureor dislocation. Minimal degenerative changes are noted in the medial andpatellofemoral compartments with small osteophyte formation without jointspace narrowing. No joint effusion is seen. Bone density and texture are normal. Left knee: The osseous structures are intact and well aligned without acute fractureor dislocation. Minimal degenerative changes are noted in the medial andpatellofemoral compartments with small osteophyte formation without jointspace narrowing. No joint effusion is seen. Bone density and texture are normal. IMPRESSION IMPRESSION: No acute fracture or dislocation identified. 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 Dictated by Kendell Rasmussen MD (residential pest control technician). Dr. CONSUELO Mckeon M.D. have personally reviewed and interpreted thisexamination/study. This report was electronically signed by CONSUELO GAMBOA M.D. on 06/17/20171:59 PM . Karli Barrios PA-C DIAGNOSTIC IMAG ING ORDERABLES * XR KNEE LEFT 4VW OR MORE (06/17/2017 1:43 PM CDT) Anatomical Region Laterality Modality Lower Extremity Other Impressions 06/17/2017 1:59 PM CDT IMPRESSION: No acute fracture or dislocation identified. 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 Dictated by Kendell Rasmussen MD (residential pest control technician). Dr. CONSUELO Mckeon M.D. have personally reviewed and interpreted this examination/study. This report was electronically signed by CONSUELO GAMBOA M.D. ??on 06/17/2017 1:59 PM . Narrative 06/17/2017 1:59 PM CDT EXAMINATION: 1. XR KNEE RIGHT 4+ VW 2. XR KNEE LEFT 4+ VW HISTORY: knee pain history of fall COMPARISON: No prior study is available for comparison. FINDINGS: Right knee: The osseous structures are intact and well aligned without acute fracture or dislocation. Minimal degenerative changes are noted in the medial and patellofemoral compartments with small osteophyte formation without joint space narrowing. No joint effusion is seen. Bone density and texture are normal. Left knee: The osseous structures are intact and well aligned without acute fracture or dislocation. Minimal degenerative changes are noted in the medial and patellofemoral compartments with small osteophyte formation without joint space narrowing. No joint effusion is seen. Bone density and texture are normal. Procedure Note Consuelo Gamboa MD - 12/12/2017 EXAMINATION: 1. XR KNEE RIGHT 4+ VW 2. XR KNEE LEFT 4+ VW HISTORY: knee pain history of fall COMPARISON: No prior study is available for comparison. FINDINGS: Right knee: The osseous structures are intact and well aligned without acute fractureor dislocation. Minimal degenerative changes are noted in the medial andpatellofemoral compartments with small osteophyte formation without jointspace narrowing. No joint effusion is seen. Bone density and texture are normal. Left knee: The osseous structures are intact and well aligned without acute fractureor dislocation. Minimal degenerative changes are noted in the medial andpatellofemoral compartments with small osteophyte formation without jointspace narrowing. No joint effusion is seen. Bone density and texture are normal. IMPRESSION IMPRESSION: No acute fracture or dislocation identified. 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 Dictated by Kendell Rasmussen MD (residential pest control technician). Dr. CONSUELO Mckeon M.D. have personally reviewed and interpreted thisexamination/study. This report was electronically signed by CONSUELO GAMBOA M.D. on 06/17/20171:59 PM . Karli Barrios PA-C DIAGNOSTIC IMAG ING ORDERABLES * XR LUMBAR SPINE 2 OR 3VW (06/17/2017 12:52 PM CDT) Anatomical Region Laterality Modality Spine Other Impressions 06/17/2017 1:33 PM CDT IMPRESSION: No acute fracture or malalignment identified. Mild facet osteoarthritis. Dictated by Kendell Rasmussen MD (residential pest control technician). Dr. CONSUELO Mckeon M.D. have personally reviewed and interpreted this examination/study. This report was electronically signed by CONSUELO GAMBOA M.D. ??on 06/17/2017 1:33 PM . Narrative 06/17/2017 1:33 PM CDT EXAMINATION: XR SPINE LUMBAR 2 OR 3 VW HISTORY: pain in back COMPARISON: No prior study is available for comparison. FINDINGS: The vertebral bodies are normally aligned. There is no fracture or compression deformity. The intervertebral disc spaces are maintained. Mild facet osteoarthritis is seen in the lower lumbar spine. The sacroiliac joints are normal. Procedure Note Consuelo Gamboa MD - 12/12/2017 EXAMINATION: XR SPINE LUMBAR 2 OR 3 VW HISTORY: pain in back COMPARISON: No prior study is available for comparison. FINDINGS: The vertebral bodies are normally aligned. There is no fracture orcompression deformity. The intervertebral disc spaces are maintained. Mildfacet osteoarthritis is seen in the lower lumbar spine. The sacroiliacjoints are normal. IMPRESSION IMPRESSION: No acute fracture or malalignment identified. Mild facet osteoarthritis. Dictated by Kendell Rasmussen MD (residential pest control technician). I, Dr. CONSUELO GAMBOA M.D. have personally reviewed and interpreted thisexamination/study. This report was electronically signed by CONSUELO GAMBOA M.D. on 06/17/20171:33 PM . Karli Barrios PA-C DIAGNOSTIC IMAG ING ORDERABLES Care Teams [employer] Relationship Specialty Start Date End Date Augusto Jiménez MD [address] [facility] [address] [place] [id number] PCP - General 06/17/17
--- OUTSIDE RECORDS SUMMARY | 2024-09-22 05:00 | XMS_ITS | Encounter Summary ---
Author Organization [facility] Address [address] [place] [address] Care Team Providers Care Control Tower Operator Name Role Phone Augusto Jiménez MD Primary Care Provider [phone] Encounter Details Date Type Department Care Team (Latest Contact Info) Description 04/22/2022 12:18 PM CDT - 04/22/2022 12:29 PM CDT Hospital Encounter [facility] [address] [place] [id number] Umang Alonzo MD [address] [place] [id number] Discharge Disposition: Home or Self Care Social [...] Take 1 tablet by mouth once daily Brunson-3 Fatty Acids (Fish Oil) 1200 MG Take [...] Procedure Name Priority Date/Time Associated Diagnosis Comments XR FOOT RIGHT 3VW OR MORE Routine 04/22/2022 12:30 PM CDT Sjogren's syndrome, with unspecified organ involvement (HCC) Sicca complex (HCC) Polyarthritis of hand Polyarthralgia XR FOOT LEFT 3VW OR MORE Routine 04/22/2022 12:30 PM CDT Sjogren's syndrome, with unspecified organ involvement (HCC) Sicca complex (HCC) Polyarthritis of hand Polyarthralgia XR HAND RIGHT 3VW OR MORE Routine 04/22/2022 12:30 PM CDT Sjogren's syndrome, with unspecified organ involvement (HCC) Sicca complex (HCC) Polyarthritis of hand Polyarthralgia XR HAND LEFT 3VW OR MORE Routine 04/22/2022 12:30 PM CDT Sjogren's syndrome, with unspecified organ involvement (HCC) Sicca complex (HCC) Polyarthritis of hand Polyarthralgia XR WRIST RIGHT 2VW Routine 04/22/2022 12 :30 PM CDT Sjogren's syndrome, with unspecified organ involvement (HCC) Sicca complex (HCC) Polyarthritis of hand Polyarthralgia XR WRIST LEFT 2VW Routine 04/22/2022 12: 30 PM CDT Sjogren's syndrome, with unspecified organ involvement (HCC) Sicca complex (HCC) Polyarthritis of hand Polyarthralgia documented in this encounter Results * XR WRIST RIGHT 2VW (04/22/2022 12:30 [...] DATE/TIME OF EXAM: 04/22/2022 12:31 PM, LOCATION ??[facility] INDICATION: M35.00: Sjogren's syndrome, with unspecified organ [...] HAND LEFT 3VW OR MORE, XR FOOT [id number] OR MORE, XR FOOT LEFT 3VW OR MORE, XR WRIST LEFT 2VW, DATE/TIME OF EXAM: 04/22/2022 12:31 PM, LOCATION [facility] INDICATION: M35.00: Sjogren's syndrome, with unspecified organ [...] DATE/TIME OF EXAM: ??04/22/2022 12:31 PM, LOCATION ??[facility] INDICATION: M35.00: Sjogren's syndrome, with unspecified organ [...] RIGHT 3VW OR MORE, DATE/TIME OF EXAM: :31 PM, LOCATION [facility] INDICATION: M35.00: Sjogren's syndrome, with unspecified organ [...] DATE/TIME OF EXAM: 04/22/2022 12:31 PM, LOCATION ??[facility] INDICATION: M35.00: Sjogren's syndrome, with unspecified organ [...] HAND LEFT 3VW OR MORE, XR FOOT [id number] OR MORE, XR FOOT LEFT 3VW OR MORE, XR WRIST LEFT 2VW, DATE/TIME OF EXAM: 04/22/2022 12:31 PM, LOCATION [facility] INDICATION: M35.00: Sjogren's syndrome, with unspecified organ [...] DIAGNOSTIC IMAGING O RDERABLES * XR FOOT RIGHT 3VW OR MORE [...] DATE/TIME OF EXAM: 04/22/2022 12:31 PM, LOCATION ??[facility] INDICATION: M35.00: Sjogren's syndrome, with unspecified organ [...] HAND LEFT 3VW OR MORE, XR FOOT [id number] OR MORE, XR FOOT LEFT 3VW OR MORE, XR WRIST LEFT 2VW, DATE/TIME OF EXAM: 04/22/2022 12:31 PM, LOCATION [facility] INDICATION: M35.00: Sjogren's syndrome, with unspecified organ [...] DATE/TIME OF EXAM: 04/22/2022 12:31 PM, LOCATION ??[facility] INDICATION: M35.00: Sjogren's syndrome, with unspecified organ [...] HAND LEFT 3VW OR MORE, XR FOOT [id number] OR MORE, XR FOOT LEFT 3VW OR MORE, XR WRIST LEFT 2VW, DATE/TIME OF EXAM: 04/22/2022 12:31 PM, LOCATION [facility] INDICATION: M35.00: Sjogren's syndrome, with unspecified organ [...] DATE/TIME OF EXAM: 04/22/2022 12:31 PM, LOCATION ??[facility] INDICATION: M35.00: Sjogren's syndrome, with unspecified organ [...] HAND LEFT 3VW OR MORE, XR FOOT [id number] OR MORE, XR FOOT LEFT 3VW OR MORE, XR WRIST LEFT 2VW, DATE/TIME OF EXAM: 04/22/2022 12:31 PM, LOCATION [facility] INDICATION: M35.00: Sjogren's syndrome, with unspecified organ [...] Umang Alonzo MD DIAGNOSTIC IMAGING O RDERABLES documented in this encounter Visit Diagnoses Diagnosis Sjogren's syndrome, with unspecified organ involvement (HCC) Sicca complex (HCC) Polyarthritis of hand Unspecified polyarthropathy or polyarthritis, hand Polyarthralgia Pain in joint, multiple sites documented in this encounter Care Teams Control Tower Operator Relationship Specialty Start Date End Date Augusto Jiménez MD [address] [phone] PCP - General 06/17/17 documented as of this encounter
--- OUTSIDE RECORDS SUMMARY | 2024-09-22 05:00 | XMS_ITS | Encounter Summary ---
Author Organization [facility] Address [address] [facility] [place] [address] Care Team Providers Care Tennis Director Name Role Phone Augusto Jiménez MD Primary Care Provider [phone] Reason for Visit * Consult, Test & Treat (Routine) - Closed Specialty Diagnoses / Procedures Referred By Contac t Referred To Contact Neurological Surgery Diagnoses Chronic bilateral low back pain with sciatica Spinal stenosis Augusto Jiménez MD [address] [place] [address] Silverio Singleton MD [address] [place] [address] [address] [place] [address] Referral ID Status Reason Start Date Expiration Date Visits Re quested Visits Authorized [id number] Closed 06/12/2022 06/12/2023 1 1 Encounter Details Date Type Department Care Team (Latest Contact Info) Description 06/20/2022 2:00 PM CDT Office Visit [facility] [address] [place] [address], [place] [address] Jyoti Quinonez, MAID CLEANING COOKING-ASSEMBLY INSPECTOR [address] [place] [address] [address] [place] [address] Lumbar radiculopathy (Primary Dx); Chronic SI joint pain Social History Tobacco Use Types Packs/Day Years [...] Mass Index 41.97 06/20/2022 1:58 PM CDT documented in this encounter Patient Instructions * Patient Instructions* Jyoti Quinonez APRN-CNP - 06/20/2022 2:30 PM CDT Recommend starting with conservative management -medications, exercises, weight loss, injections Referral placed for pain management -can go anywhere you choose -[facility] or [facility] Follow up with Dr. Ledezma if you fail conservative management For any questions call Leslieo at [phone] documented in this encounter Progress Notes * Jyoti Quinonez APRN-CNP - 06/20/2022 1:54 PM CDT Neurosurgery Clinic Progress Note Chief Complaint (CC): Low back pain HISTORY OF PRESENT ILLNESS (HPI): Patient is a 52 year old female with a history of depression, HTN, sjogren's syndrome, who presentsto clinic today for evaluation of low back pain. The patient reports 25 years of chronic low back pain that has worsened over the last 5 months. Pain is described as chronic axial low back pain that is constant and can intermittently radiate into the lateral/posterior aspect of either hip and thigh. Her back pain is more bothersome than her leg pain. She denies any numbness, tingling, spasticity,bowel/bladder incontinence, or weakness in her extremities. Sitting or standing for too long can worsen pain, walking at times will ease her back pain. Patient is able to walk about 1/2 of a mile before needing to sit. She will take tylenol before bed if her pain is severe and has used ice, which will help some. Patient has muscle relaxants but does not use them. She has had improvement in the past with child care giver. Patient completed 6-8 weeks of physical therapy, which only provided temporary relief. She has never had injections or seen a supervisor paint roller covers for her pain. PMH: Past Medical History: Diagnosis Date ??? Acute bronchitis 1979 ??? Depression 1986 ??? Dry eyes 2018 ??? Dry mouth 2018 ??? High blood pressure ??? Lupus (CMS/HCC) 2021 ??? Sjogren's syndrome (CMS/HCC) 2021 PSH: Past Surgical History: Procedure Laterality Date ??? Bunionectomy 2021 ??? Hysterectomy 2002 ??? SINUS SURGERY 2014 ??? TUBAL LIGATION, LAPAROSCOPIC Meds: Current Outpatient Medications Medication ??? Artificial Saliva (Biotene Dry Mouth) LOZG ??? Artificial Saliva (Biotene Dry Mouth) ??? aspirin EC (Ecotrin) 81 MG tablet ??? BIOTIN 5000 PO ??? buPROPion SR 12hr (Wellbutrin-SR) 150 MG tablet ??? calcium 600 MG tablet ??? cetirizine (ZyrTEC) 10 MG tablet ??? citalopram (CELEXA) 20 MG tablet ??? hydroCHLOROthiazide (MICROZIDE) 12.5 MG capsule ??? lisinopril (Prinivil; Zestril) 10 MG tablet ??? meloxicam (Mobic) 15 MG tablet ??? Mouthwashes (Biotene Dry Mouth) ??? Multiple Vitamins-Minerals (MULTIVITAMIN ADULTS PO) ??? [place]-3 Fatty Acids (Fish Oil) 1200 MG ??? omeprazole (PriLOSEC) 20 MG capsule ??? polyvinyl alcohol-povidone PF (Refresh) 1.4-0.6 % ophthalmic solution ??? refresh p.m. (Refresh Pm) ophthalmic ointment ??? rosuvastatin (Crestor) 20 MG tablet ??? topiramate (Topamax) 50 MG tablet ??? vitamin C (Ascorbic Acid) 1000 MG tablet No current facility-administered medications for this visit. Allergies Allergies Allergen Reactions ??? Morphine Urticaria ??? Propoxyphene N-Apap Other Heart races ??? Adhesive Sensitivity Rash blisters ??? Hydrocodone-Acetaminophen Other vicodin Heart races ??? Sulfamethoxazole Nausea and/or Vomiting ??? Sulfamethoxazole W-Trimethoprim Itching and Nausea and/or Vomiting Sick to stomach and itching ??? Trimethoprim Itching Social: Social History Tobacco Use ??? Smoking status: Former Smoker Types: Cigarettes ??? Smokeless tobacco: Never Used ??? Tobacco comment: many years ago for 1 year Substance Use Topics ??? Alcohol use: Not Currently Comment: used to occasional but no longer Family: Family History Problem Relation Name Age of [...] Disease Sister Luzmaria ??? Parkinson's Disease Sister Lzumaria ??? Renal Disease Sister Luzmaria ??? Anxiety [...] Scleroderma Brother Kanu ??? Hyperlipidemia Brother Kanu REVIEW OF SYSTEMS Constitutional: Negative Eyes: Negative Ears, nose, mouth, throat, and face: Negative Respiratory: Negative Cardiovascular: Negative Gastrointestinal: Negative Genitourinary:negative Integument/breast: negative Hematologic/lymphatic: Negative Musculoskeletal:Positive for joint pain, chronic low back pain Neurological: Negative PHYSICAL EXAM BP 118/77 Pulse 69 Temp 98.5 ??F (36.9 ??C) (Temporal) Resp 18 Ht 5' 6 (1.676 m) Wt 260 lb (117.9 kg) SpO2 97% General: No acute distress. HEENT: pupils equal and reactive to light, extra-occular muscles intact, face symmetric, tongue midline. Cardiovascular: warm, well profused Respiratory: non-labored breathing Integument: no lesions found. Neuro: Mental status: Alert, attentive, and oriented x3 (name, place, date). Speech is clear and fluent. Motor: Muscle bulk and tone are normal. Bilateral SI joint tenderness on palpation R>L. Left ankle brace in place for ligament injury Deltoid Bicep Tricep School Lunch Manager Wrist Ext Finger ext Hip Flexor Quad Hamstring Tib Ant Gastroc EHL Right 5 5 5 5 5 5 5 5 5 5 5 5 Left 5 5 5 5 5 5 5 5 5 5 5 5 Reflexes: No Clonus, No Holguin's Biceps Triceps Patellar Achilles Right 1+ 1+ 1+ 1+ Left 1+ 1+ 1+ na Sensory: Light touch intact in upper and lower extremities Coordination: No fasciculations Gait/Stance: Posture is normal. No obvious coronal or sagittal imbalance. No leg length discrepancy. Normal gait Special Test: Straight leg raise negative bilaterally PHYSICAL THERAPY: Patient has completed 6-8 weeks of physical therapy within the last few months. RADIOLOGY: 03/27/2022: MRI LUMBAR SPINE WO CONTRAST: FINDINGS: Vertebral bodies: There is an area measuring 2.1 cm of increased signal intensity on T1 and T2 weighting within the S1 vertebral body, signal characteristics are consistent with benign hemangioma formation. Anatomic alignment, no fracture deformities. Conus medullaris: L1 Disc spaces: All levels demonstrate degenerative desiccation signal intensity Paravertebral soft tissues: Unremarkable Vasculature: No aneurysm T12-L1: Otherwise unremarkable L1-2: Otherwise unremarkable L2-3: A bulging degenerate annulus is present resulting in mild to moderate bilateral preforaminal stenosis and moderate central spinal stenosis there are associated facet hypertrophic changes. No significant neural foraminal stenotic residuals. L3-4: Mild bulging of the degenerate annulus is present which does not result in central spinal stenosis. Mild degenerative etiology bilateral neural foraminal stenosis. L4-5: A bulging degenerate annulus and facet hypertrophy result in severe bilateral preforaminal stenosis as well as moderate to severe central spinal stenosis without CSF effacement. Bilateral facet hypertrophic changes are present, additionally the disc material extends into the left neural foramen compatible with a lateralize disc protrusion on the left. The net result is moderate to severe left neural foraminal stenosis and moderate right neural foraminal stenosis. L5-S1: No evidence of central or neural foraminal stenosis bilaterally. Miscellaneous: Axial images demonstrate a mixed area of signal intensity associated with the right kidney measuring 5.1 cm, image [id number], recommend CT imaging of the abdomen to include the kidneys and pelvic structures with without contrast, with delayed imaging. IMPRESSION: 1. L4-5: There is a broad-based disc protrusion which lateralizes to the left foramen resulting in severe central spinal stenosis, severe bilateral neural foraminal stenosis, and severe left preforaminal stenosis, see above. 2. Indeterminate finding of the right kidney, see above report for recommendations. Assessment/Plan: Jennifer Quarles is a 52 year old female with a history of chronic axial low back pain that has worsened over the last 5 months. The patient describes a constant axial low back pain that will intermittently radiate into the lateral/posterior aspect of either hip and thigh. Her back pain is more bothersome than her leg pain. She denies any gait changes, numbness or weakness in her extremities. MRI lumbar spine from 03/27/22 demonstrates degeneration with disc bulge at L4/5 with central canal and foraminal stenosis L>R. Patient is neuro intact with no clear evidence of neurogenic claudication orradiculopathy on exam. Recommend patient start with conservative management with injections. Referral placed to pain management. Patient to follow up with Dr. Ledezma if she conservative therapies. DULCE Mota 06/20/2022 2:56 PM documented in this encounter Plan of Treatment Not on file documented as of this encounter Visit Diagnoses Diagnosis Lumbar radiculopathy- Primary Thoracic or lumbosacral neuritis or radiculitis, unspecified Chronic SI joint pain Disorders of sacrum documented in this encounter Care Teams Tennis Director Relationship Specialty Start Date End Date Augusto Jiménez MD [address] [facility] [address] [facility] [address] [place] [id number] PCP - General 06/17/17 documented as of this encounter
--- OUTSIDE RECORDS SUMMARY | 2024-09-22 05:01 | XMS_ITS | Continuity of Care Document ---
Author Organization [facility] Address [address] [place] [address] [place] [address] Phone Care Team Providers Care District Administrator Name Role Phone Augusto Jiménez MD Unavailable Unavailable Allergies, Adverse Reactions, Alerts Substance Reaction Status Criticality trimethoprim Active No Information sulfamethoxazole Active No Informat ion Medications Medication Instructions Dosage Effective Dates (start - stop) Status Comments prednisone 20 mg tablet take 3 Tablet by oral route every day 60 MG - Active Valtrex 1 gram tablet take 2 Tablet by oral route every 12 hours 2000 MG - Active meloxicam 15 mg tablet take 1 tablet by oral route every day as needed 15 MG - Active PRN for pain omeprazole 20 mg capsule,delayed release take 1 capsule by oral route every day before a meal 20 MG - Active Wellbutrin SR 150 mg tablet, 12 hr sustained-release take 1 tablet by oral route 2 times every day 150 MG - Active hydrochlorothiazide 12.5 mg capsule take 1 capsule by oral route every day 12.5 MG - Active lisinopril 10 mg tablet take 1 tablet by oral route every day 10 MG - Active Cymbalta 60 mg capsule,delayed release take 1 capsule by oral route every day 60 MG - Active Crestor 20 mg tablet take 1 tablet by oral route every day 20 MG - Active Topamax 50 mg tablet take 1 tablet by oral route 2 times every day 50 MG - Active avoid driving or operate machines Procedures Procedure Date OFFICE/OUTPATIENT VISIT, EST OFFICE/OUTPATIENT VISIT, EST OFFICE/OUTPATIENT VISIT, EST OFFICE/OUTPATIENT VISIT, EST OFFICE/OUTPATIENT VISIT, EST PREV VISIT, EST, AGE 40-64 OFFICE/OUTPATIENT VISIT, EST OFFICE/OUTPATIENT VISIT, EST OFFICE/OUTPATIENT VISIT, EST OFFICE/OUTPATIENT VISIT, EST OFFICE/OUTPATIENT VISIT, EST OFFICE/OUTPATIENT VISIT, EST OFFICE/OUTPATIENT VISIT, EST OFFICE/OUTPATIENT VISIT, EST OFFICE/OUTPATIENT VISIT, EST PREV VISIT, EST, AGE 40-64 OFFICE/OUTPATIENT VISIT, EST OFFICE/OUTPATIENT VISIT, EST OFFICE/OUTPATIENT VISIT, EST PREV VISIT, EST, AGE 40-64 OFFICE/OUTPATIENT VISIT, EST OFFICE/OUTPATIENT VISIT, EST OFFICE/OUTPATIENT VISIT, EST OFFICE/OUTPATIENT VISIT, EST OFFICE/OUTPATIENT VISIT, EST OFFICE/OUTPATIENT VISIT, EST PREV VISIT, EST, AGE 40-64 OFFICE/OUTPATIENT VISIT, EST PREV VISIT, EST, AGE 40-64 OFFICE/OUTPATIENT VISIT, EST OFFICE/OUTPATIENT VISIT, EST PREV VISIT, EST, AGE 40-64 OFFICE/OUTPATIENT VISIT, EST OFFICE/OUTPATIENT VISIT, EST OFFICE/OUTPATIENT VISIT, EST OFFICE/OUTPATIENT VISIT, EST PREV VISIT, EST, AGE 40-64 OFFICE/OUTPATIENT VISIT, EST OFFICE/OUTPATIENT VISIT, EST OFFICE/OUTPATIENT VISIT, EST OFFICE/OUTPATIENT VISIT, EST OFFICE/OUTPATIENT VISIT, EST OFFICE/OUTPATIENT VISIT, EST OFFICE/OUTPATIENT VISIT, EST PREV VISIT, EST, AGE 40-64 OFFICE/OUTPATIENT VISIT, EST OFFICE/OUTPATIENT VISIT, EST OFFICE/OUTPATIENT VISIT, EST OFFICE/OUTPATIENT VISIT, EST PREV VISIT, EST, AGE 40-64 OFFICE/OUTPATIENT VISIT, EST OFFICE/OUTPATIENT VISIT, EST OFFICE/OUTPATIENT VISIT, EST OFFICE/OUTPATIENT VISIT, EST PREV VISIT, NEW, AGE 40-64 Advance Directives Directive Yes / No Effective Date File Name No Information Encounters Encounter Description Practice Location Reason(s) For Visit Diagnoses Date Provider Providers Copied on Encounter [facility], [address], [place], [address], tel:[phone] [facility] No Information 4 Tino Arreola [address], [address], [place], [address]. tel:[phone] OFFICE/OUTPA TIENT VISIT, [facility], [address], [place], [address], [place] tel:[phone] [facility] sinus1 (chief complaint) Acute bronchitisHerpes simplex facialis 4 Tino Casas. [address], [address], [place], [address]. tel:[phone] OFFICE/OUTPA TIENT VISIT, [facility], [address], [place], [address], [place] tel:[phone] [facility] GERD1 (chief complaint)p ain (chief complaint) Chronic pain syndromeGERD w/o esophagitis 4 Tino Arreola [address], [address], [place], [address]. 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 tel:[phone] OFFICE/OUTPA TIENT VISIT, [facility], [address] [place], [address], tel:[phone] [facility] GERD1 (chief complaint)a nxiety1 (chief complaint)H TN (chief complaint)b ack pain1 (chief complaint) Chronic pain syndromeGERD w/o esophagitisOther specified disorder of bone densityGeneralized Anxiety DisorderEssential (primary) hypertension 4 Tino Arreola [address], [place], [facility]. [phone] OFFICE/OUTPA TIENT VISIT, [facility], [address] [place], [address], tel:[phone] [facility] glucose1 (chief complaint)H LP (chief complaint)G ERD1 (chief complaint)p ain (chief complaint) HyperglycemiaGERD w/o esophagitisMixed hyperlipidemiaChro keyanna pain syndromeObstructiv e sleep apnea hypopneaOther specified disorder of bone density 4 Tino Arreola [address], [place], [address]. [phone] PREV VISIT, EST, AGE 40-64 [facility], [address] [place], [address], [place] tel:[phone] [facility] physical (chief complaint) Encounter for general adult medical examination without abnormal findings 4 Tino Arreola [address], [place], [address]. [phone] OFFICE/OUTPA TIENT VISIT, [facility], [address] [place], [address], [place] tel:[phone] [facility] migraine1 (chief complaint)G ERD1 (chief complaint)b ack pain1 (chief complaint)H LP (chief complaint)s leep apnea1 (chief complaint)s kin (chief complaint) GERD w/o esophagitisHeadach eMixed hyperlipidemiaChro keyanna pain syndromeObstructiv e sleep apnea hypopneaCellulitis of chest wall 4 Tino Casas. [address], [address], [place], [address]. tel:[phone] OFFICE/OUTPA TIENT VISIT, [facility], [address], [place], [address], [place] tel:[phone] [facility] GERD1 (chief complaint)c hronic pain1 (chief complaint)H LP (chief complaint) GERD w/o esophagitisGeneral ized Anxiety DisorderChronic pain syndromeMixed hyperlipidemiaEsse ntial (primary) hypertension 3 Tino Casas. [address], [place], [address]. tel:[phone] OFFICE/OUTPA TIENT VISIT, [facility], [address], [place], [address], [place] tel:[phone] [facility] GERD1 (chief complaint)a bd pain1 (chief complaint) GERD w/o esophagitisGeneral ized abdominal pain 3 Tino Casas. [address], [address], [place], [address]. tel:[phone] OFFICE/OUTPA TIENT VISIT, [facility], [address] [place], [address], [place] tel:[phone] [facility] weight1 (chief complaint)a nxiety1 (chief complaint)p ain (chief complaint)a bd pain1 (chief complaint) GERD w/o esophagitisChronic pain syndromeAbnormal weight gainGeneralized abdominal painGeneralized Anxiety Disorder 3 Tino Casas. [address], [address], [place], [address]. tel:[phone] OFFICE/OUTPA TIENT VISIT, [facility], [address], [place], [address], [place] tel:[phone] [facility] anxiety1 (chief complaint)c hronic pain1 (chief complaint)w eight gain1 (chief complaint)G ERD1 (chief complaint) Abnormal weight gainGeneralized Anxiety DisorderChronic pain syndromeGERD w/o esophagitis Nov- 3 Tino Casas. [address], [address], [place], [address]. tel:[phone] OFFICE/OUTPA TIENT VISIT, [facility], [address], [place], [address], [place] tel:[phone] [facility] elbow pain1 (chief complaint)a nxiety1 (chief complaint)c hronic pain1 (chief complaint)o besity1 (chief complaint) Abnormal weight gainGeneralized Anxiety DisorderLateral epicondylitis, right elbowChronic pain syndrome 3 Tino Casas. [address], [address], [place], [address]. [phone] OFFICE/OUTPA TIENT VISIT, [facility], [address], [place], [address], [place] tel:[phone] [facility] Medicine pain1 (chief complaint)k idney cyst1 (chief complaint) Acquired cyst of kidney 3 Tino Casas. [address], [address], [place], [address]. tel:[phone] OFFICE/OUTPA TIENT VISIT, [facility], [address], [place], [address], [place] tel:[phone] [facility] pain (chief complaint)s leep apnea1 (chief complaint) Primary central sleep apneaLumbago w/ sciaticaBenign right renal neoplasm 2 Tino Casas. [address], [address], [place], [address]. tel:[phone] OFFICE/OUTPA TIENT VISIT, [facility], [address], [place], [address], [place] tel:[phone] [facility] back pain1 (chief complaint)k idney lesion1 (chief complaint)s leep apnea1 (chief complaint) Primary central sleep apneaOther intervertebral disc displacement, lumbar regionBenign right renal neoplasm 2 Tino Casas. [address], [address], [place], [address]. [phone] PREV VISIT, EST, AGE 40-64 [facility], [address], [place], [address], [place] tel:[phone] [facility] physical (chief complaint) Encounter for general adult medical examination without abnormal findings Sep-2 2 Tino Casas. [address], [address], [place], [address]. tel:[phone] OFFICE/OUTPA TIENT VISIT, [facility], [address], [place], [address], [place] tel:[phone] [facility] HLP (chief complaint)j oint pain1 (chief complaint) HyperlipidemiaSjog jennifer syndromeSystemic lupus erythematosus, unspecifiedOther intervertebral disc displacement, lumbar region 2 Tino Arreola [address], [address], [place], [address]. tel:[phone] OFFICE/OUTPA TIENT VISIT, EST [facility], [address], [place], [address], [place] tel:[phone] [facility] surgery1 (chief complaint)H LP (chief complaint)l upus1 (chief complaint) Pain in left footHyperlipidemia Family history of diseases of the ms sys and connective tissPain in unspecified joint 2 Tino Casas. [address], [address], [place], [address]. tel:[phone] OFFICE/OUTPA TIENT VISIT, EST [facility], [address], [place], [address], [place] tel:[phone] [facility] HLP (chief complaint)A 1c (chief complaint)m igraine1 (chief complaint)H TN (chief complaint)h emorrhoid1 (chief complaint) HyperglycemiaHyper lipidemiaEssential (primary) hypertensionMigrai neSleep apneaHemorrhoid 2 Jiménez Augusto. [address], [address], [place], [address]. tel:[phone] PREV VISIT, EST, AGE 40-64 [facility], [address], [place], [address], [place] tel:[phone] [facility] Medicine physical (chief complaint) Encounter for general adult medical examination without abnormal findings 1 Tino Casas. [address], [address], [place], [address]. tel:[phone] OFFICE/OUTPA TIENT VISIT, [facility], [address], [place], [address], [place] tel:[phone] [facility] UTI1 (chief complaint) Urinary tract infectionItch 1 Tino Casas. [address], [address], [place], [address]. tel:[phone] OFFICE/OUTPA TIENT VISIT, [facility], [address], [place], [address], [place] tel:[phone] [facility] UTI1 (chief complaint)L FT (chief complaint)g lucose1 (chief complaint) Urinary tract infectionFatty liverHyperglycemia 1 Tino Casas. [address], [place], [address]. tel:[phone] OFFICE/OUTPA TIENT VISIT, [facility], [address], [place], [address], [place] tel:[phone] [facility] COVID-19 (chief complaint)H YPo K (chief complaint) Viral infectionPneumonia HypokalemiaLiver disease 0 Tino Casas. [address], [address], [place], [address]. tel:[phone] OFFICE/OUTPA TIENT VISIT, [facility], [address], [place], [address], [place] tel:[phone] [facility] sick (chief complaint) Viral infection Sep- 0- 0 Tino Casas. [address], [address], [place], [address]. tel:[phone] OFFICE/OUTPA TIENT VISIT, [facility], [address], [place], [address], [place] tel:[phone] [facility] viral1 (chief complaint) Viral infection 0 Tino Casas. [address], [address], [place], [address]. [phone] OFFICE/OUTPA TIENT VISIT, [facility], [address], [place], [address], [place] tel:[phone] [facility] high B12 (chief complaint)g lucose1 (chief complaint)H LP (chief complaint)s leep apnea1 (chief complaint) HyperglycemiaHyper lipidemiaOther specified abnormal findings of blood chemistrySleep apnea 0 Tino Arreola [address], [address], [place], [address]. tel:[phone] PREV VISIT, EST, AGE 40-64 [facility], [address], [place], [address], [place] tel:[phone] [facility] Physical (chief complaint) Encntr for general adult medical exam w/o abnormal findings 0 Tino Arreola [address], [address], [place], [address]. tel:[phone] OFFICE/OUTPA TIENT VISIT, EST [facility], [address], [place], [address], [place] tel:[phone] [facility] sick (chief complaint)H LP (chief complaint)h eadache1 (chief complaint)H TN (chief complaint)a nxiety1 (chief complaint) Acute sinusitisHyperlipi demiaEssential (primary) hypertensionHeadac heSleep apneaFatty liver Fe- 0 Tino Casas. [address], [address], [place], [address]. tel:[phone] PREV VISIT, EST, AGE 40-64 [facility], [address], [place], [address], tel:[phone] [facility] Medicine PHysical (chief complaint) Encounter for general adult medical exam w abnormal findingsSleep apneaEssential (primary) hypertensionHeadac heHyperlipidemia 9 Tino Arreola [address], [address], [place], [address]. [phone] Referring Provider: Ravindra [address], [place], [address]. tel:[phone] OFFICE/OUTPA TIENT VISIT, EST [facility], [address], [place], [address], [place] tel:[phone] [facility] knee pain1 (chief complaint)c hest pain1 (chief complaint) Pain in left kneeChest painBody mass index (BMI) 40.0-44.9, adult 8 Tino Casas. [address], [address], [place], [address]. [phone] Referring Provider: Ravindra [address], [place], [address]. tel:[phone] PREV VISIT, EST, AGE 40-64 [facility], [address], [place], [address], [place] tel:[phone] [facility] Physical (chief complaint) Body mass index (BMI) 40.0-44.9, adultEncounter for general adult medical exam w abnormal findingsSleep apneaHyperlipidemi aHeadacheEssential (primary) hypertensionGenera lized Anxiety Disorder 8 T[address], [place], [address]. [phone] Referring Provider: Ravindra [address], [place], [address]. tel:[phone] OFFICE/OUTPA TIENT VISIT, EST [facility], [address], [place], [address], [place] tel:[phone] [facility] anxiety1 (chief complaint)s leep apnea1 (chief complaint) Sleep apneaGeneralized Anxiety Disorder 7 Tino Casas. [address], [address], [place], [facility]. tel:[phone] Referring Provider: Augusto Jiménez, [address], [place], [facility]. tel:[phone] OFFICE/OUTPA TIENT VISIT, EST [facility], [address], [place], [address], tel:[phone] [facility] knee pain1 (chief complaint) Chronic pain syndrome 7 Tino Casas. [address], [address], [place], [facility]. tel:[phone] Referring Provider: Ravindra Pack [facility] A, [place], [facility]. tel:[phone] OFFICE/OUTPA TIENT VISIT, EST [facility], [address], [place], [address], [place] tel:[phone] [facility] HLP (chief complaint)h ip pain1 (chief complaint)s leep apnea1 (chief complaint)o besity1 (chief complaint) Osteoarthritis of hip, unspecifiedBody mass index (BMI) 40.0-44.9, adultSleep apneaHyperlipidemi a Tino Casas. [address], [place], [facility]. tel:[phone] Referring Provider: Ravindra [address], [place], [address]. tel:[phone] PREV VISIT, EST, AGE 40-64 [facility], [address], [place], [address], [place] tel:[phone] [facility] PHysical (chief complaint) Encounter for general adult medical exam w abnormal findingsLumbago with sciatica, left sideEssential (primary) hypertensionHyperl ipidemia 7 Tino Casas. [address], [place], [facility]. tel:[phone] Referring Provider: Ravindra Pcak [facility] A, [place], [facility]. tel:[phone] OFFICE/OUTPA TIENT VISIT, [facility], [address] [place] [facility], tel:[phone] [facility] headache1 (chief complaint)a nxiety (chief complaint)a nxiety1 (chief complaint)s leep apnea1 (chief complaint)o besity1 (chief complaint) HeadacheMajor depressive disorder, single episode, unspecifiedBody mass index (BMI) 40.0-44.9, adultSleep apnea Apr-0 6-201 7 Tino Arreola [address], [address], [place], [facility]. tel:[phone] Referring Provider: Ravindra Pack [facility] [place] [facility]. tel:[phone] OFFICE/OUTPA TIENT VISIT, [facility], [address] [facility], tel:[phone] [facility] HTN (chief complaint)H LP (chief complaint)h eadache1 (chief complaint)a nxiety1 (chief complaint) Major depressive disorder, single episode, unspecifiedHeadach eEssential (primary) hypertensionHyperl ipidemia Mar-0 7-201 7 Tino Ar[address]ola [address], [facility] [place] [facility]. tel:[phone] Referring Provider: Ravindra [address], [place], [facility]. tel:[phone] OFFICE/OUTPA TIENT VISIT, [facility], [address] [place] [facility], tel:[phone] [facility] anxiety1 (chief complaint)o besity1 (chief complaint) Generalized Anxiety DisorderBody mass index (BMI) 39.0-39.9, adult Dec-0 6-201 6 Tino Casas. [address], [address], [place], [address]. tel:[phone] Referring Provider: Augusto Jiménez, [address], [place], [address]. tel:[phone] OFFICE/OUTPA TIENT VISIT, [facility], [address], [place], [facility], tel:[phone] [facility] fatty liver1 (chief complaint)h eadache1 (chief complaint)d epression1 (chief complaint) Fatty liverHeadacheDepre ssion 6 Tino Casas. [address], [address], [place], [address]. [phone] Referring Provider: Ravindra Pack [address], [place] [facility]. tel:[phone] OFFICE/OUTPA TIENT VISIT, [facility], [address], [place], [address], [place] tel:[phone] [facility] headache1 (chief complaint)L FT1 (chief complaint) Liver disease, unspecifiedHeadach eBody mass index (BMI) 39.0-39.9, adult 6 Tino Casas. [address], [address], [place], [address]. tel:[phone] Referring Provider: Ravindra Pack [address], [place], [address]. tel:[phone] OFFICE/OUTPA TIENT VISIT, [facility], [address], [place], [address], [place] tel:[phone] [facility] HLP (chief complaint)L FT (chief complaint)f oot pain1 (chief complaint)h eadache1 (chief complaint) Pain in left footHeadacheMixed hyperlipidemiaLive r disease, unspecified May- 6 Tino Casas. [address], [place], [address]. tel:[phone] Referring Provider: Ravindra Pack [address], [place], [address]. tel:[phone] PREV VISIT, EST, AGE 40-64 [facility], [address], [place], [address], [place] tel:[phone] [facility] Physical (chief complaint) Encounter for general adult medical exam w abnormal findingsMixed hyperlipidemiaEsse ntial (primary) hypertension 6 Tino Casas. [address], [place], [address]. tel:[phone] Referring Provider: Augusto Jiménez, [address], [place], [address]. tel:[phone] OFFICE/OUTPA TIENT VISIT, [facility], [address], [place], [address], [place] tel:[phone] [facility] Medicine shoulder pain (chief complaint)H TN (chief complaint)c hest pain1 (chief complaint)H LP1 (chief complaint) Chronic pain syndromeEssential (primary) hypertensionChest painMixed hyperlipidemia 6 Tino Casas. [address], [place], [address]. tel:[phone] Referring Provider: Ravindra Pack [address], [place], [address]. tel:[phone] OFFICE/OUTPA TIENT VISIT, [facility], [address], [place], [address], [place] tel:[phone] [facility] Medicine chest pain1 (chief complaint)j oint pain (chief complaint) Dietary surveillance and counselingOther chest painPain in right shoulderPain in right knee 0 5 Tino Casas. [address], [place], [address]. tel:[phone] Referring Provider: Ravindra Pack [address], [place], [address]. tel:[phone] OFFICE/OUTPA TIENT VISIT, [facility], [address], [place], [address], [place] tel:[phone] [facility] Medicine depression (chief complaint)H LP (chief complaint)H TN (chief complaint) Dietary surveillance and counselingHyperthenok harrison UnspecifiedOther and unspecified hyperlipidemiaDepr essionSleep Apnea Dec-2 5 Tino Casas. [address], [address], [place], [address]. tel:[phone] Referring Provider: Augusto Jiménez, [address], [place], [address]. tel:[phone] PREV VISIT, EST, AGE 40-64 [facility], [address], [place], [address], [phone] [facility] Physical (chief complaint) Dietary surveillance and counselingRoutine Medical ExamRoutine Medical Exam 5 Tino Casas. [address], [address], [place], [address]. [phone] Referring Provider: Ravindra Pack [address], [place], [address]. tel:[phone] OFFICE/OUTPA TIENT VISIT, [facility], [address], [place], [address], [place] tel:[phone] [facility] ankle pain (chief complaint)s leep apnea (chief complaint) Sleep ApneaPain in joint involving ankle and foot Mar-0 4 Tino Casas. [address], [address], [place], [address]. tel:[phone] Referring Provider: Ravindra Pack [address], [place], [address]. tel:[phone] OFFICE/OUTPA TIENT VISIT, EST [facility], [address], [place], [address], [place] [phone] [facility] sinusitis (chief complaint)s leep apnea (chief complaint)f oot pain (chief complaint)H TN (chief complaint)H LP (chief complaint)d epression (chief complaint) Pain in joint involving ankle and footSleep ApneaHypertension, UnspecifiedOther and unspecified hyperlipidemia Dec-3 4 Tino Casas. [address], [address], [place], [address]. [phone] Referring Provider: Augusto Jiménez, [address], [place], [address]. tel:[phone] OFFICE/OUTPA TIENT VISIT, [facility], [address], [place], [address], tel:[phone] [facility] chronic sinusitis (chief complaint) Dietary surveillance and counselingOther chronic sinusitis Dec-0 4 Tino Casas. [address], [address], [place], [address]. tel:[phone] Referring Provider: Augusto Jiménez, [address], [place], [address]. tel:[phone] OFFICE/OUTPA TIENT VISIT, [facility], [address], [place], [address], tel:[phone] [facility] Sinus problem (chief complaint)f atigue (chief complaint) Dietary surveillance and counselingOther chronic sinusitisSleep ApneaMetabolic Syndrome Nov-0 4 Tino Casas. [address], [address], [place], [address]. tel:[phone] Referring Provider: Ravindra Pack [address], [place], [facility]. tel:[phone] PREV VISIT, NEW, AGE 40-64 [facility], [address], [place], [address], [place] tel:[phone] [facility] Physical (chief complaint) Dietary surveillance and counselingRoutine Medical ExamRoutine Medical Exam 3 Tino Casas. [address], [address], [place], [address]. tel:[phone] Family History Family Member Type Diagnosis Age At Onset Mother Problem (finding) liver cirrhosis Brother Problem (finding) Diabetes mellitus Father Problem (finding) scleroderma Father Problem (finding) Coronary artery disease 55 Payers Payer name Insurance type Covered democrat ID Authoriza tion(s) No Information Social History Type Description Quantity Date Captured Comments Alcohol Use Details Unknown Caffeine Use Details Unknown Tobacco Use Status No Information Smoking Status No Information Sex Female Chief Complaint And Reason For Visit No Information Plan Of Treatment Date Type Action Status Goal FOBT. Due on due Goal Td vaccine. Due on due Goal Sigmoidoscopy. Due on due Goal Tdap. Due on due Goal Pap/HPV testing. Due on due Goal Lipid panel. Due on due Goal Depression screening. Due on due Goal Influenza vaccine. Due on due Goal Influenza vaccine. Due on due Goal Depression screening. Due on due Goal Lipid panel. Due on due Goal FOBT. Due on due Goal Td vaccine. Due on due Goal Sigmoidoscopy. Due on due Goal Tdap. Due on due Goal Pap/HPV testing. Due on due Goal Influenza vaccine. Due on Oc due Goal Depression screening. Due on due Goal Lipid panel. Due on due Goal FOBT. Due on due Goal Td vaccine. Due on due Goal Sigmoidoscopy. Due on due Goal Tdap. Due on due Goal Pap/HPV testing. Due on due Goal Influenza vaccine. Due on Se 16-2024 due Goal Depression screening. Due on due Goal Lipid panel. Due on due Goal FOBT. Due on due Goal Td vaccine. Due on due Goal Sigmoidoscopy. Due on due Goal Tdap. Due on due Goal Pap/HPV testing. Due on due Goal Influenza vaccine. Due on due Goal Depression screening. Due on due Goal Lipid panel. Due on due Goal FOBT. Due on due Goal Td vaccine. Due on due Goal Sigmoidoscopy. Due on due Goal Tdap. Due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 showed airspace disease recently Pt denies any hemoptysis. Pt denies any headache. pt feels 100% improved now HYPo K Pt had mild low kcl and high LFt when she was at ER recently due to COVID-19 .Pt was prescribed KCL orally but insurance did not cover so she did not take it. Pt denies any palpitation or chest pain sick Pt c/o feeling s ick since last week. Pt c/o dry cough, headache, cold chills, loss of taste or smell since last . Pt does not have thermometer but she feels warm Pt went to urgent care but she was not let in due ot cough and they gave her cefzil 4 days. Pt not getting any better. Pt feels mildly sob but not bad viral1 Pt states that s he came into contact with her niece last Friday who came into contact with someone who is being tested for COVID-19. Pt had brief encounter with her niece only. Pt denies any symptoms. PT denies any fever, chill, cough, sob or loss of taste and smell or any GI symptoms, etc Pt currently feels completely normal currently. Pt states that her niece does not have any symptoms glucose1 Pt has borderlin e high glucose PT denies any polyuria, polydipsia. HLP Pt has mildly hi gh TG Pt doing ok with zocor. Pt denies any myalgia. sleep apnea1 Pt has sleep die repairer stamping ea .Pt uses cpap nightly and doing ok PT denies any snoring or fatigue high B12 Pt has high B12, which is over 2000 Pt takes b12 for fatigue. Pt doing ok currently, Pt does have sleep apnea and he uses cpap Physical Pt needs annual physical ,pt has HLP ,Pt takes zocor. Pt has anxiety and depression Pt takes wellbutrin and celexa and doing ok. Pt denies any suicidal or homicidal thought Pt denies any crying spells Pt has chronic headache Pt takes topamax and she does not have any headache while on topamax .Pt has HTN Pt takes lisinopril and hctz and her BP is around 130/70 at home sick Pt c/o stuffy no se, productive coughing, sinus headache, sore throat, ear pain for 2-3 days. Pt denies any recent travel. Pt denies any fever Pt denies any sick contact with people from [place] Pt has been taking OTC meds without improvement. HLP Pt has HLP Pt ta kes zocor .Pt denies any myalgia headache1 Pt has chronic m igraine headache Pt takes topamax and doing ok Pt denies any headache while on topamax HTN Pt has HTn .Pt t akes lisinopril and HCTZ and her BP is stable. anxiety1 Pt has chronic a nxiety and depression Pt takes celexa and Wellbutrin and doing ok. Pt denies any suicidal or homicidal thought PHysical Pt needs annual physical, pt has HLP Pt takes zocor Pt denies any myalgia Pt has anxiety and depression Pt takes wellbutrin and doing ok Pt has chronic headache. Pt had normal MRi of brain, Pt does not have any headache while on topamax. Pt has HTn. Pt takes lisinopril and HCTZ and her BP is stable. Pt has anxiety and depression Pt takes celexa and doing ok pt denies any suicidal or homicidal thought Pt denies any crying spells. Pt denies any other complaints chest pain1 Pt denies any ch est pain. Pt is seeing Dr. watkins. Pt had negative echo and stress test per pt by cardiology. knee pain1 Pt has chronic b ilateral knee pain. pt has osteoarthritis on both knee. Pt unable to make her appointment with [facility] due to work schedule. Pt wants to find an ortho that is closer. Pt denies any knee injury or worsening pain pt had knee injection in the past which did help. Pt denies any redness or warmth of both knee Physical Pt needs annual physical. Pt has chronic anxiety and depression. Pt takes wellbutrin and celexa and doing ok Pt denies any suicidal or homicidal thought. Pt denies any crying spells. Pt denies any headache while on topamax. Pt also takes zocor for HLp. Pt denies any myalgia. Pt takes lisinopril and hcTZ for HTN. Her bp is stable. Pt denies any other complaints anxiety1 Pt has chronic a nxiety and depression. Pt takes celexa and wellbutrin and doing ok pt denies any suicidal or homicidal thought. Pt denies any crying spells sleep apnea1 Pt has sleep die repairer stamping ea Pt uses cpAP nightly and she feels well. Pt deshawn any sob or snoring Pt denies any fatigue knee pain1 Pt has chronic r ight knee pain Pt denies any injury Pt denies any redness or warmth . pt c/o sharp right knee pain all the time, especially with weight bearing Pt also has hip pain as well. HLP Pt has HLP. Pt t akes zocor Pt denies any myalgia. hip pain1 Pt has hip and b ack pain Pt has mild scaitcia Pt denies any loss of bowel ro bladder control. Pt has arthritis on Lspine and hip on exam sleep apnea1 Pt has sleep die repairer stamping ea. Pt uses CPAP nightly PT doing ok Pt deneis any snoring or fatigue obesity1 Pt is obese. Her BMI is over 40. Pt does not want weight loss surgery PHysical Pt needs annual physical. Pt has chronic aniety and depression Pt takes wellbutirn celexa and doing ok Pt denies any suicidal or homicdial thought Pt has HTN and she takes lisinopril and hctz Her bp is ok Pt also takes zocor for hlp Pt denies any myalgia. Pt c/o acute onset of left hip pain for two days Pt denies any injury Pt has chronic low abck pain Pt c/o sciatica from left hip down to left leg. Pt denies any calf pain Pt denies any sob or chest pain Pt denies any recent travel or bedrest Pt denies any injury. Pr DENIES ANY NUMBNESS. Pt denies any loss of bladder control. headache1 Pt has history o f nonspecific stress related headache. Pt takes topamax daily and she does not have any headache while on topmax. pt had normal MRI of brain anxiety anxiety1 Pt has chronic a nxiety and depression. Pt takes wellbutrin and celexa and doing ok. Pt has some stress but dealing with it ok pt denies any suicidal or homicidal thought Pt denies any crying spells sleep apnea1 Pt has sleep die repairer stamping ea. Pt uses cpap nightly .Pt feels more energy. Pt denies any snoring obesity1 Pt is overweight . Pt failed weight loss with diet and exercise HTN Pt has HTN. Pt t akes lisinoril and hcTz and her BP is stable. pt denies any chest pain or headache HLP Pt has hLP. Pt t akse zocor .Pt denies any myalgia headache1 Pt has migraine headache Pt has normal MRI. Pt essentially is head free with topamax. anxiety1 Pt has chronic a nxiety and depression Pt states that effeox is not working. Pt still feels sad and depressed and anxious and irritable Pt denies any suicidal or homicidal thought pt denies any crying spells anxiety1 Pt has chronic a nxiety and depression Pt takes effexor and she thinks that it is working as well as prozac but not better. Pt denies any suicidal or homicidal thought Pt denies any crying spells obesity1 Pt is obese. Pt has difficulty losing weight. pt has been diet and exercising fatty liver1 Pt has normal LF T and no hepatitis. Pt has fatty liver. Pt denies any abd pain headache1 Pt has chronic m igraine headache. Pt had normal MRI of brain Pt states that topamax helps Pt states that most time she has headache when she stressed out. Pt denies any head injury. depression1 Pt has chronic d epression and anxiety. Pt takes prozac and has not helped lately PT has been having a lot of stress lately. PT denies any suicidal or homicidal thought Pt just feels depressed. headache1 Pt c/o bilateral temporal headache with photophobia and nausea for 6 months Pt staes that topamax just helped slightly. Pt still has headache daily but not as bad. Pt denies any head injury LFT1 Pt has elevated LFT Pt has not done lab yet. Pt denies any abd pain or any jaundice HLP Pt has HLP. Pt t akes zocor. Her lipid profile is slighlty higher now Pt denies any myalgia LFT Pt has mild high LFT .Pt denies any myalgia or abd pain headache1 Pt c/o throbbing headache left side for the last 6 months. . Pt denies any head injury. Pt has headache 2-3 per week. Pt c/o nausea, with photophobia. Pt c/o left eye twitching with headache. Pt denies waking up with headache foot pain1 Pt c/o left foot pain chronically Pt has history of fx long time ago. PT denies any acute injury. Pt notices left foot swelling sometimes. Pt c/o pain left lateral foot, no sensory loss Physical Pt needs annual physical. Pt has HTN. Pt takes hcTZ, lisinoporil and her BP is stable. Pt has chronic anxiety and depression and she is doing ok with prozac. Pt denies any suicidal or homicdial thought. Pt takes zocor for hLP Pt denies any myalgia. Pt denies any other complaints HLP1 Pt has HLP. Pt a tkes zocor and doing ok. Pt denies any myalgia shoulder pain Location: should er. Additional information: Pt c/o intermittent right shoulder and knee pain. Pt has some degenerative disease on xrays. Pt denies any injury.k Pt c/o sharp pain intemrittently, worse with activity. HTN Pt takes lisinop ril and HCTZ. Her BP is borderline today Pt denies any chest pain or headahe chest pain1 Pt had atypical chest apin pt had negative cardiac echo and also ETT stress test. Pt denies any further chest pain .Pt seen cardiology and was told everything was ok Pt denies any chest pain now chest pain1 Pt c/o intermitt ent midsternal dull chest pain with left radiation to arm for the past several months. Pt denies any exertional chest pain. Pt states that the pain is sharp and dull in nature and last severasl mins. Her father and sister both has CAD. Pt denies any chest pain now. Pt not sure if it is from anxiety or heart disease joint pain Additional infor mation: Pt c/o right shoulder and right knee pain for several months Pt denies any injury. Pt denies any swelling. Pt states that she has pain all the time, worse with activity. Instructions Date Instruction Additional Infor mation Special diet education Related t o Body mass index (BMI) 40.0-44.9, adult Special diet education Related t o Body mass index (BMI) 40.0-44.9, adult Increase physical activity Relat ed to Chest pain Weight management Related to Rylie st pain Special diet education Related t o Body mass index (BMI) 40.0-44.9, adult Increase physical activity Relat ed to Encounter for general adult medical exam w abnormal findings Weight management Related to Enc ounter for general adult medical exam w abnormal findings Prescribed Activity and Exercise Education Related to Dietary Surveillance and Counseling Prescribed Diet Educ ation/Lifestyle Education Regarding Diet Related to Dietary Surveillance and Counseling Increase physical activity Relat ed to Sleep apnea Weight management Related to Sle ep apnea Increase physical activity Relat ed to Chronic pain syndrome Prescribed Activity and Exercise Education Related to Dietary Surveillance and Counseling Prescribed Diet Educ ation/Lifestyle Education Regarding Diet Related to Dietary Surveillance and Counseling Weight management Related to Chr onic pain syndrome Prescribed Activity and Exercise Education Related to Dietary Surveillance and Counseling Prescribed Diet Educ ation/Lifestyle Education Regarding Diet Related to Dietary Surveillance and Counseling Increase activity. Related to Hy perlipidemia Follow a low sodium diet. Relate d to Hyperlipidemia Prescribed Diet Educ ation/Lifestyle Education Regarding Diet Related to Dietary Surveillance and Counseling Prescribed Activity and Exercise Education Related to Dietary Surveillance and Counseling Prescribed Diet Educ ation/Lifestyle Education Regarding Diet Related to Dietary Surveillance and Counseling Prescribed Activity and Exercise Education Related to Dietary Surveillance and Counseling Prescribed Activity and Exercise Education Related to Dietary Surveillance and Counseling Prescribed Diet Educ ation/Lifestyle Education Regarding Diet Related to Dietary Surveillance and Counseling Prescribed Activity and Exercise Education Related to Dietary Surveillance and Counseling Prescribed Diet Educ ation/Lifestyle Education Regarding Diet Related to Dietary Surveillance and Counseling Prescribed Activity and Exercise Education Related to Dietary Surveillance and Counseling Prescribed Diet Educ ation/Lifestyle Education Regarding Diet Related to Dietary Surveillance and Counseling Prescribed Activity and Exercise Education Related to Dietary Surveillance and Counseling Prescribed Diet Educ ation/Lifestyle Education Regarding Diet Related to Dietary Surveillance and Counseling Prescribed Activity and Exercise Education Related to Dietary Surveillance and Counseling Prescribed Diet Educ ation/Lifestyle Education Regarding Diet Related to Dietary Surveillance and Counseling Prescribed Activity and Exercise Education Related to Dietary Surveillance and Counseling Prescribed Diet Educ ation/Lifestyle Education Regarding Diet Related to Dietary Surveillance and Counseling Prescribed Activity and Exercise Education Related to Dietary Surveillance and Counseling Prescribed Diet Educ ation/Lifestyle Education Regarding Diet Related to Dietary Surveillance and Counseling Prescribed Activity and Exercise Education Related to Dietary Surveillance and Counseling Prescribed Diet Educ ation/Lifestyle Education Regarding Diet Related to Dietary Surveillance and Counseling Physical activity counseling Rel ated to Dietary surveillance counseling Decrease caloric intake Related to Dietary surveillance counseling Decrease caloric intake Related to Dietary surveillance counseling Physical activity counseling Rel ated to Dietary surveillance counseling Dietary counseling Related to Di etary surveillance counseling Decrease caloric intake Related to Dietary surveillance counseling Dietary counseling Related to Di etary surveillance counseling Decrease caloric intake Related to Dietary surveillance counseling Dietary counseling Related to Di etary surveillance counseling Decrease caloric intake Related to Dietary surveillance counseling Decrease caloric intake Related to Dietary surveillance counseling Dietary counseling Related to Di etary surveillance counseling Assessments Type Assessment Date No Information
--- OUTSIDE RECORDS SUMMARY | 2024-09-22 05:01 | XMS_ITS | Encounter Summary ---
Author Organization [facility] Address [address] [place] [address] Care Team Providers Care Hydrator Name Role Phone Augusto Jiménez MD Primary Care Provider [phone] Encounter Details Date Type Department Care Team (Late st Contact Info) Description 04/22/2022 11:20 AM CDT Office Visit [facility] [address] [place] [address], [facility] [place] [address] Umang Alonzo MD [address] [place] [phone] Sjogren's syndrome, with unspecified organ involvement (HCC) (Primary Dx); Sicca complex (HCC); Polyarthritis of hand; Polyarthralgia Social History Tobacco Use Types Packs/Day Years [...] Sign Reading Time Taken Comments Blood Pressure 110/74 04/22/2022 11:15 AM CDT Pulse - - Temperature 37.3 ??C (99.1 ??F) 04/22/2022 11:15 AM C DT Respiratory Rate - - Oxygen Saturation - - Inhaled Oxygen Concentration - - Weight 118.8 kg (262 lb) 04/22/2022 11:15 AM CDT Height 167.6 cm (5' 6 ) 04/22/2022 11:15 AM CDT Body Mass Index 42.29 04/22/2022 11:15 AM CDT documented in this encounter Patient Instructions * Patient Instructions* Umang Alonzo MD - 04/22/2022 12:00 PM CDT Diagnosis: Sjogren's Syndrome Today: - Labs - X-rays Treatment for Dry Eyes - Refresh artificial tears daytime - Refresh PM ointment at bedtime Treatment for Dry Mouth - Biotene Products over the counter I sent prescriptions for these to your pharmacy. Recommend bedroom humidifier Follow-up in May Umang Alonzo MD Division of Rheumatology documented in this encounter Progress Notes * Umang Alonzo MD - 04/22/2022 11:13 AM CDT Images from the original note were not included. 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 #. Primary Sjogren's Syndrome Onset ~51 yo. Clinical phenotype: severe sicca, possible mild bilateral hand polyarthritis. Serologic profile: RAE 1:160 with anti-SSA 7.6 and anti-SSB 3.5. - Refresh daytime and Refresh PM - Biotene products - Counseling provided - Biomarkers and lymphoma screen today - XR today - At follow-up consider MSUS hands b/l and secretagogue if needed. #. Polyarthralgia Component from non-inflammatory polyarthrlagia including OA, DDD, obesity (BMI >42). 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 Will reassess at follow-up, consider PT. #. Follow-up: ~06/06 or sooner if needed. Thank you for placing trust in us. I educated the patient regarding risks and benefits of the management plan, their medical problems, and contingency plans for worsening symptoms. For additional discussion, I can be reached by leaving a message through the [facility] rheumatology line at [phone](option 3). Additional contributions to medical decision making [...] for investigative studies and/or medications, and documentation: 60+ minutes. Umang Alonzo MD Division of Rheumatology Department of Internal Medicine [facility] Encounter Diagnoses, Orders, and Future Appointments: 1. Sjogren's syndrome, with unspecified organ involvement 2. Sicca complex 3. Polyarthritis of hand 4. Polyarthralgia Orders Placed This Encounter ??? XR FOOT LEFT 3VW OR MORE ??? XR FOOT RIGHT 3VW OR MORE ??? XR HAND LEFT 3VW OR MORE ??? XR HAND RIGHT 3VW OR MORE ??? XR WRIST RIGHT 2VW ??? XR WRIST LEFT 2VW ??? COMPREHENSIVE METABOLIC PANEL ??? CBC WITH DIFFERENTIAL ??? TSH REFLEX FREE T4 ??? URINALYSIS W/MICROSCOPIC REFLEX TO CULTURE ??? PROTEIN CREATININE RATIO URINE RANDOM PNL ??? RHEUMATOID FACTOR IGG/IGM/IGA AB ??? CYCLIC CITRULLINATED PEPTIDE(CCP) AB IGG ??? RAE BLOOD SCREEN W/REFLEX TITER ??? CENTROMERE ANTIBODY ??? CHROMATIN ANTIBODY ??? DNA ANTIBODY DOUBLE STRANDED ??? CHRISSY-1 ANTIBODY ??? ELECTRIC FORK OPERATOR ANTIBODY ??? SCLERODERMA 70 (SCL) ANTIBODY ??? HERZOG (SM) ANTIBODY TERRI ??? SS-A (SJOGREN'S) ANTIBODY ??? SS-B (SJOGREN'S) ANTIBODY ??? COMPLEMENT C3 ??? COMPLEMENT C4 ??? CRYOGLOBULIN QUALITATIVE ??? PROTEIN ELECTROPHORESIS BLOOD ??? PROTEIN ELECTROPHORESIS URINE RANDOM PANEL ??? KAPPA/LAMBDA LITE CHAIN FREE PANEL ??? Artificial Saliva (Biotene Dry Mouth) ??? Mouthwashes (Biotene Dry Mouth) ??? Artificial Saliva (Biotene Dry Mouth) LOZG ??? polyvinyl alcohol-povidone PF (Refresh) 1.4-0.6 % ophthalmic solution ??? refresh p.m. (Refresh Pm) ophthalmic ointment Future Appointments Date Time Provider Department Center 04/22/2022 12:15 PM [facility] 06/06/2022 3:00 PM Umang Alonzo MD [id number] [...] . She endorses some recent hot flushes. Review of Systems: All other systems reviewed [...] by mouth once daily, Disp: ,Rfl: ??? [place]-3 Fatty Acids (Fish Oil) 1200 MG, Take [...] Hydrocodone-Acetaminophen Other vicodin Heart races ??? Sulfamethoxazole W-Trimethoprim Itching and Nausea and/or Vomiting Sick to stomach and itching Past Medical History: Patient Active Problem List: [...] PCP - General Objective Physical Exam BP 110/74 (BP SITE: RIGHT ARM, BP POSITION: SITTING, BP CUFF SIZE: 11) Temp 99.1 ??F (37.3 ??C) (Oral) Ht 5' 6 (1.676 m) Wt 262 lb (118.8 kg) BMI 42.29 kg/m?? GENERAL: woman in NAD HEENT/NECK: Eyes [...] limbs. No dysmetria. Gait normal. MSK: Several MCPs and PIPs TTP, asymmetric, no overt synovitis. Squaring of 1st CMCs. Knee crepitusb/l. Common Labs CBC No results for input(s): WBC, HGB, MCV, PLTCOUNT in the last 50961 hours. No results found for: NEUTABS, LYMPHS, MONO, EOS, BASO, GRANIMMABS Metabolic Profile No results for input(s): NA, POTASSIUM, CL, CO2, BUN, CREATININE, GLUCOSE, CALCIUM, ANIONGAP, EGFR,AST, ALT, ALKPHOS, PROT, ALB, TBILI in the last 05991 hours. No results found for: MG, PHOS, DBIL UA & UPC No results found for: SPECGRAVUA, PHUA, PROTEINUA, BLOODUA, LEUKOCYTEUA, NITRITEUA, GLUCOSEUA, KETONEUA, BILIRUBINUA, UROBILINUA, REFLXSTAT, URMIC, SQUAMOUS, TRANSEPIUA, RBCUA, WBCUA, BACTUA, EOSINU No results found for: PROTEINTO, CREATININEUR, [id number] No results for input(s): HCGURINE, HCGQUANT in the last 01766 hours. Latent Infections No results found for: HEPBSAG, HBVSAB, HEPBSAB, HEPBCAB, HEPCAB No results found for: QUANTIFER, QNTTBGOLD, QNTPLUSTB1, QNTPLUSTB2, QNTMITOGEN, QUANTIFERO, QUANTIFECI, QUANTIF, QUANNIL, QUAMIT, QFTTBAGN, AZFPASWNL19, AFBSMR Immunology Labs Inflammatory Markers No results for input(s): ESR, SEDRATE, CRP in the last 88624 hours. RA-related Auto-Ab's No results found for: RF, RA, RAQNT, CCPIGG, CCPIGGIGA RAE-related No results found for: ANATITER, ANAPATTERN, ANTINUCLE, ANAIGG, DSDNAABIU, ANTIDNADSABQ, DSDNAIGGAB,SMITHANTI, ANTICHRO, CHROMATINAB, SSAANTIBO, SSBANTIBO, SMRNPANTI, SMITHRNPAB, SCL70, ANTICENTROB, GG1CRMVU, VAADB326VB, CICVSAX9PH, HISTONEIGG No results for input(s): C3, C4 in the last 49210 hours. APLS-related Auto-Ab's No results found for: D4YUKCEZKG, P6EIWYUNJA, T4PLKBNMDN, AHHM4JPS, JBXL2NWT, CRDLPNIGM, CRDLPNIGG,CRDLPNIGA, DILUTEPT, DPTCFMRATIO, TT, PTTLA, DRVVTBASE, LABINTE Myopathy No results found for: CK, ALDOLASE, SAE1AB, NXP2AB, MDA5AB, DTV3YTI, MYOINTERP, MI2AB, C314707, PL12AB, PL7AB, OJAB, EJAB, SRPAB, ST6EWXHG, KUAB, SMITHRNPAB, JGSLE956KV, KEL78SI, QLE28RF, MMVWBBAF9JEY, ACHBLOCKAB, ACHBINDAB Vasculitis and ANCAs No results found for: NEUTCYTOAB, ANTIPROT3, ANTIMPO, X0IAYUJ Genetics No results found for: HLAB27 Gammopathy/Paraproteinemia No results found for: KAPPAFREE, LAMBDAFREE, KLFREERATIO, IGM, IGG, IGA No results found for: SPEINTERP, SERUMPEALB, SERUMPEA1, SERUMPEA2, SERUMPEBE, SERUMPEGA, PROT, LABIMMURE, CRYOGLOBQUAL Other Labs Endocrine & Metabolic No results for input(s): URICACID, HGBA1C, TSH, T4FREE in the last 43751 hours. No results found for: KPQJ36CY Heme No results found for: RETICCTPCT, RETICULOCYTE, IRON, FERRITIN, TRANSFERRIN, TRANSFERRSAT, TIBC, FIBRINOGEN, DDIMER, VITB12, FOLATE, HAPTOGLOBIN, LDHTOTAL No results for input(s): PT, INR, PTT in the last 50411 hours. Renal No results found for: CALCIUMION, PHBLD, IONCAART, MAGNESIUM, PHOS, SODIUMRAN, POTASSIUMUR, CHLORIDER Cardiac & Lipids No results for input(s): TROPONINI, CKMB, BNP in the last 11219 hours. No results for input(s): CHOL, TRIG, HDL, LDLCALC, LDLDIRECT in the last 87174 hours. Respiratory No results found for: SARSCOV2, RINFLUANAA, RINFLUBNAA, INFLUARAPID, INFLUBRAPID, INFLUCNTRL, STREPARAPID, STREPAQC Hepatobiliary & GI No results found for: GGT, LIPASE, U3VBQFJICAPY, CMVPCR, CMVSOURCE, GDHANTIGEN, CDIFFTOXINAB, CDIFFINTRP, GLIADINIGG, GLIADINIGA, ENDOMYSIA, TTRANIGA, TTRANIGG Drug Screen No results found for: THCUR, PCPUR, COCAINEUR, METHAMPHETUR, OPIATESUR, AMPHETUR, BENZODIAZUR, TCAUR, METHADONEUR, BARBITURATUR, OXYCODONEUR, PROPOXYUR Synovial Fluid No results found for: COLORFL, CLARITYFLUID, BFVOLUME, VISCOSITY, WBCFLUID, RBCFL, CRYSTALEXAM, DIFF, BFBAND, BFSEGS, BFLYMPH, BFMONO, BFEOS, BFMACRO, PATHDIFFRVW Neuro/CSF No results found for: GLUCSF, PROTEINCSF, JPI9EKEXUB, IML3XVABWT, FODP7TRU, COCCIDIGG, XMN2BJI, CRYPTOAGCSF, ENTEROVIRPCR, OLIGOBAND, OLIGOBANDNUM, IGG, TMW0OMC, ALBUMINMS, XQNDIJT9ANF, ALBUMININDEX,IGGINDEX, IGGALBRATIO, SYNTHESRTE, OLIGOCINTRP, TOXOPLASIGG, CYSTICERO Body Fluid No results found for: LABLD, GROSSDESCRIP, MICROPDESCR STIs (HIV, GC, Trich, Syphilis) No results found for: HIV12, GBN5GRQPKK, FEH2KQF97XCK, CHLAMDIA, CHLTRNAA, GC, NGONORRNAA, TRICVAGAP, TRICHVAGBY, TPALLIDUM Cultures & Other Micro No results found for: URINECULT, BLOODCULT, BDERMAGUR, BDERMINTERP Imaging / EGMs / PFTs / Path / Other Studies XR hands, wrists, feet (04/22/22) Ordered For assessment and recommendations, please see above. This note was generated using the [employer] speech recognition system. Grammatical errors, random wordinsertions, [...] on file documented as of this encounter Results * KAPPA/LAMBDA LITE CHAIN FREE PANEL (04/22/2022 12:55 PM CDT) [place] Quant Free Light Chain 17.51 3.30 - 19.40 mg/L 04/23/2022 12:00 PM CDT [facility] [employer] ([facility]) Comment: INTERPRETIVE INFORMATION: [place] Qnt Free Light Chains Undetected antigen excess is a rare event but cannot be excluded. Free light chain results should always be interpreted in conjunction with other clinical and laboratory findings. Lambda Free Light Chain Quantitative 13.81 5.71 - 26.30 mg/L 04/23/2022 12:00 PM CDT [facility] ([facility]) Comment: INTERPRETIVE INFORMATION: Lambda Qnt Free Light Chains Undetected antigen excess is a rare event but cannot be excluded. Free light chain results should always be interpreted in conjunction with other clinical and laboratory findings. [place]/Lambda Free Light Chain ratio 1.27 0.26 - 1.65 04/23/2022 12:00 PM CDT [facility] ([facility]) Comment: Performed By: [employer] [address] [place] [address] [employer] Home Location Manager: Da Terrell MD, PhD Blood BLOOD SPECIMEN / Unknown Lab Venipuncture / Unknown 04/22/2022 12:55 PM CDT 04/22/2022 1:03 PM CDT Umang Alonzo MD LAB - CHEMISTRY JENIFFER KUMARI [facility] [employer] ([facility]) [address] [place] [address], [facility] * PROTEIN ELECTROPHORESIS BLOOD (04/22/2022 12:55 PM CDT) Pathologist [facility] Interpretation Serum PE Normal Pattern Normal Pattern 04/28/2022 6:06 PM CDT [facility] Comment: Serum capillary electrophoresis shows characteristic [...] - 8.3 g/dL 04/28/2022 6:06 PM CDT [facility] Albumin 4.4 3.3 - 5.6 g/dL 04/28/2022 6:06 PM T [facility] Alpha-1 Globulins 0.4 0.2 - 0.4 g/dL 04/28/2022 6:06 PM CDT [facility] Alpha-2 Globulins 0.8 0.5 - 1.0 g/dL 04/28/2022 6:06 PM CDT [facility] Beta Globulins 1.0 0.6 - 1.1 g/dL 04/28/2022 6:06 PM CDT [facility] Gamma Globulins 1.1 0.6 - 1.6 g/dL 04/28/2022 6:06 PM CDT [facility] Blood BLOOD SPECIMEN / Unknown Lab Venipuncture / Unknown 04/22/2022 12:55 PM CDT 04/22/2022 1:03 PM CDT Umang Alonzo MD LAB - CHEMISTRY JENIFFER KUMARI [facility] Organization Address City/State/ZIP Co de Phone Number [address] [address], [facility] [phone] * CRYOGLOBULIN QUALITATIVE (04/22/2022 12:55 PM CDT) Cryoglobulin Qualitative Negative Negative 04/25/2022 8:07 AM CDT [facility] Blood BLOOD SPECIMEN / Unknown Lab Venipuncture / Unknown 04/22/2022 12:55 PM CDT 04/22/2022 12:59 PM CDT Umang Alonzo MD LAB - CHEMISTRY ORDAgustin KUMARI Performing Organization Address City/[facility]/ZIP Co de Phone Number [address] [address], [facility] [phone] * COMPLEMENT C4 (04/22/2022 12:55 PM CDT) Complement C4 33 15 - 57 mg/dL 04/22/2022 1:36 PM CDT [facility] Blood BLOOD SPECIMEN / Unknown Lab Venipuncture / Unknown 04/22/2022 12:55 PM CDT 04/22/2022 1:05 PM CDT Umang Alonzo MD LAB - SEROLOGY ORDER MAX Performing Organization Address City/[facility]/ZIP Co de Phone Number [address] [address], [facility] [phone] * COMPLEMENT C3 (04/22/2022 12:55 PM CDT) Complement C3 156 82 - 193 mg/dL 04/22/2022 1:36 PM CDT [facility] Blood BLOOD SPECIMEN / Unknown Lab Venipuncture / Unknown 04/22/2022 12:55 PM CDT 04/22/2022 1:05 PM CDT Umang Alonzo MD LAB - CHEMISTRY JENIFFER KUMARI Performing Organization Address City/[facility]/ZIP Co de Phone Number [address] [address], [facility] [phone] * (ABNORMAL) SS-B (SJOGREN'S) ANTIBODY (04/22/2022 12:55 PM CDT) SS-B Antibody 50(H) 0 - 40 AU/mL 04/23/2022 5:07 PM CDT [facility] ([facility]) Comment: INTERPRETIVE INFORMATION: SSB (La) (TERRI) Ab, [...] (PSS) also have this antibody. Performed By: [facility] [address] [place] [address] [employer] Home Location Manager: Da Terrell MD, PhD Blood BLOOD SPECIMEN / Unknown Lab Venipuncture / Unknown 04/22/2022 12:55 PM CDT 04/22/2022 1:03 PM CDT Umang Alonzo MD LAB - CHEMISTRY JENIFFER KUMARI [facility]) [address] [place] [address] * HERZOG (SM) ANTIBODY TERRI (04/22/2022 12:55 PM CDT) Herzog (TERRI) Antibody 1 0 - 40 AU/mL 04/23/2022 5:07 PM CDT [facility] [employer] ([facility]) Comment: INTERPRETIVE INFORMATION: Herzog (TERRI) Antibody, IgG ??29 AU/mL or Less ............. Negative ??30 - 40 AU/mL ................ Equivocal ??41 AU/mL or Greater .......... Positive Herzog antibody is highly specific (greater than 90 percent) for systemic lupus erythematosus (SLE) but only occurs in 30-35 percent of SLE cases. The presence of antibodies to Herzog has variable associations with SLE clinical manifestations. Performed By: [facility] [address] [place] [address] [employer] Location Manager: Da Terrell MD, PhD Blood BLOOD SPECIMEN / Unknown Lab Venipuncture / Unknown 04/22/2022 12:55 PM CDT 04/22/2022 1:03 PM CDT Umang Alonzo MD LAB - CHEMISTRY JENIFFER KUMARI [facility] Organization Address City/State/ZIP Co de Phone Number [facility]) [address] [place] [address], [facility] * SCLERODERMA 70 (SCL) ANTIBODY (04/22/2022 12:55 PM CDT) SCL-70 Antibody 0 0 - 40 AU/mL 04/23/2022 5:07 PM CDT [facility] [employer] ([facility]) Comment: INTERPRETIVE INFORMATION: Scleroderma (Scl-70) (TERRI) Ab, IgG ??29 AU/mL or Less ............. Negative ??30 - 40 AU/mL ................ Equivocal ??41 AU/mL or Greater .......... Positive The presence of Scl-70 antibodies (also referred to as topoisomerase I, frederick-I or RADHA) is considered diagnostic for systemic sclerosis (SSc). Scl-70 antibodies alone are detected in about 20 percent of SSc patients and are associated with the diffuse form of the disease, which may include specific organ involvement and poor prognosis. Scl-70 antibodies have also been reported in a varying percentage of patients with systemic lupus erythematosus (SLE). Scl-70 (frederick-1) is a DNA binding protein and anti-DNA/DNA complexes in the sera of SLE patients may bind to frederick-I, leading to a false-positive result. The presence [...] testing for centromere, RNA polymerase III and U3-ELECTRIC FORK OPERATOR, PM/Scl, or Th/To antibodies. Performed By: [employer] [address] [place] [address] [employer] Home Location Manager: Da Terrell MD, PhD Blood BLOOD SPECIMEN / Unknown Lab Venipuncture / Unknown 04/22/2022 12:55 PM CDT 04/22/2022 1:04 PM CDT Umang Alonzo MD LAB - CHEMISTRY JENIFFER KUMARI Performing Organization Address [facility] Co de Phone Number [facility] [employer] ([facility]) [address] * CHRISSY-1 ANTIBODY (04/22/2022 12:55 PM CDT) Chrissy-1 Antibody IgG 0 0 - 40 AU/mL 04/24/2022 1:05 AM CDT [facility] [employer] ([facility]) Comment: INTERPRETIVE INFORMATION: ??Chrissy-1 Antibody, IgG ??29 AU/mL or less.........Negative ??30-40 AU/mL..............Equivocal ??41 AU/mL or greater......Positive Presence of Chrissy-1 (antihistidyl transfer RNA [t-RNA] synthetase) antibody is associated with polymyositis and may also be seen in patients with dermatomyositis. Chrissy-1 antibody is associated with pulmonary involvement (interstitial lung disease), Raynaud phenomenon, arthritis, and maintenance mechanic telephone's hands (implicated in antisynthetase syndrome). Performed By: [facility] [address] [place] [address] [employer] Location Manager: Da Terrell MD, PhD Blood BLOOD SPECIMEN / Unknown Lab Venipuncture / Unknown 04/22/2022 12:55 PM CDT 04/22/2022 1:03 PM CDT Umang Alonzo MD LAB - CHEMISTRY JENIFFER KUMARI Performing Organization Address [facility] Co de Phone Number [facility] [employer] ([facility]) [address] * DNA ANTIBODY DOUBLE STRANDED (04/22/2022 12:55 PM CDT) dsDNA Antibody 4 0 - 24 IU 04/23/2022 3:06 PM CDT [facility] [employer] ([facility]) Comment: INTERPRETIVE INFORMATION: Double-Stranded DNA (dsDNA) Ab IgG JESUS ??24 IU or less........Negative ??25-30 IU.............Borderline Positive ??30-60 IU.............Low Positive ??60-200 IU............Positive ??201 IU or greater....Strong Positive Positivity for anti-double stranded DNA (anti-dsDNA) IgG antibody is a diagnostic criterion of systemic lupus erythematosus (SLE). Specimens are initially screened by enzyme-linked immunosorbent assay (JESUS). If ordered as reflex ([id number]), positive JESUS results (>24 IU) will be [...] recommendations for testing may be found at https://[employer]/content/xeyljoct-ixqyl-njhksvqihkmty. Performed By: [employer] [address] [place] [address] [employer] Home Location Manager: Da Terrell MD, PhD Blood BLOOD SPECIMEN / Unknown Lab Venipuncture / Unknown 04/22/2022 12:55 PM CDT 04/22/2022 1:03 PM CDT Umang Alonzo MD LAB - HEMATOLOGY ORD ERABLES [employer] [facility]) [address] [place] [address], [facility] * CHROMATIN ANTIBODY (04/22/2022 12:55 PM CDT) [facility] Chromatin Antibody 5 0 - 19 Units 04/24/2022 2:01 PM CDT [facility] ([facility]) Comment: INTERPRETIVE INFORMATION: Chromatin Antibody, IgG ??19 Units or less: Negative ??20 - 60 Units: Moderate Positive ??61 Units or greater: Strong Positive The presence of anti-chromatin antibodies may be useful in the diagnosis of systemic lupus erythematosus (SLE) or drug-induced lupus (DIL) and have been reported to be predictive of lupus nephritis, especially when antibody levels are high. Performed By: [facility] [address] [place] [address] [employer] Location Manager: Da Terrell MD, PhD Blood BLOOD SPECIMEN / Unknown Lab Venipuncture / Unknown 04/22/2022 12:55 PM CDT 04/22/2022 1:03 PM CDT Umang Alonzo MD LAB - SEROLOGY ORDER MAX [facility] [employer] [facility]) [address] [place] [address] * CENTROMERE ANTIBODY (04/22/2022 12:55 PM CDT) [facility] Centromere Antibody 1 0 - 40 AU/mL 04/23/2022 5:07 PM CDT [facility] ([facility]) Comment: INTERPRETIVE INFORMATION: Centromere Ab, IgG ??29 [...] other antibodies associated with SSc, including Scl-70, U3-ELECTRIC FORK OPERATOR, PM/Scl, or Th/To. Performed By: [facility] [address] [place] [address] [employer] Location Manager: Da Terrell MD, PhD Blood BLOOD SPECIMEN / Unknown Lab Venipuncture / Unknown 04/22/2022 12:55 PM CDT 04/22/2022 1:03 PM CDT Umang Alonzo MD LAB - CHEMISTRY JENIFFER KUMARI [facility] [employer] ([facility]) [address] * (ABNORMAL) RAE BLOOD SCREEN W/REFLEX TITER (04/22/2022 12:55 PM CDT) RAE IgG Detected (A) None Detected 04/23/2022 3:15 PM CDT [facility] ([facility]) Comment: Antibodies to Anti-Nuclear Antibodies (RAE) detected. [...] dsDNA, histones, SS-A (Ro), SS-B (La), Herzog, Herzog/ELECTRIC FORK OPERATOR, Scl-70, Chrissy-1, centromeric proteins, other antigens extracted from the HEp-2 cell nucleus. RAE JESUS assays have been reported to have lower sensitivities than RAE IFA for systemic autoimmune rheumatic diseases (SARD). Negative results do not necessarily rule out SARD. Performed By: [facility] [employer] [address] [place] [address] [employer] Home Location Manager: aD Terrell MD, PhD Blood BLOOD SPECIMEN / Unknown Lab Venipuncture / Unknown 04/22/2022 12:55 PM CDT 04/22/2022 1:03 PM CDT Umang Alonzo MD LAB - CHEMISTRY JENIFFER KUMARI [facility] [employer] ([facility]) [address] * CYCLIC CITRULLINATED PEPTIDE(CCP) AB IGG (04/22/2022 12:55 PM CDT) CCP Antibody IgG 0.6 <5.0 U/mL 04/22/2022 2:04 PM CDT [facility] Blood BLOOD SPECIMEN / Unknown Lab Venipuncture / Unknown 04/22/2022 12:55 PM CDT 04/22/2022 1:03 PM CDT Umang Alonzo MD LAB - CHEMISTRY JENIFFER KUMARI [facility] Organization Address City/State/ZIP Co de Phone Number [facility] [address] [place] [address], [facility] [phone] * RHEUMATOID FACTOR IGG/IGM/IGA AB (04/22/2022 12:55 PM CDT) Rheumatoid Factor IgA by Jesus <5 <=6 Units 04/24/2022 9:13 PM CDT [facility] ([facility]) Comment: INTERPRETIVE INFORMATION: Rheumatoid Factor, IgA by [...] <5 <=6 Units 04/24/2022 9:13 PM CDT [facility] ([facility]) Comment: INTERPRETIVE INFORMATION: Rheumatoid Factor, IgM by [...] <5 <=6 Units 04/24/2022 9:13 PM CDT [facility] ([facility]) Comment: INTERPRETIVE INFORMATION: Rheumatoid Factor, IgG by JESUS The presence of all three rheumatoid factor (RF) isotypes at abnormal levels has high specificity for a diagnosis of rheumatoid arthritis (RA). However, the presence of RF isotypes in any combination may be found in a variety of conditions, including Sjogren syndrome and hepatitis infections. Performed By: [employer] [address] [place] [address] [employer] Location Manager: Da Terrell MD, PhD Blood BLOOD SPECIMEN / Unknown Lab Venipuncture / Unknown 04/22/2022 12:55 PM CDT 04/22/2022 1:03 PM CDT Umang Alonzo MD LAB - SEROLOGY ORDER [facility] Signal Data ([facility]) [address] [place] [address], [facility] * PROTEIN CREATININE RATIO URINE RANDOM PNL (04/22/2022 12:55 PM CDT) Protein Urine <7 Not Established mg/dL 04/22/2022 1:42 PM CDT [facility] Creatinine Urine 160 Not Established mg/dL 04/22/2022 1:42 PM CDT [facility] Protein/Creatinin e Ratio Urine 04/22/2022 1:42 PM CDT [facility] Comment:Unable to calculate ratio because the analyte concentration is outside the instrument measuring range. Urine URINE SPECIMEN OBTAINED BY CLEAN CATCH PROCEDURE / Unknown Collection / Unknown 04/22/2022 12:55 PM CDT 04/22/2022 1:03 PM CDT Umang Alonzo MD LAB - URINE CHEMISTR Y ORDERABLES [facility] [address] [place] [address], [facility] [phone] * (ABNORMAL) URINALYSIS W/MICROSCOPIC REFLEX TO CULTURE (04/22/2022 12:55 PM CDT) Color UA Yellow Straw, Yellow 04/22/2022 1:13 PM CDT [facility] Clarity UA Slt Cloudy(A) Clear 04/22/2022 1:13 PM CDT [facility] Specific [place] UA 1.019 1.005 - 1.030 04/22/2022 1:13 PM CDT [facility] pH UA 5.0 5.0 - 8.0 pH 04/22/2022 1:13 PM CDT [facility] Protein UA Negative Negative 04/22/2022 1:13 PM CDT [facility] Glucose UA Negative Negative 04/22/2022 1:13 PM CDT [facility] Ketone UA Negative Negative 04/22/2022 1:13 PM CDT [facility] Bilirubin UA Negative Negative 04/22/2022 1:13 PM CDT [facility] Blood UA Negative Negative 04/22/2022 1:13 PM CDT [facility] Nitrite UA Negative Negative 04/22/2022 1:13 PM CDT [facility] Leukocyte Esterase Negative Negative 04/22/2022 1:13 PM T [facility] Urobilinogen UA Negative Negative mg/dL 04/22/2022 1:13 PM T [facility] RBC UA 0-2 None Seen, 0-2, 3-5 /HPF 04/22/2022 1:13 PM T [facility] WBC UA 0-5 None Seen, 0-5 /HPF 04/22/2022 1:13 PM T [facility] Bacteria UA Trace(A) None /HPF 04/22/2022 1:13 PM T [facility] Squamous Epithelial Cells UA 3-5 None Seen, 0-2, 3-5 /HPF 04/22/2022 1:13 PM T [facility] Mucus UA 1+ /LPF 04/22/2022 1:13 PM CDT [facility] Urine URINE SPECIMEN OBTAINED BY CLEAN CATCH PROCEDURE / Unknown Collection / Unknown 04/22/2022 12:55 PM CDT 04/22/2022 1:03 PM CDT Narrative [facility] - 04/22/2022 1:13 PM CDT Culture Not Indicated Umang Alonzo MD LAB - URINALYSIS ORD ERABLES [facility] [address] [place] [address], [facility] [phone] * TSH REFLEX FREE T4 (04/22/2022 12:55 PM CDT) TSH 3.027 0.350 - 4.940 uIU/mL 04/22/2022 1:53 PM CDT [facility] Blood BLOOD SPECIMEN / Unknown Lab Venipuncture / Unknown 04/22/2022 12:55 PM CDT 04/22/2022 1:05 PM CDT Umang Alonzo MD LAB - CHEMISTRY ORDE KENYETTA [facility] [address] [place] [address], [facility] [phone] * CBC WITH DIFFERENTIAL (04/22/2022 12:55 PM CDT) WBC 7.9 3.5 - 10.5 10? 3 /uL 04/22/2022 1:12 PM [facility] RBC 4.66 3.80 - 5.20 10? 6 /uL 04/22/2022 1:12 PM [facility] Hemoglobin 13.0 12.0 - 15.6 g/dL 04/22/2022 1:12 PM [facility] Hematocrit 41.2 35.0 - 45.0 % 04/22/2022 1:12 PM [facility] MCV 88.4 80.7 - 98.3 fL 04/22/2022 1:12 PM [facility] MCH 27.9 26.7 - 34.0 pg 04/22/2022 1:12 PM [facility] MCHC 31.6 30.8 - 35.9 g/dL 04/22/2022 1:12 PM [facility] Platelet Count 317 150 - 400 10? 3 /uL 04/22/2022 1:12 PM [facility] RDW-SD 43.9 36.0 - 50.0 fL 04/22/2022 1:12 PM [facility] RDW-CV 13.5 11.2 - 14.8 % 04/22/2022 1:12 PM [facility] MPV 10.1 9.4 - 12.9 fL 04/22/2022 1:12 PM [facility] nRBC Absolute 0.00 0 10? 3 /uL 04/22/2022 1:12 PM [facility] nRBC Auto 0.0 0 /100 WBC 04/22/2022 1:12 PM [facility] Neutrophils % 54.8 35.0 - 70.0 % 04/22/2022 1:12 PM [facility] Lymphocytes % 35.4 20.0 - 43.0 % 04/22/2022 1:12 PM [facility] Monocytes % 7.6 5.0 - 13.0 % 04/22/2022 1:12 PM T [facility] Eosinophils % 1.5 0.0 - 6.0 % 04/22/2022 1:12 PM [facility] Basophil % 0.4 0.0 - 2.0 % 04/22/2022 1:12 PM T [facility] Neutrophils Absolute 4.30 1.60 - 7.00 10? 3 /uL 04/22/2022 1:12 PM T [facility] Lymphocyte Absolute 2.78 1.10 - 3.90 10? 3 /uL 04/22/2022 1:12 PM T [facility] Monocytes Absolute 0.60 0.26 - 1.07 10? 3 /uL 04/22/2022 1:12 PM [facility] Eosinophils Absolute 0.12 0.00 - 0.47 10? 3 /uL 04/22/2022 1:12 PM T [facility] Basophils Absolute 0.03 0.00 - 0.08 10? 3 /uL 04/22/2022 1:12 PM T [facility] Immature Granulocytes % 0.3 0.0 - 1.0 % 04/22/2022 1:12 PM [facility] Immature Granulocytes Absolute 0.02 04/22/2022 1:12 PM [facility] Blood BLOOD SPECIMEN / Unknown Lab Venipuncture / Unknown 04/22/2022 12:55 PM CDT 04/22/2022 1:06 PM CDT Umang Alonzo MD LAB - HEMATOLOGY ORD ERABLES [facility] [address] [place] [address], [facility] [phone] * (ABNORMAL) COMPREHENSIVE METABOLIC PANEL (04/22/2022 12:55 PM CDT) BUN 12 7 - 26 mg/dL 04/22/2022 1:36 PM CDT [facility] Creatinine 0.89 0.56 - 0.96 mg/dL 04/22/2022 1:36 PM T [facility] Sodium 143 136 - 145 mmol/L 04/22/2022 1:36 PM [facility] Potassium 3.7 3.5 - 4.5 mmol/L 04/22/2022 1:36 PM [facility] Chloride 103 98 - 107 mmol/L 04/22/2022 1:36 PM [facility] CO2 28 22 - 29 mmol/L 04/22/2022 1:36 PM [facility] Glucose 96 70 - 115 mg/dL 04/22/2022 1:36 PM [facility] Calcium 9.9 8.4 - 10.2 mg/dL 04/22/2022 1:36 PM [facility] Protein Total 7.8 6.0 - 8.3 g/dL 04/22/2022 1:36 PM [facility] Albumin 4.2 3.4 - 5.0 g/dL 04/22/2022 1:36 PM [facility] Bilirubin Total 0.3 0.2 - 1.2 mg/dL 04/22/2022 1:36 PM [facility] Alkaline Phosphatase 91 40 - 150 U/L 04/22/2022 1:36 PM [facility] ALT 30 5 - 55 U/L 04/22/2022 1:36 PM [facility] AST 16 5 - 34 U/L 04/22/2022 1:36 PM [facility] Anion Gap 16 8 - 18 04/22/2022 1:36 PM [facility] BUN/Creatinine Ratio 13 7 - 23 04/22/2022 1:36 PM [facility] Osmolality Calculated 296 270 - 300 mOsm/kg 04/22/2022 1:36 PM [facility] Albumin/Globulin Ratio 1.2 1.1 - 2.3 04/22/2022 1:36 PM [facility] eGFR by CKD-EPI 78(L) >=90 mL/min/1.7 3 m2 04/22/2022 1:36 PM [facility] Blood BLOOD SPECIMEN / Unknown Lab Venipuncture / Unknown 04/22/2022 12:55 PM T 04/22/2022 1:05 PM CDT Umang Alonzo MD LAB - CHEMISTRY JENIFFER [facility]UMAR[facility] Organization Address City/State/ZIP Co de Phone Number [facility] [address] [place] [address], [facility] [phone] * XR WRIST LEFT 2VW (04/22/2022 12:30 [...] DATE/TIME OF EXAM: 04/22/2022 12:31 PM, LOCATION ??[facility] INDICATION: M35.00: Sjogren's syndrome, with unspecified organ [...] HAND LEFT 3VW OR MORE, XR FOOT [id number] OR MORE, XR FOOT LEFT 3VW OR MORE, XR WRIST LEFT 2VW, DATE/TIME OF EXAM: 04/22/2022 12:31 PM, LOCATION [facility] INDICATION: M35.00: Sjogren's syndrome, with unspecified organ [...] DATE/TIME OF EXAM: 04/22/2022 12:31 PM, LOCATION ??[facility] INDICATION: M35.00: Sjogren's syndrome, with unspecified organ [...] HAND LEFT 3VW OR MORE, XR FOOT [id number] OR MORE, XR FOOT LEFT 3VW OR MORE, XR WRIST LEFT 2VW, DATE/TIME OF EXAM: 04/22/2022 12:31 PM, LOCATION [facility] INDICATION: M35.00: Sjogren's syndrome, with unspecified organ [...] DATE/TIME OF EXAM: ??04/22/2022 12:31 PM, LOCATION ??[facility] INDICATION: M35.00: Sjogren's syndrome, with unspecified organ [...] MORE, DATE/TIME OF EXAM: :31 PM, LOCATION [facility] INDICATION: M35.00: Sjogren's syndrome, with unspecified organ [...] DATE/TIME OF EXAM: 04/22/2022 12:31 PM, LOCATION ??[facility] INDICATION: M35.00: Sjogren's syndrome, with unspecified organ [...] HAND LEFT 3VW OR MORE, XR FOOT [id number] OR MORE, XR FOOT LEFT 3VW OR MORE, XR WRIST LEFT 2VW, DATE/TIME OF EXAM: 04/22/2022 12:31 PM, LOCATION [facility] INDICATION: M35.00: Sjogren's syndrome, with unspecified organ [...] DATE/TIME OF EXAM: 04/22/2022 12:31 PM, LOCATION ??[facility] INDICATION: M35.00: Sjogren's syndrome, with unspecified organ [...] HAND LEFT 3VW OR MORE, XR FOOT [id number] OR MORE, XR FOOT LEFT 3VW OR MORE, XR WRIST LEFT 2VW, DATE/TIME OF EXAM: 04/22/2022 12:31 PM, LOCATION [facility] INDICATION: M35.00: Sjogren's syndrome, with unspecified organ [...] DATE/TIME OF EXAM: 04/22/2022 12:31 PM, LOCATION ??[facility] INDICATION: M35.00: Sjogren's syndrome, with unspecified organ [...] HAND LEFT 3VW OR MORE, XR FOOT [id number] OR MORE, XR FOOT LEFT 3VW OR MORE, XR WRIST LEFT 2VW, DATE/TIME OF EXAM: 04/22/2022 12:31 PM, LOCATION [facility] INDICATION: M35.00: Sjogren's syndrome, with unspecified organ [...] hand Polyarthralgia Pain in joint, multiple sites Sjogren's syndrome, with unspecified organ involvement (HCC) Sicca complex (HCC) Polyarthritis of hand Unspecified polyarthropathy or polyarthritis, hand Polyarthralgia Pain in joint, multiple sites documented in this encounter Care Teams Hydrator Relationship Specialty Start Date End Date Augusto Jiménez MD [address] [facility] [address] [facility] [address] [place] [address] PCP - General 06/17/17 documented as of this encounter
--- OUTSIDE RECORDS SUMMARY | 2024-09-22 05:01 | XMS_ITS | Encounter Summary ---
Author Organization [facility] Address [address] [place] [address] Care Team Providers Care Physician Credentialing Specialist Name Role Phone Augusto Jiménez MD Primary Care Provider Encounter Details Date Type Department Care Team (Latest Contact Info) Description 06/17/2017 Hospital Outpatient Visit [facility] - Orthopedics [address] [facility] [place] [address] Karli Barrios PA-C [address] [place] [address] Discharge Disposition: Home or Self Care Social History Tobacco Use Types Packs/Day Years Used Date Smoking Tobacco: Never Smokeless Tobacco: Never Sex and Gender Information Value Date Recorded Sex Assigned at Female 05/30/2022 11:21 AM CDT Gender Identity Female 05/30/2022 11:21 AM CDT Sexual Orientation Straight 05/30/2022 11 :21 AM CDT documented as of this encounter Plan of Treatment Not on file documented as of this encounter Visit Diagnoses Not on filedocumented in this encounter Care Teams Physician Credentialing Specialist Relationship Specialty Start Date End Date Augusto Jiménez MD [address] [facility] [address] [facility] [address] [place] [address] PCP - General 06/17/17 documented as of this encounter
--- OUTSIDE RECORDS SUMMARY | 2024-09-22 05:01 | XMS_ITS | Continuity of Care Document ---
Author Organization [facility] [place] Address [address] [facility] [address] [place] [address] Phone Care Team Providers Care Bisque Grader Name Role Phone Evangelista Harrington PT Unavailable Unavailable Procedures Procedure Date Progress Note Therapeutic Activities Neuromuscular Re-Ed Therapeutic Exercise Therapeutic Activities Neuromuscular Re-Ed Therapeutic Exercise Therapeutic Activities Neuromuscular Re-Ed Therapeutic Exercise Therapeutic Activities Neuromuscular Re-Ed Therapeutic Exercise Therapeutic Activities Neuromuscular Re-Ed Therapeutic Exercise Therapeutic Activities Neuromuscular Re-Ed Therapeutic Exercise Manual Therapy Therapeutic Activities Neuromuscular Re-Ed Therapeutic Exercise Manual Therapy Therapeutic Activities Neuromuscular Re-Ed Therapeutic Exercise Manual Therapy Hot or Cold Pack Therapeutic Activities Neuromuscular Re-Ed Therapeutic Exercise Manual Therapy Hot or Cold Pack Therapeutic Activities Neuromuscular Re-Ed Therapeutic Exercise Manual Therapy Hot or Cold Pack Therapeutic Activities Neuromuscular Re-Ed Therapeutic Exercise Manual Therapy Hot or Cold Pack Therapeutic Activities Neuromuscular Re-Ed Therapeutic Exercise Hot or Cold Pack Manual Therapy PT Evaluation Moderate Complexity Therapeutic Activities Neuromuscular Re-Ed Therapeutic Exercise Advance Directives Directive Yes / No Effective Date File Name No Information Encounters Encounter Description Practice Location Reason(s) For Visit Diagnoses Date Provider Providers Copied on Encounter [facility] [address] [employer] [facility], [place], [place], [id number], tel:[phone] [place] No Information 3 Dellamano Evangelista. . [facility], [place], [place], [id number], tel:[phone] [place] No Information 1 0 3 Dellamano Evangelista. . Referring Provider: Marco Graf III, [address], [place], [address]. tel:[phone] [facility] [address], [place], [place], [address], tel:[phone] [place] No Information Aug-0 3 Dellamano Evangelista. . Referring Provider: Marco Graf III, [address], [place], [address]. tel:[phone] [facility] [address], [place], [place], [address], tel:[phone] [place] No Information Aug-0 3- 3 Dellamano Evangelista. . Referring Provider: Marco Graf III, [address], [place], [address]. tel:[phone] [facility] [address], [place], [place], [address], [place] tel:[phone] [place] No Information 3 Dellamano Evangelista. . Referring Provider: Marco Graf III, [address], [place], [address]. tel:[phone] [place], [place] [address], [place], [place], [address], [place] tel:[phone] [place] No Information 3 Dellamano Evangelista. . Referring Provider: Marco Graf III, [address], [place], [address]. tel:[phone] [place] [address], [address], [place], [place], [address], [place] tel:[phone] [place] No Information 3 Dellamano Evangelista. . Referring Provider: Marco Graf III, [address], [place], [address]. tel:[phone] [place] [address] [address], [place], [place], [address], [place] tel:[phone] [place] No Information 3 Dellamano Evangelista. . Referring Provider: Marco Graf III, [address], [place], [address]. tel:[phone] [facility], [place], [place], [address], [place] tel:[phone] [place] No Information [address] [facility], [address], [place], [address], [place]. tel:[phone] Referring Provider: Marco Graf III, [address], [place], [address]. tel:[phone] [place], [place] [id number] [address], [place], [place], [address], [place] tel:[phone] [place] No Information [address] [facility], [address], [place], [address], [place]. tel:[phone] Referring Provider: Marco Graf III, [address], [place], [address]. tel:[phone], [place], [place], [address], [place] tel:[phone] [place] No Information 3 Muehl Umang. [address] [place] [address], [address], [place], [address], [place]. tel:[phone] Referring Provider: Marco Graf III, [address], [place], [address]. tel:[phone] [facility], [place], [place], [address], [place] tel:[phone] [place] No Information 3 Muehl Umang. [address] [place] [address], [address], [place], [address], [place]. tel:[phone] Referring Provider: Marco Graf III, [address], [place], [address]. tel:[phone] [address], [place], [place], [address], [place] tel:[phone] [place] No Information 3 Muehl Umang. [address] [place] [address], [address], [place], [address], [place]. tel:[phone] Referring Provider: Marco Graf III, [address], [place], [address]. tel:[phone], [place], [place], [address], [place] tel:[phone] [place] No Information 3 Muehl Umang. [address] [place] [address], [address], [place], [address], [place]. tel:[phone] Referring Provider: Marco Graf III, [address], [place], [address]. tel:[phone] Family History Family Member Type Diagnosis Age At Onset No Information Payers Payer name Insurance type Covered republican ID Mansi fernandez(s) Alec [employer] 00 Social History Type Description Quantity Date Captured Comments Sex Female Smoking Status No Information Chief Complaint And Reason For Visit No Information Reason For Referral Reason For Referral No Information Plan Of Treatment Date Type Action Status Referral Ordered: Referrals: Specialist. Evaluate and Treat (related to Adjustment disorder with depressed mood) ordered Referral Ordered: Depression: Depression management program timeframe: 1 Day. (related to Depression) ordered Referral Ordered: Clinical Psychology (related to Depression) ordered History Of Present Illness Encounter Date Complaint History Of Prese nt Illness No Information Functional Status Date Functional Assessmen t No Information Instructions Date Instruction Additional Infor mation Dietary needs education Related to Overweight Prescribed activity/exercise edu cation Related to Overweight Assessments Type Assessment Date No Information Patient Care Teams Name Effective Dates (start - stop) Status Members No Information
--- OUTSIDE RECORDS SUMMARY | 2024-09-22 05:01 | XMS_ITS | Encounter Summary ---
Author Organization [facility] Address [address] [facility] [address] [place] [address] Care Team Providers Care Human Resource Analyst Name Role Phone Augusto Jiménez MD Primary Care Provider [phone] Encounter Details Date Type Department Care Team (Latest Contact Info) Description 09/23/2017 Hospital Outpatient Visit [facility] - Orthopedics [address] [facility] [place] [address] Karli Barrios PA-C [address] [place] [address] Discharge Disposition: Home or Self Care Social [...] on filedocumented in this encounter Care Teams Human Resource Analyst Relationship Specialty Start Date End Date Augutso Jiménez MD [address] [facility] [address] [facility] [address] [place] [address] PCP - General 06/17/17 documented as of this encounter
--- OUTSIDE RECORDS SUMMARY | 2024-09-22 05:01 | XMS_ITS | Encounter Summary ---
Author Organization [facility] Address [address] [facility] [place] [address] Care Team Providers Care Idea Worker Name Role Phone Augusto Jiménez MD Primary Care Provider [phone] Encounter Details Date Type Department Care Team (Latest Contact Info) Description 06/17/2017 Hospital Outpatient Visit [facility] - Orthopedics [address] [facility] [place] [address] Karli Barrios PA-C [address] [place] [phone] Discharge Disposition: Home or Self Care Social [...] Name Priority Date/Time Associated Diagnosis Comments XR KNEE RIGHT 4VW OR MORE Routine 06/17/2017 1:43 PM CDT XR KNEE LEFT 4VW OR MORE Routine 06/17/2017 1:43 PM CDT XR LUMBAR SPINE 2 OR 3VW Routine 06/17/2017 12:52 PM CDT documented in this encounter Results * XR KNEE RIGHT 4VW OR MORE (06/17/2017 1:43 PM CDT) Anatomical Region Laterality Modality Lower Extremity Other Impressions 06/17/2017 1:59 PM CDT IMPRESSION: No acute fracture or dislocation identified. 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 Dictated by Kendell Rasmussen MD (administrative resident). I, Dr. CONSUELO GAMBOA M.D. have personally [...] compartment osteoarthritis. Dictated by Kendell Rasmussen MD (administrative resident). Dr. CONSUELO Mckeon M.D. have personally reviewed and interpreted thisexamination/study. This report was electronically signed by CONSUELO GAMBOA M.D. on 06/17/20171:59 PM . Karli Rueda Denis [facility] DIAGNOSTIC IMAG ING ORDERABLES * XR KNEE LEFT 4VW OR MORE (06/17/2017 1:43 PM CDT) Anatomical Region Laterality Modality Lower Extremity Other Impressions 06/17/2017 1:59 PM CDT IMPRESSION: No acute fracture or dislocation identified. 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 Dictated by Kendell Rasmussen MD (administrative resident). Dr. CONSUELO Mckeon M.D. have personally reviewed [...] compartment osteoarthritis. Dictated by Kendell Rasmussen MD (administrative resident). Dr. CONSUELO Mckeon M.D. have personally reviewed and interpreted thisexamination/study. This report was electronically signed by CONSUELO GAMBOA M.D. on 06/17/20171:59 PM . Karli Brarios PA-C DIAGNOSTIC IMAG ING ORDERABLES * XR LUMBAR SPINE 2 OR 3VW (06/17/2017 12:52 PM CDT) Anatomical Region Laterality Modality Spine Other Impressions 06/17/2017 1:33 PM CDT IMPRESSION: No acute fracture or malalignment identified. Mild facet osteoarthritis. Dictated by Kendell Rasmussen MD (administrative resident). Dr. CONSUELO Mckeon M.D. have personally reviewed [...] facet osteoarthritis. Dictated by Kendell Rasmussen MD (administrative resident). I, Dr. CONSUELO GAMBOA M.D. have personally reviewed and interpreted thisexamination/study. This report was electronically signed by CONSUELO GAMBOA M.D. on 06/17/20171:33 PM . Karli Barrios PA-C DIAGNOSTIC IMAG ING ORDERABLES documented in this encounter Visit Diagnoses Diagnosis Low back pain Lumbago Pain in right knee Pain in joint, lower leg Pain in left knee Pain in joint, lower leg Other chronic pain documented in this encounter Care Teams Idea Worker Relationship Specialty Start Date End Date Augusto Jiménez MD [address] [facility] [address] [place] [address] PCP - General 06/17/17 documented as of this encounter
--- OUTSIDE RECORDS SUMMARY | 2024-09-22 05:48 | XMS_ITS | Encounter Summary ---
Author Organization [facility] Address [address] [place] [place] [address] Care Team Providers Care Acid Retort Operator Name Role Phone Augusto Jiménez MD Primary Care Provider [phone] Encounter Details Date Type Department Care Team (Latest Contact Info) Description 04/22/2022 12:30 PM CDT - 04/22/2022 11:59 PM CDT Hospital Encounter [facility] OP DRAW STATION [address] [place] [address] [phone] Umang Nelson, DO [address] [place] [address] Discharge Disposition: Home or Self Care Social [...] Take 1 tablet by mouth once daily [place]-3 Fatty Acids (Fish Oil) 1200 MG Take [...] Sicca complex (HCC) Polyarthritis of hand Polyarthralgia HERZOG/SLAG EXPANDER (TERRI) ANTIBODY IGG Routine 04/22/2022 12:55 PM [...] Pattern Speckled( A) 04/24/2022 12:58 PM CDT [facility] [place] ([facility]) RAE Titer 1:80(A) 04/24/2022 12:58 PM CDT [facility] [place] ([facility]) Comment: Performed By: 24/7 Card [address] [place] [address] Name Plate Stamper: Da Terrell MD, PhD Blood BLOOD SPECIMEN / Unknown Lab Venipuncture / Unknown 04/22/2022 12:55 PM CDT 04/22/2022 1:03 PM CDT Umang Alonzo MD LAB - CHEMISTRY JENIFFER KUMARI [facility] Organization Address City/State/ZIP Co de Phone Number [facility] [place] [facility]) [address] * (ABNORMAL) RAE HEP-2 IGG BY IFA (04/22/2022 12:55 PM CDT) RAE HEp-2 IgG Detected (H) <1:80 04/24/2022 12:58 PM CDT REPLACED BY [facility] ([facility]) RAE Interpretive Comment See Note 04/24/2022 12:58 PM CDT [facility] [place] ([facility]) Comment: Speckled Pattern Clinical associations: SLE, SSc, SjS, DM, PM, MCTD, UCTD. May also be found in healthy individuals Main autoantibodies: Anti-SSA-52 (Ro52), anti-SSA-60 (Ro60), anti-SS-B/LA, anti-Alexei-1 (anti-Scl-70), Herzog, anti-U1-SLAG EXPANDER, anti-U2-SLAG EXPANDER, anti-Mi-2, anti-p155/140 (TIF1g), anti-Ku, anti-RNA polymerase, anti-DFS70/LEDGF-P75 [...] not necessarily rule out SARD. Performed By: 24/[address] [place] [id number] Name Plate Stamper: Da Terrell MD, PhD Blood BLOOD SPECIMEN / Unknown Lab Venipuncture / Unknown 04/22/2022 12:55 PM CDT 04/22/2022 1:03 PM CDT Umang Alonzo MD LAB - SEROLOGY ORDER MAX Performing Organization Address [facility] Co de Phone Number [facility] [place] ([facility]) [address] * KAPPA/LAMBDA LITE CHAIN FREE PANEL (04/22/2022 12:55 PM CDT) [place] Quant Free Light Chain 17.51 3.30 - 19.40 mg/L 04/23/2022 12:00 PM CDT REPLACED BY [facility] ([facility]) Comment: INTERPRETIVE INFORMATION: [place] Qnt Free Light Chains Undetected antigen excess is a rare event but cannot be excluded. Free light chain results should always be interpreted in conjunction with other clinical and laboratory findings. Lambda Free Light Chain Quantitative 13.81 5.71 - 26.30 mg/L 04/23/2022 12:00 PM CDT REPLACED BY [facility] ([facility]) Comment: INTERPRETIVE INFORMATION: Lambda Qnt Free Light Chains Undetected antigen excess is a rare event but cannot be excluded. Free light chain results should always be interpreted in conjunction with other clinical and laboratory findings. [place]/Lambda Free Light Chain ratio 1.27 0.26 - 1.65 04/23/2022 12:00 PM CDT REPLACED BY [facility] ([facility]) Comment: Performed By: 24/[address] [place] [address] Name Plate Stamper: Da Terrell MD, PhD Blood BLOOD SPECIMEN / Unknown Lab Venipuncture / Unknown 04/22/2022 12:55 PM CDT 04/22/2022 1:03 PM CDT Umang Alonzo MD LAB - CHEMISTRY ORDE RABLES [facility] [place] ([facility]) [address] * PROTEIN ELECTROPHORESIS BLOOD (04/22/2022 12:55 PM CDT) Pathologist [facility] Interpretation Serum PE Normal Pattern Normal Pattern 04/28/2022 6:06 PM CDT [facility] Comment: Serum capillary electrophoresis shows [...] - 8.3 g/dL 04/28/2022 6:06 PM CDT [facility] Albumin 4.4 3.3 - 5.6 g/dL 04/28/2022 6:06 PM CDT [facility] Alpha-1 Globulins 0.4 0.2 - 0.4 g/dL 04/28/2022 6:06 PM CDT [facility] Alpha-2 Globulins 0.8 0.5 - 1.0 g/dL 04/28/2022 6:06 PM CDT [facility] Beta Globulins 1.0 0.6 - 1.1 g/dL 04/28/2022 6:06 PM CDT [facility] Gamma Globulins 1.1 0.6 - 1.6 g/dL 04/28/2022 6:06 PM CDT [facility] Blood BLOOD SPECIMEN / Unknown Lab Venipuncture / Unknown 04/22/2022 12:55 PM CDT 04/22/2022 1:03 PM CDT Umang Alonzo MD LAB - CHEMISTRY JENIFFER KUMARI [address] [address], [place] [phone] * CRYOGLOBULIN QUALITATIVE (04/22/2022 12:55 PM CDT) Cryoglobulin Qualitative Negative Negative 04/25/2022 8:07 AM CDT [facility] Blood BLOOD SPECIMEN / Unknown Lab Venipuncture / Unknown 04/22/2022 12:55 PM CDT 04/22/2022 12:59 PM CDT Umang Alonzo MD LAB - CHEMISTRY JENIFFER KUMARI [address] [address], [place] [phone] * COMPLEMENT C4 (04/22/2022 12:55 PM CDT) Complement C4 33 15 - 57 mg/dL 04/22/2022 1:36 PM CDT [facility] Blood BLOOD SPECIMEN / Unknown Lab Venipuncture / Unknown 04/22/2022 12:55 PM CDT 04/22/2022 1:05 PM CDT Umang Alonzo MD LAB - SEROLOGY ORDER MAX [facility] [address] [place] [address], [facility] [phone] * COMPLEMENT C3 (04/22/2022 12:55 PM CDT) Complement C3 156 82 - 193 mg/dL 04/22/2022 1:36 PM CDT [facility] Blood BLOOD SPECIMEN / Unknown Lab Venipuncture / Unknown 04/22/2022 12:55 PM CDT 04/22/2022 1:05 PM CDT Umang Alonzo MD LAB - CHEMISTRY ORDE RABLES [address] [address], [facility] [phone] * (ABNORMAL) SS-B (SJOGREN'S) ANTIBODY (04/22/2022 12:55 PM CDT) SS-B Antibody 50(H) 0 - 40 AU/mL 04/23/2022 5:07 PM CDT [facility] ([facility]) Comment: INTERPRETIVE INFORMATION: SSB (La) (TERRI) Ab, [...] (PSS) also have this antibody. Performed By: 24/[address] [place] [address] Name Plate Stamper: Da Terrell MD, PhD Blood BLOOD SPECIMEN / Unknown Lab Venipuncture / Unknown 04/22/2022 12:55 PM CDT 04/22/2022 1:03 PM CDT Umang Alonzo MD LAB - CHEMISTRY JENIFFER KUMARI [facility]) [address] [place] [address] * HERZOG (SM) ANTIBODY TERRI (04/22/2022 12:55 PM CDT) Herzog (TERRI) Antibody 1 0 - 40 AU/mL 04/23/2022 5:07 PM CDT [facility] [place] ([facility]) Comment: INTERPRETIVE INFORMATION: Herzog (TERRI) Antibody, IgG ??29 AU/mL or Less ............. Negative ??30 - 40 AU/mL ................ Equivocal ??41 AU/mL or Greater .......... Positive Herzog antibody is highly specific (greater than 90 percent) for systemic lupus erythematosus (SLE) but only occurs in 30-35 percent of SLE cases. The presence of antibodies to Herzog has variable associations with SLE clinical manifestations. Performed By: 24/[address] [place] [address] Name Plate Stamper: Da Terrell MD, PhD Blood BLOOD SPECIMEN / Unknown Lab Venipuncture / Unknown 04/22/2022 12:55 PM CDT 04/22/2022 1:03 PM CDT Umang Alonzo MD LAB - CHEMISTRY JENIFFER KUMARI [facility] [place] [facility]) [address] [place] [address] * SCLERODERMA 70 (SCL) ANTIBODY (04/22/2022 12:55 PM CDT) SCL-70 Antibody 0 0 - 40 AU/mL 04/23/2022 5:07 PM CDT [facility] ([facility]) Comment: INTERPRETIVE INFORMATION: Scleroderma (Scl-70) (TERRI) Ab, [...] testing for centromere, RNA polymerase III and U3-SLAG EXPANDER, PM/Scl, or Th/To antibodies. Performed By: 24/7 Card [address] [place] [address] Name Plate Stamper: Da Terrell MD, PhD Blood BLOOD SPECIMEN / Unknown Lab Venipuncture / Unknown 04/22/2022 12:55 PM CDT 04/22/2022 1:04 PM CDT Umang Alonzo MD LAB - CHEMISTRY JENIFFER KUMARI [facility] Organization Address City/State/ZIP Co de Phone Number [facility]) [address] [place] [address], [facility] * CHRISSY-1 ANTIBODY (04/22/2022 12:55 PM CDT) [facility] Chrissy-1 Antibody IgG 0 0 - 40 AU/mL 04/24/2022 1:05 AM CDT [facility] [place] ([facility]) Comment: INTERPRETIVE INFORMATION: ??Chrissy-1 Antibody, IgG ??29 AU/mL or less.........Negative ??30-40 AU/mL..............Equivocal ??41 AU/mL or greater......Positive Presence of Chrissy-1 (antihistidyl transfer RNA [t-RNA] synthetase) antibody is associated with polymyositis and may also be seen in patients with dermatomyositis. Chrissy-1 antibody is associated with pulmonary involvement (interstitial lung disease), Raynaud phenomenon, arthritis, and electric engine mechanic's hands (implicated in antisynthetase syndrome). Performed By: 24/[address] [place] [address] Name Plate Stamper: Da Terrell MD, PhD Blood BLOOD SPECIMEN / Unknown Lab Venipuncture / Unknown 04/22/2022 12:55 PM CDT 04/22/2022 1:03 PM CDT Umang Alonzo MD LAB - CHEMISTRY JENIFFER KUMARI [facility] [place] [facility]) [address] [place] [address], [facility] * DNA ANTIBODY DOUBLE STRANDED (04/22/2022 12:55 PM CDT) [facility] dsDNA Antibody 4 0 - 24 IU 04/23/2022 3:06 PM CDT [facility] [place] ([facility]) Comment: INTERPRETIVE INFORMATION: Double-Stranded DNA (dsDNA) Ab IgG JESUS ??24 IU or less........Negative ??25-30 IU.............Borderline Positive ??30-60 IU.............Low Positive ??60-200 IU............Positive ??201 IU or greater....Strong Positive Positivity for anti-double stranded DNA (anti-dsDNA) IgG antibody is a diagnostic criterion of systemic lupus erythematosus (SLE). Specimens are initially screened by enzyme-linked immunosorbent assay (JESUS). If ordered as reflex ([id number]), positive JESUS results (>24 IU) will be [...] recommendations for testing may be found at [email or web address]. Performed By: 24/[address] [place] [address] Name Plate Stamper: Da Terrell MD, PhD Blood BLOOD SPECIMEN / Unknown Lab Venipuncture / Unknown 04/22/2022 12:55 PM CDT 04/22/2022 1:03 PM CDT Umang Alonzo MD LAB - HEMATOLOGY ORD ERABLES [facility] [place] [facility]) [address] [place] [address], [facility] * CHROMATIN ANTIBODY (04/22/2022 12:55 PM CDT) [facility] Chromatin Antibody 5 0 - 19 Units 04/24/2022 2:01 PM CDT [facility]) Comment: INTERPRETIVE INFORMATION: Chromatin Antibody, IgG ??19 Units or less: Negative ??20 - 60 Units: Moderate Positive ??61 Units or greater: Strong Positive The presence of anti-chromatin antibodies may be useful in the diagnosis of systemic lupus erythematosus (SLE) or drug-induced lupus (DIL) and have been reported to be predictive of lupus nephritis, especially when antibody levels are high. Performed By: 24/[address] [place] [address] Name Plate Stamper: Da Terrell MD, PhD Blood BLOOD SPECIMEN / Unknown Lab Venipuncture / Unknown 04/22/2022 12:55 PM CDT 04/22/2022 1:03 PM CDT Umang Alonzo MD LAB - SEROLOGY ORDER MAX Performing Organization Address City/[facility]/ZIP Co de Phone Number [facility] [place] [facility]) [address] * CENTROMERE ANTIBODY (04/22/2022 12:55 PM CDT) [facility] Centromere Antibody 1 0 - 40 AU/mL 04/23/2022 5:07 PM CDT [facility] ([facility]) Comment: INTERPRETIVE INFORMATION: Centromere Ab, IgG ??29 [...] other antibodies associated with SSc, including Scl-70, U3-SLAG EXPANDER, PM/Scl, or Th/To. Performed By: 24/[address] [place] [address] Name Plate Stamper: Da Terrell MD, PhD Blood BLOOD SPECIMEN / Unknown Lab Venipuncture / Unknown 04/22/2022 12:55 PM CDT 04/22/2022 1:03 PM CDT Umang Alonzo MD LAB - CHEMISTRY ORDE KENYETTA Performing Organization Address City/[facility]/ZIP Co de Phone Number [facility]) [address] * (ABNORMAL) RAE BLOOD SCREEN W/REFLEX TITER (04/22/2022 12:55 PM CDT) RAE IgG Detected (A) None Detected 04/23/2022 3:15 PM CDT REPLACED BY [facility] ([facility]) Comment: Antibodies to Anti-Nuclear Antibodies (RAE) detected. [...] dsDNA, histones, SS-A (Ro), SS-B (La), Herzog, Herzog/SLAG EXPANDER, Scl-70, Chrissy-1, centromeric proteins, other antigens extracted from the HEp-2 cell nucleus. RAE JESUS assays have been reported to have lower sensitivities than RAE IFA for systemic autoimmune rheumatic diseases (SARD). Negative results do not necessarily rule out SARD. Performed By: 24/[address] [place] [address] Name Plate Stamper: Da Terrell MD, PhD Blood BLOOD SPECIMEN / Unknown Lab Venipuncture / Unknown 04/22/2022 12:55 PM CDT 04/22/2022 1:03 PM CDT Umang Alonzo MD LAB - CHEMISTRY JENIFFER KUMARI Performing Organization Address [facility]/ZIP Co de Phone Number [facility]) [address] [place] [address], [facility] * CYCLIC CITRULLINATED PEPTIDE(CCP) AB IGG (04/22/2022 12:55 PM CDT) CCP Antibody IgG 0.6 <5.0 U/mL 04/22/2022 2:04 PM CDT [facility] Blood BLOOD SPECIMEN / Unknown Lab Venipuncture / Unknown 04/22/2022 12:55 PM CDT 04/22/2022 1:03 PM CDT Umang Alonzo MD LAB - CHEMISTRY JENIFFER KUMARI [facility] [address] [place] [address], [facility] [phone] * RHEUMATOID FACTOR IGG/IGM/IGA AB (04/22/2022 12:55 PM CDT) Rheumatoid Factor IgA by Jesus <5 <=6 Units 04/24/2022 9:13 PM CDT [facility] ([facility]) Comment: INTERPRETIVE INFORMATION: Rheumatoid Factor, IgA by [...] <5 <=6 Units 04/24/2022 9:13 PM CDT [facility] ([facility]) Comment: INTERPRETIVE INFORMATION: Rheumatoid Factor, IgM by [...] <5 <=6 Units 04/24/2022 9:13 PM CDT [facility] ([facility]) Comment: INTERPRETIVE INFORMATION: Rheumatoid Factor, IgG by JESUS The presence of all three rheumatoid factor (RF) isotypes at abnormal levels has high specificity for a diagnosis of rheumatoid arthritis (RA). However, the presence of RF isotypes in any combination may be found in a variety of conditions, including Sjogren syndrome and hepatitis infections. Performed By: 24/7 Card [address] [place] [address] Name Plate Stamper: Da Terrell MD, PhD Blood BLOOD SPECIMEN / Unknown Lab Venipuncture / Unknown 04/22/2022 12:55 PM CDT 04/22/2022 1:03 PM CDT Umang Alonzo MD LAB - SEROLOGY ORDER MAX [facility] ([facility]) [address] [place] [address], [facility] * PROTEIN CREATININE RATIO URINE RANDOM PNL (04/22/2022 12:55 PM CDT) Protein Urine <7 Not Established mg/dL 04/22/2022 1:42 PM CDT [facility] Creatinine Urine 160 Not Established mg/dL 04/22/2022 1:42 PM CDT [facility] Protein/Creatinin e Ratio Urine 04/22/2022 1:42 PM CDT [facility] Comment:Unable to calculate ratio because the analyte concentration is outside the instrument measuring range. Urine URINE SPECIMEN OBTAINED BY CLEAN CATCH PROCEDURE / Unknown Collection / Unknown 04/22/2022 12:55 PM CDT 04/22/2022 1:03 PM CDT Umang Alonzo MD LAB - URINE CHEMISTR Y ORDERABLES [address] [address], [facility] [phone] * (ABNORMAL) URINALYSIS W/MICROSCOPIC REFLEX TO CULTURE (04/22/2022 12:55 PM CDT) Color UA Yellow Straw, Yellow 04/22/2022 1:13 PM CDT [facility] Clarity UA t Cloudy(A) Clear 04/22/2022 1:13 PM T [facility] Specific [place] UA 1.019 1.005 - 1.030 04/22/2022 1:13 PM [facility] pH UA 5.0 5.0 - 8.0 pH 04/22/2022 1:13 PM CDT [facility] Protein UA Negative Negative 04/22/2022 1:13 PM T [facility] Glucose UA Negative Negative 04/22/2022 1:13 PM [facility] Ketone UA Negative Negative 04/22/2022 1:13 PM [facility] Bilirubin UA Negative Negative 04/22/2022 1:13 PM [facility] Blood UA Negative Negative 04/22/2022 1:13 PM T [facility] Nitrite UA Negative Negative 04/22/2022 1:13 PM T [facility] Leukocyte Esterase Negative Negative 04/22/2022 1:13 PM CDT [facility] Urobilinogen UA Negative Negative mg/dL 04/22/2022 1:13 PM CDT [facility] RBC UA 0-2 None Seen, 0-2, 3-5 /HPF 04/22/2022 1:13 PM CDT [facility] WBC UA 0-5 None Seen, 0-5 /HPF 04/22/2022 1:13 PM CDT [facility] Bacteria UA Trace(A) None /HPF 04/22/2022 1:13 PM CDT [facility] Squamous Epithelial Cells UA 3-5 None Seen, 0-2, 3-5 /HPF 04/22/2022 1:13 PM CDT [facility] Mucus UA 1+ /LPF 04/22/2022 1:13 PM CDT [facility] Urine URINE SPECIMEN OBTAINED BY CLEAN CATCH PROCEDURE / Unknown Collection / Unknown 04/22/2022 12:55 PM CDT 04/22/2022 1:03 PM CDT Narrative [facility] - 04/22/2022 1:13 PM CDT Culture Not Indicated Umang Alonzo MD LAB - URINALYSIS ORD ERABLES [address] [address], [place] [phone] * TSH REFLEX FREE T4 (04/22/2022 12:55 PM CDT) Pathologist [facility] TSH 3.027 0.350 - 4.940 uIU/mL 04/22/2022 1:53 PM CDT [facility] Blood BLOOD SPECIMEN / Unknown Lab Venipuncture / Unknown 04/22/2022 12:55 PM CDT 04/22/2022 1:05 PM CDT Umang Alonzo MD LAB - CHEMISTRY ORDE RABPASCALE [address] [address], [place] [phone] * CBC WITH DIFFERENTIAL (04/22/2022 12:55 PM CDT) WBC 7.9 3.5 - 10.5 10? 3 /uL 04/22/2022 1:12 PM [facility] RBC 4.66 3.80 - 5.20 10? 6 /uL 04/22/2022 1:12 PM [facility] Hemoglobin 13.0 12.0 - 15.6 g/dL 04/22/2022 1:12 PM [facility] Hematocrit 41.2 35.0 - 45.0 % 04/22/2022 1:12 PM [facility] MCV 88.4 80.7 - 98.3 fL 04/22/2022 1:12 PM [facility] MCH 27.9 26.7 - 34.0 pg 04/22/2022 1:12 PM [facility] MCHC 31.6 30.8 - 35.9 g/dL 04/22/2022 1:12 PM [facility] Platelet Count 317 150 - 400 10? 3 /uL 04/22/2022 1:12 PM [facility] RDW-SD 43.9 36.0 - 50.0 fL 04/22/2022 1:12 PM [facility] RDW-CV 13.5 11.2 - 14.8 % 04/22/2022 1:12 PM [facility] MPV 10.1 9.4 - 12.9 fL 04/22/2022 1:12 PM [facility] nRBC Absolute 0.00 0 10? 3 /uL 04/22/2022 1:12 PM [facility] nRBC Auto 0.0 0 /100 WBC 04/22/2022 1:12 PM [facility] Neutrophils % 54.8 35.0 - 70.0 % 04/22/2022 1:12 PM [facility] Lymphocytes % 35.4 20.0 - 43.0 % 04/22/2022 1:12 PM [facility] Monocytes % 7.6 5.0 - 13.0 % 04/22/2022 1:12 PM [facility] Eosinophils % 1.5 0.0 - 6.0 % 04/22/2022 1:12 PM [facility] Basophil % 0.4 0.0 - 2.0 % 04/22/2022 1:12 PM [facility] Neutrophils Absolute 4.30 1.60 - 7.00 10? 3 /uL 04/22/2022 1:12 PM [facility] Lymphocyte Absolute 2.78 1.10 - 3.90 10? 3 /uL 04/22/2022 1:12 PM [facility] Monocytes Absolute 0.60 0.26 - 1.07 10? 3 /uL 04/22/2022 1:12 PM [facility] Eosinophils Absolute 0.12 0.00 - 0.47 10? 3 /uL 04/22/2022 1:12 PM [facility] Basophils Absolute 0.03 0.00 - 0.08 10? 3 /uL 04/22/2022 1:12 PM [facility] Immature Granulocytes % 0.3 0.0 - 1.0 % 04/22/2022 1:12 PM [facility] Immature Granulocytes Absolute 0.02 04/22/2022 1:12 PM [facility] Blood BLOOD SPECIMEN / Unknown Lab Venipuncture / Unknown 04/22/2022 12:55 PM CDT 04/22/2022 1:06 PM T Umang Alonzo MD LAB - HEMATOLOGY ORD ERABLES [facility] [address] [place] [address], [facility] [phone] * (ABNORMAL) COMPREHENSIVE METABOLIC PANEL (04/22/2022 12:55 PM CDT) BUN 12 7 - 26 mg/dL 04/22/2022 1:36 PM [facility] Creatinine 0.89 0.56 - 0.96 mg/dL 04/22/2022 1:36 PM [facility] Sodium 143 136 - 145 mmol/L 04/22/2022 1:36 PM [facility] Potassium 3.7 3.5 - 4.5 mmol/L 04/22/2022 1:36 PM [facility] Chloride 103 98 - 107 mmol/L 04/22/2022 1:36 PM [facility] CO2 28 22 - 29 mmol/L 04/22/2022 1:36 PM [facility] Glucose 96 70 - 115 mg/dL 04/22/2022 1:36 PM [facility] Calcium 9.9 8.4 - 10.2 mg/dL 04/22/2022 1:36 PM [facility] Protein Total 7.8 6.0 - 8.3 g/dL 04/22/2022 1:36 PM [facility] Albumin 4.2 3.4 - 5.0 g/dL 04/22/2022 1:36 PM [facility] Bilirubin Total 0.3 0.2 - 1.2 mg/dL 04/22/2022 1:36 PM [facility] Alkaline Phosphatase 91 40 - 150 U/L 04/22/2022 1:36 PM [facility] ALT 30 5 - 55 U/L 04/22/2022 1:36 PM [facility] AST 16 5 - 34 U/L 04/22/2022 1:36 PM [facility] Anion Gap 16 8 - 18 04/22/2022 1:36 PM [facility] BUN/Creatinine Ratio 13 7 - 23 04/22/2022 1:36 PM [facility] Osmolality Calculated 296 270 - 300 mOsm/kg 04/22/2022 1:36 PM [facility] Albumin/Globulin Ratio 1.2 1.1 - 2.3 04/22/2022 1:36 PM [facility] eGFR by CKD-EPI 78(L) >=90 mL/min/1.7 3 m2 04/22/2022 1:36 PM [facility] Blood BLOOD SPECIMEN / Unknown Lab Venipuncture / Unknown 04/22/2022 12:55 PM CDT 04/22/2022 1:05 PM [facility] Umang Alonzo MD LAB - CHEMISTRY [facility]ENIFFER [facility]UM[facility] Organization Address City/State/ZIP Co de Phone Number [facility] [address] [place] [address], [facility] [phone] * PROTEIN ELECTROPHORESIS URINE RANDOM (04/22/2022 12:55 PM CDT) Interpretation Urine PE See Comment Normal Pattern 04/28/2022 6:06 PM CDT [facility] Comment: Urine protein electrophoresis shows a band corresponding to albumin. No monoclonal immunoglobulins detected. Jacquie Cade MD Protein Urine <7 Not Established mg/dL 04/28/2022 6:06 PM CDT [facility] Urine URINE SPECIMEN OBTAINED BY CLEAN CATCH PROCEDURE / Unknown Collection / Unknown 04/22/2022 12:55 PM CDT 04/22/2022 1:03 PM CDT Umang Alonzo MD LAB - URINE CHEMISTR Y ORDERABLES [facility] [address] [place] [address], [facility] [phone] * (ABNORMAL) SS-A (SJOGREN'S) 52+60 ANTIBODIES (04/22/2022 12:55 PM CDT) SS-A 52 Antibody 2 0 - 40 AU/mL 04/24/2022 1:05 AM CDT [facility] ([facility]) Comment: INTERPRETIVE INFORMATION: SSA-52 (Ro52) (TERRI) Antibody, [...] - 40 AU/mL 04/24/2022 1:05 AM CDT [facility] ([facility]) Comment: REFERENCE INTERVAL: SSA-60 (Ro60) (TERRI) Antibody, IgG ??29 AU/mL or Less ............. Negative ??30 - 40 AU/mL ................ Equivocal ??41 AU/mL or Greater .......... Positive Performed By: 24[facility] [place] [address] Name Plate Stamper: Da Terrell MD, PhD Blood BLOOD SPECIMEN / Unknown Lab Venipuncture / Unknown 04/22/2022 12:55 PM CDT 04/22/2022 1:03 PM CDT Umang lAonzo MD LAB - CHEMISTRY [facility] K[facility] [address] [place] [address], [facility] * HERZOG/SLAG EXPANDER (TERRI) ANTIBODY IGG (04/22/2022 12:55 PM CDT) Pathologist [facility] Herzog/SLAG EXPANDER (TERRI) Antibody IgG 9 0 - 19 Units 04/23/2022 2:23 PM CDT [facility] [place] ([facility]) Comment: INTERPRETIVE INFORMATION: Herzog/SLAG EXPANDER (TERRI) Antibody, IgG ??19 Units or Less ............. Negative ??20 to 39 Units ............... Weak Positive ??40 to 80 Units ............... Moderate Positive ??81 Units or greater .......... Strong Positive Herzog/SLAG EXPANDER antibodies are frequently seen in patients with mixed connective tissue disease (MCTD) and are also associated with other systemic autoimmune rheumatic diseases (SARDs) such as systemic lupus erythematosus (SLE), systemic sclerosis, and myositis. Antibodies targeting the Herzog/SLAG EXPANDER antigenic complex also recognize Herzog antigens, therefore, the Herzog antibody response must be considered when interpreting these results. Performed By: [facility] [place] [address] Name Plate Stamper: Da Terrell MD, PhD Blood BLOOD SPECIMEN / Unknown Lab Venipuncture / Unknown 04/22/2022 12:55 PM CDT 04/22/2022 1:03 PM CDT Umang Alonzo MD LAB - CHEMISTRY JENIFFER KUMARI [facility] [place] ([facility]) [address] [place] [address], [facility] documented in this encounter Visit Diagnoses Diagnosis Sjogren's syndrome, with unspecified organ involvement (HCC)- Primary Sicca complex (HCC) Polyarthritis of hand Unspecified polyarthropathy or polyarthritis, hand Polyarthralgia Pain in joint, multiple sites documented in this encounter Care Teams Acid Retort Operator Relationship Specialty Start Date End Date Augusto Jiménez MD [address] [facility] [address] [place] [address] PCP - General 06/17/17 documented as of this encounter
--- OUTSIDE RECORDS SUMMARY | 2024-09-22 05:48 | XMS_ITS | Encounter Summary ---
Author Organization [facility] Address [address] [place] [address] Care Team Providers Care Signal Mechanic Name Role Phone Augusto Jiménez MD Primary Care Provider [phone] Encounter Details Date Type Department Care Team (Latest Contact Info) Description 09/23/2017 Hospital Outpatient Visit [facility] - Orthopedics [address] [facility] [place] [address] Karli Barrios PA-C [address] [place] [address] Discharge Disposition: Home or Self Care Social [...] on filedocumented in this encounter Care Teams Signal Mechanic Relationship Specialty Start Date End Date Augusto Jiménez MD [address] [facility] [address] [facility] [address] [place] [id number] PCP - General 06/17/17 documented as of this encounter
--- OUTSIDE RECORDS SUMMARY | 2024-09-22 05:48 | XMS_ITS | Patient Health Summary ---
Author Organization [facility] Address [address] [place] [address] Care Team Providers Care Nurse Rn Bsn Name Role Phone Augusto Jiménez MD Primary Care Provider [phone] Note from [facility],non-owned Affiliates and Associated Physician Practices is amultiple site organization consisting of ambulatory clinics and hospital sitesin [place], [place], [place] and [place]. This disclosure is being madepursuant to the Care Everywhere program and may not contain all information available regarding this patient. Last updated 18.[facility] Allergies * Adhesive Sensitivity(Rash) -Medium Criticality * [...] tablet by mouth every 12 hours * Whiting-3 Fatty Acids (Fish Oil) 1200 MG Take [...] complex (HCC), Polyarthritis of hand, Polyarthralgia * HERZOG/SCHOOL PSYCHOLOGICAL EXAMINER (TERRI) ANTIBODY IGG(Performed 04/22/2022) Performed for Sjogren's [...] SINGLE PATTERN (04/22/2022 12:55 PM CDT) Pathologist [facility] RAE Pattern Speckled( A) 04/24/2022 12:58 PM CDT [facility] [employer] ([facility]) RAE Titer 1:80(A) 04/24/2022 12:58 PM CDT [facility] ([facility]) Comment: Performed By: [facility] [employer] [address] [place] [address] Jig Bore Operator: Da Terrell MD, PhD Blood BLOOD SPECIMEN / Unknown Lab Venipuncture / Unknown 04/22/2022 12:55 PM CDT 04/22/2022 1:03 PM CDT Umang Alonzo MD LAB - CHEMISTRY JENIFFER KUMARI [facility]) [address] * RHEUMATOID FACTOR IGG/IGM/IGA AB (04/22/2022 12:55 PM CDT) Pathologist [facility] Rheumatoid Factor IgA by Jesus <5 <=6 Units 04/24/2022 9:13 PM CDT [facility]) Comment: INTERPRETIVE INFORMATION: Rheumatoid Factor, IgA by [...] <5 <=6 Units 04/24/2022 9:13 PM CDT [facility] ([facility]) Comment: INTERPRETIVE INFORMATION: Rheumatoid Factor, IgM by [...] <5 <=6 Units 04/24/2022 9:13 PM CDT [facility] ([facility]) Comment: INTERPRETIVE INFORMATION: Rheumatoid Factor, IgG by JESUS The presence of all three rheumatoid factor (RF) isotypes at abnormal levels has high specificity for a diagnosis of rheumatoid arthritis (RA). However, the presence of RF isotypes in any combination may be found in a variety of conditions, including Sjogren syndrome and hepatitis infections. Performed By: [facility] [address] [place] [address] Jig Bore Operator: Da Terrell MD, PhD Blood BLOOD SPECIMEN / Unknown Lab Venipuncture / Unknown 04/22/2022 12:55 PM CDT 04/22/2022 1:03 PM CDT Umang Alonzo MD LAB - SEROLOGY ORDER MAX [facility]) [address] [place] [address], [facility] * (ABNORMAL) RAE HEP-2 IGG BY IFA (04/22/2022 12:55 PM CDT) RAE HEp-2 IgG Detected (H) <1:80 04/24/2022 12:58 PM CDT [facility] ([facility]) RAE Interpretive Comment See Note 04/24/2022 12:58 PM CDT [facility] ([facility]) Comment: Speckled Pattern Clinical associations: SLE, SSc, SjS, DM, PM, MCTD, UCTD. May also be found in healthy individuals Main autoantibodies: Anti-SSA-52 (Ro52), anti-SSA-60 (Ro60), anti-SS-B/LA, anti-Alexei-1 (anti-Scl-70), Herzog, anti-U1-SCHOOL PSYCHOLOGICAL EXAMINER, anti-U2-SCHOOL PSYCHOLOGICAL EXAMINER, anti-Mi-2, anti-p155/140 (TIF1g), anti-Ku, anti-RNA polymerase, anti-DFS70/LEDGF-P75 [...] not necessarily rule out SARD. Performed By: [facility] [address] [place] [id number] Jig Bore Operator: Da Terrell MD, PhD Blood BLOOD SPECIMEN / Unknown Lab Venipuncture / Unknown 04/22/2022 12:55 PM CDT 04/22/2022 1:03 PM CDT Umang Alonzo MD LAB - SEROLOGY ORDER MAX [employer] ([facility]) [address] [place] [address], [facility] * (ABNORMAL) SS-A (SJOGREN'S) 52+60 ANTIBODIES (04/22/2022 12:55 PM CDT) SS-A 52 Antibody 2 0 - 40 AU/mL 04/24/2022 1:05 AM CDT [employer] ([facility]) Comment: INTERPRETIVE INFORMATION: SSA-52 (Ro52) (TERRI) Antibody, [...] - 40 AU/mL 04/24/2022 1:05 AM CDT [employer] ([facility]) Comment: REFERENCE INTERVAL: SSA-60 (Ro60) (TERRI) Antibody, IgG ??29 AU/mL or Less ............. Negative ??30 - 40 AU/mL ................ Equivocal ??41 AU/mL or Greater .......... Positive Performed By: [facility] [address] [place] [address] Jig Bore Operator: Da Terrell MD, PhD Blood BLOOD SPECIMEN / Unknown Lab Venipuncture / Unknown 04/22/2022 12:55 PM CDT 04/22/2022 1:03 PM CDT Umang Alonzo MD LAB - CHEMISTRY JENIFFER KUMARI [employer] ([facility]) [address] * HERZOG/SCHOOL PSYCHOLOGICAL EXAMINER (TERRI) ANTIBODY IGG (04/22/2022 12:55 PM CDT) Herzog/SCHOOL PSYCHOLOGICAL EXAMINER (TERRI) Antibody IgG 9 0 - 19 Units 04/23/2022 2:23 PM CDT [facility] ([facility]) Comment: INTERPRETIVE INFORMATION: Herzog/SCHOOL PSYCHOLOGICAL EXAMINER (TERRI) Antibody, IgG ??19 Units or Less ............. Negative ??20 to 39 Units ............... Weak Positive ??40 to 80 Units ............... Moderate Positive ??81 Units or greater .......... Strong Positive Herzog/SCHOOL PSYCHOLOGICAL EXAMINER antibodies are frequently seen in patients with mixed connective tissue disease (MCTD) and are also associated with other systemic autoimmune rheumatic diseases (SARDs) such as systemic lupus erythematosus (SLE), systemic sclerosis, and myositis. Antibodies targeting the Herzog/SCHOOL PSYCHOLOGICAL EXAMINER antigenic complex also recognize Herzog antigens, therefore, the Herzog antibody response must be considered when interpreting these results. Performed By: [facility] [employer] [address] [place] [address] Jig Bore Operator: Da Terrell MD, PhD Blood BLOOD SPECIMEN / Unknown Lab Venipuncture / Unknown 04/22/2022 12:55 PM CDT 04/22/2022 1:03 PM CDT Umang Alonzo MD LAB - CHEMISTRY JENIFFER KUMARI [facility]) [address] * CHROMATIN ANTIBODY (04/22/2022 12:55 PM CDT) Chromatin Antibody 5 0 - 19 Units 04/24/2022 2:01 PM CDT [facility] ([facility]) Comment: INTERPRETIVE INFORMATION: Chromatin Antibody, IgG ??19 Units or less: Negative ??20 - 60 Units: Moderate Positive ??61 Units or greater: Strong Positive The presence of anti-chromatin antibodies may be useful in the diagnosis of systemic lupus erythematosus (SLE) or drug-induced lupus (DIL) and have been reported to be predictive of lupus nephritis, especially when antibody levels are high. Performed By: [facility] [employer] [address] [place] [address] Jig Bore Operator: Da Terrell MD, PhD Blood BLOOD SPECIMEN / Unknown Lab Venipuncture / Unknown 04/22/2022 12:55 PM CDT 04/22/2022 1:03 PM CDT Umang Alonzo MD LAB - SEROLOGY ORDER MAX [facility] ([facility]) [address] [place], [place] [address] * TSH REFLEX FREE T4 (04/22/2022 12:55 PM CDT) Pathologist [facility] TSH 3.027 0.350 - 4.940 uIU/mL 04/22/2022 1:53 PM CDT [facility] Blood BLOOD SPECIMEN / Unknown Lab Venipuncture / Unknown 04/22/2022 12:55 PM CDT 04/22/2022 1:05 PM CDT Umang Alonzo MD LAB - CHEMISTRY ORDE KENYETTA [address] [address], [facility] [phone] * (ABNORMAL) URINALYSIS W/MICROSCOPIC REFLEX TO CULTURE (04/22/2022 12:55 PM CDT) Color UA Yellow Straw, Yellow 04/22/2022 1:13 PM CDT [facility] Clarity UA Slt Cloudy(A) Clear 04/22/2022 1:13 PM CDT [facility] Specific Purlear UA 1.019 1.005 - 1.030 04/22/2022 1:13 PM CDT [facility] pH UA 5.0 5.0 - 8.0 pH 04/22/2022 1:13 PM CDT [facility] Protein UA Negative Negative 04/22/2022 1:13 PM CDT [facility] Glucose UA Negative Negative 04/22/2022 1:13 PM CDT [facility] Ketone UA Negative Negative 04/22/2022 1:13 PM [facility] Bilirubin UA Negative Negative 04/22/2022 1:13 PM [facility] Blood UA Negative Negative 04/22/2022 1:13 PM [facility] Nitrite UA Negative Negative 04/22/2022 1:13 PM [facility] Leukocyte Esterase Negative Negative 04/22/2022 1:13 PM [facility] Urobilinogen UA Negative Negative mg/dL 04/22/2022 1:13 PM [facility] RBC UA 0-2 None Seen, 0-2, 3-5 /HPF 04/22/2022 1:13 PM [facility] WBC UA 0-5 None Seen, 0-5 /HPF 04/22/2022 1:13 PM [facility] Bacteria UA Trace(A) None /HPF 04/22/2022 1:13 PM [facility] Squamous Epithelial Cells UA 3-5 None Seen, 0-2, 3-5 /HPF 04/22/2022 1:13 PM [facility] Mucus UA 1+ /LPF 04/22/2022 1:13 PM [facility] Urine URINE SPECIMEN OBTAINED BY CLEAN CATCH PROCEDURE / Unknown Collection / Unknown 04/22/2022 12:55 PM CDT 04/22/2022 1:03 PM CDT Narrative [facility] - 04/22/2022 1:13 PM CDT Culture Not Indicated Umang Alonzo MD LAB - URINALYSIS ORD ERABLES [address] [address], [facility] [phone] * PROTEIN ELECTROPHORESIS URINE RANDOM (04/22/2022 12:55 PM CDT) Interpretation Urine PE See Comment Normal Pattern 04/28/2022 6:06 PM [facility] Comment: Urine protein electrophoresis shows a band corresponding to albumin. No monoclonal immunoglobulins detected. Jacquie Cade MD Protein Urine <7 Not Established mg/dL 04/28/2022 6:06 PM CDT [facility] Urine URINE SPECIMEN OBTAINED BY CLEAN CATCH PROCEDURE / Unknown Collection / Unknown 04/22/2022 12:55 PM CDT 04/22/2022 1:03 PM CDT Umang Alonzo MD LAB - URINE CHEMISTR Y ORDERABLES Performing Organization Address City/[facility]/ZIP Co de Phone Number [phone] [place] [address], [facility] [phone] * HERZOG (SM) ANTIBODY TERRI (04/22/2022 12:55 PM CDT) Herzog (TERRI) Antibody 1 0 - 40 AU/mL 04/23/2022 5:07 PM CDT [facility] ([facility]) Comment: INTERPRETIVE INFORMATION: Herzog (TERRI) Antibody, IgG ??29 AU/mL or Less ............. Negative ??30 - 40 AU/mL ................ Equivocal ??41 AU/mL or Greater .......... Positive Herzog antibody is highly specific (greater than 90 percent) for systemic lupus erythematosus (SLE) but only occurs in 30-35 percent of SLE cases. The presence of antibodies to Herzog has variable associations with SLE clinical manifestations. Performed By: [facility] [address] [place] [address] Jig Bore Operator: Da Terrell MD, PhD Blood BLOOD SPECIMEN / Unknown Lab Venipuncture / Unknown 04/22/2022 12:55 PM CDT 04/22/2022 1:03 PM CDT Umang Alonzo MD LAB - CHEMISTRY ORDE RABLES Performing Organization Address City/[facility]/ZIP Co de Phone Number [employer] [facility]) [address] * (ABNORMAL) RAE BLOOD SCREEN W/REFLEX TITER (04/22/2022 12:55 PM CDT) RAE IgG Detected (A) None Detected 04/23/2022 3:15 PM CDT [facility] ([facility]) Comment: Antibodies to Anti-Nuclear Antibodies (RAE) detected. [...] dsDNA, histones, SS-A (Ro), SS-B (La), Herzog, Herzog/SCHOOL PSYCHOLOGICAL EXAMINER, Scl-70, Chrissy-1, centromeric proteins, other antigens extracted from the HEp-2 cell nucleus. RAE JESUS assays have been reported to have lower sensitivities than RAE IFA for systemic autoimmune rheumatic diseases (SARD). Negative results do not necessarily rule out SARD. Performed By: [place] [address] Jig Bore Operator: Da Terrell MD, PhD Blood BLOOD SPECIMEN / Unknown Lab Venipuncture / Unknown 04/22/2022 12:55 PM CDT 04/22/2022 1:03 PM CDT Umang Alonzo MD LAB - CHEMISTRY JENIFFER KUMARI Performing Organization Address City/[facility]/ZIP Co de Phone Number [address] * CRYOGLOBULIN QUALITATIVE (04/22/2022 12:55 PM CDT) Pathologist [facility] Cryoglobulin Qualitative Negative Negative 04/25/2022 8:07 AM CDT [facility] Blood BLOOD SPECIMEN / Unknown Lab Venipuncture / Unknown 04/22/2022 12:55 PM CDT 04/22/2022 12:59 PM CDT Umang Alonzo MD LAB - CHEMISTRY JEINFFER KUMARI Performing Organization Address City/[facility]/ZIP Co de Phone Number [address] [address], [place] [phone] * CENTROMERE ANTIBODY (04/22/2022 12:55 PM CDT) Pathologist [facility] Centromere Antibody 1 0 - 40 AU/mL 04/23/2022 5:07 PM CDT [facility] [employer] ([facility]) Comment: INTERPRETIVE INFORMATION: Centromere Ab, IgG ??29 [...] other antibodies associated with SSc, including Scl-70, U3-SCHOOL PSYCHOLOGICAL EXAMINER, PM/Scl, or Th/To. Performed By: [facility] [address] [place] [address] Jig Bore Operator: Da Terrell MD, PhD Blood BLOOD SPECIMEN / Unknown Lab Venipuncture / Unknown 04/22/2022 12:55 PM CDT 04/22/2022 1:03 PM CDT Umang Alonzo MD LAB - CHEMISTRY JENIFFER KUMARI [facility] [employer] [facility]) [address] * (ABNORMAL) SS-B (SJOGREN'S) ANTIBODY (04/22/2022 12:55 PM CDT) SS-B Antibody 50(H) 0 - 40 AU/mL 04/23/2022 5:07 PM CDT [facility] [employer] ([facility]) Comment: INTERPRETIVE INFORMATION: SSB (La) (TERRI) Ab, [...] (PSS) also have this antibody. Performed By: [facility] [address] [place] [address] Jig Bore Operator: Da Terrell MD, PhD Blood BLOOD SPECIMEN / Unknown Lab Venipuncture / Unknown 04/22/2022 12:55 PM CDT 04/22/2022 1:03 PM CDT Umang Alonzo MD LAB - CHEMISTRY JENIFFER KUMARI [facility] [employer] ([facility]) [address] [place] [address] * SCLERODERMA 70 (SCL) ANTIBODY (04/22/2022 12:55 PM CDT) Pathologist [facility] SCL-70 Antibody 0 0 - 40 AU/mL 04/23/2022 5:07 PM CDT [facility] [employer] ([facility]) Comment: INTERPRETIVE INFORMATION: Scleroderma (Scl-70) (TERRI) Ab, [...] testing for centromere, RNA polymerase III and U3-SCHOOL PSYCHOLOGICAL EXAMINER, PM/Scl, or Th/To antibodies. Performed By: [facility] [address] [place] [address] Jig Bore Operator: Da Terrell MD, PhD Blood BLOOD SPECIMEN / Unknown Lab Venipuncture / Unknown 04/22/2022 12:55 PM CDT 04/22/2022 1:04 PM CDT Umang Alonzo MD LAB - CHEMISTRY JENIFFER KUMARI [facility] Organization Address City/State/ZIP Co de Phone Number [employer] ([facility]) [address] [place] [address] * DNA ANTIBODY DOUBLE STRANDED (04/22/2022 12:55 PM CDT) dsDNA Antibody 4 0 - 24 IU 04/23/2022 3:06 PM CDT [facility] ([facility]) Comment: INTERPRETIVE INFORMATION: Double-Stranded DNA (dsDNA) Ab IgG JESUS ??24 IU or less........Negative ??25-30 IU.............Borderline Positive ??30-60 IU.............Low Positive ??60-200 IU............Positive ??201 IU or greater....Strong Positive Positivity for anti-double stranded DNA (anti-dsDNA) IgG antibody is a diagnostic criterion of systemic lupus erythematosus (SLE). Specimens are initially screened by enzyme-linked immunosorbent assay (JESUS). If ordered as reflex ([id number]), positive JESUS results (>24 IU) will be [...] recommendations for testing may be found at https://[employer].Ulmart/content/qiixsido-hmeiz-tbhpzuhdcfyxt. Performed By: [facility] [address] [place] [address] Jig Bore Operator: Da Terrell MD, PhD Blood BLOOD SPECIMEN / Unknown Lab Venipuncture / Unknown 04/22/2022 12:55 PM CDT 04/22/2022 1:03 PM CDT Umang Alonzo MD LAB - HEMATOLOGY ORD ERABLES [facility]) [address] [place] [address] * CHRISSY-1 ANTIBODY (04/22/2022 12:55 PM CDT) Pathologist [facility] Chrissy-1 Antibody IgG 0 0 - 40 AU/mL 04/24/2022 1:05 AM CDT [facility] [employer] ([facility]) Comment: INTERPRETIVE INFORMATION: ??Chrissy-1 Antibody, IgG ??29 AU/mL or less.........Negative ??30-40 AU/mL..............Equivocal ??41 AU/mL or greater......Positive Presence of Chrissy-1 (antihistidyl transfer RNA [t-RNA] synthetase) antibody is associated with polymyositis and may also be seen in patients with dermatomyositis. Chrissy-1 antibody is associated with pulmonary involvement (interstitial lung disease), Raynaud phenomenon, arthritis, and telecommunications line mechanic's hands (implicated in antisynthetase syndrome). Performed By: [facility] [address] [place] [address] Jig Bore Operator: Da Terrell MD, PhD Blood BLOOD SPECIMEN / Unknown Lab Venipuncture / Unknown 04/22/2022 12:55 PM CDT 04/22/2022 1:03 PM CDT Umang Alonzo MD LAB - CHEMISTRY JENIFFER KUMARI [facility] [employer] [facility]) [address] * CYCLIC CITRULLINATED PEPTIDE(CCP) AB IGG (04/22/2022 12:55 PM CDT) [facility] CCP Antibody IgG 0.6 <5.0 U/mL 04/22/2022 2:04 PM CDT [facility] Blood BLOOD SPECIMEN / Unknown Lab Venipuncture / Unknown 04/22/2022 12:55 PM CDT 04/22/2022 1:03 PM CDT Umang Alonzo MD LAB - CHEMISTRY JENIFFER KUMARI [facility] [address] [id number], [facility] [phone] * KAPPA/LAMBDA LITE CHAIN FREE PANEL (04/22/2022 12:55 PM CDT) [facility] [place] Quant Free Light Chain 17.51 3.30 - 19.40 mg/L 04/23/2022 12:00 PM CDT [facility] ([facility]) Comment: INTERPRETIVE INFORMATION: [place] Qnt Free Light Chains Undetected antigen excess is a rare event but cannot be excluded. Free light chain results should always be interpreted in conjunction with other clinical and laboratory findings. Lambda Free Light Chain Quantitative 13.81 5.71 - 26.30 mg/L 04/23/2022 12:00 PM CDT [facility] ([facility]) Comment: INTERPRETIVE INFORMATION: Lambda Qnt Free Light Chains Undetected antigen excess is a rare event but cannot be excluded. Free light chain results should always be interpreted in conjunction with other clinical and laboratory findings. [place]/Lambda Free Light Chain ratio 1.27 0.26 - 1.65 04/23/2022 12:00 PM CDT [facility] ([facility]) Comment: Performed By: [facility] [address] [place] [address] Jig Bore Operator: Da Terrell MD, PhD Blood BLOOD SPECIMEN / Unknown Lab Venipuncture / Unknown 04/22/2022 12:55 PM CDT 04/22/2022 1:03 PM CDT Umang Alonzo MD LAB - CHEMISTRY JENIFFER KUMARI [facility] ([facility]) [address] [place] [address], [facility] * CBC WITH DIFFERENTIAL (04/22/2022 12:55 PM CDT) WBC 7.9 3.5 - 10.5 10? 3 /uL 04/22/2022 1:12 PM CDT [facility] RBC 4.66 3.80 - 5.20 10? 6 /uL 04/22/2022 1:12 PM [facility] Hemoglobin 13.0 12.0 - 15.6 g/dL 04/22/2022 1:12 PM [facility] Hematocrit 41.2 35.0 - 45.0 % 04/22/2022 1:12 PM [facility] MCV 88.4 80.7 - 98.3 fL 04/22/2022 1:12 PM [facility] MCH 27.9 26.7 - 34.0 pg 04/22/2022 1:12 PM [facility] MCHC 31.6 30.8 - 35.9 g/dL 04/22/2022 1:12 PM [facility] Platelet Count 317 150 - 400 10? 3 /uL 04/22/2022 1:12 PM [facility] RDW-SD 43.9 36.0 - 50.0 fL 04/22/2022 1:12 PM [facility] RDW-CV 13.5 11.2 - 14.8 % 04/22/2022 1:12 PM [facility] MPV 10.1 9.4 - 12.9 fL 04/22/2022 1:12 PM [facility] nRBC Absolute 0.00 0 10? 3 /uL 04/22/2022 1:12 PM [facility] nRBC Auto 0.0 0 /100 WBC 04/22/2022 1:12 PM [facility] Neutrophils % 54.8 35.0 - 70.0 % 04/22/2022 1:12 PM [facility] Lymphocytes % 35.4 20.0 - 43.0 % 04/22/2022 1:12 PM [facility] Monocytes % 7.6 5.0 - 13.0 % 04/22/2022 1:12 PM [facility] Eosinophils % 1.5 0.0 - 6.0 % 04/22/2022 1:12 PM [facility] Basophil % 0.4 0.0 - 2.0 % 04/22/2022 1:12 PM [facility] Neutrophils Absolute 4.30 1.60 - 7.00 10? 3 /uL 04/22/2022 1:12 PM [facility] Lymphocyte Absolute 2.78 1.10 - 3.90 10? 3 /uL 04/22/2022 1:12 PM [facility] Monocytes Absolute 0.60 0.26 - 1.07 10? 3 /uL 04/22/2022 1:12 PM [facility] Eosinophils Absolute 0.12 0.00 - 0.47 10? 3 /uL 04/22/2022 1:12 PM [facility] Basophils Absolute 0.03 0.00 - 0.08 10? 3 /uL 04/22/2022 1:12 PM [facility] Immature Granulocytes % 0.3 0.0 - 1.0 % 04/22/2022 1:12 PM [facility] Immature Granulocytes Absolute 0.02 04/22/2022 1:12 PM [facility] Blood BLOOD SPECIMEN / Unknown Lab Venipuncture / Unknown 04/22/2022 12:55 PM CDT 04/22/2022 1:06 PM CDT Umang Alonzo MD LAB - HEMATOLOGY ORD ERABLES [address] [address], [facility] [phone] * COMPLEMENT C4 (04/22/2022 12:55 PM CDT) Complement C4 33 15 - 57 mg/dL 04/22/2022 1:36 PM [facility] Blood BLOOD SPECIMEN / Unknown Lab Venipuncture / Unknown 04/22/2022 12:55 PM CDT 04/22/2022 1:05 PM CDT Umang Alonzo MD LAB - SEROLOGY ORDER MAX [facility] [address] [place] [address], [facility] [phone] * (ABNORMAL) COMPREHENSIVE METABOLIC PANEL (04/22/2022 12:55 PM CDT) BUN 12 7 - 26 mg/dL 04/22/2022 1:36 PM [facility] Creatinine 0.89 0.56 - 0.96 mg/dL 04/22/2022 1:36 PM [facility] Sodium 143 136 - 145 mmol/L 04/22/2022 1:36 PM [facility] Potassium 3.7 3.5 - 4.5 mmol/L 04/22/2022 1:36 PM [facility] Chloride 103 98 - 107 mmol/L 04/22/2022 1:36 PM [facility] CO2 28 22 - 29 mmol/L 04/22/2022 1:36 PM [facility] Glucose 96 70 - 115 mg/dL 04/22/2022 1:36 PM [facility] Calcium 9.9 8.4 - 10.2 mg/dL 04/22/2022 1:36 PM [facility] Protein Total 7.8 6.0 - 8.3 g/dL 04/22/2022 1:36 PM [facility] Albumin 4.2 3.4 - 5.0 g/dL 04/22/2022 1:36 PM [facility] Bilirubin Total 0.3 0.2 - 1.2 mg/dL 04/22/2022 1:36 PM [facility] Alkaline Phosphatase 91 40 - 150 U/L 04/22/2022 1:36 PM [facility] ALT 30 5 - 55 U/L 04/22/2022 1:36 PM [facility] AST 16 5 - 34 U/L 04/22/2022 1:36 PM [facility] Anion Gap 16 8 - 18 04/22/2022 1:36 PM [facility] BUN/Creatinine Ratio 13 7 - 23 04/22/2022 1:36 PM [facility] Osmolality Calculated 296 270 - 300 mOsm/kg 04/22/2022 1:36 PM [facility] Albumin/Globulin Ratio 1.2 1.1 - 2.3 04/22/2022 1:36 PM [facility] eGFR by CKD-EPI 78(L) >=90 mL/min/1.7 3 m2 04/22/2022 1:36 PM [facility] Blood BLOOD SPECIMEN / Unknown Lab Venipuncture / Unknown 04/22/2022 12:55 PM CDT 04/22/2022 1:05 PM CDT Umang Alonzo MD LAB - CHEMISTRY ORDE RABLES Performing Organization Address City/[facility]/ZIP Co de Phone Number [address] [address], [place] [phone] * PROTEIN CREATININE RATIO URINE RANDOM PNL (04/22/2022 12:55 PM CDT) Protein Urine <7 Not Established mg/dL 04/22/2022 1:42 PM [facility] Creatinine Urine 160 Not Established mg/dL 04/22/2022 1:42 PM [facility] Protein/Creatinin e Ratio Urine 04/22/2022 1:42 PM [facility] Comment:Unable to calculate ratio because the analyte concentration is outside the instrument measuring range. Urine URINE SPECIMEN OBTAINED BY CLEAN CATCH PROCEDURE / Unknown Collection / Unknown 04/22/2022 12:55 PM CDT 04/22/2022 1:03 PM CDT Umang Alonzo MD LAB - URINE CHEMISTR Y ORDERABLES Performing Organization Address City/[facility]/ZIP Co de Phone Number [address] [phone], [place] [phone] * PROTEIN ELECTROPHORESIS BLOOD (04/22/2022 12:55 PM CDT) Interpretation Serum PE Normal Pattern Normal Pattern 04/28/2022 6:06 PM CDT [facility] Comment: Serum capillary electrophoresis shows characteristic [...] - 8.3 g/dL 04/28/2022 6:06 PM CDT [facility] Albumin 4.4 3.3 - 5.6 g/dL 04/28/2022 6:06 PM CDT [facility] Alpha-1 Globulins 0.4 0.2 - 0.4 g/dL 04/28/2022 6:06 PM CDT [facility] Alpha-2 Globulins 0.8 0.5 - 1.0 g/dL 04/28/2022 6:06 PM CDT [facility] Beta Globulins 1.0 0.6 - 1.1 g/dL 04/28/2022 6:06 PM CDT [facility] Gamma Globulins 1.1 0.6 - 1.6 g/dL 04/28/2022 6:06 PM CDT [facility] Blood BLOOD SPECIMEN / Unknown Lab Venipuncture / Unknown 04/22/2022 12:55 PM CDT 04/22/2022 1:03 PM CDT Umang Alonzo MD LAB - CHEMISTRY JENIFFER KUMARI [facility] Organization Address City/State/ZIP Co de Phone Number [address] [address], [facility] [phone] * COMPLEMENT C3 (04/22/2022 12:55 PM CDT) Complement C3 156 82 - 193 mg/dL 04/22/2022 1:36 PM CDT [facility] Blood BLOOD SPECIMEN / Unknown Lab Venipuncture / Unknown 04/22/2022 12:55 PM CDT 04/22/2022 1:05 PM CDT Umang Alonzo MD LAB - CHEMISTRY JENIFFER Vo Organization Address City/State/ZIP Co de Phone Number [facility] [address] [place] [address], [facility] [phone] * XR FOOT RIGHT 3VW OR MORE [...] OF EXAM: 04/22/2022 12:31 PM, LOCATION [place] [place] INDICATION: M35.00: Sjogren's syndrome, with unspecified organ [...] HAND LEFT 3VW OR MORE, XR FOOT [id number] OR MORE, XR FOOT LEFT 3VW OR MORE, XR WRIST LEFT 2VW, DATE/TIME OF EXAM: 04/22/2022 12:31 PM, LOCATION [facility] [place] INDICATION: M35.00: Sjogren's syndrome, with unspecified organ [...] OF EXAM: 04/22/2022 12:31 PM, LOCATION ??[facility] [place] INDICATION: M35.00: Sjogren's syndrome, with unspecified organ [...] HAND LEFT 3VW OR MORE, XR FOOT [id number] OR MORE, XR FOOT LEFT 3VW OR MORE, XR WRIST LEFT 2VW, DATE/TIME OF EXAM: 04/22/2022 12:31 PM, LOCATION [facility] [place] INDICATION: M35.00: Sjogren's syndrome, with unspecified organ [...] OF EXAM: ??04/22/2022 12:31 PM, LOCATION ??[facility] [place] INDICATION: M35.00: Sjogren's syndrome, with unspecified organ [...] MORE, DATE/TIME OF EXAM: 2:31 PM, LOCATION [facility] [place] INDICATION: M35.00: Sjogren's syndrome, with unspecified organ [...] OF EXAM: 04/22/2022 12:31 PM, LOCATION [place] [place] INDICATION: M35.00: Sjogren's syndrome, with unspecified organ [...] HAND LEFT 3VW OR MORE, XR FOOT [id number] OR MORE, XR FOOT LEFT 3VW OR MORE, XR WRIST LEFT 2VW, DATE/TIME OF EXAM: 04/22/2022 12:31 PM, LOCATION [facility] [place] INDICATION: M35.00: Sjogren's syndrome, with unspecified organ [...] OF EXAM: 04/22/2022 12:31 PM, LOCATION ??[facility] [place] INDICATION: M35.00: Sjogren's syndrome, with unspecified organ [...] HAND LEFT 3VW OR MORE, XR FOOT [id number] OR MORE, XR FOOT LEFT 3VW OR MORE, XR WRIST LEFT 2VW, DATE/TIME OF EXAM: 04/22/2022 12:31 PM, LOCATION [facility] [place] INDICATION: M35.00: Sjogren's syndrome, with unspecified organ [...] OF EXAM: 04/22/2022 12:31 PM, LOCATION ??[facility] [place] INDICATION: M35.00: Sjogren's syndrome, with unspecified organ [...] HAND LEFT 3VW OR MORE, XR FOOT [id number] OR MORE, XR FOOT LEFT 3VW OR MORE, XR WRIST LEFT 2VW, DATE/TIME OF EXAM: 04/22/2022 12:31 PM, LOCATION [facility] [place] INDICATION: M35.00: Sjogren's syndrome, with unspecified organ [...] osteoarthritis. Dictated by Kendell Rasmussen MD (residential carpet installer). I, Dr. CONSUELO GAMBOA M.D. have personally [...] osteoarthritis. Dictated by Kendell Rasmussen MD (residential carpet installer). Dr. CONSUELO Mckeon M.D. have personally reviewed [...] osteoarthritis. Dictated by Kendell Rasmussen MD (residential carpet installer). Dr. CONSUELO Mckeon M.D. have personally reviewed [...] osteoarthritis. Dictated by Kendell Rasmussen MD (residential carpet installer). Dr. CONSUELO Mckeon M.D. have personally reviewed [...] osteoarthritis. Dictated by Kendell Rasmussen MD (residential carpet installer). Dr. CONSUELO Mckeon M.D. have personally reviewed [...] osteoarthritis. Dictated by Kendell Rasmussen MD (residential carpet installer). I, Dr. CONSUELO GAMBOA M.D. have personally reviewed and interpreted thisexamination/study. This report was electronically signed by CONSUELO GAMBOA M.D. on 06/17/20171:33 PM . Karli Barrios PA-C DIAGNOSTIC IMAG ING ORDERABLES Care Teams Nurse Rn Bsn Relationship Specialty Start Date End Date Augusto Jiménez MD [address] [facility] [address] [place] [id number] PCP - General 06/17/17
--- OUTSIDE RECORDS SUMMARY | 2024-09-22 05:48 | XMS_ITS | Encounter Summary ---
Author Organization [facility] Address [address] [place] [address] Care Team Providers Care Assistant Bookkeeper Name Role Phone Augusto Jiménez MD Primary Care Provider [phone] Reason for Visit * Consult, Test & Treat (Routine) - Closed Specialty Diagnoses / Procedures Referred By Contac t Referred To Contact Neurological Surgery Diagnoses Chronic bilateral low back pain with sciatica Spinal stenosis Augusto Jiménez MD [address] [place] [address] Silverio Singleton MD [address] [place] [address] [address] [place] [address] Referral ID Status Reason Start Date Expiration Date Visits Re quested Visits Authorized [id number] Closed 06/12/2022 06/12/2023 1 1 Encounter Details Date Type Department Care Team (Latest Contact Info) Description 06/20/2022 2:00 PM CDT Office Visit [facility] [address] [place] [address], [place] [address] Jyoti Quinonez, HAND SIGN WRITER-INFORMATION DELIVERY ANALYST [address] [place] [address] [address] [place] [address] Lumbar radiculopathy (Primary Dx); Chronic SI joint [...] pain management -can go anywhere you choose -[facility] or [facility] Follow up with Dr. Ledezma if you fail conservative management For any questions call Leslieo at [phone] documented in this encounter Progress Notes * [...] has had improvement in the past with animal care technician. Patient completed 6-8 weeks of physical therapy, which only provided temporary relief. She has never had injections or seen a paint roller winder for her pain. PMH: Past Medical History: [...] ??? Multiple Vitamins-Minerals (MULTIVITAMIN ADULTS PO) ??? [place]-3 Fatty Acids (Fish Oil) 1200 MG ??? [...] place for ligament injury Deltoid Bicep Tricep Agile Developer Wrist Ext Finger ext Hip Flexor Quad [...] sacrum documented in this encounter Care Teams Assistant Bookkeeper Relationship Specialty Start Date End Date Augusto Jiménez MD [address] [facility] [address] [facility] [address] [place] [id number] PCP - General 06/17/17 documented as of this encounter
--- OUTSIDE RECORDS SUMMARY | 2024-09-22 05:48 | XMS_ITS | Encounter Summary ---
Author Organization [facility] Address [address] [place] [address] Care Team Providers Care Station Examiner Name Role Phone Augusto Jiménez MD Primary Care Provider [phone] Encounter Details Date Type Department Care Team (Late st Contact Info) Description 04/22/2022 11:20 AM CDT Office Visit [facility] [address] [place] [address], [place] [address] Umang Alonzo MD [address] [place] [address] Sjogren's syndrome, with unspecified organ involvement [...] Chief Concern: Sjogren's Assessment & Recommendations Jennifer Quarles ( Jennifer ) is a 51 year [...] reached by leaving a message through the [facility] rheumatology line at [phone](option 3). Additional contributions to medical decision making [...] Division of Rheumatology Department of Internal Medicine [facility] Encounter Diagnoses, Orders, and Future [...] ANTIBODY DOUBLE STRANDED ??? CHRISSY-1 ANTIBODY ??? PLANT SECURITY GUARD ANTIBODY ??? SCLERODERMA 70 (SCL) ANTIBODY ??? [...] Time Provider Department Center 04/22/2022 12:15 PM [facility] X[facility] 06/06/2022 3:00 PM Umang Alonzo MD [...] by mouth once daily, Disp: ,Rfl: ??? [place]-3 Fatty Acids (Fish Oil) 1200 MG, Take [...] WBC, HGB, MCV, PLTCOUNT in the last 04859 hours. No results found for: NEUTABS, LYMPHS, MONO, EOS, BASO, GRANIMMABS Metabolic Profile No results for input(s): NA, POTASSIUM, CL, CO2, BUN, CREATININE, GLUCOSE, CALCIUM, ANIONGAP, EGFR,AST, ALT, ALKPHOS, PROT, ALB, TBILI in the last 16641 hours. No results found for: MG, PHOS, DBIL UA & UPC No results found for: SPECGRAVUA, PHUA, PROTEINUA, BLOODUA, LEUKOCYTEUA, NITRITEUA, GLUCOSEUA, KETONEUA, BILIRUBINUA, UROBILINUA, REFLXSTAT, URMIC, SQUAMOUS, TRANSEPIUA, RBCUA, WBCUA, BACTUA, EOSINU No results found for: PROTEINTO, CREATININEUR, JQBODXBKD2VS No results for input(s): HCGURINE, HCGQUANT in the last 59829 hours. Latent Infections No results found for: HEPBSAG, HBVSAB, HEPBSAB, HEPBCAB, HEPCAB No results found for: QUANTIFER, QNTTBGOLD, QNTPLUSTB1, QNTPLUSTB2, QNTMITOGEN, QUANTIFERO, QUANTIFECI, QUANTIF, QUANNIL, QUAMIT, QFTTBAGN, JINWNUJCH32, AFBSMR Immunology Labs Inflammatory Markers No results for input(s): ESR, SEDRATE, CRP in the last 64338 hours. RA-related Auto-Ab's No results found for: RF, RA, RAQNT, CCPIGG, CCPIGGIGA RAE-related No results found for: ANATITER, ANAPATTERN, ANTINUCLE, ANAIGG, DSDNAABIU, ANTIDNADSABQ, DSDNAIGGAB,SMITHANTI, ANTICHRO, CHROMATINAB, SSAANTIBO, SSBANTIBO, SMRNPANTI, SMITHRNPAB, SCL70, ANTICENTROB, EM5INRQP, PYFQC210MD, NNFWDCO8KT, HISTONEIGG No results for input(s): C3, C4 in the last 48126 hours. APLS-related Auto-Ab's No results found for: U7MLYTHIKS, O1MTBISKIQ, O8AMMDZQLJ, BBTO3EAQ, NIBS5TIP, CRDLPNIGM, CRDLPNIGG,CRDLPNIGA, DILUTEPT, DPTCFMRATIO, TT, PTTLA, DRVVTBASE, LABINTE Myopathy No results found for: CK, ALDOLASE, SAE1AB, NXP2AB, MDA5AB, JVV0DBA, MYOINTERP, MI2AB, K638595, PL12AB, PL7AB, OJAB, EJAB, SRPAB, CK3VFKSW, KUAB, SMITHRNPAB, PIMHB160OU, PKE33KK, ZPF52AN, IQQZMEOM4PJD, ACHBLOCKAB, ACHBINDAB Vasculitis and ANCAs No results found for: NEUTCYTOAB, ANTIPROT3, ANTIMPO, F7MNXOF Genetics No results found for: HLAB27 Gammopathy/Paraproteinemia No results found for: KAPPAFREE, LAMBDAFREE, KLFREERATIO, IGM, IGG, IGA No results found for: SPEINTERP, SERUMPEALB, SERUMPEA1, SERUMPEA2, SERUMPEBE, SERUMPEGA, PROT, LABIMMURE, CRYOGLOBQUAL Other Labs Endocrine & Metabolic No results for input(s): URICACID, HGBA1C, TSH, T4FREE in the last 65846 hours. No results found for: YSCN04UO Heme No results found for: RETICCTPCT, RETICULOCYTE, IRON, FERRITIN, TRANSFERRIN, TRANSFERRSAT, TIBC, FIBRINOGEN, DDIMER, VITB12, FOLATE, HAPTOGLOBIN, LDHTOTAL No results for input(s): PT, INR, PTT in the last 98229 hours. Renal No results found for: CALCIUMION, PHBLD, IONCAART, MAGNESIUM, PHOS, SODIUMRAN, POTASSIUMUR, CHLORIDER Cardiac & Lipids No results for input(s): TROPONINI, CKMB, BNP in the last 71779 hours. No results for input(s): CHOL, TRIG, HDL, LDLCALC, LDLDIRECT in the last 16584 hours. Respiratory No results found for: SARSCOV2, RINFLUANAA, RINFLUBNAA, INFLUARAPID, INFLUBRAPID, INFLUCNTRL, STREPARAPID, STREPAQC Hepatobiliary & GI No results found for: GGT, LIPASE, C7MPFDHWSGIS, CMVPCR, CMVSOURCE, GDHANTIGEN, CDIFFTOXINAB, CDIFFINTRP, GLIADINIGG, GLIADINIGA, ENDOMYSIA, TTRANIGA, TTRANIGG Drug Screen No results found for: THCUR, PCPUR, COCAINEUR, METHAMPHETUR, OPIATESUR, AMPHETUR, BENZODIAZUR, TCAUR, METHADONEUR, BARBITURATUR, OXYCODONEUR, PROPOXYUR Synovial Fluid No results found for: COLORFL, CLARITYFLUID, BFVOLUME, VISCOSITY, WBCFLUID, RBCFL, CRYSTALEXAM, DIFF, BFBAND, BFSEGS, BFLYMPH, BFMONO, BFEOS, BFMACRO, PATHDIFFRVW Neuro/CSF No results found for: GLUCSF, PROTEINCSF, RHI7PFTTBQ, WDT3PYHGRJ, AQQQ6XJM, COCCIDIGG, FCG7FIJ, CRYPTOAGCSF, ENTEROVIRPCR, OLIGOBAND, OLIGOBANDNUM, IGG, DKZ4XHJ, ALBUMINMS, TSTSXJL0WKM, ALBUMININDEX,IGGINDEX, IGGALBRATIO, SYNTHESRTE, OLIGOCINTRP, TOXOPLASIGG, CYSTICERO Body Fluid No results found for: LABLD, GROSSDESCRIP, MICROPDESCR STIs (HIV, GC, Trich, Syphilis) No results found for: HIV12, BFW6DUEAIN, KEM8ABI37LMO, CHLAMDIA, CHLTRNAA, GC, NGONORRNAA, TRICVAGAP, TRICHVAGBY, TPALLIDUM Cultures & Other Micro No results found for: URINECULT, BLOODCULT, BDERMAGUR, BDERMINTERP Imaging / EGMs / PFTs / Path / Other Studies XR hands, wrists, feet (04/22/22) Ordered For assessment and recommendations, please see above. This note was generated using the [employer] speech recognition system. Grammatical errors, random wordinsertions, [...] CHAIN FREE PANEL (04/22/2022 12:55 PM CDT) [place] Quant Free Light Chain 17.51 3.30 - 19.40 mg/L 04/23/2022 12:00 PM CDT [facility] [employer] ([facility]) Comment: INTERPRETIVE INFORMATION: [place] Qnt Free Light Chains Undetected antigen excess is a rare event but cannot be excluded. Free light chain results should always be interpreted in conjunction with other clinical and laboratory findings. Lambda Free Light Chain Quantitative 13.81 5.71 - 26.30 mg/L 04/23/2022 12:00 PM CDT [facility] ([facility]) Comment: INTERPRETIVE INFORMATION: Lambda Qnt Free Light Chains Undetected antigen excess is a rare event but cannot be excluded. Free light chain results should always be interpreted in conjunction with other clinical and laboratory findings. [place]/Lambda Free Light Chain ratio 1.27 0.26 - 1.65 04/23/2022 12:00 PM CDT [facility] ([facility]) Comment: Performed By: [facility] [address] [place] [address] Deputy Sheriff Lieutenant: Da Terrell MD, PhD Blood BLOOD SPECIMEN / Unknown Lab Venipuncture / Unknown 04/22/2022 12:55 PM CDT 04/22/2022 1:03 PM CDT Umang Alonzo MD LAB - CHEMISTRY JENIFFER KUMARI [facility] [employer] ([facility]) [address] [place] [address], [facility] * PROTEIN ELECTROPHORESIS BLOOD (04/22/2022 12:55 PM CDT) Pathologist [facility] Interpretation Serum PE Normal Pattern Normal Pattern 04/28/2022 6:06 PM CDT [facility] Comment: Serum capillary electrophoresis shows characteristic [...] - 8.3 g/dL 04/28/2022 6:06 PM CDT [facility] Albumin 4.4 3.3 - 5.6 g/dL 04/28/2022 6:06 PM T [facility] Alpha-1 Globulins 0.4 0.2 - 0.4 g/dL 04/28/2022 6:06 PM CDT [facility] Alpha-2 Globulins 0.8 0.5 - 1.0 g/dL 04/28/2022 6:06 PM CDT [facility] Beta Globulins 1.0 0.6 - 1.1 g/dL 04/28/2022 6:06 PM CDT [facility] Gamma Globulins 1.1 0.6 - 1.6 g/dL 04/28/2022 6:06 PM CDT [facility] Blood BLOOD SPECIMEN / Unknown Lab Venipuncture / Unknown 04/22/2022 12:55 PM CDT 04/22/2022 1:03 PM CDT Umang Alonzo MD LAB - CHEMISTRY JENIFFER KUMARI [facility] Organization Address City/State/ZIP Co de Phone Number [address] [address], [facility] [phone] * CRYOGLOBULIN QUALITATIVE (04/22/2022 12:55 PM CDT) Cryoglobulin Qualitative Negative Negative 04/25/2022 8:07 AM CDT [facility] Blood BLOOD SPECIMEN / Unknown Lab Venipuncture / Unknown 04/22/2022 12:55 PM CDT 04/22/2022 12:59 PM CDT Umang Alonzo MD LAB - CHEMISTRY ORDAgustin KUMARI Performing Organization Address City/[facility]/ZIP Co de Phone Number [address] [address], [facility] [phone] * COMPLEMENT C4 (04/22/2022 12:55 PM CDT) Complement C4 33 15 - 57 mg/dL 04/22/2022 1:36 PM CDT [facility] Blood BLOOD SPECIMEN / Unknown Lab Venipuncture / Unknown 04/22/2022 12:55 PM CDT 04/22/2022 1:05 PM CDT Umang Alonzo MD LAB - SEROLOGY ORDER MAX Performing Organization Address City/[facility]/ZIP Co de Phone Number [address] [address], [facility] [phone] * COMPLEMENT C3 (04/22/2022 12:55 PM CDT) Complement C3 156 82 - 193 mg/dL 04/22/2022 1:36 PM CDT [facility] Blood BLOOD SPECIMEN / Unknown Lab Venipuncture / Unknown 04/22/2022 12:55 PM CDT 04/22/2022 1:05 PM CDT Umang Alonzo MD LAB - CHEMISTRY JENIFFER KUMARI Performing Organization Address City/[facility]/ZIP Co de Phone Number [address] [address], [facility] [phone] * (ABNORMAL) SS-B (SJOGREN'S) ANTIBODY (04/22/2022 12:55 PM CDT) SS-B Antibody 50(H) 0 - 40 AU/mL 04/23/2022 5:07 PM CDT [facility] ([facility]) Comment: INTERPRETIVE INFORMATION: SSB (La) (TERRI) Ab, [...] (PSS) also have this antibody. Performed By: [facility] [address] [place] [address] Deputy Sheriff Lieutenant: Da Terrell MD, PhD Blood BLOOD SPECIMEN / Unknown Lab Venipuncture / Unknown 04/22/2022 12:55 PM CDT 04/22/2022 1:03 PM CDT Umang Alonzo MD LAB - CHEMISTRY JENIFFER KUMARI [facility]) [address] [place] [address] * HERZOG (SM) ANTIBODY TERRI (04/22/2022 12:55 PM CDT) Herzog (TERRI) Antibody 1 0 - 40 AU/mL 04/23/2022 5:07 PM CDT [facility] [employer] ([facility]) Comment: INTERPRETIVE INFORMATION: Herzog (TERRI) Antibody, IgG ??29 AU/mL or Less ............. Negative ??30 - 40 AU/mL ................ Equivocal ??41 AU/mL or Greater .......... Positive Herzog antibody is highly specific (greater than 90 percent) for systemic lupus erythematosus (SLE) but only occurs in 30-35 percent of SLE cases. The presence of antibodies to Herzog has variable associations with SLE clinical manifestations. Performed By: [facility] [address] [place] [address] Deputy Sheriff Lieutenant: Da Terrell MD, PhD Blood BLOOD SPECIMEN / Unknown Lab Venipuncture / Unknown 04/22/2022 12:55 PM CDT 04/22/2022 1:03 PM CDT Umang Alonzo MD LAB - CHEMISTRY JENIFFER KUMARI [facility] Organization Address City/State/ZIP Co de Phone Number [facility]) [address] [place] [address], [facility] * SCLERODERMA 70 (SCL) ANTIBODY (04/22/2022 12:55 PM CDT) SCL-70 Antibody 0 0 - 40 AU/mL 04/23/2022 5:07 PM CDT [facility] [employer] ([facility]) Comment: INTERPRETIVE INFORMATION: Scleroderma (Scl-70) (TERRI) Ab, [...] testing for centromere, RNA polymerase III and U3-PLANT SECURITY GUARD, PM/Scl, or Th/To antibodies. Performed By: [facility] [address] [place] [address] Deputy Sheriff Lieutenant: Da Terrell MD, PhD Blood BLOOD SPECIMEN / Unknown Lab Venipuncture / Unknown 04/22/2022 12:55 PM CDT 04/22/2022 1:04 PM CDT Umang Alonzo MD LAB - CHEMISTRY JENIFFER KUMARI Performing Organization Address [facility] Co de Phone Number [facility] [employer] ([facility]) [address] * CHRISSY-1 ANTIBODY (04/22/2022 12:55 PM CDT) Chrissy-1 Antibody IgG 0 0 - 40 AU/mL 04/24/2022 1:05 AM CDT [facility] [employer] ([facility]) Comment: INTERPRETIVE INFORMATION: ??Chrissy-1 Antibody, IgG ??29 AU/mL or less.........Negative ??30-40 AU/mL..............Equivocal ??41 AU/mL or greater......Positive Presence of Chrissy-1 (antihistidyl transfer RNA [t-RNA] synthetase) antibody is associated with polymyositis and may also be seen in patients with dermatomyositis. Chrissy-1 antibody is associated with pulmonary involvement (interstitial lung disease), Raynaud phenomenon, arthritis, and mechanical door repairer's hands (implicated in antisynthetase syndrome). Performed By: [facility] [address] [place] [address] Deputy Sheriff Lieutenant: Da Terrell MD, PhD Blood BLOOD SPECIMEN / Unknown Lab Venipuncture / Unknown 04/22/2022 12:55 PM CDT 04/22/2022 1:03 PM CDT Umang Alonzo MD LAB - CHEMISTRY JENIFFER KUMARI Performing Organization Address [facility] Co de Phone Number [facility] [employer] ([facility]) [address] * DNA ANTIBODY DOUBLE STRANDED (04/22/2022 12:55 PM CDT) dsDNA Antibody 4 0 - 24 IU 04/23/2022 3:06 PM CDT [facility] [employer] ([facility]) Comment: INTERPRETIVE INFORMATION: Double-Stranded DNA (dsDNA) Ab IgG JESUS ??24 IU or less........Negative ??25-30 IU.............Borderline Positive ??30-60 IU.............Low Positive ??60-200 IU............Positive ??201 IU or greater....Strong Positive Positivity for anti-double stranded DNA (anti-dsDNA) IgG antibody is a diagnostic criterion of systemic lupus erythematosus (SLE). Specimens are initially screened by enzyme-linked immunosorbent assay (JESUS). If ordered as reflex ([id number]), positive JESUS results (>24 IU) will be [...] recommendations for testing may be found at https://[employer]/content/wydwjiub-buihl-pblhwcyadhxeb. Performed By: [facility] [address] [place] [address] Deputy Sheriff Lieutenant: Da Terrell MD, PhD Blood BLOOD SPECIMEN / Unknown Lab Venipuncture / Unknown 04/22/2022 12:55 PM CDT 04/22/2022 1:03 PM CDT Umang Alonzo MD LAB - HEMATOLOGY ORD ERABLES [employer] [facility]) [address] [place] [address], [facility] * CHROMATIN ANTIBODY (04/22/2022 12:55 PM CDT) [facility] Chromatin Antibody 5 0 - 19 Units 04/24/2022 2:01 PM CDT [employer] ([facility]) Comment: INTERPRETIVE INFORMATION: Chromatin Antibody, IgG ??19 Units or less: Negative ??20 - 60 Units: Moderate Positive ??61 Units or greater: Strong Positive The presence of anti-chromatin antibodies may be useful in the diagnosis of systemic lupus erythematosus (SLE) or drug-induced lupus (DIL) and have been reported to be predictive of lupus nephritis, especially when antibody levels are high. Performed By: [facility] [address] [place] [address] Deputy Sheriff Lieutenant: Da Terrell MD, PhD Blood BLOOD SPECIMEN / Unknown Lab Venipuncture / Unknown 04/22/2022 12:55 PM CDT 04/22/2022 1:03 PM CDT Umang Alonzo MD LAB - SEROLOGY ORDER MAX [facility] [employer] [facility]) [address] [place] [address] * CENTROMERE ANTIBODY (04/22/2022 12:55 PM CDT) [facility] Centromere Antibody 1 0 - 40 AU/mL 04/23/2022 5:07 PM CDT [facility] ([facility]) Comment: INTERPRETIVE INFORMATION: Centromere Ab, IgG ??29 [...] other antibodies associated with SSc, including Scl-70, U3-PLANT SECURITY GUARD, PM/Scl, or Th/To. Performed By: [facility] [address] [place] [address] Deputy Sheriff Lieutenant: Da Terrell MD, PhD Blood BLOOD SPECIMEN / Unknown Lab Venipuncture / Unknown 04/22/2022 12:55 PM CDT 04/22/2022 1:03 PM CDT Umang Alonzo MD LAB - CHEMISTRY JENIFFER KUMARI [facility] [employer] ([facility]) [address] * (ABNORMAL) RAE BLOOD SCREEN W/REFLEX TITER (04/22/2022 12:55 PM CDT) RAE IgG Detected (A) None Detected 04/23/2022 3:15 PM CDT [facility] ([facility]) Comment: Antibodies to Anti-Nuclear Antibodies (RAE) detected. [...] dsDNA, histones, SS-A (Ro), SS-B (La), Herzog, Herzog/PLANT SECURITY GUARD, Scl-70, Chrissy-1, centromeric proteins, other antigens extracted from the HEp-2 cell nucleus. RAE JESUS assays have been reported to have lower sensitivities than RAE IFA for systemic autoimmune rheumatic diseases (SARD). Negative results do not necessarily rule out SARD. Performed By: [facility] [employer] [address] [place] [address] Deputy Sheriff Lieutenant: Da Terrell MD, PhD Blood BLOOD SPECIMEN / Unknown Lab Venipuncture / Unknown 04/22/2022 12:55 PM CDT 04/22/2022 1:03 PM CDT Umang Alonzo MD LAB - CHEMISTRY JENIFFER KUMARI [facility] [employer] ([facility]) [address] * CYCLIC CITRULLINATED PEPTIDE(CCP) AB IGG (04/22/2022 12:55 PM CDT) CCP Antibody IgG 0.6 <5.0 U/mL 04/22/2022 2:04 PM CDT [facility] Blood BLOOD SPECIMEN / Unknown Lab Venipuncture / Unknown 04/22/2022 12:55 PM CDT 04/22/2022 1:03 PM CDT Umang Alonzo MD LAB - CHEMISTRY JENIFFER KUMARI [facility] Organization Address City/State/ZIP Co de Phone Number [facility] [address] [place] [address], [facility] [phone] * RHEUMATOID FACTOR IGG/IGM/IGA AB (04/22/2022 12:55 PM CDT) Rheumatoid Factor IgA by Jesus <5 <=6 Units 04/24/2022 9:13 PM CDT [employer] ([facility]) Comment: INTERPRETIVE INFORMATION: Rheumatoid Factor, IgA [...] <5 <=6 Units 04/24/2022 9:13 PM CDT [employer] ([facility]) Comment: INTERPRETIVE INFORMATION: Rheumatoid Factor, IgM by [...] <5 <=6 Units 04/24/2022 9:13 PM CDT [employer] ([facility]) Comment: INTERPRETIVE INFORMATION: Rheumatoid Factor, IgG by JESUS The presence of all three rheumatoid factor (RF) isotypes at abnormal levels has high specificity for a diagnosis of rheumatoid arthritis (RA). However, the presence of RF isotypes in any combination may be found in a variety of conditions, including Sjogren syndrome and hepatitis infections. Performed By: [facility] [address] [place] [address] Deputy Sheriff Lieutenant: Da Terrell MD, PhD Blood BLOOD SPECIMEN / Unknown Lab Venipuncture / Unknown 04/22/2022 12:55 PM CDT 04/22/2022 1:03 PM CDT Umang Alonzo MD LAB - SEROLOGY ORDER MAX [facility] [employer] ([facility]) [address] [place] [address], [facility] * PROTEIN CREATININE RATIO URINE RANDOM PNL (04/22/2022 12:55 PM CDT) Protein Urine <7 Not Established mg/dL 04/22/2022 1:42 PM CDT [facility] Creatinine Urine 160 Not Established mg/dL 04/22/2022 1:42 PM CDT [facility] Protein/Creatinin e Ratio Urine 04/22/2022 1:42 PM CDT [facility] Comment:Unable to calculate ratio because the analyte concentration is outside the instrument measuring range. Urine URINE SPECIMEN OBTAINED BY CLEAN CATCH PROCEDURE / Unknown Collection / Unknown 04/22/2022 12:55 PM CDT 04/22/2022 1:03 PM CDT Umang Alonzo MD LAB - URINE CHEMISTR Y ORDERABLES [facility] [address] [place] [address], [facility] [phone] * (ABNORMAL) URINALYSIS W/MICROSCOPIC REFLEX TO CULTURE (04/22/2022 12:55 PM CDT) Color UA Yellow Straw, Yellow 04/22/2022 1:13 PM CDT [facility] Clarity UA Slt Cloudy(A) Clear 04/22/2022 1:13 PM CDT [facility] Specific Brandon UA 1.019 1.005 - 1.030 04/22/2022 1:13 PM CDT [facility] pH UA 5.0 5.0 - 8.0 pH 04/22/2022 1:13 PM CDT [facility] Protein UA Negative Negative 04/22/2022 1:13 PM CDT [facility] Glucose UA Negative Negative 04/22/2022 1:13 PM CDT [facility] Ketone UA Negative Negative 04/22/2022 1:13 PM CDT [facility] Bilirubin UA Negative Negative 04/22/2022 1:13 PM CDT [facility] Blood UA Negative Negative 04/22/2022 1:13 PM CDT [facility] Nitrite UA Negative Negative 04/22/2022 1:13 PM CDT [facility] Leukocyte Esterase Negative Negative 04/22/2022 1:13 PM T [facility] Urobilinogen UA Negative Negative mg/dL 04/22/2022 1:13 PM T [facility] RBC UA 0-2 None Seen, 0-2, 3-5 /HPF 04/22/2022 1:13 PM T [facility] WBC UA 0-5 None Seen, 0-5 /HPF 04/22/2022 1:13 PM T [facility] Bacteria UA Trace(A) None /HPF 04/22/2022 1:13 PM T [facility] Squamous Epithelial Cells UA 3-5 None Seen, 0-2, 3-5 /HPF 04/22/2022 1:13 PM T [facility] Mucus UA 1+ /LPF 04/22/2022 1:13 PM CDT [facility] Urine URINE SPECIMEN OBTAINED BY CLEAN CATCH PROCEDURE / Unknown Collection / Unknown 04/22/2022 12:55 PM CDT 04/22/2022 1:03 PM CDT Narrative [facility] - 04/22/2022 1:13 PM CDT Culture Not Indicated Umang Alonzo MD LAB - URINALYSIS ORD ERABLES [facility] [address] [place] [address], [facility] [phone] * TSH REFLEX FREE T4 (04/22/2022 12:55 PM CDT) TSH 3.027 0.350 - 4.940 uIU/mL 04/22/2022 1:53 PM CDT [facility] Blood BLOOD SPECIMEN / Unknown Lab Venipuncture / Unknown 04/22/2022 12:55 PM CDT 04/22/2022 1:05 PM CDT Umang Alonzo MD LAB - CHEMISTRY ORDE KENYETTA [facility] [address] [place] [address], [facility] [phone] * CBC WITH DIFFERENTIAL (04/22/2022 12:55 PM CDT) WBC 7.9 3.5 - 10.5 10? 3 /uL 04/22/2022 1:12 PM [facility] RBC 4.66 3.80 - 5.20 10? 6 /uL 04/22/2022 1:12 PM [facility] Hemoglobin 13.0 12.0 - 15.6 g/dL 04/22/2022 1:12 PM [facility] Hematocrit 41.2 35.0 - 45.0 % 04/22/2022 1:12 PM [facility] MCV 88.4 80.7 - 98.3 fL 04/22/2022 1:12 PM [facility] MCH 27.9 26.7 - 34.0 pg 04/22/2022 1:12 PM [facility] MCHC 31.6 30.8 - 35.9 g/dL 04/22/2022 1:12 PM [facility] Platelet Count 317 150 - 400 10? 3 /uL 04/22/2022 1:12 PM [facility] RDW-SD 43.9 36.0 - 50.0 fL 04/22/2022 1:12 PM [facility] RDW-CV 13.5 11.2 - 14.8 % 04/22/2022 1:12 PM [facility] MPV 10.1 9.4 - 12.9 fL 04/22/2022 1:12 PM [facility] nRBC Absolute 0.00 0 10? 3 /uL 04/22/2022 1:12 PM [facility] nRBC Auto 0.0 0 /100 WBC 04/22/2022 1:12 PM [facility] Neutrophils % 54.8 35.0 - 70.0 % 04/22/2022 1:12 PM [facility] Lymphocytes % 35.4 20.0 - 43.0 % 04/22/2022 1:12 PM [facility] Monocytes % 7.6 5.0 - 13.0 % 04/22/2022 1:12 PM [facility] Eosinophils % 1.5 0.0 - 6.0 % 04/22/2022 1:12 PM [facility] Basophil % 0.4 0.0 - 2.0 % 04/22/2022 1:12 PM [facility] Neutrophils Absolute 4.30 1.60 - 7.00 10? 3 /uL 04/22/2022 1:12 PM [facility] Lymphocyte Absolute 2.78 1.10 - 3.90 10? 3 /uL 04/22/2022 1:12 PM [facility] Monocytes Absolute 0.60 0.26 - 1.07 10? 3 /uL 04/22/2022 1:12 PM [facility] Eosinophils Absolute 0.12 0.00 - 0.47 10? 3 /uL 04/22/2022 1:12 PM [facility] Basophils Absolute 0.03 0.00 - 0.08 10? 3 /uL 04/22/2022 1:12 PM [facility] Immature Granulocytes % 0.3 0.0 - 1.0 % 04/22/2022 1:12 PM [facility] Immature Granulocytes Absolute 0.02 04/22/2022 1:12 PM [facility] Blood BLOOD SPECIMEN / Unknown Lab Venipuncture / Unknown 04/22/2022 12:55 PM CDT 04/22/2022 1:06 PM CDT [place] Alonzo MD LAB - HEMATOLOGY ORD ERABLES [facility] [address] [place] [id number], [facility] [phone] * (ABNORMAL) COMPREHENSIVE METABOLIC PANEL (04/22/2022 12:55 PM CDT) BUN 12 7 - 26 mg/dL 04/22/2022 1:36 PM CDT [facility] Creatinine 0.89 0.56 - 0.96 mg/dL 04/22/2022 1:36 PM T [facility] Sodium 143 136 - 145 mmol/L 04/22/2022 1:36 PM [facility] Potassium 3.7 3.5 - 4.5 mmol/L 04/22/2022 1:36 PM [facility] Chloride 103 98 - 107 mmol/L 04/22/2022 1:36 PM [facility] CO2 28 22 - 29 mmol/L 04/22/2022 1:36 PM [facility] Glucose 96 70 - 115 mg/dL 04/22/2022 1:36 PM [facility] Calcium 9.9 8.4 - 10.2 mg/dL 04/22/2022 1:36 PM [facility] Protein Total 7.8 6.0 - 8.3 g/dL 04/22/2022 1:36 PM [facility] Albumin 4.2 3.4 - 5.0 g/dL 04/22/2022 1:36 PM [facility] Bilirubin Total 0.3 0.2 - 1.2 mg/dL 04/22/2022 1:36 PM [facility] Alkaline Phosphatase 91 40 - 150 U/L 04/22/2022 1:36 PM [facility] ALT 30 5 - 55 U/L 04/22/2022 1:36 PM [facility] AST 16 5 - 34 U/L 04/22/2022 1:36 PM [facility] Anion Gap 16 8 - 18 04/22/2022 1:36 PM [facility] BUN/Creatinine Ratio 13 7 - 23 04/22/2022 1:36 PM [facility] Osmolality Calculated 296 270 - 300 mOsm/kg 04/22/2022 1:36 PM [facility] Albumin/Globulin Ratio 1.2 1.1 - 2.3 04/22/2022 1:36 PM [facility] eGFR by CKD-EPI 78(L) >=90 mL/min/1.7 3 m2 04/22/2022 1:36 PM [facility] Blood BLOOD SPECIMEN / Unknown Lab Venipuncture / Unknown 04/22/2022 12:55 PM T 04/22/2022 1:05 PM CDT Umang Alonzo MD LAB - CHEMISTRY JENIFFER KUMARI [facility] Organization Address City/State/ZIP Co de Phone Number [facility] [address] [place] [address], [facility] [phone] * XR WRIST LEFT 2VW (04/22/2022 12:30 [...] DATE/TIME OF EXAM: 04/22/2022 12:31 PM, LOCATION ??[facility] INDICATION: M35.00: Sjogren's syndrome, with unspecified [...] HAND LEFT 3VW OR MORE, XR FOOT [id number] OR MORE, XR FOOT LEFT 3VW OR MORE, XR WRIST LEFT 2VW, DATE/TIME OF EXAM: 04/22/2022 12:31 PM, LOCATION [facility] INDICATION: M35.00: Sjogren's syndrome, with unspecified [...] DATE/TIME OF EXAM: 04/22/2022 12:31 PM, LOCATION ??[facility] INDICATION: M35.00: Sjogren's syndrome, with unspecified [...] HAND LEFT 3VW OR MORE, XR FOOT [id number] OR MORE, XR FOOT LEFT 3VW OR MORE, XR WRIST LEFT 2VW, DATE/TIME OF EXAM: 04/22/2022 12:31 PM, LOCATION [facility] INDICATION: M35.00: Sjogren's syndrome, with unspecified [...] DATE/TIME OF EXAM: ??04/22/2022 12:31 PM, LOCATION ??[facility] INDICATION: M35.00: Sjogren's syndrome, with unspecified [...] MORE, DATE/TIME OF EXAM: :31 PM, LOCATION [facility] INDICATION: M35.00: Sjogren's syndrome, with unspecified [...] fifth metatarsal head. . > Interpreting Provider: Magon Santamaria MD on 04/22/2022 12:48 PM Umang [...] DATE/TIME OF EXAM: 04/22/2022 12:31 PM, LOCATION ??[facility] INDICATION: M35.00: Sjogren's syndrome, with unspecified [...] HAND LEFT 3VW OR MORE, XR FOOT [id number] OR MORE, XR FOOT LEFT 3VW OR MORE, XR WRIST LEFT 2VW, DATE/TIME OF EXAM: 04/22/2022 12:31 PM, LOCATION [facility] INDICATION: M35.00: Sjogren's syndrome, with unspecified [...] DATE/TIME OF EXAM: 04/22/2022 12:31 PM, LOCATION ??[facility] INDICATION: M35.00: Sjogren's syndrome, with unspecified [...] HAND LEFT 3VW OR MORE, XR FOOT [id number] OR MORE, XR FOOT LEFT 3VW OR MORE, XR WRIST LEFT 2VW, DATE/TIME OF EXAM: 04/22/2022 12:31 PM, LOCATION [facility] INDICATION: M35.00: Sjogren's syndrome, with unspecified [...] DATE/TIME OF EXAM: 04/22/2022 12:31 PM, LOCATION ??[facility] INDICATION: M35.00: Sjogren's syndrome, with unspecified [...] HAND LEFT 3VW OR MORE, XR FOOT [id number] OR MORE, XR FOOT LEFT 3VW OR MORE, XR WRIST LEFT 2VW, DATE/TIME OF EXAM: 04/22/2022 12:31 PM, LOCATION [facility] INDICATION: M35.00: Sjogren's syndrome, with unspecified [...] sites documented in this encounter Care Teams Station Examiner Relationship Specialty Start Date End Date Augusto Jiménez MD [address] [facility] [address] [facility] [address] [place] [address] PCP - General 06/17/17 documented as of this encounter
--- OUTSIDE RECORDS SUMMARY | 2024-09-22 05:48 | XMS_ITS | Encounter Summary ---
Author Organization [facility] Address [address] [place] [address] Care Team Providers Care Fruit Harvest Worker Name Role Phone Augusto Jiménez MD Primary Care Provider [phone] Encounter Details Date Type Department Care Team (Latest Contact Info) Description 04/22/2022 12:18 PM CDT - 04/22/2022 12:29 PM CDT Hospital Encounter [facility] [address] [place] [id number] Umang Alonzo MD [address] [place] [phone] Discharge Disposition: Home or Self Care Social [...] Take 1 tablet by mouth once daily [place]-3 Fatty Acids (Fish Oil) 1200 MG Take [...] DATE/TIME OF EXAM: 04/22/2022 12:31 PM, LOCATION ??[facility] INDICATION: M35.00: Sjogren's syndrome, with unspecified organ [...] HAND LEFT 3VW OR MORE, XR FOOT [id number] OR MORE, XR FOOT LEFT 3VW OR MORE, XR WRIST LEFT 2VW, DATE/TIME OF EXAM: 04/22/2022 12:31 PM, LOCATION [facility] INDICATION: M35.00: Sjogren's syndrome, with unspecified organ [...] DATE/TIME OF EXAM: ??04/22/2022 12:31 PM, LOCATION ??[facility] INDICATION: M35.00: Sjogren's syndrome, with unspecified organ [...] MORE, DATE/TIME OF EXAM: :31 PM, LOCATION [facility] INDICATION: M35.00: Sjogren's syndrome, with unspecified organ [...] DATE/TIME OF EXAM: 04/22/2022 12:31 PM, LOCATION ??[facility] INDICATION: M35.00: Sjogren's syndrome, with unspecified organ [...] HAND LEFT 3VW OR MORE, XR FOOT [id number] OR MORE, XR FOOT LEFT 3VW OR MORE, XR WRIST LEFT 2VW, DATE/TIME OF EXAM: 04/22/2022 12:31 PM, LOCATION [facility] INDICATION: M35.00: Sjogren's syndrome, with unspecified organ [...] DATE/TIME OF EXAM: 04/22/2022 12:31 PM, LOCATION ??[facility] INDICATION: M35.00: Sjogren's syndrome, with unspecified organ [...] HAND LEFT 3VW OR MORE, XR FOOT [id number] OR MORE, XR FOOT LEFT 3VW OR MORE, XR WRIST LEFT 2VW, DATE/TIME OF EXAM: 04/22/2022 12:31 PM, LOCATION [facility] INDICATION: M35.00: Sjogren's syndrome, with unspecified organ [...] DATE/TIME OF EXAM: 04/22/2022 12:31 PM, LOCATION ??[facility] INDICATION: M35.00: Sjogren's syndrome, with unspecified organ [...] HAND LEFT 3VW OR MORE, XR FOOT [id number] OR MORE, XR FOOT LEFT 3VW OR MORE, XR WRIST LEFT 2VW, DATE/TIME OF EXAM: 04/22/2022 12:31 PM, LOCATION [facility] INDICATION: M35.00: Sjogren's syndrome, with unspecified organ [...] DATE/TIME OF EXAM: 04/22/2022 12:31 PM, LOCATION ??[facility] INDICATION: M35.00: Sjogren's syndrome, with unspecified organ [...] HAND LEFT 3VW OR MORE, XR FOOT [id number] OR MORE, XR FOOT LEFT 3VW OR MORE, XR WRIST LEFT 2VW, DATE/TIME OF EXAM: 04/22/2022 12:31 PM, LOCATION [facility] INDICATION: M35.00: Sjogren's syndrome, with unspecified organ [...] sites documented in this encounter Care Teams Fruit Harvest Worker Relationship Specialty Start Date End Date Augusto Jiménez MD [address] [address] PCP - General 06/17/17 documented as of this encounter
--- OUTSIDE RECORDS SUMMARY | 2024-09-22 05:48 | XMS_ITS | Clinical Summary ---
Author Organization [facility] Address [address] [facility] [place] [address] Care Team Providers Care Occupational Health Nurse Supervisor Name Role Phone Augusto Jiménez MD Primary Care Provider [phone] Source Comments [facility],non-[facility] Affiliates and Associated Physician Practices is amultiple site organization consisting of ambulatory clinics and hospital sitesin [place], [place], [place] and [place]. This disclosure is being madepursuant to the Care Everywhere program and may not contain all information available regarding this patient. Last updated 18.[facility] Tracky Allergies Active Allergy Reactions Criticality Noted Date [...] by mouth every 12 hours 03/29/2021 Active [place]-3 Fatty Acids (Fish Oil) 1200 MG Take [...] 7 - 26 mg/dL 04/22/2022 1:36 PM [facility] Creatinine 0.89 0.56 - 0.96 mg/dL 04/22/2022 1:36 PM [facility] Sodium 143 136 - 145 mmol/L 04/22/2022 1:36 PM [facility] Potassium 3.7 3.5 - 4.5 mmol/L 04/22/2022 1:36 PM [facility] Chloride 103 98 - 107 mmol/L 04/22/2022 1:36 PM [facility] CO2 28 22 - 29 mmol/L 04/22/2022 1:36 PM [facility] Glucose 96 70 - 115 mg/dL 04/22/2022 1:36 PM [facility] Calcium 9.9 8.4 - 10.2 mg/dL 04/22/2022 1:36 PM [facility] Protein Total 7.8 6.0 - 8.3 g/dL 04/22/2022 1:36 PM [facility] Albumin 4.2 3.4 - 5.0 g/dL 04/22/2022 1:36 PM [facility] Bilirubin Total 0.3 0.2 - 1.2 mg/dL 04/22/2022 1:36 PM [facility] Alkaline Phosphatase 91 40 - 150 U/L 04/22/2022 1:36 PM [facility] ALT 30 5 - 55 U/L 04/22/2022 1:36 PM [facility] AST 16 5 - 34 U/L 04/22/2022 1:36 PM [facility] Anion Gap 16 8 - 18 04/22/2022 1:36 PM [facility] BUN/Creatinine Ratio 13 7 - 23 04/22/2022 1:36 PM [facility] Osmolality Calculated 296 270 - 300 mOsm/kg 04/22/2022 1:36 PM [facility] Albumin/Globulin Ratio 1.2 1.1 - 2.3 04/22/2022 1:36 PM [facility] eGFR by CKD-EPI 78(L) >=90 mL/min/1.7 3 m2 04/22/2022 1:36 PM [facility] Blood BLOOD SPECIMEN / Unknown Lab Venipuncture / Unknown 04/22/2022 12:55 PM CDT 04/22/2022 1:05 PM T Umang Alonzo MD LAB - CHEMISTRY JENIFFER KUMARI [facility] Organization Address City/State/ZIP Co de Phone Number [facility] [address] [place] [address], [facility] [phone] from Last 3 Months or Most Recently Relevant to Health Maintenance Care Teams Occupational Health Nurse Supervisor Relationship Specialty Start Date End Date Augusto Jiménez MD [address] [place] [address] PCP - General 06/17/17
--- OUTSIDE RECORDS SUMMARY | 2024-09-22 05:48 | XMS_ITS | Encounter Summary ---
Author Organization [facility] Address [address] [facility] [address] [address] [place] [address] Care Team Providers Care Patch Setter Name Role Phone Augusto Jiménez MD Primary Care Provider [phone] Encounter Details Date Type Department Care Team (Latest Contact Info) Description 06/17/2017 [facility] [address] [facility] [place] [address] Karli Barrios PA-C [address] [place] [address] Discharge Disposition: Home or Self Care Social [...] on filedocumented in this encounter Care Teams Patch Setter Relationship Specialty Start Date End Date Augusto Jiménez MD [address] [facility] [address] [facility] [address] [place] [address] PCP - General 06/17/17 documented as of this encounter
--- OUTSIDE RECORDS SUMMARY | 2024-09-22 05:48 | XMS_ITS | Encounter Summary ---
Author Organization [facility] Address [address] [place] [address] Care Team Providers Care Master Glazier Name Role Phone Augusto Jiménez MD Primary Care Provider [phone] Encounter Details Date Type Department Care Team [...] on filedocumented in this encounter Care Teams Master Glazier Relationship Specialty Start Date End Date Augusto Jiménez MD [address] [facility] [address] [place] [address] PCP - General 06/17/17 documented as of this encounter
--- OUTSIDE RECORDS SUMMARY | 2024-09-22 05:48 | XMS_ITS | Referral Summary ---
Author Organization [facility] Address [address] [facility] [place] [address] Care Team Providers Care Spray Stainer Name Role Phone Augusto Jiménez MD Primary Care Provider [phone] Source Comments [facility],non-[facility] Affiliates and Associated Physician Practices is amultiple site organization consisting of ambulatory clinics and hospital sitesin [place], [place], [place] and [place]. This disclosure is being madepursuant to the Care Everywhere program and may not contain all information available regarding this patient. Last updated 18.[facility] trip.me Allergies Active Allergy Reactions Criticality Noted Date [...] by mouth every 12 hours 03/29/2021 Active [place]-3 Fatty Acids (Fish Oil) 1200 MG Take [...] COMPREHENSIVE METABOLIC PANEL (04/22/2022 12:55 PM [facility]) BUN 12 7 - 26 mg/dL 04/22/2022 1:36 PM [facility] Creatinine 0.89 0.56 - 0.96 mg/dL 04/22/2022 1:36 PM [facility] Sodium 143 136 - 145 mmol/L 04/22/2022 1:36 PM [facility] Potassium 3.7 3.5 - 4.5 mmol/L 04/22/2022 1:36 PM [facility] Chloride 103 98 - 107 mmol/L 04/22/2022 1:36 PM [facility] CO2 28 22 - 29 mmol/L 04/22/2022 1:36 PM [facility] Glucose 96 70 - 115 mg/dL 04/22/2022 1:36 PM [facility] Calcium 9.9 8.4 - 10.2 mg/dL 04/22/2022 1:36 PM [facility] Protein Total 7.8 6.0 - 8.3 g/dL 04/22/2022 1:36 PM [facility] Albumin 4.2 3.4 - 5.0 g/dL 04/22/2022 1:36 PM [facility] Bilirubin Total 0.3 0.2 - 1.2 mg/dL 04/22/2022 1:36 PM [facility] Alkaline Phosphatase 91 40 - 150 U/L 04/22/2022 1:36 PM [facility] ALT 30 5 - 55 U/L 04/22/2022 1:36 PM [facility] AST 16 5 - 34 U/L 04/22/2022 1:36 PM [facility] Anion Gap 16 8 - 18 04/22/2022 1:36 PM [facility] BUN/Creatinine Ratio 13 7 - 23 04/22/2022 1:36 PM [facility] Osmolality Calculated 296 270 - 300 mOsm/kg 04/22/2022 1:36 PM CDT [facility] Albumin/Globulin Ratio 1.2 1.1 - 2.3 04/22/2022 1:36 PM CDT [facility] eGFR by CKD-EPI 78(L) >=90 mL/min/1.7 3 m2 04/22/2022 1:36 PM CDT [facility] Blood BLOOD SPECIMEN / Unknown Lab Venipuncture / Unknown 04/22/2022 12:55 PM CDT 04/22/2022 1:05 PM CDT Umang Alonzo MD LAB - CHEMISTRY JENIFFER KUMARI [facility] Organization Address City/State/ZIP Co de Phone Number [facility] [address] [place] [address], [facility] [phone] from Last 3 Months or Most Recently Relevant to Health Maintenance Care Teams Spray Stainer Relationship Specialty Start Date End Date Augusto Jiménez MD [address] [facility] [address] [place] [address] (work) PCP - General 06/17/17
--- OUTSIDE RECORDS SUMMARY | 2024-09-22 05:48 | XMS_ITS | Encounter Summary ---
Author Organization [facility] Address [address] [facility] [place] [address] Care Team Providers Care Transit Man Name Role Phone Augusto Jiménez MD Primary Care Provider [phone] Encounter Details Date Type Department Care Team (Late st Contact Info) Description 08/06/2022 Telephone [facility] [place] [address] Linda Gardner Social History Tobacco Use Types [...] on filedocumented in this encounter Care Teams Transit Man Relationship Specialty Start Date End Date Augusto Jiménez MD [address] [facility] 20 [place] [address] PCP - General 06/17/17 documented as of this encounter
--- OUTSIDE RECORDS SUMMARY | 2024-09-22 05:48 | XMS_ITS | Encounter Summary ---
Author Organization [facility] Address [address] [facility] [place] [address] Care Team Providers Care Sales Order Specialist Name Role Phone Augusto Jiménez MD Primary Care Provider [phone] Encounter Details Date Type Department Care Team (Latest Contact Info) Description 06/17/2017 Hospital Outpatient Visit [facility] - [facility]opedics [address] [facility] [place] [address] Karli Barrios PA-C [address] [place] [phone] Discharge Disposition: Home or Self Care Social [...] compartment osteoarthritis. Dictated by Kendell Rasmussen MD (sales vice president). I, Dr. CONSUELO GAMBOA M.D. have personally [...] compartment osteoarthritis. Dictated by Kendell Rasmussen MD (sales vice president). Dr. CONSUELO Mckeon M.D. have personally reviewed [...] compartment osteoarthritis. Dictated by Kendell Rasmussen MD (sales vice president). Dr. CONSUELO Mckeon M.D. have personally reviewed [...] compartment osteoarthritis. Dictated by Kendell Rasmussen MD (sales vice president). Dr. CONSUELO Mckeon M.D. have personally reviewed [...] facet osteoarthritis. Dictated by Kendell Rasmussen MD (sales vice president). Dr. CONSUELO Mckeon M.D. have personally reviewed [...] facet osteoarthritis. Dictated by Kendell Rasmussen MD (sales vice president). I, Dr. CONSUELO GAMBOA M.D. have personally [...] pain documented in this encounter Care Teams Sales Order Specialist Relationship Specialty Start Date End Date Augusto Jiménez MD [address] [facility] [address] [place] [address] PCP - General 06/17/17 documented as of this encounter
--- OUTSIDE RECORDS SUMMARY | 2024-09-22 05:48 | XMS_ITS | Encounter Summary ---
Author Organization [facility] Address [address] [facility] [facility] [place] [address] Care Team Providers Care Frame Stripper And Crusher Name Role Phone Augusto Jiménez MD Primary Care Provider [phone] Reason for Visit * Reason Comments Follow-up Encounter Details Date Type Department Care Team (Late st Contact Info) Description 06/06/2022 3:00 PM CDT Office Visit [facility] [address] [facility] [place] [address] Umang Alonzo MD [facility] [place] [address] Sjogren's syndrome, with unspecified organ [...] hand polyarthritis. Serologic profile: RAE 1:160 with [id number]-[id number] of 7.6 and anti- SSB 3.5. - [...] message through the [facility] rheumatology line at [phone](option 3). Additional contributions to medical decision making [...] of Rheumatology Department of Internal Medicine [facility] Medicine Encounter Diagnoses, Orders, and Future Appointments: [...] by mouth once daily, Disp: ,Rfl: ??? [place]-3 Fatty Acids (Fish Oil) 1200 MG, Take [...] 12:55 PM CREATININEUR 160 04/22/2022 12:55 PM [id number] 04/22/2022 12:55 PM Comment: Unable to calculate ratio because the analyte concentration is outside the instrument measuring range. No results for input(s): HCGURINE, HCGQUANT in the last 01918 hours. Latent Infections No results found for: HEPBSAG, HBVSAB, HEPBSAB, HEPBCAB, HEPCAB No results found for: QUANTIFER, QNTTBGOLD, QNTPLUSTB1, QNTPLUSTB2, QNTMITOGEN, QUANTIFERO, QUANTIFECI, QUANTIF, QUANNIL, QUAMIT, QFTTBAGN, VYXRFOARK94, AFBSMR Immunology Labs Inflammatory Markers No results for input(s): ESR, SEDRATE, CRP in the last 45852 hours. RA-related Auto-Ab's Lab Results Component Value Date/Time CCPIGG 0.6 04/22/2022 12:55 PM RAE-related Lab Results Component Value Date/Time ANATITER 1:80 (Abnormal) 04/22/2022 12:55 PM ANAPATTERN Speckled (Abnormal) 04/22/2022 12:55 PM ANAIGG Detected (Abnormal) 04/22/2022 12:55 PM DSDNAABIU 4 04/22/2022 12:55 PM CHROMATINAB 5 04/22/2022 12:55 PM SMITHRNPAB 9 04/22/2022 12:55 PM BP1VHDAZ 0 04/22/2022 12:55 PM No results for input(s): C3, C4 in the last 15806 hours. APLS-related Auto-Ab's No results found for: Y4KGQURGXE, K6XTDAGINM, R4QWJOHGRV, VQXY2PAE, HPFS6PMZ, CRDLPNIGM, CRDLPNIGG,CRDLPNIGA, DILUTEPT, DPTCFMRATIO, TT, PTTLA, DRVVTBASE, LABINTE Myopathy Lab Results Component Value Date/Time JK8CUGZW 0 04/22/2022 12:55 PM SMITHRNPAB 9 04/22/2022 12:55 PM XFK75NL 2 04/22/2022 12:55 PM HNQ89WX 101 (H) 04/22/2022 12:55 PM Vasculitis and ANCAs No results found for: NEUTCYTOAB, ANTIPROT3, ANTIMPO, G8ABGFI Genetics No results found for: HLAB27 Gammopathy/Paraproteinemia [...] 1255 TSH 3.027 No results found for: AKYS58KF Heme No results found for: RETICCTPCT, RETICULOCYTE, IRON, FERRITIN, TRANSFERRIN, TRANSFERRSAT, TIBC, FIBRINOGEN, DDIMER, VITB12, FOLATE, HAPTOGLOBIN, LDHTOTAL No results for input(s): PT, INR, PTT in the last 02353 hours. Renal No results found for: CALCIUMION, PHBLD, IONCAART, MAGNESIUM, PHOS, SODIUMRAN, POTASSIUMUR, CHLORIDER Cardiac & Lipids No results for input(s): TROPONINI, CKMB, BNP in the last 18963 hours. No results for input(s): CHOL, TRIG, HDL, LDLCALC, LDLDIRECT in the last 99292 hours. Respiratory No results found for: SARSCOV2, RINFLUANAA, RINFLUBNAA, INFLUARAPID, INFLUBRAPID, INFLUCNTRL, STREPARAPID, STREPAQC Hepatobiliary & GI No results found for: GGT, LIPASE, M5RGEGAQCQWA, CMVPCR, CMVSOURCE, GDHANTIGEN, CDIFFTOXINAB, CDIFFINTRP, GLIADINIGG, GLIADINIGA, ENDOMYSIA, TTRANIGA, TTRANIGG Drug Screen No results found for: THCUR, PCPUR, COCAINEUR, METHAMPHETUR, OPIATESUR, AMPHETUR, BENZODIAZUR, TCAUR, METHADONEUR, BARBITURATUR, OXYCODONEUR, PROPOXYUR Synovial Fluid No results found for: COLORFL, CLARITYFLUID, BFVOLUME, VISCOSITY, WBCFLUID, RBCFL, CRYSTALEXAM, DIFF, BFBAND, BFSEGS, BFLYMPH, BFMONO, BFEOS, BFMACRO, PATHDIFFRVW Neuro/CSF No results found for: GLUCSF, PROTEINCSF, ZWS7QHYSNK, GQT6EPPOUP, DFUN1UOQ, COCCIDIGG, BAL4XLM, CRYPTOAGCSF, ENTEROVIRPCR, OLIGOBAND, OLIGOBANDNUM, IGG, FYZ4ITA, ALBUMINMS, XJGZROO7REW, ALBUMININDEX,IGGINDEX, IGGALBRATIO, SYNTHESRTE, OLIGOCINTRP, TOXOPLASIGG, CYSTICERO Body Fluid No results found for: LABLD, GROSSDESCRIP, MICROPDESCR STIs (HIV, GC, Trich, Syphilis) No results found for: HIV12, WID3QBWYEQ, ESC0RYI72QLW, CHLAMDIA, CHLTRNAA, GC, NGONORRNAA, TRICVAGAP, TRICHVAGBY, TPALLIDUM [...] above. This note was generated using the [employer] speech recognition system. Grammatical errors, random wordinsertions, [...] knees documented in this encounter Care Teams Frame Stripper And Crusher Relationship Specialty Start Date End Date Augusto Jiménez MD [address] [facility] [address] [place] [address] PCP - General 06/17/17 documented as of this encounter
--- OUTSIDE RECORDS SUMMARY | 2024-09-22 05:49 | XMS_ITS | CONTINUITY OF CARE DOCUMENT ---
Author Name ngoc grossman Address Unknown Organization [facility] Address [address] [place] [address] [address] [place] [address] Phone [phone] Care Team Providers Care Research Associate Molecular Biology Name Role Phone Colton Aguilera MD Unavailable [phone] Colton Aguilera MD Unavailable RHONDA ANDREW MD Unavailable [phone] PROBLEMS Condition Status Date Provider Notes COUGH active Jeffrey Kent JAMMIE on CPAP active Colton Aguilera MD Hyperlipidemia active Colton Aguilera MD HTN essential active Colton Aguilera MD Atypical chest pain active Colton Aguilera MD Cardiovascular screening active Colton beaver MD Family History of Hypertension: active ? Lars Aguilera MD Family History of Hyperlipidemia: active ? To angel Aguilera MD Family History Coronary Hear t Disease male < 55: active ? Colton Aguilera MD ENCOUNTERS Date Type Provider Location Encounter Diag nosis - In-person encounter Office Visit Colton Aguilera MD [facility] Family History Coronary Heart Disease male < 55:Family History of Hyperlipidemia:Family History of Hypertension:Cardiovascular screeningAtypical chest painHTN essentialHyperlipidemiaOSA on CPAP VITAL SIGNS Date Observation Value Provider Body Mass Index (Ratio) 40.99 kg/m2 Lars Aguilera MD pulse rate 72 /min Radha Paz oxygen saturation, oximetry 98 % Radha Raza blood pressure, diastolic 74 mm[Hg] Darek Raza blood pressure, systolic 122 mm[Hg] Risa lovelace Luz Marina blood pressure, resting Yes Trevor baker Luz Marina height E&M 66 [in_i] Radha Yolanda Paz weight E&M 254 [lb_av] Radha Yolanda Paz ALLERGIES Allergy Name Onset Date Reaction Criticality Status DARVOCET Low Criticality active VICODIN Low Criticality active HISTORY OF MEDICATION USE Medication Status Instructions Dates Provider Indications Com ments BIOTIN 1000 MCG ORAL TABLET active one tab daily Radha mayo PREDNISONE 20 MG ORAL TABLET completed one tab three times daily - Colton Aguilera MD RANITIDINE HCL 150 MG ORAL TABLET active ONE TAB TWICE DAILY Radha mayo ROBAXIN-750 750 MG ORAL TABLET active one tab every 6hrs Radha mayo VITAMIN C PLUS 1000 MG ORAL TABLET active one tab daily Radha mayo WELLBUTRIN SR 150 MG ORAL TABLET EXTENDED RELEASE 12 HOUR active onetab daily Radha mayo ASPIRIN ADULT LOW DOSE 81 MG ORAL TABLET DELAYED RELEASE completed One Tab By Mouth Daily - Colton Aguilera MD VITAMIN B-12 1000 MCG ORAL TABLET active One tablet daily Radha mayo CALTRATE 600+D 600-800 MG-UNIT ORAL TABLET active one tab daily Radha mayo FISH OIL CAPSULE active ONE TAB. DAILY Radha mayo LISINOPRIL 10 MG ORAL TABLET active ONE TAB. DAILY Radha mayo SIMVASTATIN 40 MG ORAL TABLET active ONE TAB. DAILY Radha mayo ZYRTEC ALLERGY 10 MG ORAL TABLET active one tab daily Radha mayo HYDROCHLOROTHIAZIDE 12.5 MG ORAL CAPSULE active ONE TAB. DAILY Radha mayo SOCIAL HISTORY Date Observation Value Provider number of grandchildren Colton Aguilera MD T meg Aguilera MD alcohol use no Colton Aguilera MD social history E&M S moking History: Bryan barrientos has never smoked. Colton Aguilera MD social history reviewed E&M revi ewed - no changes required Radha Raza smoking status Never smoker Radha Abdihenrietta Corcoran FAMILY HISTORY Family Member Condition Father Family History of Hy pertension: Father Family History of Hy perlipidemia: Father Family History Coron kavin Heart Disease male < 55: INSURANCE PROVIDERS Payer name Policy type / Coverage type [place] [employer] [employer] MEDICA[place] Medicaid [id number] ADVANCE DIRECTIVES Name Date DISCUSSED - NO DECISION MADE TREATMENT PLAN Date Name Performer Cardiology Colton Aguilera MD Cardiology Colton Aguilera MD Cardiology Colton Aguilera MD Cardiology Colton Aguilera MD Date Name DLCO - 34208 FRC - 94951 FVC - 98722 HISTORY OF PROCEDURES Procedure Date Procedure Name Provider Procedure Notes S tatus FVC / MVV - 64752 Colton Aguilera MD co mpleted FRC - 77283 Colton Aguilera MD complete d SpO2 w/o 6min walk/titration Colton Aguilera MD completed DLCO - [id number] Colton Aguilera MD complet ed EKG Colton Aguilera MD completed
--- OUTSIDE RECORDS SUMMARY | 2024-09-22 05:49 | XMS_ITS | Continuity of Care Document ---
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 Related to Hy perlipidemia Follow a low sodium diet. Relate d to Hyperlipidemia Prescribed Activity and Exercise Education Related to [...] caloric intake Related to Dietary surveillance counseling Assessments Type Assessment Date No Information
--- OUTSIDE RECORDS SUMMARY | 2024-09-22 05:49 | XMS_ITS | Continuity of Care Document ---
Author Organization [facility] Address [address] [facility] [address] [place] [address] Phone Care Team Providers Care Casino Floor Walker Name Role Phone Evangelista Harrington PT Unavailable [...] Exercise Manual Therapy Hot or Cold Pack PT Evaluation Moderate Complexity Therapeutic Activities Neuromuscular Re-Ed Therapeutic Exercise Advance Directives Directive Yes / No Effective Date File Name No Information Encounters Encounter Description Practice Location Reason(s) For Visit Diagnoses Date Provider Providers Copied on Encounter [facility] [address] [facility], [place], [place], [address], tel:[phone] [place] No Information 3 Dellamano Evangelista. . [facility], [place], [place], [address], tel:[phone] [place] No Information 1 0 3 Dellamano Evangelista. . Referring Provider: Marco Graf III, [address], [place], [id number]. tel:[phone] [facility] [address], [place], [place], [address], tel:[phone] [place] No Information Aug-0 3 Dellamano Evangelista. . Referring Provider: Mraco Graf III, [address], [place], [address]. tel:[phone] [facility] [address], [place], [place], [address], tel:[phone] [place] No Information Aug-0 3- 3 Dellamano Evangelista. . Referring Provider: Marco Graf III, [address], [place], [address]. tel:[phone] [facility] [address], [place], [place], [address], [place] tel:[phone] [place] No Information 3 Dellamano Evangelista. . Referring Provider: Marco Graf III, [address], [place], [address]. tel:[phone] [place] [address], [place], [place], [address], [place] tel:[phone] [place] No Information 3 Dellamano Evangelista. . Referring Provider: Marco Graf III, [address], [place], [address]. tel:[phone] [place] [address], [address], [place], [place], [address], [place] tel:[phone] [place] No Information 3 Dellamano Evangelista. . Referring Provider: Marco Graf III, [address], [place], [address]. tel:[phone] [place] [address] [address], [place], [place], [address], [place] tel:[phone] [place] No Information 3 Dellamano Evangelista. . Referring Provider: Marco Graf III, [address], [place], [address]. tel:[phone] [facility], [place], [place], [address], [place] tel:[phone] [place] No Information 3 Muehl Umang. [address] [facility], [address], [place], [address], [place]. tel:[phone] Referring Provider: Marco Graf III, [address], [place], [address]. tel:[phone] [place], [place] [address] [address], [place], [place], [address], [place] tel:[phone] [place] No Information 3 Muehl Umang. [address] [facility], [address], [place], [address], [place]. tel:[phone] Referring Provider: Marco Graf III, [address], [place], [address]. tel:[phone], [place], [place], [address], [place] tel:[phone] [place] No Information 3 Muehl Umang. [address] [place] [address], [address], [place], [address], [place]. tel:[phone] Referring Provider: Marco Graf III, [address], [place], [address]. tel:[phone] [facility], [place], [place], [address], [place] tel:[phone] [place] No Information 3 Muehl Umang. [address] [place] [address], [address], [place], [address], [place]. tel:[phone] Referring Provider: Maroc Graf III, [address], [place], [address]. tel:[phone] [address], [place], [place], [address], [place] tel:[phone] [place] No Information 3 Muehl Umang. [address] [place] [address], [address], [place], [address], [place]. tel:[phone] Referring Provider: Marco Graf III, [address], [place], [address]. tel:[phone], [place], [place], [address], [place] tel:[phone] [place] No Information 3 Muehl Umang. [address] [place] [address], [address], [place], [address], [place]. tel:[phone] Referring Provider: Marco Graf III, [address], [place], [address]. tel:[phone] Family History Family Member Type Diagnosis Age At Onset No Information Payers Payer name Insurance type Covered democrat ID Mansi fernandez(s) [employer] [place] [id number] Social History Type Description Quantity [...]
== END 2024-09-15 10:55 | disposition left against medical advice (07) ==
PROVIDERS: PCP Emergency Medicine
DX: R05.9 Cough, unspecified (principal)
CPT/HCPCS: 99199

== ENCOUNTER 2024-10-21 09:35 | Outpatient (CLI) | payer OTHER, SELFPAY ==
--- NOTE | ~2024-10-21 | MM_ITS ---
EXAMINATION: MM screening kay BI w bryce HISTORY: Screening TECHNIQUE: Craniocaudal and mediolateral oblique 3-D tomosynthesis images were obtained and synthetic 2-D images were generated. CAD analysis was submitted and interpreted. COMPARISON: Comparison to multiple prior studies sequentially, with oldest reviewed study dated 01/01. BREAST PARENCHYMAL COMPOSITION: Not dense: There are scattered areas of fibroglandular density. FINDINGS: There is no evidence of suspicious mass, calcification, or architectural distortion to sugg est malignancy in either breast. There has been no suspicious interval change. IMPRESSION: 1. No mammographic evidence of malignancy. 2. Recommend routine screening mammography in one year. BI-RADS Category 1: Negative Reviewed, dictated and finalized at location B. [employer]
--- OUTSIDE RECORDS SUMMARY | 2024-10-21 09:44 | XMS_ITS | Data Portability ---
Author Organization [facility] Address [address] [place] [address] Assessment No assessment recorded. Plan of Treatment Reminders Order Date Submit Date Provider Last Modified By Organization Details Last Modified Time Details Appointments None recorded. Lab estradiol, serum 2015 016 [facility], [address] [place] [address], [facility] [address], [place], [address], 6 04:31:23 FSH (follicle-s timulating hormone), serum 2015 016 [facility], [address] [place] [address], [facility] [address], [place], [address], 6 04:31:23 urinalysis, dipstick 2015 In-Office Order, Internal Use Only DO Not Attach Compendium DO Not Attach Compendium, Do Not Delete/merge, [id number] 6 04:31:04 Referral None recorded. Procedures None recorded. Surgeries None recorded. Imaging None recorded. Medication Orders fluconazole 150 mg tablet 2015 016 [facility], [address] [facility], [place], [address], 6 04:31:18 triamcinolo ne acetonide 0.1 % topical cream 2015 016 [facility] [address], [address] [place], [address], 6 04:30:50 norethindro ne (contracept francisco) 0.35 mg tablet 2015 016 [facility] [address], [address] [place], [address], 6 04:31:06 Patient TargetsNo targets recorded. Patient Instructions Encounter Date Encounter Id Patient Instructions Last Modified By Organization Details Last Modified Time 07/24/2016 [id number] influenza (flu) vaccine: care instructions [email or web address] Not available 07/24/2016 18:23:04 hot flashes during menopause: care instructions [email or web address] Not available 07/24/2016 17:26:42 learning about breast cancer screening [email or web address] Not available 07/24/2016 17:26:42 vaginal yeast infection: care instructions [email or web address] Not available 07/24/2016 17:26:42 Reason for Referral None Reported. Results Created Date Observation Date Name Description Value Unit Range Abnormal Flag Note LastModifiedBy Organization Detail LastModifiedTime 07/24/20 16 07/24/2016 urina lysis , dipst ick Leukocytes Negati ve Not Available In-Office Order Internal Use Only DO Not Attach Compendium DO Not Attach Compendium, Do Not Delete/merge, [id number] 07/24/2016 16:25:57 07/24/20 16 07/24/2016 urina lysis , dipst ick Nitrite negati ve Not Available In-Office Order Internal Use Only DO Not Attach Compendium DO Not Attach Compendium, Do Not Delete/merge, [id number] 07/24/2016 16:25:57 07/24/20 16 07/24/2016 urina lysis , dipst ick Urobilinogen .2 Not Available In-Of fice Order Internal Use Only DO Not Attach Compendium DO Not Attach Compendium, Do Not Delete/merge, [id number] 07/24/2016 16:25:57 07/24/20 16 07/24/2016 urina lysis , dipst ick Protein Negati ve Not Available In-Office Order Internal Use Only DO Not Attach Compendium DO Not Attach Compendium, Do Not Delete/merge, [id number] 07/24/2016 16:25:57 07/24/20 16 07/24/2016 urina lysis , dipst ick pH 7.0 Not Available In-Office Order Internal Use Only DO Not Attach Compendium DO Not Attach Compendium, Do Not Delete/merge, 07/24/2016 16:25:57 07/24/20 16 07/24/2016 urina lysis , dipst ick Blood Non-He molyze d: Trace Not Available In-Office Order Internal Use Only DO Not Attach Compendium DO Not Attach Compendium, Do Not Delete/merge, 07/24/2016 16:25:57 07/24/20 16 07/24/2016 urina lysis , dipst ick Specific [place] 1.020 Not Available In-Off ice Order Internal Use Only DO Not Attach Compendium DO Not Attach Compendium, Do Not Delete/merge, 07/24/2016 16:25:57 07/24/20 16 07/24/2016 urina lysis , dipst ick Ketone Negati ve Not Available In-Office Order Internal Use Only DO Not Attach Compendium DO Not Attach Compendium, Do Not Delete/merge, 07/24/2016 16:25:57 07/24/20 16 07/24/2016 urina lysis , dipst ick Bilirubin Negati ve Not Available In-Office Order Internal Use Only DO Not Attach Compendium DO Not Attach Compendium, Do Not Delete/merge, 07/24/2016 16:25:57 07/24/20 16 07/24/2016 urina lysis , dipst ick Glucose [...] USAL 25.8 - 134.8 Not Available [facility] ([facility]) [address], [place], [address], 08/07/2016 07:13:38 08/06/20 16 08/07/2016 estra diol, serum estradiol 11.9 pg/mL ADULT FEMAL E: FOLLI CULAR PHASE 12.5 - 166.0 OVULA TION PHASE 85.8 - 498.0 LUTEA L PHASE 43.8 - 211.0 POSTM ENOPA USAL <6.0 - 54.7 PREGN SHRTUI 1ST TRIME STER 215.0 - >4300 .0 GIRLS (1-10 YEARS ) 6.0 - 27.0 MALISSA ECLIA METHO DOLOG Y Not Available [facility] ([facility]) [address], [place], [address], 08/07/2016 07:13:39 07/23/20 16 10/11/2013 mammo gram, follo w up* No observ ation record ed. [email or web address] Not Available 2015 18:24:58 Result Notes None recorded. Problems Name Problem SNOMED Code Status Onset Date Resolution Date Notes Provider Name and Address Organization Details Recorded Time Vulvitis 50199483 Active Sam Ciara maloney [facility] 06/17/2016 17:16:23 Problem Notes None recorded. Procedures Surgical History Date Name Laterality Status Provider Name and Address Organization Details Recorded Time 07/24/20 16 Date of Last Pap Smear completed Chantal Burns MA [facility] 07/24/2016 16:19:28 Hysterectomy completed Chantal Burns MA [facility] 07/24/2016 16:18:43 Tubal Ligation completed Chantal Burns MA [facility] 07/24/2016 16:18:50 Imaging Results Imaging Date Name [...] Details Last Updated DateTime 07/24/2016 167.64 cm 332493.3 2 g 39.9 kg/m2 134 mm[Hg] 74 mm[Hg] Chantal Burns [place] - [facility] 6 16:29:25 Social History Question Answer Notes LastModified by Organizat ion Details LastModified Time Tobacco Smoking Status Former Smoker Chantal Burns, ZACH[place] null, [place] - [facility] 07/24/2016 16:16:23 Do You Have An Advance [...] Clots N GI Problems N Acne N Eating Disorder N Breast Problem N Anemia N Anesthesia Complications N Headaches/Migraines Y Anxiety Disorder Y Ovarian Cancer N Diabetes N Muscle, Joint, or Bone Problems N Blood Transfusions N Seizures/Epilepsy N Infertility N Polyps N Acid Reflux (GERD) N Cancer Y [...] dose or 50 mcg/0.25mL dose 1 completed [place], [place] - [place] 03/16/2021 15:56:24 Influenza, split virus, quadrivalent, preservative 6 completed Not Available [facility] 10/02/2019 02:49:47 Past Encounters Encounter ID Performer Location Encounter Start Date Encounter Closed Date Diagnosis/Indication Diagnosis SNOMED-CT Code Diagnosis ICD10 Code Diagnosis Note [id number] Sam Steel (IVORY CARVER) [address] [place] [address] 07/24/2016 15:31:59 07/25/2016 19:08:22 Menopausal flushing 806830400 N95.1 History of hysterectomy 802222468 Z90.711 Candidiasis of vagina 72 277682 B37.3 Screening for malignant neoplasm of breast 618490381 Z12.31 Vulvitis 75456070 N76.2 Administra tion of influenza vaccine 90643233 Z23 Health Concerns Section Related Observation LastModified by Organization Detai ls LastModified Time None Recorded Concern Status LastModified by Organization Details LastModified Time None Recorded Advance Directives Directive N: Payers Encounter Date Sequence Insurance Name Policy Number Policy Contreras Covered Member ID Contreras Member ID Guarantor Name 07/24/2016 1 [facility] PRIOR TO 03/15/2021 (MEDICAID REPLACEMENT - HMO) Jennifer Quarles [id number] Jennifer Quarles Notes Date Note Type Note Provider Name and Address Organization Details Recorded Time 07/24/2016 text/html Annual Shaper Operator Post-MenopausalRep orted bypatient.Menopaus al Symptoms:normal vaginal lubrication;hot [...] On SSRI. Wants flu shot. Sam Urbina [facility] 07/24/2016 18:21:04 OBGyn Episode Ob Episode Information Episode Created Date Number of Fetuses Patient Bloodtype Patient rh Status Prepregnancy Weight lbs Domestic Partner Domestic Partner Phone Father Name Mine Laborer Status 07/24/20 16 1 CLOSED Fetus Data First Name Last Name Admitted to NICU Weight (g) Sex Living Outcome Pediatric Complications Fetus ID Race Codes Race Delivery Type 2608.15 4 F Full Term [address] Vaginal Ze Calculation Initial Ze Date Initial [...] Complications Tubal Sterilization Discharge Date Comments 9 [facility] 40 7 Discharge Information Feeding Method Contraceptive Method Maternal HG B and HCT Levels Ob Episode Information Episode Created Date Number of Fetuses Patient Bloodtype Patient rh Status Prepregnancy Weight lbs Domestic Partner Domestic Partner Phone Father Name Mine Laborer Status 07/24/20 16 1 CLOSED Fetus Data First Name Last Name Admitted to NICU Weight (g) Sex Living Outcome Pediatric Complications Fetus ID Race Codes Race Delivery Type 3089.86 8704 F Full Term 20643 Vaginal Ze Calculation Initial Ze Date Initial [...] Complications Tubal Sterilization Discharge Date Comments 1 [place] [address] 5 Discharge Information Feeding Method Contraceptive Method Maternal HG B and HCT Levels Ob Episode Information Episode Created Date Number of Fetuses Patient Bloodtype Patient rh Status Prepregnancy Weight lbs Domestic Partner Domestic Partner Phone Father Name Mine Laborer Status 07/24/20 16 1 CLOSED Fetus Data First Name Last Name Admitted to NICU Weight (g) Sex Living Outcome Pediatric Complications Fetus ID Race Codes Race Delivery Type 2919.77 1704 M Full Term [address]204 Vaginal Ze Calculation Initial Ze Date Initial [...] Complications Tubal Sterilization Discharge Date Comments 5 [facility] 40 9 Discharge Information Feeding Method Contraceptive Method Maternal HG B and HCT Levels Ob Episode Information Episode Created Date Number of Fetuses Patient Bloodtype Patient rh Status Prepregnancy Weight lbs Domestic Partner Domestic Partner Phone Father Name Mine Laborer Status 07/24/20 16 1 CLOSED Fetus Data First Name Last Name Admitted to NICU Weight (g) Sex Living Outcome Pediatric Complications Fetus ID Race Codes Race Delivery Type 4195.72 6 M Full Term 360[address] Vaginal Ze Calculation Initial Ze Date Initial [...] Complications Tubal Sterilization Discharge Date Comments 2 [facility] 40 3 Discharge Information Feeding Method Contraceptive Method Maternal HG B and HCT Levels
--- OUTSIDE RECORDS SUMMARY | 2024-10-21 09:44 | XMS_ITS | Referral Summary ---
Author Organization [facility] Address [address] [facility] [place] [address] Care Team Providers Care Acting Manager Name Role Phone Augusto Jiménez MD Primary Care Provider Source Comments [facility],non-[facility] Affiliates and Associated Physician Practices is amultiple site organization consisting of ambulatory clinics and hospital sitesin [place], [place], [place] and [place]. This disclosure is being madepursuant to the Care Everywhere program and may not contain all information available regarding this patient. Last updated 18.[facility] [employer] Allergies Active Allergy Reactions Criticality Noted Date [...] by mouth every 12 hours 03/29/2021 Active Marilla-3 Fatty Acids (Fish Oil) 1200 MG Take [...] 69 06/20/2022 1:58 PM CDT Temperature 36.9 C (98.5 F) 06/20/2022 1:58 PM CDT Respiratory Rate 18 06/20/2022 1:58 PM CDT [...] (ABNORMAL) COMPREHENSIVE METABOLIC PANEL (04/22/2022 12:55 PM [facility]) BUN 12 7 - 26 mg/dL 04/22/2022 1:36 PM [facility] Creatinine 0.89 0.56 - 0.96 mg/dL 04/22/2022 1:36 PM [facility] Sodium 143 136 - 145 mmol/L 04/22/2022 1:36 PM [facility] Potassium 3.7 3.5 - 4.5 mmol/L 04/22/2022 1:36 PM [facility] Chloride 103 98 - 107 mmol/L 04/22/2022 1:36 PM [facility] CO2 28 22 - 29 mmol/L 04/22/2022 1:36 PM [facility] Glucose 96 70 - 115 mg/dL 04/22/2022 1:36 PM [facility] Calcium 9.9 8.4 - 10.2 mg/dL 04/22/2022 1:36 PM [facility] Protein Total 7.8 6.0 - 8.3 g/dL 04/22/2022 1:36 PM [facility] Albumin 4.2 3.4 - 5.0 g/dL 04/22/2022 1:36 PM [facility] Bilirubin Total 0.3 0.2 - 1.2 mg/dL 04/22/2022 1:36 PM [facility] Alkaline Phosphatase 91 40 - 150 U/L 04/22/2022 1:36 PM [facility] ALT 30 5 - 55 U/L 04/22/2022 1:36 PM [facility] AST 16 5 - 34 U/L 04/22/2022 1:36 PM [facility] Anion Gap 16 8 - 18 04/22/2022 1:36 PM [facility] BUN/Creatinine Ratio 13 7 - 23 04/22/2022 1:36 PM [facility] Osmolality Calculated 296 270 - 300 mOsm/kg 04/22/2022 1:36 PM CDT [facility] Albumin/Globulin Ratio 1.2 1.1 - 2.3 04/22/2022 1:36 PM CDT [facility]PITAL eGFR by CKD-EPI 78(L) >=90 mL/min/1.7 3 m2 04/22/2022 1:36 PM CDT [facility] Blood BLOOD SPECIMEN / Unknown Lab Venipuncture / Unknown 04/22/2022 12:55 PM CDT 04/22/2022 1:05 PM CDT Umang Alonzo MD LAB - CHEMISTRY JENIFFER KUMARI [facility] Organization Address City/State/ZIP Co de Phone Number [facility] [address] [place] [address], [facility] [phone] from Last 3 Months or Most Recently Relevant to Health Maintenance Care Teams Acting Manager Relationship Specialty Start Date End Date Augusto Jiménez MD [address] [facility] [address] [place] [address] [facility] - General 06/17/17
--- OUTSIDE RECORDS SUMMARY | 2024-10-21 09:44 | XMS_ITS | Clinical Summary ---
Author Organization [facility] Address [address] [place] [address] Care Team Providers Care Speech Pathologist Name Role Phone Augusto Jiménez MD Primary Care Provider [phone] Source Comments [facility],non[facility] Affiliates and Associated Physician Practices is amultiple site organization consisting of ambulatory clinics and hospital sitesin [place], [place], [place] and [place]. This disclosure is being madepursuant to the Care Everywhere program and may not contain all information available regarding this patient. Last updated 18.[facility] Allergies Active Allergy Reactions Criticality Noted Date [...] by mouth every 12 hours 03/29/2021 Active Winlock-3 Fatty Acids (Fish Oil) 1200 MG Take [...] 3 Luzmaria Diabetes; unknown type Sister 3 Ulzmaria Hyperlipidemia Sister 3 Luzmaria Hypertension Sister 3 [...] of 3 - 19+ 3-dose series) 1989 PNEUMOCOCCAL VACCINE 50+ (1 of 1 - PCV) 2020 ZOSTER VACCINE (1 of 2) 2020 COVID-19 VACCINE (4 - season) 2024 10/08/2021, 01/23/2021, 12/26/2020 INFLUENZA VACCINE (#1) 2024 , 07/20/2020, 07/24/2016 DEPRESSION SCREENING 09/15/2024 04/22/2022 SCREENING FOR DIABETES 04/22/2025 04/22/2022 DTAP/TDAP/TD VACCINES (9 - Td or Tdap) 06/09/2029 06/09/2019, 09/05/2006, 12/21/1992, Additional history exists HIB VACCINE Aged Out No longer eligi ble based on patient's age to complete this topic HPV VACCINE Aged Out No longer eligi ble based on patient's age to complete this topic MENINGOCOCCAL (Group B) VACCINE Aged Out No longer eligible based on patient's age to complete [...] 7 - 26 mg/dL 04/22/2022 1:36 PM [facility] Creatinine 0.89 0.56 - 0.96 mg/dL 04/22/2022 1:36 PM [facility] Sodium 143 136 - 145 mmol/L [...] 13 7 - 23 04/22/2022 1:36 PM [facility] Osmolality Calculated 296 270 - 300 mOsm/kg 04/22/2022 1:36 PM [facility] Albumin/Globulin Ratio 1.2 1.1 - 2.3 04/22/2022 1:36 PM [facility] eGFR by CKD-EPI 78(L) >=90 mL/min/1.7 3 m2 04/22/2022 1:36 PM [facility] Blood BLOOD SPECIMEN / Unknown Lab Venipuncture / Unknown 04/22/2022 12:55 PM CDT 04/22/2022 1:05 PM [facility] Umang Alonzo MD LAB - CHEMISTRY JENIFFER KUMARI [facility] Organization Address City/State/ZIP Co de Phone Number [facility] [address] [place] [address], [facility] [phone] from Last 3 Months or Most Recently Relevant to Health Maintenance Care Teams Speech Pathologist Relationship Specialty Start Date End Date Augusto Jiménez MD [address] [facility] [address] [place] [address] PCP - General 06/17/17
--- OUTSIDE RECORDS SUMMARY | 2024-10-21 09:44 | XMS_ITS | Patient Health Summary ---
Author Organization [facility] Address [address] [place] [address] Care Team Providers Care Manufacturer Name Role Phone Augusto Jiménez MD Primary Care Provider [phone] Note from [facility],non-owned Affiliates and Associated Physician Practices is amultiple site organization consisting of ambulatory clinics and hospital sitesin [place], [place] and [place]. This disclosure is being madepursuant to the Care Everywhere program and may not contain all information available regarding this patient. Last updated 18.[facility] Allergies * Adhesive Sensitivity(Rash) -Medium Criticality [...] tablet by mouth every 12 hours * Delta-3 Fatty Acids (Fish Oil) 1200 MG Take [...] complex (HCC), Polyarthritis of hand, Polyarthralgia * HERZOG/STUDENT ACCOUNTS COORDINATOR (TERRI) ANTIBODY IGG(Performed 04/22/2022) Performed for Sjogren's [...] SINGLE PATTERN (04/22/2022 12:55 PM CDT) Pathologist [facility] RAE Pattern Speckled( A) 04/24/2022 12:58 PM CDT [employer] ([facility]) RAE Titer 1:80(A) 04/24/2022 12:58 PM CDT [employer] ([facility]) Comment: Performed By: [facility] [address] [place] [address] Vinyl Cutter: Da Terrell MD, PhD Blood BLOOD SPECIMEN / Unknown Lab Venipuncture / Unknown 04/22/2022 12:55 PM CDT 04/22/2022 1:03 PM CDT Umang Alonzo MD LAB - CHEMISTRY JENIFFER KUMARI [facility]) [address] * RHEUMATOID FACTOR IGG/IGM/IGA AB (04/22/2022 12:55 PM CDT) Pathologist [facility] Rheumatoid Factor IgA by Jesus <5 <=6 Units 04/24/2022 9:13 PM CDT [facility] [employer] ([facility]) Comment: INTERPRETIVE INFORMATION: Rheumatoid Factor, IgA by [...] <5 <=6 Units 04/24/2022 9:13 PM CDT [facility] ([facility]) Comment: INTERPRETIVE INFORMATION: Rheumatoid Factor, IgM by [...] <5 <=6 Units 04/24/2022 9:13 PM CDT [facility] ([facility]) Comment: INTERPRETIVE INFORMATION: Rheumatoid Factor, IgG by JESUS The presence of all three rheumatoid factor (RF) isotypes at abnormal levels has high specificity for a diagnosis of rheumatoid arthritis (RA). However, the presence of RF isotypes in any combination may be found in a variety of conditions, including Sjogren syndrome and hepatitis infections. Performed By: [facility] [address] [place] [address] Vinyl Cutter: Da Terrell MD, PhD Blood BLOOD SPECIMEN / Unknown Lab Venipuncture / Unknown 04/22/2022 12:55 PM CDT 04/22/2022 1:03 PM CDT Umang Alonzo MD LAB - SEROLOGY ORDER MAX [facility]) [address] [place] [address], [facility] * (ABNORMAL) RAE HEP-2 IGG BY IFA (04/22/2022 12:55 PM CDT) RAE HEp-2 IgG Detected (H) <1:80 04/24/2022 12:58 PM CDT [facility] ([facility]) RAE Interpretive Comment See Note 04/24/2022 12:58 PM CDT [facility] ([facility]) Comment: Speckled Pattern Clinical associations: SLE, SSc, SjS, DM, PM, MCTD, UCTD. May also be found in healthy individuals Main autoantibodies: Anti-SSA-52 (Ro52), anti-SSA-60 (Ro60), anti-SS-B/LA, anti-Alexei-1 (anti-Scl-70), Herzog, anti-U1-STUDENT ACCOUNTS COORDINATOR, anti-U2-STUDENT ACCOUNTS COORDINATOR, anti-Mi-2, anti-p155/140 (TIF1g), anti-Ku, anti-RNA polymerase, anti-DFS70/LEDGF-P75 List of Abbreviations Antisynthetase syndrome (ARS), chronic active hepatitis (CAH), inflammatory myopathies (IM) [dermatomyositis (DM), polymyositis (PM), necrotizing autoimmune [...] diseases (cancers, autoimmune, infectious, and inflammatory conditions) and may also occur in healthy individuals in [...] or diseases. Mitotic staining patterns not reported. Negative results do not necessarily rule out SARD. Performed By: [facility] [address] [place] [address] Vinyl Cutter: Da Terrell MD, PhD Blood BLOOD SPECIMEN / Unknown Lab Venipuncture / Unknown 04/22/2022 12:55 PM CDT 04/22/2022 1:03 PM CDT Umang Alonzo MD LAB - SEROLOGY ORDER MAX [employer] ([facility]) [address] * (ABNORMAL) SS-A (SJOGREN'S) 52+60 ANTIBODIES (04/22/2022 12:55 PM CDT) [facility] SS-A 52 Antibody 2 0 - 40 AU/mL 04/24/2022 1:05 AM CDT [facility] [employer] ([facility]) Comment: INTERPRETIVE INFORMATION: SSA-52 (Ro52) (TERRI) Antibody, IgG 29 AU/mL or Less ............. Negative 30 - 40 AU/mL ................ Equivocal 41 AU/mL or Greater .......... Positive SSA-52 (Ro52) [...] - 40 AU/mL 04/24/2022 1:05 AM CDT [employer] ([facility]) Comment: REFERENCE INTERVAL: SSA-60 (Ro60) (TERRI) Antibody, IgG 29 AU/mL or Less ............. Negative 30 - 40 AU/mL ................ Equivocal 41 AU/mL or Greater .......... Positive Performed By: [facility] [address] [place] [address] Vinyl Cutter: Da Terrell MD, PhD Blood BLOOD SPECIMEN / Unknown Lab Venipuncture / Unknown 04/22/2022 12:55 PM CDT 04/22/2022 1:03 PM CDT Umang Alonzo MD LAB - CHEMISTRY JENIFFER KUMARI [facility] Organization Address City/State/ZIP Co de Phone Number [employer] ([facility]) [address] * HERZOG/STUDENT ACCOUNTS COORDINATOR (TERRI) ANTIBODY IGG (04/22/2022 12:55 PM CDT) Herzog/STUDENT ACCOUNTS COORDINATOR (TERRI) Antibody IgG 9 0 - 19 Units 04/23/2022 2:23 PM CDT [facility] [employer] ([facility]) Comment: INTERPRETIVE INFORMATION: Herzog/STUDENT ACCOUNTS COORDINATOR (TERRI) Antibody, IgG 19 Units or Less ............. Negative 20 to 39 Units ............... Weak Positive 40 to 80 Units ............... Moderate Positive 81 Units or greater .......... Strong Positive Herzog/STUDENT ACCOUNTS COORDINATOR antibodies are frequently seen in patients with mixed connective tissue disease (MCTD) and are also associated with other systemic autoimmune rheumatic diseases (SARDs) such as systemic lupus erythematosus (SLE), systemic sclerosis, and myositis. Antibodies targeting the Herzog/STUDENT ACCOUNTS COORDINATOR antigenic complex also recognize Herzog antigens, therefore, the Herzog antibody response must be considered when interpreting these results. Performed By: [facility] [address] [place] [address] Vinyl Cutter: Da Terrell MD, PhD Blood BLOOD SPECIMEN / Unknown Lab Venipuncture / Unknown 04/22/2022 12:55 PM CDT 04/22/2022 1:03 PM CDT Umang Alonzo MD LAB - CHEMISTRY JENIFFER KUMARI [facility] Organization Address City/State/ZIP Co de Phone Number [employer] [facility]) [address] [place] [address], [facility] * CHROMATIN ANTIBODY (04/22/2022 12:55 PM CDT) Chromatin Antibody 5 0 - 19 Units 04/24/2022 2:01 PM CDT [facility] [employer] ([facility]) Comment: INTERPRETIVE INFORMATION: Chromatin Antibody, IgG 19 Units or less: Negative 20 - 60 Units: Moderate Positive 61 Units or greater: Strong Positive The presence of anti-chromatin antibodies may be useful in the diagnosis of systemic lupus erythematosus (SLE) or drug-induced lupus (DIL) and have been reported to be predictive of lupus nephritis, especially when antibody levels are high. Performed By: [facility] [address] [place] [address] Vinyl Cutter: Da Terrell MD, PhD Blood BLOOD SPECIMEN / Unknown Lab Venipuncture / Unknown 04/22/2022 12:55 PM CDT 04/22/2022 1:03 PM CDT Umang Alonzo MD LAB - SEROLOGY ORDER MAX [facility]) [address] * TSH REFLEX FREE T4 (04/22/2022 12:55 PM CDT) TSH 3.027 0.350 - 4.940 uIU/mL 04/22/2022 1:53 PM CDT [facility] Blood BLOOD SPECIMEN / Unknown Lab Venipuncture / Unknown 04/22/2022 12:55 PM CDT 04/22/2022 1:05 PM CDT Umang Alonzo MD LAB - CHEMISTRY ORDE RABLES [facility] [address] [place] [address], [facility] [phone] * (ABNORMAL) URINALYSIS W/MICROSCOPIC REFLEX TO CULTURE (04/22/2022 12:55 PM CDT) Color UA Yellow Straw, Yellow 04/22/2022 1:13 PM CDT [facility] Clarity UA Slt Cloudy(A) Clear 04/22/2022 1:13 PM CDT [facility] Specific Peterson UA 1.019 1.005 - 1.030 04/22/2022 1:13 PM CDT [facility] pH UA 5.0 5.0 - 8.0 pH 04/22/2022 1:13 PM CDT [facility] Protein UA Negative Negative 04/22/2022 1:13 PM CDT [facility] Glucose UA Negative Negative 04/22/2022 1:13 PM CDT [facility] Ketone UA Negative Negative 04/22/2022 1:13 PM CDT [facility] Bilirubin UA Negative Negative 04/22/2022 1:13 PM [facility] Blood UA Negative Negative 04/22/2022 1:13 PM [facility] Nitrite UA Negative Negative 04/22/2022 1:13 PM [facility] Leukocyte Esterase Negative Negative 04/22/2022 1:13 PM [facility] Urobilinogen UA Negative Negative mg/dL 04/22/2022 1:13 PM [facility] RBC UA 0-2 None Seen, 0-2, 3-5 /HPF 04/22/2022 1:13 PM [facility] WBC UA 0-5 None Seen, 0-5 /HPF 04/22/2022 1:13 PM [facility] Bacteria UA Trace(A) None /HPF 04/22/2022 1:13 PM [facility] Squamous Epithelial Cells UA 3-5 None Seen, 0-2, 3-5 /HPF 04/22/2022 1:13 PM [facility] Mucus UA 1+ /LPF 04/22/2022 1:13 PM [facility] Urine URINE SPECIMEN OBTAINED BY CLEAN CATCH PROCEDURE / Unknown Collection / Unknown 04/22/2022 12:55 PM CDT 04/22/2022 1:03 PM CDT [facility] - 04/22/2022 1:13 PM CDT Culture Not Indicated Umang Alonzo MD LAB - URINALYSIS ORD ERABLES [facility] [address] [place] [address], [facility] [phone] * PROTEIN ELECTROPHORESIS URINE RANDOM (04/22/2022 12:55 PM CDT) Interpretation Urine PE See Comment Normal Pattern 04/28/2022 6:06 PM [facility] Comment: Urine protein electrophoresis shows a band corresponding to albumin. No monoclonal immunoglobulins detected. Jacquie Cade MD Protein Urine <7 Not Established mg/dL 04/28/2022 6:06 PM [facility] Urine URINE SPECIMEN OBTAINED BY CLEAN CATCH PROCEDURE / Unknown Collection / Unknown 04/22/2022 12:55 PM CDT 04/22/2022 1:03 PM CDT Umang Alonzo MD LAB - URINE CHEMISTR Y ORDERABLES [facility] [address] [address], [facility] [phone] * HERZOG (SM) ANTIBODY TERRI (04/22/2022 12:55 PM CDT) [facility] Herozg (TERRI) Antibody 1 0 - 40 AU/mL 04/23/2022 5:07 PM CDT [facility] [employer] ([facility]) Comment: INTERPRETIVE INFORMATION: Herzog (TERRI) Antibody, IgG 29 AU/mL or Less ............. Negative 30 - 40 AU/mL ................ Equivocal 41 AU/mL or Greater .......... Positive Herzog antibody is highly specific (greater than 90 percent) for systemic lupus erythematosus (SLE) but only occurs in 30-35 percent of SLE cases. The presence of antibodies to Herzog has variable associations with SLE clinical manifestations. Performed By: [facility] [address] [place] [address] Vinyl Cutter: Da Terrell MD, PhD Blood BLOOD SPECIMEN / Unknown Lab Venipuncture / Unknown 04/22/2022 12:55 PM CDT 04/22/2022 1:03 PM CDT Umang Alonzo MD LAB - CHEMISTRY ORDE RABLES Performing Organization Address City/[facility]/ZIP Co de Phone Number [facility]) [address] * (ABNORMAL) RAE BLOOD SCREEN W/REFLEX TITER (04/22/2022 12:55 PM CDT) [facility] RAE IgG Detected (A) None Detected 04/23/2022 3:15 PM CDT [facility] [employer] ([facility]) Comment: Antibodies to Anti-Nuclear Antibodies (RAE) detected. [...] dsDNA, histones, SS-A (Ro), SS-B (La), Herzog, Herzog/STUDENT ACCOUNTS COORDINATOR, Scl-70, Chrissy-1, centromeric proteins, other antigens extracted from the HEp-2 cell nucleus. RAE JESUS assays have been reported to have lower sensitivities than RAE IFA for systemic autoimmune rheumatic diseases (SARD). Negative results do not necessarily rule out SARD. Performed By: [facility] [address] [place] [address] Vinyl Cutter: Da Terrell MD, PhD Blood BLOOD SPECIMEN / Unknown Lab Venipuncture / Unknown 04/22/2022 12:55 PM CDT 04/22/2022 1:03 PM CDT Umang Alonzo MD LAB - CHEMISTRY JENIFFER KUMARI [facility]) [address] [place] [address] * CRYOGLOBULIN QUALITATIVE (04/22/2022 12:55 PM CDT) [facility] Cryoglobulin Qualitative Negative Negative 04/25/2022 8:07 AM CDT [facility] Blood BLOOD SPECIMEN / Unknown Lab Venipuncture / Unknown 04/22/2022 12:55 PM CDT 04/22/2022 12:59 PM CDT Umang Alonzo MD LAB - CHEMISTRY JENIFFER KUMARI [address] [address], [facility] [phone] * CENTROMERE ANTIBODY (04/22/2022 12:55 PM CDT) [facility] Centromere Antibody 1 0 - 40 AU/mL 04/23/2022 5:07 PM CDT [facility] ([facility]) Comment: INTERPRETIVE INFORMATION: Centromere Ab, IgG 29 AU/mL or Less ............. Negative 30 - 40 AU/mL ................ Equivocal 41 AU/mL or Greater .......... Positive When detected [...] other antibodies associated with SSc, including Scl-70, U3-STUDENT ACCOUNTS COORDINATOR, PM/Scl, or Th/To. Performed By: [facility] [address] [place] [address] Vinyl Cutter: Da Terrell MD, PhD Blood BLOOD SPECIMEN / Unknown Lab Venipuncture / Unknown 04/22/2022 12:55 PM CDT 04/22/2022 1:03 PM CDT Umang Alonzo MD LAB - CHEMISTRY JENIFFER KUMARI [facility] Organization Address City/State/ZIP Co de Phone Number [employer] [facility]) [address] [place] [address], [facility] * (ABNORMAL) SS-B (SJOGREN'S) ANTIBODY (04/22/2022 12:55 PM CDT) Pathologist [facility] SS-B Antibody 50(H) 0 - 40 AU/mL 04/23/2022 5:07 PM CDT [facility] [employer] ([facility]) Comment: INTERPRETIVE INFORMATION: SSB (La) (TERRI) Ab, IgG 29 AU/mL or Less ............. Negative 30 - 40 AU/mL ................ Equivocal 41 AU/mL or Greater .......... Positive SSB (La) antibody is seen in 50-60% of Sjogren syndrome cases and is specific if it is the only TERRI antibody present. 15-25% of patients with systemic lupus erythematosus (SLE) and 5-10% of patients with progressive systemic sclerosis (PSS) also have this antibody. Performed By: [facility] [address] [place] [address] Vinyl Cutter: Da Terrell MD, PhD Blood BLOOD SPECIMEN / Unknown Lab Venipuncture / Unknown 04/22/2022 12:55 PM CDT 04/22/2022 1:03 PM CDT Umang Alonzo MD LAB - CHEMISTRY ORDE KENYETTA [facility] [employer] [facility]) [address] [place] [address], [facility] * SCLERODERMA 70 (SCL) ANTIBODY (04/22/2022 12:55 PM CDT) SCL-70 Antibody 0 0 - 40 AU/mL 04/23/2022 5:07 PM CDT [facility] [employer] ([facility]) Comment: INTERPRETIVE INFORMATION: Scleroderma (Scl-70) (TERRI) Ab, IgG 29 AU/mL or Less ............. Negative 30 - 40 AU/mL ................ Equivocal 41 AU/mL or Greater .......... Positive The presence [...] testing for centromere, RNA polymerase III and U3-STUDENT ACCOUNTS COORDINATOR, PM/Scl, or Th/To antibodies. Performed By: [facility] [address] [place] [address] Vinyl Cutter: Da Terrell MD, PhD Blood BLOOD SPECIMEN / Unknown Lab Venipuncture / Unknown 04/22/2022 12:55 PM CDT 04/22/2022 1:04 PM CDT Umang Alonzo MD LAB - CHEMISTRY JENIFFER KUMARI [employer] [facility]) [address] [place] [address], [facility] * DNA ANTIBODY DOUBLE STRANDED (04/22/2022 12:55 PM CDT) dsDNA Antibody 4 0 - 24 IU 04/23/2022 3:06 PM CDT [employer] ([facility]) Comment: INTERPRETIVE INFORMATION: Double-Stranded DNA (dsDNA) Ab IgG JESUS 24 IU or less........Negative 25-30 IU.............Borderline Positive 30-60 IU.............Low Positive 60-200 IU............Positive 201 IU or greater....Strong Positive Positivity for anti-double stranded DNA (anti-dsDNA) IgG antibody is a diagnostic criterion of systemic lupus erythematosus (SLE). Specimens are initially screened by enzyme-linked immunosorbent assay (JESUS). If ordered as reflex ([id number]), positive JESUS results (>24 IU) will be [...] recommendations for testing may be found at [email or web address]/[email or web address]-[email or web address]. Performed By: [facility] [employer] [address] [place] [address] Vinyl Cutter: Da Terrell MD, PhD Blood BLOOD SPECIMEN / Unknown Lab Venipuncture / Unknown 04/22/2022 12:55 PM CDT 04/22/2022 1:03 PM CDT Umang Alonzo MD LAB - HEMATOLOGY ORD ERAJUANITO Performing Organization Address [facility]/ZIP Co de Phone Number [facility] [employer] [facility]) [address] [place] [address] * CHRISSY-1 ANTIBODY (04/22/2022 12:55 PM CDT) [facility] Chrissy-1 Antibody IgG 0 0 - 40 AU/mL 04/24/2022 1:05 AM CDT [facility] ([facility]) Comment: INTERPRETIVE INFORMATION: Chrissy-1 Antibody, IgG 29 AU/mL or less.........Negative 30-40 AU/mL..............Equivocal 41 AU/mL or greater......Positive Presence of Chrissy-1 (antihistidyl transfer RNA [t-RNA] synthetase) antibody is associated with polymyositis and may also be seen in patients with dermatomyositis. Chrissy-1 antibody is associated with pulmonary involvement (interstitial lung disease), Raynaud phenomenon, arthritis, and equipment mechanic's hands (implicated in antisynthetase syndrome). Performed By: [employer] [address] [place] [address] Vinyl Cutter: Da Terrell MD, PhD Blood BLOOD SPECIMEN / Unknown Lab Venipuncture / Unknown 04/22/2022 12:55 PM CDT 04/22/2022 1:03 PM CDT Umang Alonzo MD LAB - CHEMISTRY ORDE RABPASCALE Performing Organization Address City/[facility]/ZIP Co de Phone Number [facility]) [address] * CYCLIC CITRULLINATED PEPTIDE(CCP) AB IGG (04/22/2022 12:55 PM CDT) [facility] CCP Antibody IgG 0.6 <5.0 U/mL 04/22/2022 2:04 PM CDT [facility] Blood BLOOD SPECIMEN / Unknown Lab Venipuncture / Unknown 04/22/2022 12:55 PM CDT 04/22/2022 1:03 PM CDT Umang Alonzo MD LAB - CHEMISTRY JENIFFER KUMARI Performing Organization Address [facility]/ZIP Co de Phone Number [facility] [place] [phone] [phone] * KAPPA/LAMBDA LITE CHAIN FREE PANEL (04/22/2022 12:55 PM CDT) [facility] [place] Quant Free Light Chain 17.51 3.30 - 19.40 mg/L 04/23/2022 12:00 PM CDT [facility] ([facility]) Comment: INTERPRETIVE INFORMATION: [place] Qnt Free Light Chains Undetected antigen excess is a rare event but cannot be excluded. Free light chain results should always be interpreted in conjunction with other clinical and laboratory findings. Lambda Free Light Chain Quantitative 13.81 5.71 - 26.30 mg/L 04/23/2022 12:00 PM CDT [facility] ([facility]) Comment: INTERPRETIVE INFORMATION: Lambda Qnt Free Light Chains Undetected antigen excess is a rare event but cannot be excluded. Free light chain results should always be interpreted in conjunction with other clinical and laboratory findings. [place]/Lambda Free Light Chain ratio 1.27 0.26 - 1.65 04/23/2022 12:00 PM CDT [facility] ([facility]) Comment: Performed By: [facility] [address] [place] [address] Vinyl Cutter: Da Terrell MD, PhD Blood BLOOD SPECIMEN / Unknown Lab Venipuncture / Unknown 04/22/2022 12:55 PM CDT 04/22/2022 1:03 PM CDT Umang Alonzo MD LAB - CHEMISTRY JENIFFER KUMARI Performing Organization Address City/[facility]/ZIP Co de Phone Number [employer] ([facility]) [address] * CBC WITH DIFFERENTIAL (04/22/2022 12:55 PM [facility]) WBC 7.9 3.5 - 10.5 10 3/uL 04/22/2022 1:12 PM [facility] RBC 4.66 3.80 - 5.20 10 6/uL 04/22/2022 1:12 PM [facility] Hemoglobin 13.0 12.0 - 15.6 g/dL 04/22/2022 1:12 PM [facility] Hematocrit 41.2 35.0 - 45.0 % 04/22/2022 1:12 PM [facility] MCV 88.4 80.7 - 98.3 fL 04/22/2022 1:12 PM [facility] MCH 27.9 26.7 - 34.0 pg 04/22/2022 1:12 PM [facility] MCHC 31.6 30.8 - 35.9 g/dL 04/22/2022 1:12 PM [facility] Platelet Count 317 150 - 400 10 3/uL 04/22/2022 1:12 PM [facility] RDW-SD 43.9 36.0 - 50.0 fL 04/22/2022 1:12 PM [facility] RDW-CV 13.5 11.2 - 14.8 % 04/22/2022 1:12 PM [facility] MPV 10.1 9.4 - 12.9 fL 04/22/2022 1:12 PM [facility] nRBC Absolute 0.00 0 10 3/uL 04/22/2022 1:12 PM [facility] nRBC Auto 0.0 0 /100 WBC 04/22/2022 1:12 PM [facility] Neutrophils % 54.8 35.0 - 70.0 % 04/22/2022 1:12 PM [facility] Lymphocytes % 35.4 20.0 - 43.0 % 04/22/2022 1:12 PM [facility] Monocytes % 7.6 5.0 - 13.0 % 04/22/2022 1:12 PM [facility] Eosinophils % 1.5 0.0 - 6.0 % 04/22/2022 1:12 PM CDT [facility] Basophil % 0.4 0.0 - 2.0 % 04/22/2022 1:12 PM CDT [facility] Neutrophils Absolute 4.30 1.60 - 7.00 10 3/uL 04/22/2022 1:12 PM CDT [facility] Lymphocyte Absolute 2.78 1.10 - 3.90 10 3/uL 04/22/2022 1:12 PM CDT [facility] Monocytes Absolute 0.60 0.26 - 1.07 10 3/uL 04/22/2022 1:12 PM CDT [facility] Eosinophils Absolute 0.12 0.00 - 0.47 10 3/uL 04/22/2022 1:12 PM CDT [facility] Basophils Absolute 0.03 0.00 - 0.08 10 3/uL 04/22/2022 1:12 PM CDT [facility] Immature Granulocytes % 0.3 0.0 - 1.0 % 04/22/2022 1:12 PM T [facility] Immature Granulocytes Absolute 0.02 04/22/2022 1:12 PM CDT [facility] Blood BLOOD SPECIMEN / Unknown Lab Venipuncture / Unknown 04/22/2022 12:55 PM CDT 04/22/2022 1:06 PM CDT Umang Alonzo MD LAB - HEMATOLOGY ORD ERABLES [address] [address], [facility] [phone] * COMPLEMENT C4 (04/22/2022 12:55 PM CDT) Complement C4 33 15 - 57 mg/dL 04/22/2022 1:36 PM CDT [facility] Blood BLOOD SPECIMEN / Unknown Lab Venipuncture / Unknown 04/22/2022 12:55 PM CDT 04/22/2022 1:05 PM CDT Umang Alonzo MD LAB - SEROLOGY ORDER MAX [address] [place] [address], [facility] [phone] * (ABNORMAL) COMPREHENSIVE METABOLIC PANEL (04/22/2022 12:55 PM [facility]) BUN 12 7 - 26 mg/dL 04/22/2022 1:36 PM [facility] Creatinine 0.89 0.56 - 0.96 mg/dL 04/22/2022 1:36 PM [facility] Sodium 143 136 - 145 mmol/L 04/22/2022 1:36 PM [facility] Potassium 3.7 3.5 - 4.5 mmol/L 04/22/2022 1:36 PM [facility] Chloride 103 98 - 107 mmol/L 04/22/2022 1:36 PM [facility] CO2 28 22 - 29 mmol/L 04/22/2022 1:36 PM [facility] Glucose 96 70 - 115 mg/dL 04/22/2022 1:36 PM [facility] Calcium 9.9 8.4 - 10.2 mg/dL 04/22/2022 1:36 PM [facility] Protein Total 7.8 6.0 - 8.3 g/dL 04/22/2022 1:36 PM [facility] Albumin 4.2 3.4 - 5.0 g/dL 04/22/2022 1:36 PM [facility] Bilirubin Total 0.3 0.2 - 1.2 mg/dL 04/22/2022 1:36 PM [facility] Alkaline Phosphatase 91 40 - 150 U/L 04/22/2022 1:36 PM [facility] ALT 30 5 - 55 U/L 04/22/2022 1:36 PM [facility] AST 16 5 - 34 U/L 04/22/2022 1:36 PM [facility] Anion Gap 16 8 - 18 04/22/2022 1:36 PM [facility] BUN/Creatinine Ratio 13 7 - 23 04/22/2022 1:36 PM [facility] Osmolality Calculated 296 270 - 300 mOsm/kg 04/22/2022 1:36 PM [facility] Albumin/Globulin Ratio 1.2 1.1 - 2.3 04/22/2022 1:36 PM CDT [facility] eGFR by CKD-EPI 78(L) >=90 mL/min/1.7 3 m2 04/22/2022 1:36 PM CDT [facility] Blood BLOOD SPECIMEN / Unknown Lab Venipuncture / Unknown 04/22/2022 12:55 PM CDT 04/22/2022 1:05 PM CDT Umang Alonzo MD LAB - CHEMISTRY ORDE RABLES Performing Organization Address City/[facility]/ZIP Co de Phone Number [address] [address], [facility] [phone] * PROTEIN CREATININE RATIO URINE RANDOM PNL (04/22/2022 12:55 PM CDT) Protein Urine <7 Not Established mg/dL 04/22/2022 1:42 PM CDT [facility] Creatinine Urine 160 Not Established mg/dL 04/22/2022 1:42 PM CDT [facility] Protein/Creatinin e Ratio Urine 04/22/2022 1:42 PM CDT [facility] Comment:Unable to calculate ratio because the analyte concentration is outside the instrument measuring range. Urine URINE SPECIMEN OBTAINED BY CLEAN CATCH PROCEDURE / Unknown Collection / Unknown 04/22/2022 12:55 PM CDT 04/22/2022 1:03 PM CDT Umang Alonzo MD LAB - URINE CHEMISTR Y ORDERABLES Performing Organization Address [facility]/ZIP Co de Phone Number [address] [address], [place] [phone] * PROTEIN ELECTROPHORESIS BLOOD (04/22/2022 12:55 PM CDT) Pathologist [facility] Interpretation Serum PE Normal Pattern Normal Pattern 04/28/2022 6:06 PM CDT [facility] Comment: Serum capillary electrophoresis shows characteristic bands corresponding to albumin, alpha and beta globulins and polyclonal immunoglobulins. No monoclonal immunoglobulin detected. Non-secretory myeloma (NSM) and light chain only myeloma cannot be excluded based on this result. Recommend serum free light chain measurements for complete evaluation of plasma cell disorders. Una Vora MD Pathology resident PGY1 *The electrophoresis pattern and the interpretation have been reviewed and verified by the teaching physician. Protein Total 7.6 6.0 - 8.3 g/dL 04/28/2022 6:06 PM CDT [facility] Albumin 4.4 3.3 - 5.6 g/dL 04/28/2022 6:06 PM CDT [facility] Alpha-1 Globulins 0.4 0.2 - 0.4 g/dL 04/28/2022 6:06 PM CDT [facility] Alpha-2 Globulins 0.8 0.5 - 1.0 g/dL 04/28/2022 6:06 PM CDT [facility] Beta Globulins 1.0 0.6 - 1.1 g/dL 04/28/2022 6:06 PM CDT [facility] Gamma Globulins 1.1 0.6 - 1.6 g/dL 04/28/2022 6:06 PM CDT [facility] Blood BLOOD SPECIMEN / Unknown Lab Venipuncture / Unknown 04/22/2022 12:55 PM CDT 04/22/2022 1:03 PM CDT Umang Alonzo MD LAB - CHEMISTRY JENIFFER KUMARI [address] [address], [place] [phone] * COMPLEMENT C3 (04/22/2022 12:55 PM CDT) Complement C3 156 82 - 193 mg/dL 04/22/2022 1:36 PM CDT [facility] Blood BLOOD SPECIMEN / Unknown Lab Venipuncture / Unknown 04/22/2022 12:55 PM CDT 04/22/2022 1:05 PM CDT Umang Alonzo MD LAB - CHEMISTRY JENIFFER KUMARI [address] [address], [place] [phone] * XR FOOT RIGHT 3VW OR MORE [...] PM Narrative 04/22/2022 1:03 PM CDT PROCEDURE: XR WRIST RIGHT 2VW, XR HAND LEFT 3VW OR MORE, XR FOOT RIGHT 3VW OR MORE, XR FOOT LEFT 3VW OR MORE, XR WRIST LEFT 2VW, DATE/TIME OF EXAM: 04/22/2022 12:31 PM, LOCATION [facility] INDICATION: M35.00: Sjogren's syndrome, with unspecified [...] normal. The soft tissues are normal. Left hand: No fracture or dislocation is present. The joint spaces are normal. No erosions are seen. Bone density is normal. The soft tissues are normal. Right wrist: No fracture or dislocation is present. The joint spaces are normal. No erosions are seen. Bone density is normal. The soft tissues are normal. Left wrist: No fracture or dislocation is present. The joint spaces are normal. No erosions are seen. Bone density is normal. The soft tissues are normal. Right knee: No [...] is likely postsurgical. Bone density is normal. The soft tissues are normal. Procedure Note Magno Santamaria MD - 04/22/2022 PROCEDURE: XR WRIST RIGHT 2VW, XR HAND LEFT 3VW OR MORE, XR FOOT [id number] OR MORE, XR FOOT LEFT 3VW OR MORE, XR WRIST LEFT 2VW, DATE/TIME OF EXAM: 04/22/2022 12:31 PM, LOCATION [facility] INDICATION: M35.00: Sjogren's syndrome, with unspecified [...] PM Narrative 04/22/2022 1:03 PM CDT PROCEDURE: XR WRIST RIGHT 2VW, XR HAND LEFT 3VW OR MORE, XR FOOT RIGHT 3VW OR MORE, XR FOOT LEFT 3VW OR MORE, XR WRIST LEFT 2VW, DATE/TIME OF EXAM: 04/22/2022 12:31 PM, LOCATION [facility] INDICATION: M35.00: Sjogren's syndrome, with unspecified [...] normal. The soft tissues are normal. Left hand: No fracture or dislocation is present. The joint spaces are normal. No erosions are seen. Bone density is normal. The soft tissues are normal. Right wrist: No fracture or dislocation is present. The joint spaces are normal. No erosions are seen. Bone density is normal. The soft tissues are normal. Left wrist: No fracture or dislocation is present. The joint spaces are normal. No erosions are seen. Bone density is normal. The soft tissues are normal. Right knee: No [...] is likely postsurgical. Bone density is normal. The soft tissues are normal. Procedure Note Magno Santamaria MD - 04/22/2022 PROCEDURE: XR WRIST RIGHT 2VW, XR HAND LEFT 3VW OR MORE, XR FOOT [id number] OR MORE, XR FOOT LEFT 3VW OR MORE, XR WRIST LEFT 2VW, DATE/TIME OF EXAM: 04/22/2022 12:31 PM, LOCATION [facility] INDICATION: M35.00: Sjogren's syndrome, with unspecified [...] PM Narrative 04/22/2022 12:48 PM CDT PROCEDURE: XR HAND RIGHT 3VW OR MORE, DATE/TIME OF EXAM: 04/22/2022 12:31 PM, LOCATION [facility] INDICATION: M35.00: Sjogren's syndrome, with unspecified [...] normal. The soft tissues are normal. Left hand: No fracture or dislocation is present. The joint spaces are normal. No erosions are seen. Bone density is normal. The soft tissues are normal. Right wrist: No fracture or dislocation is present. The joint spaces are normal. No erosions are seen. Bone density is normal. The soft tissues are normal. Left wrist: No fracture or dislocation is present. The joint spaces are normal. No erosions are seen. Bone density is normal. The soft tissues are normal. Right knee: No [...] is likely postsurgical. Bone density is normal. The soft tissues are normal. Procedure Note Magno Santamaria MD - 04/22/2022 PROCEDURE: XR HAND RIGHT 3VW OR MORE, DATE/TIME OF EXAM: 2:31 PM, LOCATION [facility] INDICATION: M35.00: Sjogren's syndrome, with unspecified [...] PM Narrative 04/22/2022 1:03 PM CDT PROCEDURE: XR WRIST RIGHT 2VW, XR HAND LEFT 3VW OR MORE, XR FOOT RIGHT 3VW OR MORE, XR FOOT LEFT 3VW OR MORE, XR WRIST LEFT 2VW, DATE/TIME OF EXAM: 04/22/2022 12:31 PM, LOCATION [facility] INDICATION: M35.00: Sjogren's syndrome, with unspecified [...] normal. The soft tissues are normal. Left hand: No fracture or dislocation is present. The joint spaces are normal. No erosions are seen. Bone density is normal. The soft tissues are normal. Right wrist: No fracture or dislocation is present. The joint spaces are normal. No erosions are seen. Bone density is normal. The soft tissues are normal. Left wrist: No fracture or dislocation is present. The joint spaces are normal. No erosions are seen. Bone density is normal. The soft tissues are normal. Right knee: No [...] is likely postsurgical. Bone density is normal. The soft tissues are normal. Procedure Note Magno Santamaria MD - 04/22/2022 PROCEDURE: XR WRIST RIGHT 2VW, XR HAND LEFT 3VW OR MORE, XR FOOT [id number] OR MORE, XR FOOT LEFT 3VW OR MORE, XR WRIST LEFT 2VW, DATE/TIME OF EXAM: 04/22/2022 12:31 PM, LOCATION [facility] INDICATION: M35.00: Sjogren's syndrome, with unspecified [...] PM Narrative 04/22/2022 1:03 PM CDT PROCEDURE: XR WRIST RIGHT 2VW, XR HAND LEFT 3VW OR MORE, XR FOOT RIGHT 3VW OR MORE, XR FOOT LEFT 3VW OR MORE, XR WRIST LEFT 2VW, DATE/TIME OF EXAM: 04/22/2022 12:31 PM, LOCATION [facility] INDICATION: M35.00: Sjogren's syndrome, with unspecified [...] normal. The soft tissues are normal. Left hand: No fracture or dislocation is present. The joint spaces are normal. No erosions are seen. Bone density is normal. The soft tissues are normal. Right wrist: No fracture or dislocation is present. The joint spaces are normal. No erosions are seen. Bone density is normal. The soft tissues are normal. Left wrist: No fracture or dislocation is present. The joint spaces are normal. No erosions are seen. Bone density is normal. The soft tissues are normal. Right knee: No [...] is likely postsurgical. Bone density is normal. The soft tissues are normal. Procedure Note Magno Santamaria MD - 04/22/2022 PROCEDURE: XR WRIST RIGHT 2VW, XR HAND LEFT 3VW OR MORE, XR FOOT [id number] OR MORE, XR FOOT LEFT 3VW OR MORE, XR WRIST LEFT 2VW, DATE/TIME OF EXAM: 04/22/2022 12:31 PM, LOCATION [facility] INDICATION: M35.00: Sjogren's syndrome, with unspecified [...] PM Narrative 04/22/2022 1:03 PM CDT PROCEDURE: XR WRIST RIGHT 2VW, XR HAND LEFT 3VW OR MORE, XR FOOT RIGHT 3VW OR MORE, XR FOOT LEFT 3VW OR MORE, XR WRIST LEFT 2VW, DATE/TIME OF EXAM: 04/22/2022 12:31 PM, LOCATION [facility] INDICATION: M35.00: Sjogren's syndrome, with unspecified [...] normal. The soft tissues are normal. Left hand: No fracture or dislocation is present. The joint spaces are normal. No erosions are seen. Bone density is normal. The soft tissues are normal. Right wrist: No fracture or dislocation is present. The joint spaces are normal. No erosions are seen. Bone density is normal. The soft tissues are normal. Left wrist: No fracture or dislocation is present. The joint spaces are normal. No erosions are seen. Bone density is normal. The soft tissues are normal. Right knee: No [...] is likely postsurgical. Bone density is normal. The soft tissues are normal. Procedure Note Magno Santamaria MD - 04/22/2022 PROCEDURE: XR WRIST RIGHT 2VW, XR HAND LEFT 3VW OR MORE, XR FOOT [id number] OR MORE, XR FOOT LEFT 3VW OR MORE, XR WRIST LEFT 2VW, DATE/TIME OF EXAM: 04/22/2022 12:31 PM, LOCATION [facility] INDICATION: M35.00: Sjogren's syndrome, with unspecified [...] compartment osteoarthritis. Dictated by Kendell Rasmussen MD (vice president network). Dr. CONSUELO Mckeon M.D. have personally reviewed and interpreted this examination/study. This report was electronically signed by CONSUELO GAMBOA M.D. on 06/17/2017 1:59 PM . Narrative 06/17/2017 1:59 [...] compartment osteoarthritis. Dictated by Kendell Rasmussen MD (vice president network). Dr. CONSUELO Mckeon M.D. have personally reviewed [...] compartment osteoarthritis. Dictated by Kendell Rasmussen MD (vice president network). I, Dr. CONSUELO GAMBOA M.D. have personally reviewed and interpreted this examination/study. This report was electronically signed by CONSUELO GAMBOA M.D. on 06/17/2017 1:59 PM . Narrative 06/17/2017 1:59 [...] compartment osteoarthritis. Dictated by Kendell Rasmussen MD (vice president network). Dr. CONSUELO Mckeon M.D. have personally reviewed [...] facet osteoarthritis. Dictated by Kendell Rasmussen MD (vice president network). Dr. CONSUELO Mckeon M.D. have personally reviewed and interpreted this examination/study. This report was electronically signed by CONSUELO GAMBOA M.D. on 06/17/2017 1:33 PM . Narrative 06/17/2017 1:33 [...] facet osteoarthritis. Dictated by Kendell Rasmussen MD (vice president network). Dr. CONSUELO Mckeon M.D. have personally reviewed and interpreted thisexamination/study. This report was electronically signed by CONSUELO GAMBOA M.D. on 06/17/20171:33 PM . Karli SUAREZ-C DIAGNOSTIC IMAG ING ORDERABLES Care Teams Manufacturer Relationship Specialty Start Date End Date Augusto Jiménez MD [address] [facility] [address] [place] [address] PCP - General 06/17/17
--- OUTSIDE RECORDS SUMMARY | 2024-10-21 09:44 | XMS_ITS | Encounter Summary ---
Author Organization [facility] Address [address] [place] [address] Care Team Providers Care Golf Course Keeper Name Role Phone Augusto Jiménez MD Primary Care Provider [phone] Encounter Details Date Type Department Care Team (Late st Contact Info) Description 08/06/2022 Telephone [facility] [place] [address] Linda Gardner Social History Tobacco Use Types [...] on filedocumented in this encounter Care Teams Golf Course Keeper Relationship Specialty Start Date End Date Augusto Jiménez MD [address] [facility] [address] [place] [address] PCP - General 06/17/17 documented as of this encounter
--- OUTSIDE RECORDS SUMMARY | 2024-10-21 09:44 | XMS_ITS | CONTINUITY OF CARE DOCUMENT ---
Author Name ngoc grossman Address Unknown Organization [facility] Address [address] [place] [address] Phone [phone] Care Team Providers Care Key Account Coordinator Name Role Phone Colton Aguilera MD Unavailable Colton Aguilera MD Unavailable [phone] RHONDA ANDREW MD Unavailable [phone] PROBLEMS Condition Status Date Provider Notes COUGH active Jeffrey Kent Family History Coronary Hear t Disease male < 55: active ? Colton Aguilera MD Family History of Hyperlipidemia: active ? To angel Aguilera MD Family History of Hypertension: active ? Lars Aguilera MD Cardiovascular screening active Colton beaver MD Atypical chest pain active Colton Aguilera MD HTN essential active Colton Aguilera MD Hyperlipidemia active Colton Aguilera MD JAMMIE on CPAP active Colton Aguilera MD ENCOUNTERS Date Type Provider Location Encounter Diag nosis - In-person encounter Office Visit Cotlon Aguilera MD [facility] Family History Coronary Heart Disease male [...] MG-UNIT ORAL TABLET active one tab daily Radah mayo FISH OIL CAPSULE active ONE TAB. [...] Payer name Policy type / Coverage type [employer] party ID MARCELO MEDICAID Medicaid [id number] ADVANCE DIRECTIVES Name Date DISCUSSED - NO DECISION MADE TREATMENT PLAN Date Name Performer Cardiology Colton Aguilera MD Cardiology Colton Aguilera MD Cardiology Colton Aguilera MD Cardiology Colton Aguilera MD Date Name DLCO - 81651 FRC - 43599 FVC - 54797 HISTORY OF PROCEDURES Procedure Date Procedure Name Provider Procedure Notes S tatus FVC / MVV - 10508 Colton Aguilera MD co mpleted FRC - 57157 Colton Aguilera MD complete d SpO2 w/o 6min walk/titration Colton Aguilera MD completed DLCO - 62183 Colton Aguilera MD complet ed EKG Colton Aguilera MD completed
== END 2024-10-21 09:36 | disposition home or self-care (01) ==
LOC: ANHIMG 09:35
PROVIDERS: PCP Emergency Medicine; Visit Provider Obstetrics & Gynecology
DX: Z12.31 Encounter for screening mammogram for malignant neoplasm of breast (principal)
CPT/HCPCS: 77063; 77067

== ENCOUNTER 2024-11-24 14:20 | Outpatient (CLI) | payer OTHER, SELFPAY ==
--- NOTE | ~2024-11-24 | MR_ITS ---
MRI of the left ankle Clinical history: Arthritis Technique: Coronal proton-density and proton-density fat-sat images, axial proton-density and proton- density fat-sat images, and sagittal proton-density and proton-density fat-sat images were acquired. Findings: Syndesmotic ligaments are intact. Anterior and posterior talofibular ligaments, and calcane ofibular ligament are intact. Deltoid ligament is intact. Medial flexor tendons, peroneus longus tendon, anterior extensor tendons, and Achilles tendon are int act. There is longitudinal split tear of the peroneus brevis tendon at the level of the lateral malle olus tip. There is no osteochondral lesion of the talar dome. Joint spaces and bone marrow signals are intact. Plantar fascia intact. No soft tissue mass or fluid collection. Impression: Longitudinal split tear of the peroneus brevis tendon at the level of the tip of the lateral malleolu s. Reviewed, dictated and finalized at location . Impression: Longitudinal split tear of the peroneus brevis tendon at the level of the tip o f the lateral malleolus.
--- OUTSIDE RECORDS SUMMARY | 2024-11-24 16:16 | XMS_ITS | Referral Summary ---
Author Organization [facility] Address [address] [place] [address] Care Team Providers Care Assistant Inventory Manager Name Role Phone Augusto Jiménez MD Primary Care Provider [phone] Source Comments [facility],non-[facility] Affiliates and Associated Physician Practices is amultiple site organization consisting of ambulatory clinics and hospital sitesin [place], [place], [place] and [place]. This disclosure is being madepursuant to the Care Everywhere program and may not contain all information available regarding this patient. Last updated 18.[facility] [employer] Allergies Active Allergy Reactions Criticality Noted Date [...] by mouth every 12 hours 03/29/2021 Active Gordon-3 Fatty Acids (Fish Oil) 1200 MG Take [...] (ABNORMAL) COMPREHENSIVE METABOLIC PANEL (04/22/2022 12:[address] [facility]) BUN 12 7 - 26 mg/dL 04/22/2022 1:36 PM [facility] Creatinine 0.89 0.56 - 0.96 mg/dL 04/22/2022 1:36 PM [facility] Sodium 143 136 - 145 mmol/L 04/22/2022 1:36 PM [facility] Potassium 3.7 3.5 - 4.5 mmol/L 04/22/2022 1:36 PM [facility] Chloride 103 98 - 107 mmol/L 04/22/2022 1:36 PM [facility] CO2 28 22 - 29 mmol/L 04/22/2022 1:36 PM [facility] Glucose 96 70 - 115 mg/dL 04/22/2022 1:36 PM [facility] Calcium 9.9 8.4 - 10.2 mg/dL 04/22/2022 1:36 PM [facility] Protein Total 7.8 6.0 - 8.3 g/dL 04/22/2022 1:36 PM [facility] Albumin 4.2 3.4 - 5.0 g/dL 04/22/2022 1:36 PM [facility] Bilirubin Total 0.3 0.2 - 1.2 mg/dL 04/22/2022 1:36 PM [facility] Alkaline Phosphatase 91 40 - 150 U/L 04/22/2022 1:36 PM [facility] ALT 30 5 - 55 U/L 04/22/2022 1:36 PM [facility] AST 16 5 - 34 U/L 04/22/2022 1:36 PM [facility] Anion Gap 16 8 - 18 04/22/2022 1:36 PM [facility] BUN/Creatinine Ratio 13 7 - 23 04/22/2022 1:36 PM [facility] Osmolality Calculated 296 270 - 300 mOsm/kg 04/22/2022 1:36 PM CDT [facility] Albumin/Globulin Ratio 1.2 1.1 - 2.3 04/22/2022 1:36 PM CDT [facility] eGFR by CKD-EPI 78(L) >=90 mL/min/1.7 3 m2 04/22/2022 1:36 PM CDT [facility] Blood BLOOD SPECIMEN / Unknown Lab Venipuncture / Unknown 04/22/2022 12:55 PM CDT 04/22/2022 1:05 PM CDT Umang Alonzo MD LAB - CHEMISTRY JENIFFER KUMARI [place] Organization Address City/State/ZIP Co de Phone Number [facility] [address] [place] [address], [facility] [phone] from Last 3 Months or Most Recently Relevant to Health Maintenance Care Teams Assistant Inventory Manager Relationship Specialty Start Date End Date Augusto Jiménez MD [address] [facility] [address] [place] [address] [facility] - General 06/17/17
--- OUTSIDE RECORDS SUMMARY | 2024-11-24 16:16 | XMS_ITS | Patient Health Summary ---
Author Organization [facility] Address [address] [place] [address] Care Team Providers Care Spinning Frame Fixer Name Role Phone Augusto Jiménez MD Primary Care Provider Note from [facility],non-owned Affiliates and Associated Physician Practices is amultiple site organization consisting of ambulatory clinics and hospital sitesin [place], [place], [place] and [place]. This disclosure is being madepursuant to the Care Everywhere program and may not contain all information available regarding this patient. Last updated 18.[facility] Allergies * Adhesive Sensitivity(Rash) -Medium Criticality * [...] tablet by mouth every 12 hours * [place]-3 Fatty Acids (Fish Oil) 1200 MG Take [...] complex (HCC), Polyarthritis of hand, Polyarthralgia * HERZOG/DIFFERENTIAL SPECIALIST (TERRI) ANTIBODY IGG(Performed 04/22/2022) Performed for Sjogren's [...] SINGLE PATTERN (04/22/2022 12:55 PM CDT) Pathologist [facility] RAE Pattern Speckled( A) 04/24/2022 12:58 PM CDT [facility] ([facility]) RAE Titer 1:80(A) 04/24/2022 12:58 PM CDT [facility] ([facility]) Comment: Performed By: [facility] [address] [place] [address] Securities Clerk: Da Terrell MD, PhD Blood BLOOD SPECIMEN / Unknown Lab Venipuncture / Unknown 04/22/2022 12:55 PM CDT 04/22/2022 1:03 PM CDT Umang Alonzo MD LAB - CHEMISTRY JENIFFER KUMARI [facility]) [address] * RHEUMATOID FACTOR IGG/IGM/IGA AB (04/22/2022 12:55 PM CDT) Pathologist [facility] Rheumatoid Factor IgA by Jesus <5 <=6 Units 04/24/2022 9:13 PM CDT [facility] ([facility]) Comment: INTERPRETIVE INFORMATION: Rheumatoid Factor, IgA by [...] <5 <=6 Units 04/24/2022 9:13 PM CDT COUNTS INCLUDE 234 BEDS AT THE [facility] ([facility]) Comment: INTERPRETIVE INFORMATION: Rheumatoid Factor, IgM by [...] <5 <=6 Units 04/24/2022 9:13 PM CDT COUNTS INCLUDE 234 BEDS AT THE [facility] ([facility]) Comment: INTERPRETIVE INFORMATION: Rheumatoid Factor, IgG by JESUS The presence of all three rheumatoid factor (RF) isotypes at abnormal levels has high specificity for a diagnosis of rheumatoid arthritis (RA). However, the presence of RF isotypes in any combination may be found in a variety of conditions, including Sjogren syndrome and hepatitis infections. Performed By: [facility] [address] [place] [address] Securities Clerk: Da Terrell MD, PhD Blood BLOOD SPECIMEN / Unknown Lab Venipuncture / Unknown 04/22/2022 12:55 PM CDT 04/22/2022 1:03 PM CDT Umang Alonzo MD LAB - SEROLOGY ORDER AMX [facility]) [address] [place] [address], [facility] * (ABNORMAL) RAE HEP-2 IGG BY IFA (04/22/2022 12:55 PM CDT) RAE HEp-2 IgG Detected (H) <1:80 04/24/2022 12:58 PM CDT COUNTS INCLUDE 234 BEDS AT THE [facility] ([facility]) RAE Interpretive Comment See Note 04/24/2022 12:58 PM CDT COUNTS INCLUDE 234 BEDS AT THE [facility] ([facility]) Comment: Speckled Pattern Clinical associations: SLE, SSc, SjS, DM, PM, MCTD, UCTD. May also be found in healthy individuals Main autoantibodies: Anti-SSA-52 (Ro52), anti-SSA-60 (Ro60), anti-SS-B/LA, anti-Alexei-1 (anti-Scl-70), Herzog, anti-U1-DIFFERENTIAL SPECIALIST, anti-U2-DIFFERENTIAL SPECIALIST, anti-Mi-2, anti-p155/140 (TIF1g), anti-Ku, anti-RNA polymerase, anti-DFS70/LEDGF-P75 [...] not necessarily rule out SARD. Performed By: [facility] [address] [place] [address] Securities Clerk: Da Terrell MD, PhD Blood BLOOD SPECIMEN / Unknown Lab Venipuncture / Unknown 04/22/2022 12:55 PM CDT 04/22/2022 1:03 PM CDT Umang Alonzo MD LAB - SEROLOGY ORDER MAX [facility] ([facility]) [address] * (ABNORMAL) SS-A (SJOGREN'S) 52+60 ANTIBODIES (04/22/2022 12:55 PM CDT) [facility] SS-A 52 Antibody 2 0 - 40 AU/mL 04/24/2022 1:05 AM CDT [facility] ([facility]) Comment: INTERPRETIVE INFORMATION: SSA-52 (Ro52) (TERRI) Antibody, [...] - 40 AU/mL 04/24/2022 1:05 AM CDT [facility] ([facility]) Comment: REFERENCE INTERVAL: SSA-60 (Ro60) (TERRI) Antibody, IgG 29 AU/mL or Less ............. Negative 30 - 40 AU/mL ................ Equivocal 41 AU/mL or Greater .......... Positive Performed By: [facility] [address] [place] [address] Securities Clerk: Da Terrell MD, PhD Blood BLOOD SPECIMEN / Unknown Lab Venipuncture / Unknown 04/22/2022 12:55 PM CDT 04/22/2022 1:03 PM CDT Umang Alonzo MD LAB - CHEMISTRY JENIFFER KUMARI [facility] Organization Address City/State/ZIP Co de Phone Number [facility] ([facility]) [address] * HERZOG/DIFFERENTIAL SPECIALIST (TERRI) ANTIBODY IGG (04/22/2022 12:55 PM CDT) Herzog/DIFFERENTIAL SPECIALIST (TERRI) Antibody IgG 9 0 - 19 Units 04/23/2022 2:23 PM CDT [facility] ([facility]) Comment: INTERPRETIVE INFORMATION: Herzog/DIFFERENTIAL SPECIALIST (TERRI) Antibody, IgG 19 Units or Less ............. Negative 20 to 39 Units ............... Weak Positive 40 to 80 Units ............... Moderate Positive 81 Units or greater .......... Strong Positive Herzog/DIFFERENTIAL SPECIALIST antibodies are frequently seen in patients with mixed connective tissue disease (MCTD) and are also associated with other systemic autoimmune rheumatic diseases (SARDs) such as systemic lupus erythematosus (SLE), systemic sclerosis, and myositis. Antibodies targeting the Herzog/DIFFERENTIAL SPECIALIST antigenic complex also recognize Herzog antigens, therefore, the Herzog antibody response must be considered when interpreting these results. Performed By: [facility] [address] [place] [address] Securities Clerk: Da Terrell MD, PhD Blood BLOOD SPECIMEN / Unknown Lab Venipuncture / Unknown 04/22/2022 12:55 PM CDT 04/22/2022 1:03 PM CDT Umang Alonzo MD LAB - CHEMISTRY JENIFFER KUMARI [facility] Organization Address City/State/ZIP Co de Phone Number [facility]) [address] [place] [address], [facility] * CHROMATIN ANTIBODY (04/22/2022 12:55 PM CDT) Chromatin Antibody 5 0 - 19 Units 04/24/2022 2:01 PM CDT [facility] ([facility]) Comment: INTERPRETIVE INFORMATION: Chromatin Antibody, IgG 19 Units or less: Negative 20 - 60 Units: Moderate Positive 61 Units or greater: Strong Positive The presence of anti-chromatin antibodies may be useful in the diagnosis of systemic lupus erythematosus (SLE) or drug-induced lupus (DIL) and have been reported to be predictive of lupus nephritis, especially when antibody levels are high. Performed By: [facility] [address] [place] [address] Securities Clerk: Da Terrell MD, PhD Blood BLOOD SPECIMEN / Unknown Lab Venipuncture / Unknown 04/22/2022 12:55 PM CDT 04/22/2022 1:03 PM CDT Umang Alonzo MD LAB - SEROLOGY ORDER MAX [facility]) [address] * TSH REFLEX FREE T4 (04/22/2022 12:55 PM CDT) TSH 3.027 0.350 - 4.940 uIU/mL 04/22/2022 1:53 PM CDT [facility] Blood BLOOD SPECIMEN / Unknown Lab Venipuncture / Unknown 04/22/2022 12:55 PM CDT 04/22/2022 1:05 PM CDT Umang Alonzo MD LAB - CHEMISTRY ORDE RABLES [facility] [address] [place] [address], [facility] [phone] * (ABNORMAL) URINALYSIS W/MICROSCOPIC REFLEX TO CULTURE (04/22/2022 12:55 PM CDT) Color UA Yellow Straw, Yellow 04/22/2022 1:13 PM CDT [facility] Clarity UA Slt Cloudy(A) Clear 04/22/2022 1:13 PM CDT [facility] Specific [place] UA 1.019 1.005 - 1.030 04/22/2022 1:13 PM CDT [facility] pH UA 5.0 5.0 - 8.0 pH 04/22/2022 1:13 PM CDT [facility] Protein UA Negative Negative 04/22/2022 1:13 PM CDT [facility] Glucose UA Negative Negative 04/22/2022 1:13 PM CDT [facility] Ketone UA Negative Negative 04/22/2022 1:13 PM CDT [facility] Bilirubin UA Negative Negative 04/22/2022 1:13 PM [facility] Blood UA Negative Negative 04/22/2022 1:13 PM [facility] Nitrite UA Negative Negative 04/22/2022 1:13 PM [facility] Leukocyte Esterase Negative Negative 04/22/2022 1:13 PM [facility] Urobilinogen UA Negative Negative mg/dL 04/22/2022 1:13 PM [facility] RBC UA 0-2 None Seen, 0-2, 3-5 /HPF 04/22/2022 1:13 PM [facility] WBC UA 0-5 None Seen, 0-5 /HPF 04/22/2022 1:13 PM [facility] Bacteria UA Trace(A) None /HPF 04/22/2022 1:13 PM [facility] Squamous Epithelial Cells UA 3-5 None Seen, 0-2, 3-5 /HPF 04/22/2022 1:13 PM [facility] Mucus UA 1+ /LPF 04/22/2022 1:13 PM [facility] Urine URINE SPECIMEN OBTAINED BY CLEAN CATCH PROCEDURE / Unknown Collection / Unknown 04/22/2022 12:55 PM CDT 04/22/2022 1:03 PM CDT [facility] - 04/22/2022 1:13 PM CDT Culture Not Indicated Umang Alonzo MD LAB - URINALYSIS ORD ERABLES [facility] [address] [place] [address], [facility] [phone] * PROTEIN ELECTROPHORESIS URINE RANDOM (04/22/2022 12:55 PM CDT) Interpretation Urine PE See Comment Normal Pattern 04/28/2022 6:06 PM [facility] Comment: Urine protein electrophoresis shows a band corresponding to albumin. No monoclonal immunoglobulins detected. Jacquie Cade MD Protein Urine <7 Not Established mg/dL 04/28/2022 6:06 PM [facility] Urine URINE SPECIMEN OBTAINED BY CLEAN CATCH PROCEDURE / Unknown Collection / Unknown 04/22/2022 12:55 PM CDT 04/22/2022 1:03 PM CDT Umang Alonzo MD LAB - URINE CHEMISTR Y ORDERABLES [facility] [address] [address], [facility] [phone] * HERZOG (SM) ANTIBODY TERRI (04/22/2022 12:55 PM CDT) [facility] Herzog (TERRI) Antibody 1 0 - 40 AU/mL 04/23/2022 5:07 PM CDT [facility] ([facility]) Comment: INTERPRETIVE INFORMATION: Herzog (TERRI) Antibody, IgG 29 AU/mL or Less ............. Negative 30 - 40 AU/mL ................ Equivocal 41 AU/mL or Greater .......... Positive Herzog antibody is highly specific (greater than 90 percent) for systemic lupus erythematosus (SLE) but only occurs in 30-35 percent of SLE cases. The presence of antibodies to Herzog has variable associations with SLE clinical manifestations. Performed By: [facility] [address] [place] [address] Securities Clerk: Da Terrell MD, PhD Blood BLOOD SPECIMEN / Unknown Lab Venipuncture / Unknown 04/22/2022 12:55 PM CDT 04/22/2022 1:03 PM CDT Umang Alonzo MD LAB - CHEMISTRY ORDE RABLES Performing Organization Address City/[facility]/ZIP Co de Phone Number [facility]) [address] * (ABNORMAL) RAE BLOOD SCREEN W/REFLEX TITER (04/22/2022 12:55 PM CDT) [facility] RAE IgG Detected (A) None Detected 04/23/2022 3:15 PM CDT [facility] ([facility]) Comment: Antibodies to Anti-Nuclear Antibodies (RAE) detected. [...] dsDNA, histones, SS-A (Ro), SS-B (La), Herzog, Herzog/DIFFERENTIAL SPECIALIST, Scl-70, Chrissy-1, centromeric proteins, other antigens extracted from the HEp-2 cell nucleus. RAE JESUS assays have been reported to have lower sensitivities than RAE IFA for systemic autoimmune rheumatic diseases (SARD). Negative results do not necessarily rule out SARD. Performed By: [facility] [address] [place] [address] Securities Clerk: Da Terrell MD, PhD Blood BLOOD SPECIMEN / Unknown Lab Venipuncture / Unknown 04/22/2022 12:55 PM CDT 04/22/2022 1:03 PM CDT Umang Alonzo MD LAB - CHEMISTRY JENIFFER KUMARI [facility]) [address] [place] [address] * CRYOGLOBULIN QUALITATIVE (04/22/2022 12:55 PM CDT) [facility] Cryoglobulin Qualitative Negative Negative 04/25/2022 8:07 AM CDT [facility] Blood BLOOD SPECIMEN / Unknown Lab Venipuncture / Unknown 04/22/2022 12:55 PM CDT 04/22/2022 12:59 PM CDT Umang Alonzo MD LAB - CHEMISTRY JENIFFER KUMARI [address] [address], [facility] [phone] * CENTROMERE ANTIBODY (04/22/2022 12:55 PM CDT) [facility] Centromere Antibody 1 0 - 40 AU/mL 04/23/2022 5:07 PM CDT COUNTS INCLUDE 234 BEDS AT THE [facility] ([facility]) Comment: INTERPRETIVE INFORMATION: Centromere Ab, IgG 29 [...] other antibodies associated with SSc, including Scl-70, U3-DIFFERENTIAL SPECIALIST, PM/Scl, or Th/To. Performed By: [facility] [address] [place] [address] Securities Clerk: Da Terrell MD, PhD Blood BLOOD SPECIMEN / Unknown Lab Venipuncture / Unknown 04/22/2022 12:55 PM CDT 04/22/2022 1:03 PM CDT Umang Alonzo MD LAB - CHEMISTRY JENIFFER KUMARI [facility] Organization Address City/State/ZIP Co de Phone Number [facility]) [address] [place] [address], [facility] * (ABNORMAL) SS-B (SJOGREN'S) ANTIBODY (04/22/2022 12:55 PM CDT) Pathologist [facility] SS-B Antibody 50(H) 0 - 40 AU/mL 04/23/2022 5:07 PM CDT [facility] ([facility]) Comment: INTERPRETIVE INFORMATION: SSB (La) (TERRI) Ab, [...] (PSS) also have this antibody. Performed By: [facility] [address] [place] [address] Securities Clerk: Da Terrell MD, PhD Blood BLOOD SPECIMEN / Unknown Lab Venipuncture / Unknown 04/22/2022 12:55 PM CDT 04/22/2022 1:03 PM CDT Umang Alonzo MD LAB - CHEMISTRY ORDE KENYETTA [facility]) [address] [place] [address], [facility] * SCLERODERMA 70 (SCL) ANTIBODY (04/22/2022 12:55 PM CDT) SCL-70 Antibody 0 0 - 40 AU/mL 04/23/2022 5:07 PM CDT [facility] ([facility]) Comment: INTERPRETIVE INFORMATION: Scleroderma (Scl-70) (TERRI) Ab, [...] testing for centromere, RNA polymerase III and U3-DIFFERENTIAL SPECIALIST, PM/Scl, or Th/To antibodies. Performed By: [facility] [address] [place] [address] Securities Clerk: Da Terrell MD, PhD Blood BLOOD SPECIMEN / Unknown Lab Venipuncture / Unknown 04/22/2022 12:55 PM CDT 04/22/2022 1:04 PM CDT Umang Alonzo MD LAB - CHEMISTRY JENIFFER KUMARI [facility]) [address] [place] [address], [facility] * DNA ANTIBODY DOUBLE STRANDED (04/22/2022 12:55 PM CDT) dsDNA Antibody 4 0 - 24 IU 04/23/2022 3:06 PM CDT [facility] ([facility]) Comment: INTERPRETIVE INFORMATION: Double-Stranded DNA (dsDNA) Ab IgG JESUS 24 IU or less........Negative 25-30 IU.............Borderline Positive 30-60 IU.............Low Positive 60-200 IU............Positive 201 IU or greater....Strong Positive Positivity for anti-double stranded DNA (anti-dsDNA) IgG antibody is a diagnostic criterion of systemic lupus erythematosus (SLE). Specimens are initially screened by enzyme-linked immunosorbent assay (JESUS). If ordered as reflex ([id number]), positive JESUS results (>24 IU) will be [...] recommendations for testing may be found at [email or web address]/content/[email or web address]-[email or web address]-[email or web address]. Performed By: [facility] [employer] [address] [place] [address] Securities Clerk: Da Terrell MD, PhD Blood BLOOD SPECIMEN / Unknown Lab Venipuncture / Unknown 04/22/2022 12:55 PM CDT 04/22/2022 1:03 PM CDT Umang Alonzo MD LAB - HEMATOLOGY ORD ERAJUANITO Performing Organization Address [facility]/ZIP Co de Phone Number [facility]) [address] [place] [address] * CHRISSY-1 ANTIBODY (04/22/2022 12:55 PM CDT) [facility] Chrissy-1 Antibody IgG 0 0 - 40 AU/mL 04/24/2022 1:05 AM CDT COUNTS INCLUDE 234 BEDS AT THE [facility] ([facility]) Comment: INTERPRETIVE INFORMATION: Chrissy-1 Antibody, IgG 29 AU/mL or less.........Negative 30-40 AU/mL..............Equivocal 41 AU/mL or greater......Positive Presence of Chrissy-1 (antihistidyl transfer RNA [t-RNA] synthetase) antibody is associated with polymyositis and may also be seen in patients with dermatomyositis. Chrissy-1 antibody is associated with pulmonary involvement (interstitial lung disease), Raynaud phenomenon, arthritis, and window unit air conditioning mechanic's hands (implicated in antisynthetase syndrome). Performed By: [employer] [employer] [address] [place] [address] Securities Clerk: Da Terrell MD, PhD Blood BLOOD SPECIMEN / Unknown Lab Venipuncture / Unknown 04/22/2022 12:55 PM CDT 04/22/2022 1:03 PM CDT Umang Alonzo MD LAB - CHEMISTRY ORDE RABPASCALE Performing Organization Address City/[facility]/ZIP Co de Phone Number [facility]) [address] * CYCLIC CITRULLINATED PEPTIDE(CCP) AB IGG (04/22/2022 12:55 PM CDT) [facility] CCP Antibody IgG 0.6 <5.0 U/mL 04/22/2022 2:04 PM CDT [facility] Blood BLOOD SPECIMEN / Unknown Lab Venipuncture / Unknown 04/22/2022 12:55 PM CDT 04/22/2022 1:03 PM CDT Umang Alonzo MD LAB - CHEMISTRY JENIFFER KUMARI Performing Organization Address [facility]/ZIP Co de Phone Number [facility] [place] [phone] [phone] * KAPPA/LAMBDA LITE CHAIN FREE PANEL (04/22/2022 12:55 PM CDT) [facility] [place] Quant Free Light Chain 17.51 3.30 - 19.40 mg/L 04/23/2022 12:00 PM CDT COUNTS INCLUDE 234 BEDS AT THE [facility] ([facility]) Comment: INTERPRETIVE INFORMATION: [place] Qnt Free Light Chains Undetected antigen excess is a rare event but cannot be excluded. Free light chain results should always be interpreted in conjunction with other clinical and laboratory findings. Lambda Free Light Chain Quantitative 13.81 5.71 - 26.30 mg/L 04/23/2022 12:00 PM CDT COUNTS INCLUDE 234 BEDS AT THE [facility] ([facility]) Comment: INTERPRETIVE INFORMATION: Lambda Qnt Free Light Chains Undetected antigen excess is a rare event but cannot be excluded. Free light chain results should always be interpreted in conjunction with other clinical and laboratory findings. [place]/Lambda Free Light Chain ratio 1.27 0.26 - 1.65 04/23/2022 12:00 PM CDT [facility] ([facility]) Comment: Performed By: [facility] [address] [place] [address] Securities Clerk: Da Terrell MD, PhD Blood BLOOD SPECIMEN / Unknown Lab Venipuncture / Unknown 04/22/2022 12:55 PM CDT 04/22/2022 1:03 PM CDT Umang Alonzo MD LAB - CHEMISTRY JENIFFER KUMARI Performing Organization Address City/[facility]/ZIP Co de Phone Number [facility] ([facility]) [address] * CBC WITH DIFFERENTIAL (04/22/2022 12:[address] [facility]) WBC 7.9 3.5 - 10.5 10 3/uL 04/22/2022 1:12 PM [facility] RBC 4.66 3.80 - 5.20 10 6/uL 04/22/2022 1:12 PM [facility] Hemoglobin 13.0 12.0 - 15.6 g/dL 04/22/2022 1:12 PM [facility] Hematocrit 41.2 35.0 - 45.0 % 04/22/2022 1:12 PM [facility] MCV 88.4 80.7 - 98.3 fL 04/22/2022 1:12 PM [facility] MCH 27.9 26.7 - 34.0 pg 04/22/2022 1:12 PM [facility] MCHC 31.6 30.8 - 35.9 g/dL 04/22/2022 1:12 PM [facility] Platelet Count 317 150 - 400 10 3/uL 04/22/2022 1:12 PM [facility] RDW-SD 43.9 36.0 - 50.0 fL 04/22/2022 1:12 PM [facility] RDW-CV 13.5 11.2 - 14.8 % 04/22/2022 1:12 PM [facility] MPV 10.1 9.4 - 12.9 fL 04/22/2022 1:12 PM [facility] nRBC Absolute 0.00 0 10 3/uL 04/22/2022 1:12 PM [facility] nRBC Auto 0.0 0 /100 WBC 04/22/2022 1:12 PM [facility] Neutrophils % 54.8 35.0 - 70.0 % 04/22/2022 1:12 PM [facility] Lymphocytes % 35.4 20.0 - 43.0 % 04/22/2022 1:12 PM [facility] Monocytes % 7.6 5.0 - 13.0 % 04/22/2022 1:12 PM [facility] Eosinophils % 1.5 0.0 - 6.0 % 04/22/2022 1:12 PM CDT [facility] Basophil % 0.4 0.0 - 2.0 % 04/22/2022 1:12 PM CDT [facility] Neutrophils Absolute 4.30 1.60 - 7.00 10 3/uL 04/22/2022 1:12 PM CDT [facility] Lymphocyte Absolute 2.78 1.10 - 3.90 10 3/uL 04/22/2022 1:12 PM CDT [facility] Monocytes Absolute 0.60 0.26 - 1.07 10 3/uL 04/22/2022 1:12 PM CDT [facility] Eosinophils Absolute 0.12 0.00 - 0.47 10 3/uL 04/22/2022 1:12 PM CDT [facility] Basophils Absolute 0.03 0.00 - 0.08 10 3/uL 04/22/2022 1:12 PM CDT [facility] Immature Granulocytes % 0.3 0.0 - 1.0 % 04/22/2022 1:12 PM T [facility] Immature Granulocytes Absolute 0.02 04/22/2022 1:12 PM CDT [facility] Blood BLOOD SPECIMEN / Unknown Lab Venipuncture / Unknown 04/22/2022 12:55 PM CDT 04/22/2022 1:06 PM CDT Umang Alonzo MD LAB - HEMATOLOGY ORD ERABLES [address] [address], [facility] [phone] * COMPLEMENT C4 (04/22/2022 12:55 PM CDT) Complement C4 33 15 - 57 mg/dL 04/22/2022 1:36 PM CDT [facility] Blood BLOOD SPECIMEN / Unknown Lab Venipuncture / Unknown 04/22/2022 12:55 PM CDT 04/22/2022 1:05 PM CDT Umang Alonzo MD LAB - SEROLOGY ORDER MAX [address] [place] [address], [facility] [phone] * (ABNORMAL) COMPREHENSIVE METABOLIC PANEL (04/22/2022 12:[address] [facility]) BUN 12 7 - 26 mg/dL 04/22/2022 1:36 PM [facility] Creatinine 0.89 0.56 - 0.96 mg/dL 04/22/2022 1:36 PM [facility] Sodium 143 136 - 145 mmol/L 04/22/2022 1:36 PM [facility] Potassium 3.7 3.5 - 4.5 mmol/L 04/22/2022 1:36 PM [facility] Chloride 103 98 - 107 mmol/L 04/22/2022 1:36 PM [facility] CO2 28 22 - 29 mmol/L 04/22/2022 1:36 PM [facility] Glucose 96 70 - 115 mg/dL 04/22/2022 1:36 PM [facility] Calcium 9.9 8.4 - 10.2 mg/dL 04/22/2022 1:36 PM [facility] Protein Total 7.8 6.0 - 8.3 g/dL 04/22/2022 1:36 PM [facility] Albumin 4.2 3.4 - 5.0 g/dL 04/22/2022 1:36 PM [facility] Bilirubin Total 0.3 0.2 - 1.2 mg/dL 04/22/2022 1:36 PM [facility] Alkaline Phosphatase 91 40 - 150 U/L 04/22/2022 1:36 PM [facility] ALT 30 5 - 55 U/L 04/22/2022 1:36 PM [facility] AST 16 5 - 34 U/L 04/22/2022 1:36 PM [facility] Anion Gap 16 8 - 18 04/22/2022 1:36 PM [facility] BUN/Creatinine Ratio 13 7 - 23 04/22/2022 1:36 PM [facility] Osmolality Calculated 296 270 - 300 mOsm/kg 04/22/2022 1:36 PM [facility] Albumin/Globulin Ratio 1.2 1.1 - 2.3 04/22/2022 1:36 PM CDT [facility] eGFR by CKD-EPI 78(L) >=90 mL/min/1.7 3 m2 04/22/2022 1:36 PM CDT [facility] Blood BLOOD SPECIMEN / Unknown Lab Venipuncture / Unknown 04/22/2022 12:55 PM CDT 04/22/2022 1:05 PM CDT Umang Alonzo MD LAB - CHEMISTRY ORDE RABLES Performing Organization Address City/[facility]/ZIP Co de Phone Number [address] [address], [facility] [phone] * PROTEIN CREATININE RATIO URINE RANDOM PNL (04/22/2022 12:55 PM CDT) Protein Urine <7 Not Established mg/dL 04/22/2022 1:42 PM CDT [facility] Creatinine Urine 160 Not Established mg/dL 04/22/2022 1:42 PM CDT [facility] Protein/Creatinin e Ratio Urine 04/22/2022 1:42 PM CDT [facility] Comment:Unable to calculate ratio because the analyte concentration is outside the instrument measuring range. Urine URINE SPECIMEN OBTAINED BY CLEAN CATCH PROCEDURE / Unknown Collection / Unknown 04/22/2022 12:55 PM CDT 04/22/2022 1:03 PM CDT Umang Alonzo MD LAB - URINE CHEMISTR Y ORDERABLES Performing Organization Address [facility]/ZIP Co de Phone Number [address] [address], [place] [phone] * PROTEIN ELECTROPHORESIS BLOOD (04/22/2022 12:55 PM CDT) Pathologist [facility] Interpretation Serum PE Normal Pattern Normal Pattern 04/28/2022 6:06 PM CDT [facility] Comment: Serum capillary electrophoresis shows characteristic [...] - 8.3 g/dL 04/28/2022 6:06 PM CDT [facility] Albumin 4.4 3.3 - 5.6 g/dL 04/28/2022 6:06 PM CDT [facility] Alpha-1 Globulins 0.4 0.2 - 0.4 g/dL 04/28/2022 6:06 PM CDT [facility] Alpha-2 Globulins 0.8 0.5 - 1.0 g/dL 04/28/2022 6:06 PM CDT [facility] Beta Globulins 1.0 0.6 - 1.1 g/dL 04/28/2022 6:06 PM CDT [facility] Gamma Globulins 1.1 0.6 - 1.6 g/dL 04/28/2022 6:06 PM CDT [facility] Blood BLOOD SPECIMEN / Unknown Lab Venipuncture / Unknown 04/22/2022 12:55 PM CDT 04/22/2022 1:03 PM CDT Umang Alonzo MD LAB - CHEMISTRY JENIFFER KUMARI [address] [address], [place] [phone] * COMPLEMENT C3 (04/22/2022 12:55 PM CDT) Complement C3 156 82 - 193 mg/dL 04/22/2022 1:36 PM CDT [facility] Blood BLOOD SPECIMEN / Unknown Lab Venipuncture / Unknown 04/22/2022 12:55 PM CDT 04/22/2022 1:05 PM CDT Umang Alonzo MD LAB - CHEMISTRY JENIFFER KUMARI [address] [address], [place] [phone] * XR FOOT RIGHT 3VW OR MORE [...] DATE/TIME OF EXAM: 04/22/2022 12:31 PM, LOCATION [facility] INDICATION: M35.00: Sjogren's syndrome, with unspecified [...] HAND LEFT 3VW OR MORE, XR FOOT [id number] OR MORE, XR FOOT LEFT 3VW OR MORE, XR WRIST LEFT 2VW, DATE/TIME OF EXAM: 04/22/2022 12:31 PM, LOCATION [facility] INDICATION: M35.00: Sjogren's syndrome, with unspecified [...] DATE/TIME OF EXAM: 04/22/2022 12:31 PM, LOCATION [facility] INDICATION: M35.00: Sjogren's syndrome, with unspecified [...] HAND LEFT 3VW OR MORE, XR FOOT [id number] OR MORE, XR FOOT LEFT 3VW OR MORE, XR WRIST LEFT 2VW, DATE/TIME OF EXAM: 04/22/2022 12:31 PM, LOCATION [facility] INDICATION: M35.00: Sjogren's syndrome, with unspecified [...] DATE/TIME OF EXAM: 04/22/2022 12:31 PM, LOCATION [facility] INDICATION: M35.00: Sjogren's syndrome, with unspecified [...] MORE, DATE/TIME OF EXAM: 2:31 PM, LOCATION [facility] INDICATION: M35.00: Sjogren's syndrome, with unspecified [...] DATE/TIME OF EXAM: 04/22/2022 12:31 PM, LOCATION [facility] INDICATION: M35.00: Sjogren's syndrome, with unspecified [...] HAND LEFT 3VW OR MORE, XR FOOT [id number] OR MORE, XR FOOT LEFT 3VW OR MORE, XR WRIST LEFT 2VW, DATE/TIME OF EXAM: 04/22/2022 12:31 PM, LOCATION [facility] INDICATION: M35.00: Sjogren's syndrome, with unspecified [...] DATE/TIME OF EXAM: 04/22/2022 12:31 PM, LOCATION [facility] INDICATION: M35.00: Sjogren's syndrome, with unspecified [...] HAND LEFT 3VW OR MORE, XR FOOT [id number] OR MORE, XR FOOT LEFT 3VW OR MORE, XR WRIST LEFT 2VW, DATE/TIME OF EXAM: 04/22/2022 12:31 PM, LOCATION [facility] INDICATION: M35.00: Sjogren's syndrome, with unspecified [...] DATE/TIME OF EXAM: 04/22/2022 12:31 PM, LOCATION [facility] INDICATION: M35.00: Sjogren's syndrome, with unspecified [...] HAND LEFT 3VW OR MORE, XR FOOT [id number] OR MORE, XR FOOT LEFT 3VW OR MORE, XR WRIST LEFT 2VW, DATE/TIME OF EXAM: 04/22/2022 12:31 PM, LOCATION [facility] INDICATION: M35.00: Sjogren's syndrome, with unspecified [...] osteoarthritis. Dictated by Kendell Rasmussen MD (residential child care counselor). Dr. CONSUELO Mckeon M.D. have personally reviewed [...] osteoarthritis. Dictated by Kendell Rasmussen MD (residential child care counselor). Dr. CONSUELO Mckeon M.D. have personally reviewed [...] osteoarthritis. Dictated by Kendell Rasmussen MD (residential child care counselor). I, Dr. CONSUELO GAMBOA M.D. have personally [...] osteoarthritis. Dictated by Kendell Rasmussen MD (residential child care counselor). Dr. CONSUELO Mckeon M.D. have personally reviewed [...] osteoarthritis. Dictated by Kendell Rasmussen MD (residential child care counselor). Dr. CONSUELO Mckeon M.D. have personally reviewed [...] osteoarthritis. Dictated by Kendell Rasmussen MD (residential child care counselor). Dr. CONSUELO Mckeon M.D. have personally reviewed and interpreted thisexamination/study. This report was electronically signed by CONSUELO GAMBOA M.D. on 06/17/20171:33 PM . Karli SUAREZ-C DIAGNOSTIC IMAG ING ORDERABLES Care Teams Spinning Frame Fixer Relationship Specialty Start Date End Date Augusto Jiménez MD [address] [facility] [address] [facility] [address] [place] [address] PCP - General 06/17/17
--- OUTSIDE RECORDS SUMMARY | 2024-11-24 16:16 | XMS_ITS | Clinical Summary ---
Author Organization [facility] Address [address] [place] [address] Care Team Providers Care Filament Shaper Name Role Phone Augusto Jiménez MD Primary Care Provider [phone] Source Comments [facility],non-[facility] Affiliates and Associated Physician Practices is amultiple site organization consisting of ambulatory clinics and hospital sitesin [place], [place], [place] and [place]. This disclosure is being madepursuant to the Care Everywhere program and may not contain all information available regarding this patient. Last updated 18.[facility] Booster Pack Allergies Active Allergy Reactions Criticality Noted Date [...] by mouth every 12 hours 03/29/2021 Active Page-3 Fatty Acids (Fish Oil) 1200 MG Take [...] Gout Sister 2 Anjelica Hypertension Sister 2 Anjleica Anxiety Disorder Sister 3 Luzmaria Arthritis - [...] complete this topic MENINGOCOCCAL (Group B) VACCINE SHARED DECISION-MAKING Aged Out No longer eligible based on patient's age to complete this topic MENINGOCOCCAL GROUPS A/C/Y/W VACCINE Aged Out No longer eligible based [...] 7 - 26 mg/dL 04/22/2022 1:36 PM [facility] Creatinine 0.89 0.56 - 0.96 mg/dL 04/22/2022 1:36 PM [facility] Sodium 143 136 - 145 mmol/L 04/22/2022 1:36 PM [facility] Potassium 3.7 3.5 - 4.5 mmol/L 04/22/2022 1:36 PM [facility] Chloride 103 98 - 107 mmol/L 04/22/2022 1:36 PM [facility] CO2 28 22 - 29 mmol/L 04/22/2022 1:36 PM [facility] Glucose 96 70 - 115 mg/dL 04/22/2022 1:36 PM [facility] Calcium 9.9 8.4 - 10.2 mg/dL 04/22/2022 1:36 PM [facility] Protein Total 7.8 6.0 - 8.3 g/dL 04/22/2022 1:36 PM [facility] Albumin 4.2 3.4 - 5.0 g/dL 04/22/2022 1:36 PM [facility] Bilirubin Total 0.3 0.2 - 1.2 mg/dL 04/22/2022 1:36 PM [facility] Alkaline Phosphatase 91 40 - 150 U/L 04/22/2022 1:36 PM [facility] ALT 30 5 - 55 U/L 04/22/2022 1:36 PM [facility] AST 16 5 - 34 U/L 04/22/2022 1:36 PM [facility] Anion Gap 16 8 - 18 04/22/2022 1:36 PM [facility] BUN/Creatinine Ratio 13 7 - 23 04/22/2022 1:36 PM [facility] Osmolality Calculated 296 270 - 300 mOsm/kg 04/22/2022 1:36 PM [facility] Albumin/Globulin Ratio 1.2 1.1 - 2.3 04/22/2022 1:36 PM [facility] eGFR by CKD-EPI 78(L) >=90 mL/min/1.7 3 m2 04/22/2022 1:36 PM [facility] Blood BLOOD SPECIMEN / Unknown Lab Venipuncture / Unknown 04/22/2022 12:55 PM CDT 04/22/2022 1:05 PM [facility] Umang Alonzo MD LAB - CHEMISTRY JENIFFER KUMARI [facility] Organization Address City/State/ZIP Co de Phone Number [facility] [address] [place] [address], [facility] [phone] from Last 3 Months or Most Recently Relevant to Health Maintenance Care Teams Filament Shaper Relationship Specialty Start Date End Date Augusto Jiménez MD [address] [facility] [address] [place] [address] PCP - General 06/17/17
--- OUTSIDE RECORDS SUMMARY | 2024-11-24 16:16 | XMS_ITS | Data Portability ---
[facility] Address [address] [place] [address] Assessment No assessment recorded. Plan of Treatment Reminders Order Date Submit Date Provider Last Modified By Organization Details Last Modified Time Details Appointments None recorded. Lab estradiol, serum 2015 016 [facility], [address] [place] [address], [facility] [address], [place], [address], 6 04:31:23 FSH (follicle-s timulating hormone), serum 2015 016 [facility], [address] [place] [address], [facility] [address], [place], [address], 6 04:31:23 urinalysis, dipstick 2015 In-Office Order, Internal Use Only DO Not Attach Compendium DO Not Attach Compendium, Do Not Delete/merge, [id number] 6 04:31:04 Referral None recorded. Procedures None recorded. Surgeries None recorded. Imaging None recorded. Medication Orders fluconazole 150 mg tablet 2015 016 [facility], [address] [facility], [place], [address], 6 04:31:18 triamcinolo ne acetonide 0.1 % topical cream 2015 016 [facility], [address] [place], [address], 6 04:30:50 norethindro ne (contracept francisco) 0.35 mg tablet 2015 016 [facility] [place], [address], 6 04:31:06 Patient TargetsNo targets recorded. Patient Instructions Encounter Date Encounter Id Patient Instructions Last Modified By Organization Details Last Modified Time 07/24/2016 [id number] influenza (flu) vaccine: care instructions [email or web address] Not available 07/24/2016 18:23:04 hot flashes during menopause: care instructions [email or web address] Not available 07/24/2016 17:26:42 learning about breast cancer screening [email or web address] Not available 07/24/2016 17:26:42 vaginal yeast infection: care instructions [email or web address] Not available 07/24/2016 17:26:42 Reason for Referral None Reported. Results Created Date Observation Date Name Description Value Unit Range Abnormal Flag Note LastModifiedBy Organization Detail LastModifiedTime 07/24/20 16 07/24/2016 urina lysis , dipst ick Leukocytes Negati ve Not Available In-Office Order Internal Use Only DO Not Attach Compendium DO Not Attach Compendium, Do Not Delete/merge, [id number] 07/24/2016 16:25:57 07/24/20 16 07/24/2016 urina lysis , dipst ick Nitrite negati ve Not Available In-Office Order Internal Use Only DO Not Attach Compendium DO Not Attach Compendium, Do Not Delete/merge, [id number] 07/24/2016 16:25:57 07/24/20 16 07/24/2016 urina lysis , dipst ick Urobilinogen .2 Not Available In-Of fice Order Internal Use Only DO Not Attach Compendium DO Not Attach Compendium, Do Not Delete/merge, [id number] 07/24/2016 16:25:57 07/24/20 16 07/24/2016 urina lysis , dipst ick Protein Negati ve Not Available In-Office Order Internal Use Only DO Not Attach Compendium DO Not Attach Compendium, Do Not Delete/merge, [id number] 07/24/2016 16:25:57 07/24/20 16 07/24/2016 urina lysis [...] 07/24/2016 urina lysis , dipst ick Specific [place] 1.020 Not Available In-Off ice Order Internal [...] USAL 25.8 - 134.8 Not Available [facility] ([facility]) [address], [place], [address], 08/07/2016 07:13:38 08/06/20 16 08/07/2016 estra diol, serum estradiol 11.9 pg/mL ADULT FEMAL E: FOLLI CULAR PHASE 12.5 - 166.0 OVULA TION PHASE 85.8 - 498.0 LUTEA L PHASE 43.8 - 211.0 POSTM ENOPA USAL <6.0 - 54.7 PREGN SHRUTI 1ST TRIME STER 215.0 - >4300 .0 GIRLS (1-10 YEARS ) 6.0 - 27.0 MALISSA ECLIA METHO DOLOG Y Not Available [facility] ([facility]) [address], [place], [address], 08/07/2016 07:13:39 07/23/20 16 10/11/2013 mammo gram, follo w up* No observ ation record ed. [email or web address] Not Available 2015 18:24:58 Result Notes None recorded. Problems Name Problem SNOMED Code Status Onset Date Resolution Date Notes Provider Name and Address Organization Details Recorded Time Vulvitis 31243163 Active Sam Ciara maloney [facility] 06/17/2016 17:16:23 Problem Notes None recorded. Procedures Surgical History Date Name Laterality Status Provider Name and Address Organization Details Recorded Time 07/24/20 16 Date of Last Pap Smear completed Chantal Burns MA [facility] 07/24/2016 16:19:28 Hysterectomy completed Chantal Burns MA [facility] 07/24/2016 16:18:43 Tubal Ligation completed Chantal Burns MA [facility] 07/24/2016 16:18:50 Imaging Results Imaging Date Name [...] Details Last Updated DateTime 07/24/2016 167.64 cm 712885.3 2 g 39.9 kg/m2 134 mm[Hg] 74 [...] Problems N Kidney or Bladder Problems N GI Problems N Depression Y Blood Clots N Lung Disease N Acne N Breast Problem N Eating Disorder N Anemia N Anesthesia Complications N Headaches/Migraines Y Anxiety Disorder Y Diabetes N Ovarian Cancer N Muscle, Joint, or Bone Problems N [...] dose or 50 mcg/0.25mL dose 1 completed [place], [place] - [place] 03/16/2021 15:56:24 Influenza, split virus, quadrivalent, preservative 6 completed Not Available [facility] 10/02/2019 02:49:47 Past Encounters Encounter ID Performer Location Encounter Start Date Encounter Closed Date Diagnosis/Indication Diagnosis SNOMED-CT Code Diagnosis ICD10 Code Diagnosis Note [id number] 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) [address] [place] [address] 07/24/2016 15:31:59 07/25/2016 19:08:22 Menopausal flushing 355242387 N95.1 History of hysterectomy 383161942 Z90.711 Candidiasis of vagina 72 154298 B37.3 Screening for malignant neoplasm of breast 003710453 Z12.31 Vulvitis 13844892 N76.2 Administra tion of influenza vaccine 48625949 Z23 Health Concerns Section Related Observation LastModified by Organization Detai ls LastModified Time None Recorded Concern Status LastModified by Organization Details LastModified Time None Recorded Advance Directives Directive N: Payers Encounter Date Sequence Insurance Name Policy Number Policy Contreras Covered Member ID Contreras Member ID Guarantor Name 07/24/2016 1 [facility] PRIOR TO 03/15/2021 (MEDICAID REPLACEMENT - HMO) Jennifer Quarles [id number] Jennifer Quarles Notes Date Note Type Note Provider Name and Address Organization Details Recorded Time 07/24/2016 text/html 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 Wants flu shot. Sam Urbina [facility] 07/24/2016 18:21:04 OBGyn Episode Ob Episode Information Episode Created Date Number of Fetuses Patient Bloodtype Patient rh Status Prepregnancy Weight lbs Domestic Partner Domestic Partner Phone Father Name Radial Drill Press Set Up Operator Status 07/24/20 16 1 CLOSED Fetus Data First Name Last Name Admitted to NICU Weight (g) Sex Living Outcome Pediatric Complications Fetus ID Race Codes Race Delivery Type 2608.15 4 F Full Term [address]7098 Vaginal Ze Calculation Initial Ze Date Initial [...] Complications Tubal Sterilization Discharge Date Comments 9 [facility] 40 7 Discharge Information Feeding Method Contraceptive Method Maternal HG B and HCT Levels Ob Episode Information Episode Created Date Number of Fetuses Patient Bloodtype Patient rh Status Prepregnancy Weight lbs Domestic Partner Domestic Partner Phone Father Name Radial Drill Press Set Up Operator Status 07/24/20 16 1 CLOSED Fetus Data First Name Last Name Admitted to NICU Weight (g) Sex Living Outcome Pediatric Complications Fetus ID Race Codes Race Delivery Type 3089.86 8704 F Full Term [address]192 Vaginal Ze Calculation Initial Ze Date Initial [...] Complications Tubal Sterilization Discharge Date Comments 1 [place] [address] 5 Discharge Information Feeding Method Contraceptive Method Maternal HG B and HCT Levels Ob Episode Information Episode Created Date Number of Fetuses Patient Bloodtype Patient rh Status Prepregnancy Weight lbs Domestic Partner Domestic Partner Phone Father Name Radial Drill Press Set Up Operator Status 07/24/20 16 1 CLOSED Fetus Data First Name Last Name Admitted to NICU Weight (g) Sex Living Outcome Pediatric Complications Fetus ID Race Codes Race Delivery Type 2919.77 1704 M Full Term [address] Vaginal Ze Calculation Initial Ze Date Initial [...] Complications Tubal Sterilization Discharge Date Comments 5 [facility] 40 9 Discharge Information Feeding Method Contraceptive Method Maternal HG B and HCT Levels Ob Episode Information Episode Created Date Number of Fetuses Patient Bloodtype Patient rh Status Prepregnancy Weight lbs Domestic Partner Domestic Partner Phone Father Name Radial Drill Press Set Up Operator Status 07/24/20 16 1 CLOSED Fetus Data First Name Last Name Admitted to NICU Weight (g) Sex Living Outcome Pediatric Complications Fetus ID Race Codes Race Delivery Type 4195.72 6 M Full Term [address] Vaginal Ze Calculation Initial Ze Date Initial [...] Complications Tubal Sterilization Discharge Date Comments 2 [facility] 40 3 Discharge Information Feeding Method Contraceptive Method Maternal HG B and HCT Levels
--- OUTSIDE RECORDS SUMMARY | 2024-11-24 16:16 | XMS_ITS | Data Portability ---
Author Organization [place] [facility] [employer], Main Office Address [address] [place] [address] Care Team Providers Care Board Saw Runner Name Role Phone AUGUSTO ANDREW Primary Care Provider AUGUSTO ANDREW Referring Provider Assessment Encounter Date Assessment Date Assessment LastModified by Organization Details LastModified Time 11/12/2023 11/12/2023 Assessment: Moderate OSAHS, AHI = 19 PLMD Plan: The following were reviewed and explained to the patient: primary care/referral note [facility] diagnostic sleep study 11/30/13 AHI = 19, supine AHI = 32 [facility] titration sleep study 12/21/13 Akash medium Eson nasal mask @ 8 cmH2O with EPR +3, PLMI = 6 Elevation in periodic limb movement index may be contributed by duloxetine. Non-pharmacologi c therapy options for periodic limb movement disorder include avoidance of aggravating drugs and substances, mental alerting activities, short daily hemodialysis for patients in renal failure, exercise, leg massage, stretching calf muscles, use of a weighted blanket and applied heat. Patient will cut down on caffeine intake. We will check BUN, Creatinine, Vitamin E, Vitamin B12, RBC folate, Iron, TIBC, Ferritin, ESR, Magnesium, Hgb and Hct levels. PAP compliance downloaded and interpreted x 20 minutes. Data reviewed and explained to the patient. Average apnea/hypopnea index (AHI) is 6.4. Patient used PAP > 4 hours 97% of the time. PAP is set at 8 cmH2O. PAP will be reset at 9 cmH2O. Oxygen supplementation: none Keep EPR @ +3 Patient is benefiting from PAP therapy. Encouraged patient to maintain PAP use more than 70% of the time. Statement of PAP use and benefits will be sent to the home care store. Educated the patient on problems and solutions associated with positive airway pressure (PAP) use. Difficulty tolerating pressure, mask leaks, intolerance of interface, nasal congestion, claustrophobic response, dry mouth, and unintentional mask removal during sleep were covered. Provided the patient with a list of local home care stores where positive airway pressure (PAP) units, accoutrement, and services are available. Home care store selection is based on patient's insurance carrier. Patient will setup an appointment with [facility] for supplies and pressure adjustments. A major predictor of success with use of PAP is follow-up with both the respiratory supplier and the treating physician. The download results can show the treating physician information about adherence to treatment, residual AHI while on treatment and presence of large mask leakage. This information is especially helpful if the patient has residual sleepiness despite treatment. General information on sleep disordered breathing, evaluation of sleep disordered breathing, treatment with PAP therapy, and living with PAP therapy were covered. We discussed with the patient the impact of weight on: Sleep disordered breathing Metabolic syndrome X Hypertension Hyperlipidemia EVE Lumbar stenosis Left proximal peroneal longus and brevis complex tenosynovitis Left tailor's bunion We discussed with the patient the benefit of PAP therapy on: Sleep disordered breathing Depression Headaches Rhinosinusitis Hypertension EVE Educated the patient on sleep hygiene measures. Relaxing rituals to rest easy, understanding foods with positive and negative impact on sleep, creating a peaceful sleep environment, timing of exercise, using herbal sleep aids, and practicing sleep-friendly meditation were covered. To determine how much sleep is needed, the patient will assess where she falls on the spectrum, examine what lifestyle factors such as work schedules and stress are affecting the quality and quantity of sleep. In general, adults need 7-9 hours of sleep. Educated the patient regarding foods that promote sleep. These include but are not limited to cherries, bananas, toast, oatmeal, and warm milk. Educated the patient regarding foods and drinks to avoid before bedtime. These include but are not limited to aged cheese, chocolate, spicy foods, tomato-based sauces, soy, ginseng tea and processed meat. Advocated influenza vaccination annually and pneumonia vaccination JOSEPH. Advocated weight loss through diet and exercise. Patient's ideal body weight according to height and gender is up to 140 lbs. Encouraged patient to adjust caloric intake to maintain/achieve ideal body weight, emphasizing on fruits, vegetables, whole grains, and fat-free or low-fat products. These include lean meats, poultry, fish, beans, eggs, and nuts and foods that are low in saturated fats, trans-fats, cholesterol, salt (sodium), and glycemic index. Stressed the importance of regular exercise up to the patient's capacity limits. In this case, we recommend 20 min daily walking, 2 days a week of resistance training. Patient to monitor BP daily and bring records to PCP for further management. Follow-up: 3 weeks Not available 11/30/2023 19:34:19 12/10/2023 12/10/2023 Assessment: Moderate OSAHS, AHI = 19 PLMD Plan: The following were reviewed and explained to the patient: Pass [facility] diagnostic sleep study 11/30/13 AHI = 19, supine AHI = 32 Pass [facility] titration sleep study 12/21/13 Akash medium Eson nasal mask @ 8 cmH2O with EPR +3, PLMI = 6 ESR 11/12/23 25 mm/hr Ferritin 11/12/23 33 ng/mL Alpha tocopherol 11/12/23 16.7 mg/L Gamma tocopherol 11/12/23 0.4 mg/L Elevation in periodic limb movement index may be contributed by duloxetine. Non-pharmacologi c therapy options for periodic limb movement disorder include avoidance of aggravating drugs and substances, mental alerting activities, short daily hemodialysis for patients in renal failure, exercise, leg massage, stretching calf muscles, use of a weighted blanket and applied heat. Patient will cut down on caffeine intake. BUN, Creatinine, Vitamin B12, RBC folate, Iron, TIBC, Magnesium, Hgb and Hct levels are within normal limits. Patient will take Vitamin E 200 IU/day to keep the alpha tocopherol > 7.0 mg/L and to keep the gamma tocopherol > 0.5 mg/L. Patient will take FeSO4 325 mg + Vit C 500 mg daily to keep the ferritin > 75 ng/ml. Check Vit E and ferritin one week before return. We will hold off on dopaminergic therapy for now. PAP is set at 9 cmH2O. PAP will remain at 9 cmH2O. Oxygen supplementation: none Keep EPR @ +3 Patient is benefiting from PAP therapy. Encouraged patient to maintain PAP use more than 70% of the time. Statement of PAP use and benefits will be sent to the home care store. Educated the patient on problems and solutions associated with positive airway pressure (PAP) use. Difficulty tolerating pressure, mask leaks, intolerance of interface, nasal congestion, claustrophobic response, dry mouth, and unintentional mask removal during sleep were covered. Provided the patient with a list of local home care stores where positive airway pressure (PAP) units, accoutrement, and services are available. Home care store selection is based on patient's insurance carrier. Patient will setup an appointment with [facility] for supplies and pressure adjustments. A major predictor of success with use of PAP is follow-up with both the respiratory supplier and the treating physician. The download results can show the treating physician information about adherence to treatment, residual AHI while on treatment and presence of large mask leakage. This information is especially helpful if the patient has residual sleepiness despite treatment. General information on sleep disordered breathing, evaluation of sleep disordered breathing, treatment with PAP therapy, and living with PAP therapy were covered. We discussed with the patient the impact of weight on: Sleep disordered breathing Metabolic syndrome X Hypertension Hyperlipidemia EVE Lumbar stenosis Left proximal peroneal longus and brevis complex tenosynovitis Left tailor's bunion We discussed with the patient the benefit of PAP therapy on: Sleep disordered breathing Depression Headaches Rhinosinusitis Hypertension EVE Educated the patient on sleep hygiene measures. Relaxing rituals to rest easy, understanding foods with positive and negative impact on sleep, creating a peaceful sleep environment, timing of exercise, using herbal sleep aids, and practicing sleep-friendly meditation were covered. To determine how much sleep is needed, the patient will assess where she falls on the spectrum, examine what lifestyle factors such as work schedules and stress are affecting the quality and quantity of sleep. In general, adults need 7-9 hours of sleep. Educated the patient regarding foods that promote sleep. These include but are not limited to cherries, bananas, toast, oatmeal, and warm milk. Educated the patient regarding foods and drinks to avoid before bedtime. These include but are not limited to aged cheese, chocolate, spicy foods, tomato-based sauces, soy, ginseng tea and processed meat. Advocated influenza vaccination annually and pneumonia vaccination JOSEPH. Advocated weight loss through diet and exercise. Patient's ideal body weight according to height and gender is up to 140 lbs. Encouraged patient to adjust caloric intake to maintain/achieve ideal body weight, emphasizing on fruits, vegetables, whole grains, and fat-free or low-fat products. These include lean meats, poultry, fish, beans, eggs, and nuts and foods that are low in saturated fats, trans-fats, cholesterol, salt (sodium), and glycemic index. Stressed the importance of regular exercise up to the patient's capacity limits. In this case, we recommend 20 min daily walking, 2 days a week of resistance training. Patient to monitor BP daily and bring records to PCP for further management. Follow-up: 3 months, February 2024 Not available 12/10/2023 08:46:44 03/10/2024 03/10/2024 Assessment: Moderate OSAHS, AHI = 19 PLMD Plan: The following were reviewed and explained to the patient: [facility] diagnostic sleep study 11/30/13 AHI = 19, supine AHI = 32 [facility] titration sleep study 12/21/13 [employer] medium Eson nasal mask @ 8 cmH2O with EPR +3, PLMI = 6 ESR 11/12/23 25 mm/hr Ferritin 11/12/23 33 ng/mL Ferritin 03/04/24 39 ng/mL Alpha tocopherol 11/12/23 16.7 mg/L Alpha tocopherol 03/04/24 20.3 mg/L Gamma tocopherol 11/12/23 0.4 mg/L Gamma tocopherol 03/04/24 0.3 mg/L Elevation in periodic limb movement index may be contributed by duloxetine. Non-pharmacologi c therapy options for periodic limb movement disorder include avoidance of aggravating drugs and substances, mental alerting activities, short daily hemodialysis for patients in renal failure, exercise, leg massage, stretching calf muscles, use of a weighted blanket and applied heat. Patient will cut down on caffeine intake. BUN, Creatinine, Vitamin B12, RBC folate, Iron, TIBC, Magnesium, Hgb and Hct levels are within normal limits. Patient will continue Vitamin E 200 IU/day to keep the alpha tocopherol > 7.0 mg/L and to keep the gamma tocopherol > 0.5 mg/L. Patient will continue FeSO4 325 mg + Vit C 500 mg but increase from daily to twice daily keep the ferritin > 75 ng/ml. Check Vit E and ferritin one week before return. We will hold off on dopaminergic therapy for now. PAP compliance downloaded and interpreted x 20 minutes. Data reviewed and explained to the patient. Average apnea/hypopnea index (AHI) is 4.9. Patient used PAP > 4 hours 100% of the time. PAP is set at 9 cmH2O. PAP will remain at 9 cmH2O. Oxygen supplementation: none Keep EPR @ +3 button pusher. Keep ramp start at 4 cmH2O. Keep ramp duration at 20 minutes. Patient is benefiting from PAP therapy. Encouraged patient to maintain PAP use more than 70% of the time. Statement of PAP use and benefits will be sent to the home care store. Educated the patient on problems and solutions associated with positive airway pressure (PAP) use. Difficulty tolerating pressure, mask leaks, intolerance of interface, nasal congestion, claustrophobic response, dry mouth, and unintentional mask removal during sleep were covered. Provided the patient with a list of local home care stores where positive airway pressure (PAP) units, accoutrement, and services are available. Home care store selection is based on patient's insurance carrier. Patient will setup an appointment with [facility] for supplies and pressure adjustments. A major predictor of success with use of PAP is follow-up with both the respiratory supplier and the treating physician. The download results can show the treating physician information about adherence to treatment, residual AHI while on treatment and presence of large mask leakage. This information is especially helpful if the patient has residual sleepiness despite treatment. General information on sleep disordered breathing, evaluation of sleep disordered breathing, treatment with PAP therapy, and living with PAP therapy were covered. We discussed with the patient the impact of weight on: Sleep disordered breathing Metabolic syndrome X Hypertension Hyperlipidemia EVE Lumbar stenosis Left proximal peroneal longus and brevis complex tenosynovitis Left tailor's bunion We discussed with the patient the benefit of PAP therapy on: Sleep disordered breathing Depression Headaches Rhinosinusitis Hypertension EVE Educated the patient on sleep hygiene measures. Relaxing rituals to rest easy, understanding foods with positive and negative impact on sleep, creating a peaceful sleep environment, timing of exercise, using herbal sleep aids, and practicing sleep-friendly meditation were covered. To determine how much sleep is needed, the patient will assess where she falls on the spectrum, examine what lifestyle factors such as work schedules and stress are affecting the quality and quantity of sleep. In general, adults need 7-9 hours of sleep. Educated the patient regarding foods that promote sleep. These include but are not limited to cherries, bananas, toast, oatmeal, and warm milk. Educated the patient regarding foods and drinks to avoid before bedtime. These include but are not limited to aged cheese, chocolate, spicy foods, tomato-based sauces, soy, ginseng tea and processed meat. Advocated influenza vaccination annually and pneumonia vaccination JOSEPH. Advocated weight loss through diet and exercise. Patient's ideal body weight according to height and gender is up to 140 lbs. Encouraged patient to adjust caloric intake to maintain/achieve ideal body weight, emphasizing on fruits, vegetables, whole grains, and fat-free or low-fat products. These include lean meats, poultry, fish, beans, eggs, and nuts and foods that are low in saturated fats, trans-fats, cholesterol, salt (sodium), and glycemic index. Stressed the importance of regular exercise up to the patient's capacity limits. In this case, we recommend 20 min daily walking, 2 days a week of resistance training. Patient to monitor BP daily and bring records to PCP for further management. Follow-up: 3 months, May 2024 Not available 03/10/2024 09:03:48 06/10/2024 06/10/2024 Assessment: Moderate OSAHS, AHI = 19 PLMD Plan: The following were reviewed and explained to the patient: Pass [facility] diagnostic sleep study 11/30/13 AHI = 19, supine AHI = 32 Pass [facility] titration sleep study 12/21/13 [employer] medium Eson nasal mask @ 8 cmH2O with EPR +3, PLMI = 6 ESR 11/12/23 25 mm/hr Ferritin 11/12/23 33 ng/mL Ferritin 03/04/24 39 ng/mL Ferritin 06/02/24 54 ng/mL Alpha tocopherol 11/12/23 16.7 mg/L Alpha tocopherol 03/04/24 20.3 mg/L Alpha tocopherol 06/02/24 13.1 mg/L Gamma tocopherol 11/12/23 0.4 mg/L Gamma tocopherol 03/04/24 0.3 mg/L Gamma tocopherol 06/02/24 0.6 mg/L Elevation in periodic limb movement index may be contributed by duloxetine. Non-pharmacologi c therapy options for periodic limb movement disorder include avoidance of aggravating drugs and substances, mental alerting activities, short daily hemodialysis for patients in renal failure, exercise, leg massage, stretching calf muscles, use of a weighted blanket and applied heat. Patient will cut down on caffeine intake. BUN, Creatinine, Vitamin B12, RBC folate, Iron, TIBC, Magnesium, Hgb and Hct levels are within normal limits. Patient will continue Vitamin E 200 IU/day to keep the alpha tocopherol > 7.0 mg/L and to keep the gamma tocopherol > 0.5 mg/L. Patient will continue FeSO4 325 mg + Vit C 500 mg twice daily keep the ferritin > 75 ng/ml. Check Vit E and ferritin one week before return. We will hold off on dopaminergic therapy for now. PAP compliance downloaded and interpreted x 20 minutes. Data reviewed and explained to the patient. Average apnea/hypopnea index (AHI) is 3.8. Patient used PAP > 4 hours 99% of the time. PAP is set at 9 cmH2O. PAP will remain at 9 cmH2O. Oxygen supplementation: none Keep EPR @ +3 button pusher. Keep ramp start at 4 cmH2O. Keep ramp duration at 20 minutes. Patient is benefiting from PAP therapy. Encouraged patient to maintain PAP use more than 70% of the time. Statement of PAP use and benefits will be sent to the home care store. Educated the patient on problems and solutions associated with positive airway pressure (PAP) use. Difficulty tolerating pressure, mask leaks, intolerance of interface, nasal congestion, claustrophobic response, dry mouth, and unintentional mask removal during sleep were covered. Provided the patient with a list of local home care stores where positive airway pressure (PAP) units, accoutrement, and services are available. Home care store selection is based on patient's insurance carrier. Patient will setup an appointment with [facility] for supplies and pressure adjustments. A major predictor of success with use of PAP is follow-up with both the respiratory supplier and the treating physician. The download results can show the treating physician information about adherence to treatment, residual AHI while on treatment and presence of large mask leakage. This information is especially helpful if the patient has residual sleepiness despite treatment. General information on sleep disordered breathing, evaluation of sleep disordered breathing, treatment with PAP therapy, and living with PAP therapy were covered. We discussed with the patient the impact of weight on: Sleep disordered breathing Metabolic syndrome X Hypertension Hyperlipidemia EVE Lumbar stenosis Left proximal peroneal longus and brevis complex tenosynovitis Left tailor's bunion We discussed with the patient the benefit of PAP therapy on: Sleep disordered breathing Depression Headaches Rhinosinusitis Hypertension EVE Educated the patient on sleep hygiene measures. Relaxing rituals to rest easy, understanding foods with positive and negative impact on sleep, creating a peaceful sleep environment, timing of exercise, using herbal sleep aids, and practicing sleep-friendly meditation were covered. To determine how much sleep is needed, the patient will assess where she falls on the spectrum, examine what lifestyle factors such as work schedules and stress are affecting the quality and quantity of sleep. In general, adults need 7-9 hours of sleep. Educated the patient regarding foods that promote sleep. These include but are not limited to cherries, bananas, toast, oatmeal, and warm milk. Educated the patient regarding foods and drinks to avoid before bedtime. These include but are not limited to aged cheese, chocolate, spicy foods, tomato-based sauces, soy, ginseng tea and processed meat. Advocated influenza vaccination annually and pneumonia vaccination JOSEPH. Advocated weight loss through diet and exercise. Patient's ideal body weight according to height and gender is up to 140 lbs. Encouraged patient to adjust caloric intake to maintain/achieve ideal body weight, emphasizing on fruits, vegetables, whole grains, and fat-free or low-fat products. These include lean meats, poultry, fish, beans, eggs, and nuts and foods that are low in saturated fats, trans-fats, cholesterol, salt (sodium), and glycemic index. Stressed the importance of regular exercise up to the patient's capacity limits. In this case, we recommend 20 min daily walking, 2 days a week of resistance training. Patient to monitor BP daily and bring records to PCP for further management. Follow-up: 6 months, November 2024 [facility] Not available 07/04/2024 15:43:32 11/11/2024 11/11/2024 Assessment: Moderate OSAHS, AHI = 19 PLMD Plan: The following were reviewed and explained to the patient: Pass [facility] diagnostic sleep study 11/30/13 AHI = 19, supine AHI = 32 Pass [facility] titration sleep study 12/21/13 [employer] medium Eson nasal mask @ 8 cmH2O with EPR +3, PLMI = 6 ESR 11/12/23 25 mm/hr Ferritin 11/12/23 33 ng/mL Ferritin 03/04/24 39 ng/mL Ferritin 06/02/24 54 ng/mL Ferritin 11/01/24 81 ng/mL Alpha tocopherol 11/12/23 16.7 mg/L Alpha tocopherol 03/04/24 20.3 mg/L Alpha tocopherol 06/02/24 13.1 mg/L Alpha tocopherol 11/01/24 12.9 mg/L Gamma tocopherol 11/12/23 0.4 mg/L Gamma tocopherol 03/04/24 0.3 mg/L Gamma tocopherol 06/02/24 0.6 mg/L Gamma tocopherol 11/01/24 0.5 mg/L Elevation in periodic limb movement index may be contributed by duloxetine. Non-pharmacologi c therapy options for periodic limb movement disorder include avoidance of aggravating drugs and substances, mental alerting activities, short daily hemodialysis for patients in renal failure, exercise, leg massage, stretching calf muscles, use of a weighted blanket and applied heat. Patient will cut down on caffeine intake. BUN, Creatinine, Vitamin B12, RBC folate, Iron, TIBC, Magnesium, Hgb and Hct levels are within normal limits. Patient will continue Vitamin E 200 IU/day to keep the alpha tocopherol > 7.0 mg/L and to keep the gamma tocopherol > 0.5 mg/L. Patient will continue FeSO4 325 mg + Vit C 500 mg twice daily to keep the ferritin > 75 ng/ml. Check Vit E and ferritin one week before return. We will hold off on dopaminergic therapy for now. PAP compliance downloaded and interpreted x 20 minutes. Data reviewed and explained to the patient. Average apnea/hypopnea index (AHI) is 4.2. Patient used PAP > 4 hours 86% of the time. PAP is set at 9 cmH2O. PAP will remain at 9 cmH2O. Oxygen supplementation: none Keep EPR @ +3 button pusher. Keep ramp start at 4 cmH2O. Keep ramp duration at 20 minutes. Patient is benefiting from PAP therapy. Encouraged patient to maintain PAP use more than 70% of the time. Statement of PAP use and benefits will be sent to the home care store. Educated the patient on problems and solutions associated with positive airway pressure (PAP) use. Difficulty tolerating pressure, mask leaks, intolerance of interface, nasal congestion, claustrophobic response, dry mouth, and unintentional mask removal during sleep were covered. Provided the patient with a list of local home care stores where positive airway pressure (PAP) units, accoutrement, and services are available. Home care store selection is based on patient's insurance carrier. Patient will setup an appointment with [facility] for supplies and pressure adjustments. A major predictor of success with use of PAP is follow-up with both the respiratory supplier and the treating physician. The download results can show the treating physician information about adherence to treatment, residual AHI while on treatment and presence of large mask leakage. This information is especially helpful if the patient has residual sleepiness despite treatment. General information on sleep disordered breathing, evaluation of sleep disordered breathing, treatment with PAP therapy, and living with PAP therapy were covered. We discussed with the patient the impact of weight on: Sleep disordered breathing Metabolic syndrome X Hypertension Hyperlipidemia EVE Lumbar stenosis Left proximal peroneal longus and brevis complex tenosynovitis Left tailor's bunion We discussed with the patient the benefit of PAP therapy on: Sleep disordered breathing Depression Headaches Rhinosinusitis Hypertension EVE Educated the patient on sleep hygiene measures. Relaxing rituals to rest easy, understanding foods with positive and negative impact on sleep, creating a peaceful sleep environment, timing of exercise, using herbal sleep aids, and practicing sleep-friendly meditation were covered. To determine how much sleep is needed, the patient will assess where she falls on the spectrum, examine what lifestyle factors such as work schedules and stress are affecting the quality and quantity of sleep. In general, adults need 7-9 hours of sleep. Educated the patient regarding foods that promote sleep. These include but are not limited to cherries, bananas, toast, oatmeal, and warm milk. Educated the patient regarding foods and drinks to avoid before bedtime. These include but are not limited to aged cheese, chocolate, spicy foods, tomato-based sauces, soy, ginseng tea and processed meat. Advocated influenza vaccination annually and pneumonia vaccination JOSEPH. Advocated weight loss through diet and exercise. Patient's ideal body weight according to height and gender is up to 140 lbs. Encouraged patient to adjust caloric intake to maintain/achieve ideal body weight, emphasizing on fruits, vegetables, whole grains, and fat-free or low-fat products. These include lean meats, poultry, fish, beans, eggs, and nuts and foods that are low in saturated fats, trans-fats, cholesterol, salt (sodium), and glycemic index. Stressed the importance of regular exercise up to the patient's capacity limits. In this case, we recommend 20 min daily walking, 2 days a week of resistance training. Patient to monitor BP daily and bring records to PCP for further management. Follow-up: 9 months, July 2025 [facility] Not available 11/11/2024 09:16:11 Plan of Treatment Reminders Order Date Submit Date Provider Last Modified By Organization Details Last Modified Time Details Appointments Any 30 2024 07:30A Roberto Hu MD Not available Not available Not available Lab ferritin, serum or plasma [address] Out[facility] Lab, [address] [place], [address], 11/11/2024 09:05:01 vitamin E, serum [address] Lab, [address] [place], [address], 11/11/2024 09:05:01 ferritin, serum or plasma 2023 025 [facility], [address] [place], [address], 11/17/2024 09:05:02 vitamin E, serum 2023 025 [facility], [address] [place], [address], 11/17/2024 09:05:02 ferritin, serum or plasma 2023 024 [facility] Lab, [address] [place], [address], 06/02/2024 11:56:54 vitamin E, serum 2023 024 [facility] Lab, [address] [place], [address], 06/14/2024 14:12:50 ferritin, serum or plasma 2023 [email or web address] [place] [address] Lab, [address] [place], [address], 02/20/2024 11:42:02 vitamin E, serum 2023 024 [email or web address] 5 [facility] Lab, [address] [place], [address], 02/20/2024 11:42:01 iron + TIBC + ferritin, serum 2023 024 [facility] Lab, [address] [place], [address], 11/12/2023 16:52:30 folate, RBC 2023 024 [facility] Lab, [address] [place], [address], 11/21/2023 09:58:34 vitamin B12, serum 2023 024 [email or web address] 5 [facility], [address] [place], [address], 01/27/2024 12:30:39 ESR (erythroc yte sedimenta tion rate), blood 2023 024 [email or web address] 5 [facility], [address] [place], [address], 01/27/2024 12:30:39 hemoglobi n + hematocri t, blood 2023 024 [email or web address] 5 [facility] Lab, [address] [place], [address], 01/27/2024 12:30:39 bun (blood urea nitrogen) , serum or plasma 2023 024 5 [facility] Lab, [address] [place], [address], 01/27/2024 12:30:39 creatinin e, serum or plasma 2023 024 [email or web address] 5 [facility], [address] [place], [address], 01/27/2024 12:30:40 magnesium , serum or plasma 2023 024 [email or web address] 5 [facility] Lab, [address] [place], [address], 01/27/2024 12:30:40 vitamin E, serum 2023 024 [email or web address] 5 [facility], [address] [place], [address], 01/27/2024 12:30:40 Referral None recorded. Procedures None recorded. Surgeries None recorded. Imaging None recorded. Medication Orders Vitamin C 500 mg tablet 2024 025 [facility] [address], [address] [place] [address], [address], 11/11/2024 09:05:09 ferrous sulfate 325 mg (65 mg iron) tablet 2024 025 [facility] [address], [address] [place] [address], [address], 11/11/2024 09:05:08 vitamin E (dl, acetate) 90 mg (200 unit) capsule 2024 025 [facility] [address], [address] [place] [address], [address], 11/11/2024 09:05:09 Vitamin C 500 mg tablet 2023 024 [facility] [address], [address] [place] [address], [address], 06/10/2024 09:07:55 ferrous sulfate 325 mg (65 mg iron) tablet 2023 024 [facility] [address], [address] [place] [address], [address], 06/10/2024 09:07:56 vitamin E (dl, acetate) 90 mg (200 unit) capsule 2023 024 [facility] [address], [address] [place] [address], [address], 06/10/2024 09:07:57 Vitamin C 500 mg tablet 2023 024 [facility] [address], [address] [place] [address], [address], 03/10/2024 09:03:58 ferrous sulfate 325 mg (65 mg iron) tablet 2023 024 [facility] [address], [address] [place] [address], [address], 03/10/2024 09:03:57 vitamin E (dl, acetate) 90 mg (200 unit) capsule 2023 024 [facility] [address], [address] [place] [address], [address], 03/10/2024 09:03:58 Vitamin C 500 mg tablet 2023 024 [facility] [address], [address] [place] [address], [address], 12/10/2023 08:47:36 ferrous sulfate 325 mg (65 mg iron) tablet 2023 024 [facility] [address], [address] [place] [address], [address], 12/10/2023 08:47:39 vitamin E (dl, acetate) 90 mg (200 unit) capsule 2023 024 [facility] [address], [address] [place] [address], [address], 12/10/2023 08:47:35 Patient TargetsNo targets recorded. Patient InstructionsNo instructions recorded. Reason for Referral None Reported. Results Created Date Observation Date Name Description Value Unit Range Abnormal Flag Note LastModifiedBy Organization Detail LastModifiedTime 11/10/19 24 12/21/2013 polys omnog may, titra tion study No observ ation record ed. [facility]CODE Not Available 2023 16:42:11 11/13/19 24 11/30/2013 polys omnog may, diagn ostic , 6 yrs or older No observ ation record ed. BARCODE Not Available 2023 13:43:22 Result Notes None recorded. Problems Name Problem SNOMED Code Status Onset Date Resolution Date Notes Provider Name and Address Organization Details Recorded Time Tailor's bunion of left foot 3607246872352 100 Active 2021 Not Available [facility] 3 02:39:37 Osteoarthr itis 221425298 Active Not Available [facility] 3 02:39:38 Porokerato sis 335044962 Active 2022 Not Available [facility] 3 02:39:38 Onychomyco sis 590174183 Active Not Available [facility] 3 02:39:38 Tinea pedis 4283791 Active Not Available [facility] 3 02:39:38 Periodic limb movement disorder 500087665 Active 2023 Tonio Hu MD [address], [place] [address], [place], [address] , [employer] 4 11:59:19 Obstructiv e sleep apnea syndrome 27367134 Active 2023 Tonio Hu MD [address], [place], [address] , [employer] 4 12:01:13 Vitamin E deficiency 96957676 Active 2023 Tonio Hu MD [address], [place], [address] , [employer] 4 08:41:23 Iron deficiency 00309160 Active 2023 Tonio Hu MD [address], [place], [address] , [employer] 4 08:41:31 Notes:Medical History: Sjogr en's syndrome Depression Migraine headaches Rhinosinusitis Obesity with mod OSAHS, AHI = 19, on CPAP c/o AHP Metabolic syndrome X Hypertension Hyperlipidemia EVE PLMD Iron deficiency Vit E deficiency Vit D deficiency Lumbar stenosis Left proximal peroneal longus and brevis complex tenosynovitis Left tailor's bunion Tinea pedis Onychomycosis Procedure History: Nasal septoplasty Occupational History: Problem Notes None recorded. Procedures Surgical History Date Name Laterality Status Provider Name and Address Organization Details Recorded Time [employer] [facility] [facility] Surgery completed Not Available [facility] 11/13/2022 02:35:59 [employer] [facility] Surgery completed Not Available [facility] 11/13/2022 02:35:59 [employer] Surgery completed Not Available [facility] 11/13/2022 02:35:59 Sinus Surgery completed Not Available [facility] 11/13/2022 02:35:59 Imaging Results Imaging Date Name Status LastModified by Organiz ation Details LastModified Time 12/21/2013 polysomnogram, titration study completed [facility] Information not available 11/10/2023 16:42:11 11/30/2013 polysomnogram, diagnostic, 6 yrs or older completed [facility] Information not available 11/13/2023 13:43:22 Procedure Notes None recorded. Medical Equipment None Reported. Allergies Allergen ID Allergen Name Allergen Category Reaction Reaction Severity Criticality Documentation Date Start Date Code Code System Note Provider Name and Address Organization Details Recorded Time 3666 Bactrim medicatio n itching nausea Not available Not available Not available 11/13/2022 21741 9 RxNorm Not Available [facility] 3 02:46:34 86450 Darvocet- N medicatio n Not available Not available Not available 11/12/2023 00921 UNK ZACHARY Gleason [facility] 4 11:33:51 79039 acetamino phen / hydrocodo ne medicatio n Not available Not available Not available 11/12/2023 00131 2 RxNorm ZACHARY Gleason [place] [facility] [place] [facility] 4 11:34:10 Medications Name Sig Start Date Stop Date Status Note LastModified by Organization Details LastModified Time vitamin c 500mg tab TAKE 1 TABLET BY MOUTH TWICE DAILY active Not Available Not Available No t Available fluoxetine 40 mg capsule 05/27 completed Not Available Not Available Not Available cyclobenzap rine 10 mg tablet TAKE 1 TABLET BY MOUTH TWICE DAILY NEEDED FOR PAIN, AVOID DRIVING OR OPERATING MACHINES 11/07 completed Not Available Not Available Not Available amoxicillin 500 mg capsule TAKE 1 CAPSULE BY MOUTH TWICE DAILY 11/07 completed Not Available Not Available Not Available terbinafine HCl 1 % topical cream apply to both feet twice daily 12/26 completed Not Available Not Available Not Available bupropion HCl SR 150 mg tablet,12 hr sustained-r elease TAKE 1 TABLET BY MOUTH TWICE DAILY active Not Available Not Available No t Available cefuroxime axetil 250 mg tablet 05/19 completed Not Available Not Available Not Available venlafaxine 75 mg tablet 05/27 completed Not Available Not Available Not Available ammonium lactate 12 % lotion Apply 2 applicati ons every day by topical route as needed. 11/07 completed Not Available Not Available Not Available Vitamin C 500 mg tablet Take 1 tablet twice a day by oral route. 2024 active Not Available Not Available Not Avai lable azithromyci n 250 mg tablet TAKE 2 TABLETS BY MOUTH ON DAY 1, AND THEN TAKE 1 TABLET BY MOUTH ONCE A DAY ON DAY 2 THROUGH DAY 5 11/11 completed Not Available Not Available Not Available ibuprofen 800 mg tablet 12/26 completed Not Available Not Available Not Available fluconazole 150 mg tablet 05/27 completed Not Available Not Available Not Available valacyclovi r 1 gram tablet TAKE 2 TABLETS BY MOUTH EVERY 12 HOURS active Not Available Not Available No t Available hydrocodone 5 mg-acetamin ophen 325 mg tablet 12/26 completed Not Available Not Available Not Available meloxicam 15 mg tablet TAKE 1 TABLET BY MOUTH ONCE DAILY NEEDED active Not Available Not Available No t Available famotidine 40 mg tablet TAKE 1 TABLET BY MOUTH ONCE DAILY active Not Available Not Available No t Available prednisone 20 mg tablet TAKE 3 TABLETS BY MOUTH ONCE DAILY 11/11 completed Not Available Not Available Not Available cromolyn 4 % eye drops INSTILL 1 DROP 4 TIMES DAILY INTO EACH EYE active Not Available Not Available No t Available topiramate 25 mg tablet 12/26 completed Not Available Not Available Not Available phentermine 37.5 mg tablet TAKE 1 TABLET BY MOUTH ONCE DAILY BEFORE BREAKFAST 11/12 completed Not Available Not Available Not Available sulfamethox azole 800 mg-trimetho prim 160 mg tablet TAKE 1 TABLET BY MOUTH EVERY 12 HOURS 12/26 completed Not Available Not Available Not Available tramadol 50 mg tablet TAKE 1 TABLET BY MOUTH EVERY 6 HOURS NEEDED FOR PAIN AVOID DRIVING OR OPERATING MACHINES 11/12 completed Not Available Not Available Not Available triamcinolo ne acetonide 0.1 % topical cream 12/26 completed Not Available Not Available Not Available simvastatin 40 mg tablet TAKE 1 TABLET BY MOUTH ONCE DAILY IN THE EVENING 11/07 completed Not Available Not Available Not Available citalopram 20 mg tablet TAKE 1 TABLET BY MOUTH ONCE DAILY 11/12 completed Not Available Not Available Not Available methocarbam ol 750 mg tablet 12/26 completed Not Available Not Available Not Available doxycycline monohydrate 100 mg capsule 07/31 completed Not Available Not Available Not Available cephalexin 500 mg capsule TAKE 1 CAPSULE BY MOUTH EVERY 12 HOURS 11/12 completed Not Available Not Available Not Available venlafaxine 37.5 mg tablet 11/12 completed Not Available Not Available Not Available lisinopril 10 mg tablet TAKE 1 TABLET BY MOUTH ONCE DAILY active Not Available Not Available No t Available hydrochloro thiazide 12.5 mg capsule TAKE 1 CAPSULE BY MOUTH ONCE DAILY active Not Available Not Available No t Available omeprazole 20 mg capsule,del ayed release TAKE 1 CAPSULE BY MOUTH ONCE DAILY BEFORE A MEAL active Not Available Not Available No t Available codeine 10 mg-guaifene sin 100 mg/5 mL oral liquid TAKE 10 ML BY MOUTH EVERY 4 HOURS NEEDED 11/11 completed Not Available Not Available Not Available azelastine 137 mcg (0.1 %) nasal spray USE 1 SPRAY(S) IN EACH NOSTRIL EVERY 12 HOURS 11/12 completed Not Available Not Available Not Available levofloxaci n 500 mg tablet 05/19 completed Not Available Not Available Not Available norethindro ne (contracept francisco) 0.35 mg tablet 12/26 completed Not Available Not Available Not Available fluticasone propionate 50 mcg/actuati on nasal spray,suspe nsion USE 1 TO 2 SPRAY(S) IN EACH NOSTRIL TWICE DAILY active Not Available Not Available No t Available amoxicillin 875 mg-juliannu m clavulanate 125 mg tablet TAKE 1 TABLET BY MOUTH TWICE DAILY TAKE WITH FOOD.(COM PLETE FULL PRESCRIPT ION) 11/12 completed Not Available Not Available Not Available cyclobenzap rine 5 mg tablet TAKE 1 TABLET BY MOUTH AT BEDTIME NEEDED FOR MUSCLE SPASM active Not Available Not Available No t Available rosuvastati n 20 mg tablet TAKE 1 TABLET BY MOUTH ONCE DAILY active Not Available Not Available No t Available topiramate 50 mg tablet TAKE 1 TABLET BY MOUTH TWICE DAILY active Not Available Not Available No t Available nitrofurant oin monohydrate /macrocryst als 100 mg capsule TAKE 1 CAPSULE BY MOUTH EVERY 12 HOURS WITH FOOD 12/26 completed Not Available Not Available Not Available duloxetine 30 mg capsule,del ayed release TAKE 1 CAPSULE BY MOUTH ONCE DAILY 11/12 completed Not Available Not Available Not Available duloxetine 60 mg capsule,del ayed release TAKE 1 CAPSULE BY MOUTH ONCE DAILY active Not Available Not Available No t Available pregabalin 75 mg capsule TAKE 1 CAPSULE BY MOUTH TWICE DAILY 11/12 completed Not Available Not Available Not Available FeroSul 325 mg (65 mg iron) tablet TAKE 1 TABLET BY MOUTH TWICE DAILY active Not Available Not Available No t Available vitamin E (dl, acetate) 90 mg (200 unit) capsule Take 1 capsule every day by oral route. 2024 active Not Available Not Available Not Avai lable Multi Vitamin 02/28 completed Not Available Not Available Not Available Trulicity 0.75 mg/0.5 mL subcutaneou s pen injector INJECT 0.75 MG SUBCUTANE OUSLY ONCE A WEEK 11/12 completed Not Available Not Available Not Available Fluzone Quad (PF) 60 mcg (15 mcg x 4)/0.5 mL IM syringe [facility] 11/07 completed Not Available Not Available Not Available Vitals Date Recorded Body height Body mass index (BMI) Body weight Body temperature Heart rate Oxygen saturation Oxygen saturation in Arterial blood by Pulse oximetry Systolic blood pressure Diastolic blood pressure Provider Name and Address Organization Details Last Updated DateTime 167.64 cm 44.3 kg/m2 558383. 46 g 97.7 [degF] 80 /min 96 % 96 % 124 mm[Hg] 72 mm[Hg] Rita Acosta MA [employer] 11:33:32 Date Recorded Heart rate Respiratory rate Provider N mihai and Address Organization Details Last Updated DateTime 11/12/2023 80 /min 15 /min Tonio Hu MD [address], [address], [place], [address], [place] [employer] [facility] [employer] 11/12/2023 11:55:56 Date Recorded Body height Body mass index (BMI) Body weight Body temperature Heart rate Oxygen saturation Oxygen saturation in Arterial blood by Pulse oximetry Systolic blood pressure Diastolic blood pressure Provider Name and Address Organization Details Last Updated DateTime 167.64 cm 43.4 kg/m2 933683. 91 g 97.9 [degF] 86 /min 98 % 98 % 122 mm[Hg] 72 mm[Hg] Rita Acosta MA [employer] [facility] [employer] 08:36:50 Date Recorded Heart rate Respiratory rate Provider N mihai and Address Organization Details Last Updated DateTime 12/10/2023 86 /min 14 /min Tonio Hu MD [address], [address], [place], [address], [employer] [facility] 12/10/2023 08:53:03 Date Recorded Body height Body mass index (BMI) Body weight Oxygen saturation Oxygen saturation in Arterial blood by Pulse oximetry Heart rate Body temperature Systolic blood pressure Diastolic blood pressure Provider Name and Address Organization Details Last Updated DateTime 167.64 cm 43.6 kg/m2 079375. 94 g 98 % 98 % 73 /min 97.6 [degF] 126 mm[Hg] 70 mm[Hg] Jevon Evans CMA [employer] [facility] [employer] 08:47:40 Date Recorded Heart rate Respiratory rate Provider N mihai and Address Organization Details Last Updated DateTime 03/10/2024 73 /min 15 /min Tonio Hu MD [address], [address], [place], [address], [place] [employer] [facility] [employer] 03/10/2024 09:04:22 Date Recorded Body height Body mass index (BMI) Body weight Body temperature Heart rate Oxygen saturation Oxygen saturation in Arterial blood by Pulse oximetry Systolic blood pressure Diastolic blood pressure Provider Name and Address Organization Details Last Updated DateTime 4 167.64 cm 44.2 kg/m2 064374. 31 g 98.7 [degF] 72 /min 95 % 95 % 120 mm[Hg] 70 mm[Hg] Jevon Evans CMA [facility] [employer] 4 08:50:42 Date Recorded Heart rate Respiratory rate Provider N mihai and Address Organization Details Last Updated DateTime 06/10/2024 72 /min 14 /min Tonio Hu MD [address] [facility], [address], [place], [address], [place] [employer] [facility] [employer] 06/10/2024 09:16:33 Date Recorded Body height Body mass index (BMI) Body weight Body temperature Oxygen saturation Oxygen saturation in Arterial blood by Pulse oximetry Systolic blood pressure Diastolic blood pressure Provider Name and Address Organization Details Last Updated DateTime 5 167.64 cm 43.1 kg/m2 198255. 16 g 98.1 [degF] 98 % 98 % 110 mm[Hg] 74 mm[Hg] Madina Workman MA [facility] [employer] 5 09:01:12 Date Recorded Heart rate Heart rate Respiratory rate Provider Name and Address Organization Details Last Updated DateTime 11/11/2024 87 /min 87 /min 15 /min Tonio Hu MD [address] [facility], [address], [place], [address], [place] [employer] [facility] [employer] 11/11/2024 09:18:01 Social History Question Answer Notes LastModified by Organizat ion Details LastModified Time Tobacco Smoking Status Never Smoker Not Available [employer] 11/13/2022 02:30:51 What Is Your Level Of Alcohol Consumption? None [id number] Information not available 11/13/2022 What Is Your Level Of Caffeine Consumption? Moderate [id number] Information not available 11/13/2022 In The 14 Days Before Symptom Onset, Have You Had Close Contact With A Laboratory-barak saldañaed COVID-19 While That Case Was Ill? No [id number] Information not available 11/13/2022 In The 14 Days Before Symptom Onset, Have You Had Close Contact With A Person Who Is Under Investigation For COVID-19 While That Person Was Ill? No [id number] Information not available 11/13/2022 Are You Currently Employed? Yes Information not available 12/10/2023 What Type Of Diet Are You Following? REGULAR Information not available 11/12/2023 Which Illicit Or Recreational Drugs Have You Used? None [id number] Information not available 11/13/2022 Do You Or Have You Ever Used E-cigarettes Or Vape? Never Used Electronic Cigarettes [id number] Information not available 11/13/2022 Do You Have An Electrostatic Air Filter? 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 No Information not available 11/12/2023 Where Do You Live? SingleLevelHouse Information not available 11/12/2023 Do You Have Moisture Problems In Your Home? No Information not available 11/12/2023 What Was The Date Of Your Most Recent Tobacco Screening? 11/11/2024 [email or web address] Information not available 11/11/2024 Do You Have Any Pets? Yes Information not available 11/12/2023 What Is Your Relationship Status? Information not available 11/12/2023 Do You Use Your Seat Belt Or Car Seat Routinely? Yes Information not available 11/12/2023 Do You Have Smoke And Carbon Monoxide Detectors In Your Home? Yes Information not available 11/12/2023 Are You Passively Exposed To Smoke? Yes Information not available 11/12/2023 Do You Feel Stressed (tense, Restless, Nervous, Or Anxious, Or Unable To Sleep At Night)? [id number] Information not available 11/12/2023 Do You Use Sunscreen Routinely? Yes Information not available 11/12/2023 Have You Recently Traveled Abroad? No Information not available 11/12/2023 Do You Have Any Dietary Restrictions? No Information not available 11/12/2023 Sex: Unknown Functional Status Question Answer Note LastModified by Organizat ion Details LastModified Time What is your exercise level? Occasional [id number] Information not available 11/13/2022 Mental Status None recorded. Family History Relationship Description Onset Age of this Age Resolved Age Notes LastModified by Organization Details LastModified Time Sister Diabetes mellitus [id number] Not available 11/13/2022 02:36:01 Sister Hypertensive disorder [id number] Not available 11/13/2022 02:36:01 Brother Diabetes mellitus [id number] Not available 11/13/2022 02:36:01 Brother Hypertensive disorder [id number] Not available 11/13/2022 02:36:01 Maternal Grandmother Malignant tumor of breast [id number] Not available 11/13/2022 02:36:01 Mother Cirrhosis of liver 60 [id number] Not available 11/13/2022 02:36:01 Father Scleroderma Not availabl e 11/07/2023 14:23:09 Father Coronary arterioscler osis Not available 2023 14:23:34 Sister Obstructive sleep apnea syndrome Not available 2023 11:57:25 Brother Obstructive sleep apnea syndrome Not available 2023 11:57:29 Brother Rheumatoid arthritis Not available 2023 11:57:54 Medical History Condition Response ARTHRITIS Y ANXIETY DISORDER Y DEPRESSION (INCLUDING POST ) Y HYPERTENSION Y HIGH CHOLESTEROL / HYPERLIPIDEMIA Gynecological History Statement/Question Response Abnormal Pap N Date of Last Mammogram 04/06/2021 Date of Last Colonoscopy Current Control Method Hysterectom y Age at Menarche 14 Most Recent Mammogram Obstetrics History GPAL:G 4 P 4 0 0 4 Type Value Full Term 4 Living 4 Total 4 Past Encounters Encounter ID Performer Location Encounter Start Date Encounter Closed Date Diagnosis/Indication Diagnosis SNOMED-CT Code Diagnosis ICD10 Code Diagnosis Note [id number] _ATHENA_M IGRATION_ DEFAULT_1 _1 , 12/26/2020 00:00:00 12/26/2020 10:27:41 [id number] [facility] [facility] Bogdan Fisher [address] [place] [address] 01/29/2021 00:00:00 02/07/2021 16:36:43 [id number] [facility] [address] [place] [address] 02/26/2021 00:00:00 02/26/2021 11:15:18 [id number] [facility] [address] [place] [address] 04/02/2021 00:00:00 04/03/2021 09:58:36 [id number] [facility] [address] [place] [address] 09/27/2021 00:00:00 10/01/2021 09:22:19 [id number] [facility] [address] [place] [address] 11/22/2021 00:00:00 11/22/2021 11:39:32 [id number] [facility] [address] [place] [address] 01/10/2022 00:00:00 01/10/2022 13:52:58 [id number] [facility] [address] [place] [address] 01/17/2022 00:00:00 01/18/2022 10:45:52 [id number] [facility] [address] [place] [address] 02/07/2022 00:00:00 02/07/2022 12:42:56 [id number] [facility] [address] [place] [address] 03/04/2022 00:00:00 03/04/2022 09:14:23 [id number] [facility] [address] [place] [address] 04/15/2022 00:00:00 04/15/2022 11:41:07 [id number] [facility] [address] [place] [address] 06/03/2022 00:00:00 06/03/2022 11:06:24 [id number] [facility] [address] [place] [address] 07/22/2022 00:00:00 07/22/2022 10:25:25 [id number] [facility] [address] [place] [address] 09/02/2022 00:00:00 09/02/2022 10:12:10 [id number] [facility] [address] [place] [address] 10/28/2022 00:00:00 10/28/2022 09:58:48 [id number] MD [facility]ABRI[facility]A [facility] [address] 11/12/2023 11:17:15 11/13/2023 11:32:49 Periodic limb movement disorder [id number] G47.61 D50.8 E83.42 Obstructiv e sleep apnea syndrome 16830320 G47.33 [id number] Tonio Hu MD [facility] [address] 12/10/2023 08:23:00 12/11/2023 09:49:31 Obstructive sleep apnea syndrome [id number] G47.33 Vitamin E deficiency 541 [address]3510 E56.0 Iron deficiency 70199691 E61.1 [id number] Tonio Hu MD [facility] [address] 03/10/2024 08:36:08 03/11/2024 08:58:44 Obstructive sleep apnea syndrome [id number] G47.33 Vitamin E deficiency 541 07853 E56.0 Iron deficiency 90943616 E61.1 [id number] Tonio Hu MD [facility] [address] 06/10/2024 08:31:14 07/05/2024 10:18:33 Obstructive sleep apnea syndrome 05654762 G47.33 Vitamin E deficiency 541 18940 E56.0 Iron deficiency 01999061 E61.1 [id number] Tonio Hu MD [facility] [address] 11/11/2024 08:42:43 11/11/2024 09:46:24 Obstructive sleep apnea syndrome 41511388 G47.33 Vitamin E deficiency 541 80111 E56.0 Iron deficiency 78061449 E61.1 Health Concerns Section Related Observation LastModified by Organization Detai ls LastModified Time None Recorded Concern Status LastModified by Organization Details LastModified Time None Recorded Advance Directives Directive None Recorded Payers Encounter Date Sequence Insurance Name Policy Number Policy Contreras Covered Member ID Contreras Member ID Guarantor Name 11/12/2023 1 [employer] [facility] [place] ([place] [id number] Jennifer Monterrosoapp [id number] Jennifer Quarles 12/10/2023 1 [employer] [facility] [place] [id number] Jennifer Quarles [id number] Jennifer Quarles 03/10/2024 1 [facility] ([facility]ICAID [facility]) [id number] Jennifer Monterrosoapp [id number] Jennifer Quarles 06/10/2024 1 [employer] [facility] [place] [id number] Jennifer Monterrosoapp [id number] Jennifer Quarles 11/11/2024 1 [employer] [facility] [place] [id number] 0003 Jennifer Monterrosoapp [id number] Jennifer Quarles Notes Date Note Type Note Provider Name and Address Organization Details Recorded Time 11/12/2023 text/html Primary care/Ref erring provider: Augusto Andrew MD During the [facility] diagnostic sleep study on 11/30/13, AHI = 19, supine AHI = 32.During the [facility] titration sleep study on 12/21/13, PLMI = 6. At home since 07/24/22, the patient uses a ResMed AirSense 11 autoset unit with heated humidification. The patient does not need the ramp to start low and go up slowly on the pressure anymore. There is some xerostomia in a.m. There is no hose/mask condensation with water.The patient wears a [employer] small Simplus full face mask without chin strap. There is no claustrophobia, no nostril/nose bridge irritation, no facial rash, no facial numbness, no nosebleeding. The patient feels slightly refreshed upon waking and daytime alertness is not as improved. Energy levels are sustained for 2 hours after she wakes up. At home, the patient sleeps from 9:30 pm to 5:30 am and wakes up with an alarm. Snoring: heavy, since .Snorting: noChoking: yesCoughing: yesGasping: yesGagging: noSighing: yesWitnessed apnea: yesTwitching or jerking of leg(s), arm(s), body, head: yesTeeth grinding: noTeeth clenching: noSleeptalking: yesSleepwalking: noSleep crying: yesBedwetting: noTongue/lip/gum/cheek biting: yesSleeping with open mouth: yesSleep paralysis: noHypnagogic hallucinations: noHypnopompic hallucinations: yes, hears songsVivid dreams: yesDifficulty with sleep onset: noDifficulty with sleep maintenance: yesSleep interruptions: coughPatient wakes up with: fatigue, xerostomia, sore throat, headaches, mobility impairmentDaytime cataplexy: noMorning hypersomnolence: yesAfternoon hypersomnolence: yesCaffeine sources in diet: coffee 1 cup per day, tea 1 bottle per month, chocolate 1 candy bar per month Associated medical and psychiatric conditions:Congestive heart failure: noCoronary artery disease: noMyocardial infarction: noHypertension: yesStroke: noBronchial asthma: noChronic obstructive pulmonary disease: noDepression: yesBipolar disorder: noAnxiety: noPanic disorder: noPosttraumatic stress disorder: noAttention deficit and hyperactivity disorder: noObsessive Compulsive disorder: noSchizophrenia: noSchizoaffective disorder: noPersonality disorder: noChronic analgesic use: noChronic sedative/hypnotic use: no EPWORTH SLEEPINESS SCALE (ESS) CHANCE OF DOZING SCORE0 = would never doze1 = slight chance of dozing2 = moderate chance of dozing3 = high chance of dozing SITUATION AND CHANCE OF DOZINGSitting and reading - 2Watching television - 3Sitting inactive in a public place (e.g. a theater or meeting) - 2As a passenger in a car for an hour without a break - 2Lying down to rest in the afternoon when circumstances permit - 3Sitting and talking to someone - 3Sitting quietly after lunch without alcohol - 3In a car, while stopped for a few minutes in the traffic - 2TOTAL SCORE 20Subjectively, patient has a slight moderate high chance of dozing. Tonio Hu MD [address] [place] [address], [address], [place] - [facility] 11/30/2023 19:34:24 12/10/2023 text/html Primary care/Ref erring provider: Augusto Andrew MD During the [facility] diagnostic sleep study on 11/30/13, AHI = 19, supine AHI = 32.During the [facility] titration sleep study on 12/21/13, PLMI = 6. He is here to go over his lab workup. At home since 11/12/23, the patient uses a ResMed AirSense 11 autoset unit with heated humidification. The patient does not need the ramp to start low and go up slowly on the pressure anymore. There is some xerostomia in a.m. There is no hose/mask condensation with water.The patient wears a [employer] small Simplus full face mask without chin strap. There is no claustrophobia, no nostril/nose bridge irritation, no facial rash, no facial numbness, no nosebleeding. The patient feels slightly refreshed upon waking and daytime alertness is not as improved. Energy levels are sustained for 2 hours after she wakes up. At home, the patient sleeps from 9:30 pm to 5:30 am and wakes up with an alarm. Snoring: heavy, since .Snorting: noChoking: yesCoughing: yesGasping: yesGagging: noSighing: yesWitnessed apnea: yesTwitching or jerking of leg(s), arm(s), body, head: yesTeeth grinding: noTeeth clenching: noSleeptalking: yesSleepwalking: noSleep crying: yesBedwetting: noTongue/lip/gum/cheek biting: yesSleeping with open mouth: yesSleep paralysis: noHypnagogic hallucinations: noHypnopompic hallucinations: yes, hears songsVivid dreams: yesDifficulty with sleep onset: noDifficulty with sleep maintenance: yesSleep interruptions: coughPatient wakes up with: fatigue, xerostomia, sore throat, headaches, mobility impairmentDaytime cataplexy: noMorning hypersomnolence: yesAfternoon hypersomnolence: yesCaffeine sources in diet: coffee 1 cup per day, tea 1 bottle per month, chocolate 1 candy bar per month Associated medical and psychiatric conditions:Congestive heart failure: noCoronary artery disease: noMyocardial infarction: noHypertension: yesStroke: noBronchial asthma: noChronic obstructive pulmonary disease: noDepression: yesBipolar disorder: noAnxiety: noPanic disorder: noPosttraumatic stress disorder: noAttention deficit and hyperactivity disorder: noObsessive Compulsive disorder: noSchizophrenia: noSchizoaffective disorder: noPersonality disorder: noChronic analgesic use: noChronic sedative/hypnotic use: no EPWORTH SLEEPINESS SCALE (ESS) CHANCE OF DOZING SCORE0 = would never doze1 = slight chance of dozing2 = moderate chance of dozing3 = high chance of dozing SITUATION AND CHANCE OF DOZINGSitting and reading - 3Watching television - 2Sitting inactive in a public place (e.g. a theater or meeting) - 2As a passenger in a car for an hour without a break - 3Lying down to rest in the afternoon when circumstances permit - 3Sitting and talking to someone - 3Sitting quietly after lunch without alcohol - 3In a car, while stopped for a few minutes in the traffic - 2TOTAL SCORE 21Subjectively, patient has a high chance of dozing. Tonio Hu MD [address] [place] [address], [address], [place] - [facility] 12/10/2023 08:58:13 03/10/2024 text/html Primary care/Ref erring provider: Augusto Andrew MD During the [facility] diagnostic sleep study on 11/30/13, AHI = 19, supine AHI = 32.During the [facility] titration sleep study on 12/21/13, PLMI = 6. He is here to go over his lab workup. At home since 12/10/23, the patient uses a ResMed AirSense 11 autoset unit with heated humidification. The patient does not need the ramp to start low and go up slowly on the pressure anymore. There is some xerostomia in a.m. There is no hose/mask condensation with water.The patient wears a [employer] small Simplus full face mask without chin strap. There is no claustrophobia, no nostril/nose bridge irritation, no facial rash, no facial numbness, no nosebleeding. The patient feels slightly refreshed upon waking and daytime alertness is not as improved. Energy levels are sustained for 2 hours after she wakes up. At home, the patient sleeps from 9:30 pm to 5:30 am and wakes up with an alarm. Snoring: heavy, since .Snorting: noChoking: yesCoughing: yesGasping: yesGagging: noSighing: yesWitnessed apnea: yesTwitching or jerking of leg(s), arm(s), body, head: yesTeeth grinding: noTeeth clenching: noSleeptalking: yesSleepwalking: noSleep crying: yesBedwetting: noTongue/lip/gum/cheek biting: yesSleeping with open mouth: yesSleep paralysis: noHypnagogic hallucinations: noHypnopompic hallucinations: yes, hears songsVivid dreams: yesDifficulty with sleep onset: noDifficulty with sleep maintenance: yesSleep interruptions: coughPatient wakes up with: fatigue, xerostomia, sore throat, headaches, mobility impairmentDaytime cataplexy: noMorning hypersomnolence: yesAfternoon hypersomnolence: yesCaffeine sources in diet: coffee 1 cup per day, tea 1 bottle per month, chocolate 1 candy bar per month Associated medical and psychiatric conditions:Congestive heart failure: noCoronary artery disease: noMyocardial infarction: noHypertension: yesStroke: noBronchial asthma: noChronic obstructive pulmonary disease: noDepression: yesBipolar disorder: noAnxiety: noPanic disorder: noPosttraumatic stress disorder: noAttention deficit and hyperactivity disorder: noObsessive Compulsive disorder: noSchizophrenia: noSchizoaffective disorder: noPersonality disorder: noChronic analgesic use: noChronic sedative/hypnotic use: no EPWORTH SLEEPINESS SCALE (ESS) CHANCE OF DOZING SCORE0 = would never doze1 = slight chance of dozing2 = moderate chance of dozing3 = high chance of dozing SITUATION AND CHANCE OF DOZINGSitting and reading - 2Watching television - 3Sitting inactive in a public place (e.g. a theater or meeting) - 2As a passenger in a car for an hour without a break - 3Lying down to rest in the afternoon when circumstances permit - 3Sitting and talking to someone - 3Sitting quietly after lunch without alcohol - 3In a car, while stopped for a few minutes in the traffic - 1TOTAL SCORE 20Subjectively, patient has a high chance of dozing. Tonio Hu MD [address] [place] [address], [address], [place] [email or web address] 03/10/2024 09:11:47 06/10/2024 text/html Primary care/Ref erring provider: Augusto Andrew MD During the [facility] diagnostic sleep study on 11/30/13, AHI = 19, supine AHI = 32.During the [facility] titration sleep study on 12/21/13, PLMI = 6. He is here to go over his lab workup. At home since 03/10/24, the patient uses a ResMed AirSense 11 autoset unit with heated humidification. The patient does not need the ramp to start low and go up slowly on the pressure anymore. There is some xerostomia in a.m. There is no hose/mask condensation with water.The patient wears a [employer] small Simplus full face mask without chin strap. There is no claustrophobia, no nostril/nose bridge irritation, no facial rash, no facial numbness, no nosebleeding. The patient feels refreshed upon waking and daytime alertness is improved. Energy levels are sustained until evening hours. At home, the patient sleeps from 9:30 pm to 5:30 am and wakes up with an alarm. Snoring: heavy, since .Snorting: noChoking: yesCoughing: yesGasping: yesGagging: noSighing: yesWitnessed apnea: yesTwitching or jerking of leg(s), arm(s), body, head: yesTeeth grinding: noTeeth clenching: noSleeptalking: yesSleepwalking: noSleep crying: yesBedwetting: noTongue/lip/gum/cheek biting: yesSleeping with open mouth: yesSleep paralysis: noHypnagogic hallucinations: noHypnopompic hallucinations: yes, hears songsVivid dreams: yesDifficulty with sleep onset: noDifficulty with sleep maintenance: yesSleep interruptions: coughPatient wakes up with: fatigue, xerostomia, sore throat, headaches, mobility impairmentDaytime cataplexy: noMorning hypersomnolence: yesAfternoon hypersomnolence: yesCaffeine sources in diet: coffee 1 cup per day, tea 1 bottle per month, chocolate 1 candy bar per month Associated medical and psychiatric conditions:Congestive heart failure: noCoronary artery disease: noMyocardial infarction: noHypertension: yesStroke: noBronchial asthma: noChronic obstructive pulmonary disease: noDepression: yesBipolar disorder: noAnxiety: noPanic disorder: noPosttraumatic stress disorder: noAttention deficit and hyperactivity disorder: noObsessive Compulsive disorder: noSchizophrenia: noSchizoaffective disorder: noPersonality disorder: noChronic analgesic use: noChronic sedative/hypnotic use: no EPWORTH SLEEPINESS SCALE (ESS) CHANCE OF DOZING SCORE0 = would never doze1 = slight chance of dozing2 = moderate chance of dozing3 = high chance of dozing SITUATION AND CHANCE OF DOZINGSitting and reading - 3Watching television - 2Sitting inactive in a public place (e.g. a theater or meeting) - 2As a passenger in a car for an hour without a break - 3Lying down to rest in the afternoon when circumstances permit - 3Sitting and talking to someone - 2Sitting quietly after lunch without alcohol - 3In a car, while stopped for a few minutes in the traffic - 1TOTAL SCORE 19Subjectively, patient has a high chance of dozing. Tonio Hu MD [address] [place] [address], [facility] [address], [place], [address], [place] - [facility] 07/04/2024 15:43:42 11/11/2024 text/html Primary care/Ref erring provider: Augusto Andrew MD During the [facility] diagnostic sleep study on 11/30/13, AHI = 19, supine AHI = 32.During the [facility] titration sleep study on 12/21/13, PLMI = 6. He is here to go over his lab workup. At home since 06/10/24, the patient uses a ResMed AirSense 11 autoset unit with heated humidification. The patient does not need the ramp to start low and go up slowly on the pressure anymore. There is some xerostomia in a.m. There is no hose/mask condensation with water.The patient wears a [employer] small Simplus full face mask without chin strap. There is no claustrophobia, no nostril/nose bridge irritation, no facial rash, no facial numbness, no nosebleeding. The patient feels refreshed upon waking and daytime alertness is improved. Energy levels are sustained until evening hours. At home, the patient sleeps from 9:30 pm to 5:30 am and wakes up with an alarm. Snoring: heavy, since .Snorting: noChoking: yesCoughing: yesGasping: yesGagging: noSighing: yesWitnessed apnea: yesTwitching or jerking of leg(s), arm(s), body, head: yesTeeth grinding: noTeeth clenching: noSleeptalking: yesSleepwalking: noSleep crying: yesBedwetting: noTongue/lip/gum/cheek biting: yesSleeping with open mouth: yesSleep paralysis: noHypnagogic hallucinations: noHypnopompic hallucinations: yes, hears songsVivid dreams: yesDifficulty with sleep onset: noDifficulty with sleep maintenance: yesSleep interruptions: coughPatient wakes up with: fatigue, xerostomia, sore throat, headaches, mobility impairmentDaytime cataplexy: noMorning hypersomnolence: yesAfternoon hypersomnolence: yesCaffeine sources in diet: coffee 1 cup per day, tea 1 bottle per month, chocolate 1 candy bar per month Associated medical and psychiatric conditions:Congestive heart failure: noCoronary artery disease: noMyocardial infarction: noHypertension: yesStroke: noBronchial asthma: noChronic obstructive pulmonary disease: noDepression: yesBipolar disorder: noAnxiety: noPanic disorder: noPosttraumatic stress disorder: noAttention deficit and hyperactivity disorder: noObsessive Compulsive disorder: noSchizophrenia: noSchizoaffective disorder: noPersonality disorder: noChronic analgesic use: noChronic sedative/hypnotic use: no EPWORTH SLEEPINESS SCALE (ESS) CHANCE OF DOZING SCORE0 = would never doze1 = slight chance of dozing2 = moderate chance of dozing3 = high chance of dozing SITUATION AND CHANCE OF DOZINGSitting and reading - 2Watching television - 1Sitting inactive in a public place (e.g. a theater or meeting) - 1As a passenger in a car for an hour without a break - 2Lying down to rest in the afternoon when circumstances permit - 3Sitting and talking to someone - 2Sitting quietly after lunch without alcohol - 2In a car, while stopped for a few minutes in the traffic - 1TOTAL SCORE 14Subjectively, patient has a moderate chance of dozing. Tonio Hu MD [address] [place] [address], [place], [address], [facility] [employer] 11/11/2024 09:18:14 OBGyn Episode No OBEpisode recorded.
--- OUTSIDE RECORDS SUMMARY | 2024-11-24 16:16 | XMS_ITS | CONTINUITY OF CARE DOCUMENT ---
Author Name ngoc grossman Address Unknown Organization [facility] Address [address] [place] [address] [address] [place] [address] Phone [phone] Care Team Providers Care Photo Technologist Name Role Phone Colton Aguilera MD Unavailable [phone] Colton Aguilera MD Unavailable RHONDA ANDREW MD Unavailable [phone] PROBLEMS Condition Status Date Provider Notes COUGH [...] In-person encounter Office Visit Colton Aguilera MD [facility] Family History Coronary Heart Disease male [...] Payer name Policy type / Coverage type [employer] ID [employer] MEDICA[employer] Medicaid [id number] ADVANCE DIRECTIVES Name Date DISCUSSED - NO DECISION MADE TREATMENT PLAN Date Name Performer Cardiology Colton Aguielra MD Cardiology Colton Aguilera MD Cardiology Colton Aguilera MD Cardiology Colton Aguilera MD Date Name DLCO - 72282 FRC - 76524 FVC - 57452 HISTORY OF PROCEDURES Procedure Date Procedure Name Provider Procedure Notes S tatus FVC / MVV - 31024 Colton Aguilera MD co mpleted FRC - 31401 Colton Aguilera MD complete d SpO2 w/o 6min walk/titration Colton Aguilera MD completed DLCO - 62020 Colton Aguilera MD complet ed EKG Colton Aguilera MD completed
--- OUTSIDE RECORDS SUMMARY | 2024-11-24 16:16 | XMS_ITS | Encounter Summary ---
Author Organization [facility] Address [address] [facility] [place] [address] Care Team Providers Care Mine Car Repairer Name Role Phone Augusto Jiménez MD Primary Care Provider [phone] Encounter Details Date Type Department Care Team (Late st Contact Info) Description 08/06/2022 Telephone [facility] [place] [address] Linda Gardner Social History Tobacco Use Types [...] on filedocumented in this encounter Care Teams Mine Car Repairer Relationship Specialty Start Date End Date Augusto Jiménez MD [address] [facility] [address] [place] [address] PCP - General 06/17/17 documented as of this encounter
--- OUTSIDE RECORDS SUMMARY | 2024-11-24 16:16 | XMS_ITS | Continuity of Care Document ---
Author Organization [employer] [place] Address [address] [place] [address] Phone Care Team Providers Care Development Educator Name Role Phone Evangelista Harrington PT Unavailable [...] or Cold Pack Therapeutic Activities Neuromuscular Re-Ed Manual Therapy Therapeutic Exercise Hot or Cold Pack Therapeutic Activities Neuromuscular [...] Diagnoses Date Provider Providers Copied on Encounter [facility] [address] [facility], [place], [place], [id number], tel:[phone] [place] No Information 3 Dellamano Evangelista. . [facility], [place], [place], [id number], tel:[phone] [place] No Information 1 0 3 Dellamano Evangelista. . Referring Provider: Marco Graf III, [address], [place], [address]. tel:[phone] [facility] [address], [place], [place], [id number], tel:[phone] [place] No Information Apr-0 3 Dellamano Evangelista. . Referring Provider: Marco Graf III, [address], [place], [address]. tel:[phone] [facility] [address], [place], [place], [address], tel:[phone] [place] No Information Aug-0 3- 3 Dellamano Evangelista. . Referring Provider: Marco Graf III, [address], [place], [address]. tel:[phone] [facility] [address], [place], [place], [id number], [place] tel:[phone] [place] No Information 3 Dellamano Evangelista. . Referring Provider: Marco Graf III, [address], [place], [address]. tel:[phone] [place], [place] [id number], [place], [place], [address], [place] tel:[phone] [place] No Information 3 Dellamano Evangelista. . Referring Provider: Marco Graf III, [address], [place], [address]. tel:[phone] [place] [address], [address], [place], [place], [id number], [place] tel:[phone] [place] No Information 3 Dellamano Evangelista. . Referring Provider: Marco Graf III, [address], [place], [address]. tel:[phone] [place], [place] [id number] [address], [place], [place], [id number], [place] tel:[phone] [place] No Information 3 Dellamano Evangelista. . Referring Provider: Marco Graf III, [address], [place], [address]. tel:[phone] [facility], [place], [place], [id number], [place] tel:[phone] [place] No Information 3 Muehl Umang. [address] [facility] [address] [facility], [address], [place], [address], [place]. tel:[phone] Referring Provider: Marco Graf III, [address], [place], [address]. tel:[phone] [place] [id number] [address], [place], [place], [id number], [place] tel:[phone] [place] No Information 3 Muehl Umang. [address] [facility], [address], [place], [address], [place]. tel:[phone] Referring Provider: Marco Graf III, [address], [place], [address]. tel:[phone], [place], [place], [address], [place] tel:[phone] [place] No Information 3 Muehl Umang. [address] [place] [address], [address], [place], [address], [place]. tel:[phone] Referring Provider: Marco Graf III, [address], [place], [address]. tel:[phone] [facility], [place], [place], [id number], [place] tel:[phone] [place] No Information 3 Muehl Umang. [address] [place] [address], [address], [place], [address], [place]. tel:[phone] Referring Provider: Marco Graf III, [address], [place], [address]. tel:[phone] [address], [place], [place], [id number], [place] tel:[phone] [place] No Information 3 Muehl Umang. [address] [place] [address], [address], [place], [address], [place]. tel:[phone] Referring Provider: Marco Graf III, [address], [place], [address]. tel:[phone], [place], [place], [id number], [place] tel:[phone] [place] No Information 3 Muehl Umang. [address] [place] [address], [address], [place], [address], [place]. tel:[phone] Referring Provider: Marco Graf III, [address], [place], [address]. tel:[phone] Family History Family Member Type Diagnosis Age At Onset No Information Payers Payer name Insurance type Covered democrat ID Mansi fernandez(s) [employer] 00 Social History Type Description Quantity [...]
--- OUTSIDE RECORDS SUMMARY | 2024-11-24 16:17 | XMS_ITS | Continuity of Care Document ---
Author Organization [facility] Address [address] [place] [address] [place] [address] Phone Care Team Providers Care Supervisor In Charge Name Role Phone Augusto Jiménez MD Unavailable Unavailable Allergies, Adverse Reactions, Alerts Substance Reaction Status Criticality trimethoprim Active No Information sulfamethoxazole Active No Informat ion Medications Medication Instructions Dosage Effective Dates (start - stop) Status Comments codeine 10 mg-guaifenesin 100 mg/5 mL oral liquid take 10 milliliter by oral route every 4 hours as needed as needed 10 milliliter - Active PRN for cough ,avoid driving or operate machines Valtrex 1 gram tablet take 2 Tablet [...] Diagnoses Date Provider Providers Copied on Encounter OFFICE/OUTPA TIENT VISIT, [facility], [place], [facility], [address], [place], [place], [address], [place] tel:[phone] [facility] Medicine sick (chief complaint) Acute bronchitis 5 Tino Casas. [address], [place], [place], [address] , [place]. [phone] OFFICE/OUTPA TIENT VISIT, [facility], [place], [facility], [address], [place], [place], [address], [place] tel:[phone] [facility] sinus1 (chief complaint) Acute bronchitisHerpes simplex facialis 4 Tino Casas. [address], [place], [place], [address] , [place]. tel:[phone] OFFICE/OUTPA TIENT VISIT, [facility], [place], [address], [place], [place], [address], [place] tel:[phone] [facility] Medicine GERD1 (chief complaint)p ain (chief complaint) Chronic pain syndromeGERD w/o esophagitis Oct- 4 Tino Casas. [address], [place], [place], [address] , [place]. 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 [address], [place], [place], [address] , [place]. [phone] OFFICE/OUTPA TIENT VISIT, [facility], [place], [address], [place], [place], [address], [place] tel:[phone] [facility] GERD1 (chief complaint)a nxiety1 (chief complaint)H TN (chief complaint)b ack pain1 (chief complaint) Chronic pain syndromeGERD w/o esophagitisOther specified disorder of bone densityGeneralized Anxiety DisorderEssential (primary) hypertension 4 Tino Casas. [address], [place], [place], [address] , [place]. tel:[phone] OFFICE/OUTPA TIENT VISIT, [facility], [place], [address], [place], [place], [address], [place] tel:[phone] [facility] glucose1 (chief complaint)H LP (chief complaint)G ERD1 (chief complaint)p ain (chief complaint) HyperglycemiaGERD w/o esophagitisMixed hyperlipidemiaChro keyanna pain syndromeObstructiv e sleep apnea hypopneaOther specified disorder of bone density 4 Tino Casas. [address], [place], [place], [address] , [place]. tel:[phone] PREV VISIT, EST, AGE 40-64 [facility], [address], [place], [place], [address], [place] tel:[phone] [facility] physical (chief complaint) Encounter for general adult medical examination without abnormal findings 4 Tino Casas. [address], [place], [place], [address] , [place]. tel:[phone] OFFICE/OUTPA TIENT VISIT, [facility], [place], [address], [place], [place], [address], [place] tel:[phone] [facility] migraine1 (chief complaint)G ERD1 (chief complaint)b ack pain1 (chief complaint)H LP (chief complaint)s leep apnea1 (chief complaint)s kin (chief complaint) GERD w/o esophagitisHeadach eMixed hyperlipidemiaChro keyanna pain syndromeObstructiv e sleep apnea hypopneaCellulitis of chest wall 4 Tino Casas. [address], [place], [place], [address] , [place]. tel:[phone] OFFICE/OUTPA TIENT VISIT, [facility], [place], [address], [place], [place], [address], [place] tel:[phone] [facility] GERD1 (chief complaint)c hronic pain1 (chief complaint)H LP (chief complaint) GERD w/o esophagitisGeneral ized Anxiety DisorderChronic pain syndromeMixed hyperlipidemiaEsse ntial (primary) hypertension 3 Tino Casas. [address], [place], [address] , [place]. [phone] OFFICE/OUTPA TIENT VISIT, [facility], [place], [address], [place], [place], [address], [place] tel:[phone] [facility] GERD1 (chief complaint)a bd pain1 (chief complaint) GERD w/o esophagitisGeneral ized abdominal pain 3 Tino Casas. [address], [place], [place], [address] , [place]. tel:[phone] OFFICE/OUTPA TIENT VISIT, [facility] [place], [address], [place], [place], [address], [place] tel:[phone] [facility] weight1 (chief complaint)a nxiety1 (chief complaint)p ain (chief complaint)a bd pain1 (chief complaint) GERD w/o esophagitisChronic pain syndromeAbnormal weight gainGeneralized abdominal painGeneralized Anxiety Disorder Dec- 3 Tino Casas. [address], [place], [place], [address] , [place]. tel:[phone] OFFICE/OUTPA TIENT VISIT, [facility] [place], [address], [place], [place], [address], [place] tel:[phone] [facility] anxiety1 (chief complaint)c hronic pain1 (chief complaint)w eight gain1 (chief complaint)G ERD1 (chief complaint) Abnormal weight gainGeneralized Anxiety DisorderChronic pain syndromeGERD w/o esophagitis Nov- 3 Tino Casas. [address], [place], [place], [address] , [place]. tel:[phone] OFFICE/OUTPA TIENT VISIT, [facility] [place], [address], [place], [place], [address], [place] tel:[phone] [facility] elbow pain1 (chief complaint)a nxiety1 (chief complaint)c hronic pain1 (chief complaint)o besity1 (chief complaint) Abnormal weight gainGeneralized Anxiety DisorderLateral epicondylitis, right elbowChronic pain syndrome 3 Tino Arreola [address], [place], [place], [address] , [place]. tel:[phone] OFFICE/OUTPA TIENT VISIT, [facility] [place], [address], [place], [place], [address], [place] tel:[phone] [facility] pain1 (chief complaint)k idney cyst1 (chief complaint) Acquired cyst of kidney Feb-0 3 Tino Casas. [address], [place], [place], [address] , [place]. tel:[phone] OFFICE/OUTPA TIENT VISIT, EST [facility], [address], [place], [place], [address], [place] tel:[phone] [facility] pain (chief complaint)s leep apnea1 (chief complaint) Primary central sleep apneaLumbago w/ sciaticaBenign right renal neoplasm 2 Tino Augusto. [address], [place], [place], [address] , [place]. tel:[phone] OFFICE/OUTPA TIENT VISIT, [facility] [place], [address], [place], [place], [address], [place] tel:[phone] [facility] back pain1 (chief complaint)k idney lesion1 (chief complaint)s leep apnea1 (chief complaint) Primary central sleep apneaOther intervertebral disc displacement, lumbar regionBenign right renal neoplasm 2 Tino Casas. [address], [place], [place], [address] , [place]. tel:[phone] PREV VISIT, EST, AGE 40-64 [facility], [address], [place], [place], [address], [place] tel:[phone] [facility] physical (chief complaint) Encounter for general adult medical examination without abnormal findings 2 Tino Casas. [address], [place], [place], [address] , [place]. [phone] OFFICE/OUTPA TIENT VISIT, EST [facility], [address], [place], [place], [address], [place] tel:[phone] [facility] HLP (chief complaint)j oint pain1 (chief complaint) HyperlipidemiaSjog jennifer syndromeSystemic lupus erythematosus, unspecifiedOther intervertebral disc displacement, lumbar region 2 Tino Casas. [address], [place], [place], [address] , [place]. tel:[phone] OFFICE/OUTPA TIENT VISIT, [facility] [place], [address], [place], [address], [place] tel:[phone] [facility] Medicine surgery1 (chief complaint)H LP (chief complaint)l upus1 (chief complaint) Pain in left footHyperlipidemia Family history of diseases of the ms sys and connective tissPain in unspecified joint 2 Tino Arreola [address], [place], [place], [address] , [place]. [phone] OFFICE/OUTPA TIENT VISIT, EST [facility], [address], [place], [place], [address], [place] tel:[phone] [facility] HLP (chief complaint)A 1c (chief complaint)m igraine1 (chief complaint)H TN (chief complaint)h emorrhoid1 (chief complaint) HyperglycemiaHyper lipidemiaEssential (primary) hypertensionMigrai neSleep apneaHemorrhoid 2 Tino Arreola [address], [place], [place], [address] , [place]. [phone] PREV VISIT, EST, AGE 40-64 [facility], [address] [place], [address], [place] tel:[phone] [facility] physical (chief complaint) Encounter for general adult medical examination without abnormal findings 1 Tino Arreola [address], [place], [place], [address] , [place]. [phone] OFFICE/OUTPA TIENT VISIT, EST [facility], [address] [place], [address], [place] tel:[phone] [facility] UTI1 (chief complaint) Urinary tract infectionItch 1 Tino Arreola [address], [place], [place], [address] , [place]. [phone] OFFICE/OUTPA TIENT VISIT, EST [facility], [address] [place], [address], [place] tel:[phone] [facility] UTI1 (chief complaint)L FT (chief complaint)g lucose1 (chief complaint) Urinary tract infectionFatty liverHyperglycemia 1 Tino Arreola [address], [place], [place], [address] , [place]. [phone] OFFICE/OUTPA TIENT VISIT, [facility], [place], [address], [place], [place], [address], [place] tel:[phone] [facility] COVID-19 (chief complaint)H YPo K (chief complaint) Viral infectionPneumonia HypokalemiaLiver disease May- 0 Tino Arreola [address], [place], [place], [address] , [place]. tel:[phone] OFFICE/OUTPA TIENT VISIT, [facility] [place], [address], [place], [place], [address], [place] tel:[phone] [facility] sick (chief complaint) Viral infection May- 0 Tino Arreola [address], [place], [place], [address] , [place]. [phone] OFFICE/OUTPA TIENT VISIT, [facility] [place], [address], [place], [place], [address], [place] tel:[phone] [facility] viral1 (chief complaint) Viral infection 0 Tino Arreola [address], [place], [address] , [place]. [phone] OFFICE/OUTPA TIENT VISIT, [facility] [place], [address], [place], [place], [address], [place] tel:[phone] [facility] high B12 (chief complaint)g lucose1 (chief complaint)H LP (chief complaint)s leep apnea1 (chief complaint) HyperglycemiaHyper lipidemiaOther specified abnormal findings of blood chemistrySleep apnea 0 Tino Arreola [address], [place], [place], [address] , [place]. tel:[phone] PREV VISIT, EST, AGE 40-64 [facility], [address], [place], [place], [address], tel:[phone] [facility] Physical (chief complaint) Encntr for general adult medical exam w/o abnormal findings 0 Tino Casas. [address], [place], [place], [address] , [place]. [phone] OFFICE/OUTPA TIENT VISIT, EST [facility], [address], [place], [place], [address], [place] tel:[phone] [facility] sick (chief complaint)H LP (chief complaint)h eadache1 (chief complaint)H TN (chief complaint)a nxiety1 (chief complaint) Acute sinusitisHyperlipi demiaEssential (primary) hypertensionHeadac heSleep apneaFatty liver 0 Tino Casas. [address], [place], [place], [address] , [place]. [phone] PREV VISIT, EST, AGE 40-64 [facility], [address], [place], [place], [address], tel:[phone] [facility] PHysical (chief complaint) Encounter for general adult medical exam w abnormal findingsSleep apneaEssential (primary) hypertensionHeadac heHyperlipidemia 201 9 Tino Arreola [address], [place], [place], [address] , [place]. tel:[phone] Referring Provider: Ravindra Pack [address], [place], [place], [address]. tel:[phone] OFFICE/OUTPA TIENT VISIT, EST [facility], [address], [place], [place], [address], tel:[phone] [facility] knee pain1 (chief complaint)c hest pain1 (chief complaint) Pain in left kneeChest painBody mass index (BMI) 40.0-44.9, adult 8 Tino Casas. [address], [place], [place], [address] , [place]. tel:[phone] Referring Provider: Ravindra Pack [address], [place], [place], [address]. tel:[phone] PREV VISIT, EST, AGE 40-64 [facility], [address], [place], [place], [address], [place] tel:[phone] [facility] Physical (chief complaint) Body mass index (BMI) 40.0-44.9, adultEncounter for general adult medical exam w abnormal findingsSleep apneaHyperlipidemi aHeadacheEssential (primary) hypertensionGenera lized Anxiety Disorder 8 Tino Casas. [address], [place], [place], [address] , [place]. [phone] Referring Provider: Ravindra Pack [address], [place], [place], [address]. tel:[phone] OFFICE/OUTPA TIENT VISIT, EST [facility], [address], [place], [place], [address], [place] tel:[phone] [facility] anxiety1 (chief complaint)s leep apnea1 (chief complaint) Sleep apneaGeneralized Anxiety Disorder 7 Tino Casas. [address], [place], [place], [address] , [place]. tel:[phone] Referring Provider: Ravindra Pack [address], [place], [place], [address]. tel:[phone] OFFICE/OUTPA TIENT VISIT, EST [facility], [address], [place], [place], [address], [place] tel:[phone] [facility] knee pain1 (chief complaint) Chronic pain syndrome Sep- 7 Tino Casas. [address], [place], [place], [address] , [place]. tel:[phone] Referring Provider: Ravindra Pack [address], [place], [place], [address]. tel:[phone] OFFICE/OUTPA TIENT VISIT, EST [facility], [address], [place], [place], [address], [place] tel:[phone] [facility] HLP (chief complaint)h ip pain1 (chief complaint)s leep apnea1 (chief complaint)o besity1 (chief complaint) Osteoarthritis of hip, unspecifiedBody mass index (BMI) 40.0-44.9, adultSleep apneaHyperlipidemi a 7 Tino Casas. [address], [place], [place], [address] , [place]. tel:[phone] Referring Provider: Ravindra Pack [address], [place], [place], [address]. tel:[phone] PREV VISIT, EST, AGE 40-64 [facility], [address], [place], [place], [address], [place] tel:[phone] [facility] PHysical (chief complaint) Encounter for general adult medical exam w abnormal findingsLumbago with sciatica, left sideEssential (primary) hypertensionHyperl ipidemia 7 Tino Ar[address], [place], [place], [address] , [place]. tel:[phone] Referring Provider: Ravindra Pack [facility] [address], [place], [place], [address]. tel:[phone] OFFICE/OUTPA TIENT VISIT, EST [facility], [address], [place], [place], [address], [place] tel:[phone] [facility] headache1 (chief complaint)a nxiety (chief complaint)a nxiety1 (chief complaint)s leep apnea1 (chief complaint)o besity1 (chief complaint) HeadacheMajor depressive disorder, single episode, unspecifiedBody mass index (BMI) 40.0-44.9, adultSleep apnea Dec- 7 Tino [address], [place], [place], [address] , [place]. tel:[phone] Referring Provider: Ravindra Pack [address], [place], [place], [address]. tel:[phone] OFFICE/OUTPA TIENT VISIT, [facility] [place], [address], [place], [place], [address], [place] tel:[phone] [facility] HTN (chief complaint)H LP (chief complaint)h eadache1 (chief complaint)a nxiety1 (chief complaint) Major depressive disorder, single episode, unspecifiedHeadach eEssential (primary) hypertensionHyperl ipidemia 7 Tino Casas. [address], [place], [place], [address] , . tel:[phone] Referring Provider: Ravindra Pack [address], [place], [place], [address]. tel:[phone] OFFICE/OUTPA TIENT VISIT, [facility] [place], [address], [place], [place], [address], [place] tel:[phone] [facility] anxiety1 (chief complaint)o besity1 (chief complaint) Generalized Anxiety DisorderBody mass index (BMI) 39.0-39.9, adult 201 6 Tino Casas. [address], [place], [place], [address] , [place]. tel:[phone] Referring Provider: Ravindra Pack [address], [place], [place], [address]. tel:[phone] OFFICE/OUTPA TIENT VISIT, [facility] [place], [address], [place], [place], [address], [place] tel:[phone] [facility] fatty liver1 (chief complaint)h eadache1 (chief complaint)d epression1 (chief complaint) Fatty liverHeadacheDepre ssion 8 6 Tino Casas. [address], [place], [place], [address] , [place]. tel:[phone] Referring Provider: Ravindra Pack [address], [place], [place], [address]. tel:[phone] OFFICE/OUTPA TIENT VISIT, EST [facility], [address], [place], [place], [address], [place] tel:[phone] [facility] headache1 (chief complaint)L FT1 (chief complaint) Liver disease, unspecifiedHeadach eBody mass index (BMI) 39.0-39.9, adult Oct-0 6 Tino Casas. [address], [place], [place], [address] , [place]. tel:[phone] Referring Provider: Ravindra [address], [place], [place], [address]. tel:[phone] OFFICE/OUTPA TIENT VISIT, EST [facility], [address], [place], [place], [address], [place] tel:[phone] [facility] HLP (chief complaint)L FT (chief complaint)f oot pain1 (chief complaint)h eadache1 (chief complaint) Pain in left footHeadacheMixed hyperlipidemiaLive r disease, unspecified Sep-0 - 6 Tino Casas. [address], [place], [place], [address] , [place]. tel:[phone] Referring Provider: Rav[address]ra [address], [place], [place], [address]. tel:[phone] PREV VISIT, EST, AGE 40-64 [facility], [address], [place], [place], [address], [place] tel:[phone] [facility] Physical (chief complaint) Encounter for general adult medical exam w abnormal findingsMixed hyperlipidemiaEsse ntial (primary) hypertension Dec- 6 Tino Casas. [address], [place], [place], [address] , [place]. tel:[phone] Referring Provider: Ravindra Pack [address], [place], [place], [address]. tel:[phone] OFFICE/OUTPA TIENT VISIT, EST [facility], [address], [place], [place], [address], [place] [phone] [facility] shoulder pain (chief complaint)H TN (chief complaint)c hest pain1 (chief complaint)H LP1 (chief complaint) Chronic pain syndromeEssential (primary) hypertensionChest painMixed hyperlipidemia 6 Tino [address], [place], [place], [address] , [place]. tel:[phone] Referring Provider: Ravindra Pack [address], [place], [place], [address]. tel:[phone] OFFICE/OUTPA TIENT VISIT, [facility] [place], [address], [place], [place], [address], [place] [phone] [facility] chest pain1 (chief complaint)j oint pain (chief complaint) Dietary surveillance and counselingOther chest painPain in right shoulderPain in right knee 0 5 Tino Ar[address], [place], [place], [address] , [place]. [phone] Referring Provider: Ravindra [address], [place], [place], [address]. tel:[phone] OFFICE/OUTPA TIENT VISIT, [facility] [place], [address], [place], [place], [address], [place] [phone] [facility] depression (chief complaint)H LP (chief complaint)H TN (chief complaint) Dietary surveillance and counselingHyperten christy, UnspecifiedOther and unspecified hyperlipidemiaDepr essionSleep Apnea 5 Tino Ar[address], [place], [place], [address] , [place]. tel:[phone] Referring Provider: Ravindra [address], [place], [place], [address]. tel:[phone] PREV VISIT, EST, AGE 40-64 [facility], [address], [place], [place], [address], [place] tel:[phone] [facility] Physical (chief complaint) Dietary surveillance and counselingRoutine Medical ExamRoutine Medical Exam 5 Tino Casas. [address], [place], [place], [address] , [place]. tel:[phone] Referring Provider: Ravindra Pack [address], [place], [place], [address]. tel:[phone] OFFICE/OUTPA TIENT VISIT, [facility] [place], [address], [place], [place], [address], [place] [phone] [facility] ankle pain (chief complaint)s leep apnea (chief complaint) Sleep ApneaPain in joint involving ankle and foot 4 Tino Casas. [address], [place], [place], [address] , [place]. tel:[phone] Referring Provider: Ravindra Pack [address], [place], [place], [address]. tel:[phone] OFFICE/OUTPA TIENT VISIT, [facility] [place], [address], [place], [place], [address], [place] tel:[phone] [facility] sinusitis (chief complaint)s leep apnea (chief complaint)f oot pain (chief complaint)H TN (chief complaint)H LP (chief complaint)d epression (chief complaint) Pain in joint involving ankle and footSleep ApneaHypertension, UnspecifiedOther and unspecified hyperlipidemia Dec- 4 Tino Casas[address], [place], [place], [address] , [place]. tel:[phone] Referring Provider: Ravindra Pack [address], [place], [place], [address]. tel:[phone] OFFICE/OUTPA TIENT VISIT, [facility] [place], [address], [place], [place], [address], [place] tel:[phone] [facility] chronic sinusitis (chief complaint) Dietary surveillance and counselingOther chronic sinusitis 4 Tino Casas. [address], [place], [place], [address] , [place]. tel:[phone] Referring Provider: Ravindra Pack [address], [place], [place], [address]. tel:[phone] OFFICE/OUTPA TIENT VISIT, [facility] [place], [address], [place], [place], [address], [place] tel:[phone] [facility] Sinus problem (chief complaint)f atigue (chief complaint) Dietary surveillance and counselingOther chronic sinusitisSleep ApneaMetabolic Syndrome 4 Tino Casas[address], [place], [place], [address] , [place]. tel:[phone] Referring Provider: Ravindra Pack [address], [place], [place], [address]. tel:[phone] PREV VISIT, NEW, AGE 40-64 [facility], [address], [place], [place], [address], [place] tel:[phone] [facility] Physical (chief complaint) Dietary surveillance and counselingRoutine Medical ExamRoutine Medical Exam 3 Tino [address], [place], [id number] , [place]. tel:[phone] Family History Family Member Type Diagnosis Age At Onset Mother Problem (finding) liver cirrhosis Brother Problem (finding) Diabetes mellitus Father Problem (finding) scleroderma Father Problem (finding) Coronary artery disease 55 Payers Payer name Insurance type Covered libertarian ID Authoriza tion(s) No Information Social History Type Description Quantity Date Captured Comments Alcohol Use Details Caffeine Use Details Unknown Tobacco Use Status Never smoked tobacco 2024 Smoking Status Never smoker Sex Female Vital Signs Date / Time: Height Weight BMI Pulse Rate Blood Pressure Temperature Respiratory Rate Body Surface Area Head Circumference BMI percentile Pulse Ox Inhaled Ox 10:59 AM 66.00 in 273.40 lbs 44.1 3 kg/m eter (2) 91 /min 130/72 mm[Hg] 97.3 F 16 /min Chief Complaint And Reason For Visit From encounter dated 09/21/2024 10:53'. sick (chief complaint). Description: Pt c/o dry cough, ear pain, subjective fever on and off for one week Pt denies any sinus or sore throat ,Pt denies any sick contact Pt is vaccinated for influenzabut not for COVID. Plan Of Treatment Date Type Action Status Goal Pap/HPV testing. Due on due Goal Tdap. Due on due Goal Sigmoidoscopy. Due on due Goal Td vaccine. Due on due Goal FOBT. Due on due Goal Lipid panel. Due on 025 due Goal Depression screening. Due on due Goal Influenza vaccine. Due on due Goal Influenza vaccine. Due on due Goal Depression screening. Due on due Goal Lipid panel. Due on due Goal FOBT. Due on due Goal Td vaccine. Due on 24 due Goal Sigmoidoscopy. Due on due Goal [...] on due Goal Influenza vaccine. Due on Ma due Goal Td vaccine. Due on due [...] on due Goal Influenza vaccine. Due on Ma due Goal Influenza vaccine. Due on due [...] Goal Lipid panel. Due on due Goal Special diet education compl eted Goal Td vaccine. Due on 18 due Goal Influenza vaccine. Due on due Goal Depression screening. Due on due Goal Pap/HPV testing. Due on due Goal Tdap. Due on due Goal Lipid panel. Due on due Goal Special diet education compl eted [...] Goal Td vaccine. Due on due Goal Pap/HPV testing. Due [...] on 4 due Referral Referred To: Mark Roberts [address] [facility] [address] [place] [address], [id number] [phone] Ordered: Referrals: Mark Roberts. Evaluate and treat ordered Referral Ordered: Anastacia Elizalde -Podiatric Medicine & Surgery Service Providers : Deburrer (related to Encounter for general adult medical examination without abnormal findings) ordered Referral Referred To: Anastacia Elizalde [address] [facility]
[place], [place], [phone] Ordered: Referrals: Podiatric Medicine & Surgery Service Providers : Deburrer. Anastacia Elizalde. Evaluate and treat ordered Referral Ordered: DXA BONE DENSITY, AXIAL ordered Referral Ordered: TOMAS RUELAS -Allopathic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
== END 2024-11-24 14:21 | disposition home or self-care (01) ==
PROVIDERS: PCP Emergency Medicine; Visit Provider Podiatrist Foot & Ankle Surgery
DX: S96.812A Strain of other specified muscles and tendons at ankle and foot level, left foot, initial encounter (principal); X58.XXXA Exposure to other specified factors, initial encounter; M19.072 Primary osteoarthritis, left ankle and foot
CPT/HCPCS: 73721

== ENCOUNTER 2025-02-28 15:30 | Outpatient (RCR) | payer OTHER, SELFPAY ==
--- NOTE | 2025-01-13 17:26 | OPREHPOC ---
Outpatient Therapy Plan of Care This is a Multidisciplinary Plan of Care that may contain components documented by all disciplines (PT, OT, and ST.) PT Problem 1 PT Problem #1 Knowledge Deficit PT Goal 1 Goal / Goal Update [place] with HEP Target Visit 2 PT Goal 2 Goal / Goal Update Report no pain greater than 2/10 consistently for 2 weeks Target Visit 8 PT Problem 2 PT Problem #2 Impaired Range of Motion PT Goal 1 Goal / Goal Update 1. Improve L ankle dorsiflexion ROM to 15 degrees to improve terminal stance Target Visit 8 PT Problem 3 PT Problem #3 Impaired Strength PT Goal 1 Goal / Goal Update Improve gross L ankle strength to 5/5 to improve stabilization for gait and ADLs Target Visit 8 PT Problem 4 PT Problem #4 Impaired Gait PT Goal 1 Goal / Goal Update Improve ambulation distance to 500' feet without increased pain Target Visit 8
--- NOTE | 2025-01-13 17:26 | PTOPEVAL1 ---
Assessment and note entered by Kev Vogel, PT Evaluation Information Assessment Status Evaluation Diagnosis Left Peroneal Tendonitis, Left Peroneus brevis strain ICD-10 Condition Codes (PT) Difficulty Walking R26.2 Onset 7+ years ago Subjective Information Reports that she has chronic tendon issues for years. She had an MRI and revelated peroneus brevis spilt in the ankle. She is currently wearing an ankle brace as protection at all time. She has pain all the time. All pain is in the lateral ankle below malleolus. Reports some chronic Achilles tendonitis as well. Feels that the ankle is both tight and weak. Even has pain with motion when non weight bearing. Reported Pain Level Pain Score 3: Self Report Assessment PT Clinical Summary Patient presents with ankle edema, loss of ROM, and altered gait. She will benefit from skilled therapy to address these deficits and improve gross mobility and strength for ADL performance. Plan of Care Interventions Gait Training,Manual Lymph Drainage,Manual Therapy ,Therapeutic Activities,Therapeutic Exercise PT Services Indicated Yes Treatment Frequency and 2x/week for 8 visits Duration These treatments will address the objective and functional deficits as defined above. The patient will be advanced safely and appropriately in order for the patient to progress towards his/her prior level of function. Additional exercises will be introduced and as well as a comprehensive home exercise program upon discharge, if needed, ?to ensure carryover of functional gains achieved in the clinic. This treatment plan has been reviewed and agreement upon by the patient.
--- NOTE | 2025-02-11 16:32 | PCPTNOTE ---
Pt canceled as had an appt. at same time.
--- NOTE | 2025-02-28 16:02 | OPREHPOC ---
Outpatient Therapy Plan of Care This is a Multidisciplinary Plan of Care that may contain components documented by all disciplines (PT, OT, and ST.) PT Problem 1 PT Problem #1 Knowledge Deficit PT Goal 1 Goal / Goal Update [place] with HEP 25 d/c goal met Target Visit 2 Progress Met PT Goal 2 Goal / Goal Update Report no pain greater than 2/10 consistently for 2 weeks 25 d/c goal not met Target Visit 8 PT Problem 2 PT Problem #2 Impaired Range of Motion PT Goal 1 Goal / Goal Update 1. Improve L ankle dorsiflexion ROM to 15 degrees to improve terminal stance 25 d/c goal not met Target Visit 8 Progress Not Met PT Problem 3 PT Problem #3 Impaired Strength PT Goal 1 Goal / Goal Update Improve gross L ankle strength to 5/5 to improve stabilization for gait and ADLs 25 d/c goal met Target Visit 8 Progress Met PT Problem 4 PT Problem #4 Impaired Gait PT Goal 1 Goal / Goal Update Improve ambulation distance to 500' feet without increased pain 25 d/c goal not met Target Visit 8 Progress Not Met
--- NOTE | 2025-02-28 16:02 | PTOPDC ---
Assessment and note entered by Judy Frazier, PT Assessment Status Discharge Diagnosis Left Peroneal Tendonitis, Left Peroneus brevis strain ICD-10 Condition Codes (PT) Difficulty Walking R26.2 Onset 7+ years ago Subjective Information ankle is a little better, some of the exercises help, but not that much better; use the ankle brace whenever I walk- have to have it on or ankle hurts and gives out; Reported Pain Level Pain Score Self Report Additional Pain Score Comments pain range in the past week 2-05/25 in lateral ankle; increase pain: walking/on feet 30 minutes decrease pain: sit, rest, heat, move ankle, ankle support brace Assessment PT Clinical Summary Jennifer has received 8 PT sessions. Compared to the initial evaluation: pain from 1- 06/24 to 2-05/25; LE functional scale self rating from 51% to 34% limitation in activity level; reported walking/standing tolerance of 30 minutes; L ankle active ROM: DF 3', PF 60', inversion 40' and eversion 20'; all increase pain in ankle; Gait pattern is good with reported increase pain; Education for HEP completed. The goals were partially met. Discharge PT services. She is to continue with HEP and call her provider for follow up appointment. Plan of Care PT Services Indicated No
== END 2025-03-01 09:20 | disposition home or self-care (01) ==
LOC: ANHPT 15:30
PROVIDERS: PCP Emergency Medicine; Visit Provider Podiatrist Foot & Ankle Surgery
DX: M76.72 Peroneal tendinitis, left leg (principal)
CPT/HCPCS: 97014; 97016; 97022; 97110; 97116; 97140; 97161; 97530; G0283